=== PATIENT | male | born 1950 | race Caucasian/White ===

== ENCOUNTER 2020-01-01 19:24 | Observation (INO) | payer MEDICARE, MEDICAID ==
[2020-01-01 19:49] LABS: #Basophils 0.1 thou/uL (0.0-0.2); #Eosinphils 0.1 thou/uL (0.0-0.7); #Lymphocytes 1.9 thou/uL (1.20-3.40); #Monocytes 0.7 thou/uL (0.11-0.59); #Neutrophils 12.6 thou/uL (1.40-6.50); %Basophils 0.7 % (0.0-1.0); %Eosinophils 0.4 % (0.0-10.0); %Lymphocytes 12.3 % (21.0-51.0); %Monocytes 4.7 % (0.0-10.0); %Neutrophils 81.8 % (42.0-75.0); Hemoglobin 16.5 g/dL (14.0-18.0); Mean Corpuscular HGB CONC 33.4 g/dL (32.0-36.0); Mean Corpuscular Hemoglobin 30.2 pg (27.0-31.0); Mean Corpuscular Volume 90.5 fL (78.0-98.0); Platelet Count 252 thou/uL (130-400); RBC Distribution Width 12.6 % (11.5-14.5); Red Blood Cell (RBC) Count 5.47 mill/uL (4.70-6.10); White Blood Cell (WBC) Count 15.3 thou/uL (4.8-10.8)
[2020-01-01 20:11] LABS: ALT (SGPT) 30 U/L (8-55); AST (SGOT) 19 U/L (5-34); Albumin 4.6 g/dL (3.4-4.8); Alkaline Phosphatase 87 U/L (40-110); Anion Gap 17 mmol/L (10-20); BUN (Urea Nitrogen) 33 mg/dL (8.4-25.7); Bilirubin, Total 0.7 mg/dL (0.2-1.2); CK (CPK) 123 U/L (30-200); Calc. Creatinine Clearance 0 mL/min (70-130); Calcium 9.9 mg/dL (7.8-10.44); Carbon Dioxide 21 mmol/L (23-31); Chloride 101 mmol/L (98-107); Estimated GFR-MDRD 44; Globulin 3.4 g/dL (2.4-3.5); Glucose 216 mg/dL (80-115); Lipase 34 U/L (8-78); Potassium 5.6 mmol/L (3.5-5.1); Sodium 133 mmol/L (136-145)
[2020-01-01] MEDS ORDERED: Nitroglycerin 2% Ointment 1 INCH/1 GM Packet ONE (20:33)
--- NOTE | 2020-01-01 21:13 | RAD ---
PORTABLE CHEST: 01/01/20 PROVIDED CLINICAL HISTORY: Shoulder and arm pain. FINDINGS: No comparisons. Cardiac and mediastinal silhouette is within normal limits. The lungs appear clear. No pleural fluid or pneumothorax apparent. IMPRESSION: No evidence for an acute cardiopulmonary process. POS: CHRIS
[2020-01-01] MEDS ORDERED: Nitroglycerin 0.4 MG TAB (25 Tab Bottle) PO PRN (21:46)
[2020-01-01] MEDS ORDERED: Dextrose 5% in Water 1,000 ML IV PRN (21:49)
[2020-01-01] MEDS ORDERED: Dextrose 50% Abboject 50 ML SYRINGE SLOW IVP PRN (21:49)
[2020-01-01] MEDS ORDERED: HumaLOG 300 UNITS/3 ML VIAL SC PRN ×2 (21:49)
--- NOTE | 2020-01-01 22:01 | PDOC.HHP ---
Hospitalist HPI - History of Present Illness Chest pain History of Present Illness: PCP: Larisa The patient is a 69/M with PMH significant for HTN, HLD, DMII, asthma that presents for above complaint. The patient reports developing right arm pain, onset around 1700, while sitting down at home, radiating to right chest and right side of neck, describes as pressure, dull, 5/10, exacerbated with movement of extremity, with associated nausea and light headededness. Denies any heart palpitations, orthopnea or Lower extremity swelling. Denies any sob or wheezing. Reports having multiple episodes of right arm pain over the past month. The pain is similar and is associated with weakness. Denies any neck pain, injury or trauma. Reports having Carotid US in 2015 that he believes showed approximately 60% stenosis to his left carotid artery. Because of the above reasons the patient called EMS. The patient took 325mg ASA x 2 and 0.25mg xanax prior to EMS arrival. ED Course: VS T 98.1F, BP 145/80, HR 72, RR 16, Sp02 95% RA EKG NSR, no ST elevations Trop negative CXR no acute cardiopulmonary process K 5.6 Na 133 Creatinine 1.57 GFR 64 WBC 15.3 Given: 1 inch nitro-paste with resolution of symptoms. Hospitalist ROS - Review of Systems Constitutional: denies: fever, chills, sweats, weakness, malaise, other Eyes: denies: pain, vision change, conjunctivae inflammation, eyelid inflammation, redness, other ENT: denies: ear pain, ear discharge, nose pain, nose discharge, nose congestion , mouth pain, mouth swelling, throat pain, throat swelling, other Respiratory: denies: cough, dry, shortness of breath, hemoptysis, SOB with excertion, pleuritic pain, sputum, wheezing, other Cardiovascular: reports: chest pain, light headedness. denies: palpitations, orthopnea, paroxysmal noc. dyspnea, edema Gastrointestinal: reports: nausea. denies: vomiting, abdominal pain, diarrhea, constipation, melena, hematochezia Genitourinary: denies: dysuria, frequency, incontinence, hematuria, retention, other Musculoskeletal: reports: neck pain (right sided), shoulder pain (right sided) Neurological: reports: weakness (RUE extremity). 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, retired funeral home attendant Activity level: independent ambulation - Exam General Appearance: NAD, awake alert Eye: anicteric sclera ENT: normocephalic atraumatic Neck: supple, symmetric, no JVD Heart: RRR, no murmur, no gallops, no rubs, normal peripheral pulses Respiratory: CTAB, no wheezes, no rales, no ronchi, no tachypnea Gastrointestinal: soft, non-tender, non-distended, normal bowel sounds, no guarding, no rigidity Extremities: no cyanosis, no edema Skin: no rashes Neurological: cranial nerve grossly intact, no focal deficits Musculoskeletal: normal tone, normal strength Psychiatric: normal affect, A&O x 3 Hospitalist Results - Labs Result Diagrams: 01/01/20 19:42 01/01/20 19:42 Lab results: WBC 15.3 thou/uL (4.8-10.8) H 01/01/20 19:42 Hgb 16.5 g/dL (14.0-18.0) 01/01/20 19:42 Hct 49.5 % (42.0-52.0) 01/01/20 19:42 MCV 90.5 fL (78.0-98.0) 01/01/20 19:42 Plt Count 252 thou/uL (130-400) 01/01/20 19:42 Neutrophils % 81.8 % (42.0-75.0) H 01/01/20 19:42 Sodium 133 mmol/L (136-145) L 01/01/20 19:42 Potassium 5.6 mmol/L (3.5-5.1) H 01/01/20 19:42 Chloride 101 mmol/L (98-107) 01/01/20 19:42 Carbon Dioxide 21 mmol/L (23-31) L 01/01/20 19:42 BUN 33 mg/dL (8.4-25.7) H 01/01/20 19:42 Creatinine 1.57 mg/dL (0.7-1.3) H 01/01/20 19:42 Glucose 216 mg/dL (80-115) H 01/01/20 19:42 Calcium 9.9 mg/dL (7.8-10.44) 01/01/20 19:42 Total Bilirubin 0.7 mg/dL (0.2-1.2) 01/01/20 19:42 AST 19 U/L (5-34) 01/01/20 19:42 ALT 30 U/L (8-55) 01/01/20 19:42 Alkaline Phosphatase 87 U/L (40-110) 01/01/20 19:42 Creatine Kinase 123 U/L (30-200) 01/01/20 19:42 Troponin I Less than 0.010 ng/mL (< 0.028) 01/01/20 19:42 Serum Total Protein 8.0 g/dL (5.8-8.1) 01/01/20 19:42 Albumin 4.6 g/dL (3.4-4.8) 01/01/20 19:42 Lipase 34 U/L (8-78) 01/01/20 19:42 Hospitalist H&P A/P - Problem (1) Chest pain Code(s): R07.9 - CHEST PAIN, UNSPECIFIED Status: Acute Assessment and Plan: Admit to telemetry service, observation status Expected length of stay less than 2 midnights Chest pain resolved upon examination HEART SCORE 5, high risk Trend troponins Continue nitro paste and ASA Check TSH, FLP, Mag level NPO after midnight NM BURR GRINDER tomorrow (2) BLAKE (acute kidney injury) Code(s): N17.9 - ACUTE KIDNEY FAILURE, UNSPECIFIED Status: Acute Assessment and Plan: Creatinine 1.57, GFR 64 Baseline unknown Will start IVF Recheck bmp in am (3) Hyperkalemia Code(s): E87.5 - HYPERKALEMIA Status: Acute Assessment and Plan: Potassium 5.6 EKG NSR, no ST or T wave abnormalities Will give IVF Recheck in am (4) DMII (diabetes mellitus, type 2) Status: Chronic Assessment and Plan: Patient BG 216 upon admission Home levemir 14u SC q am Home medications: glipizide 5mg q am - hold januvia 50mg q am - hold metformin 500mg q am - hold Will be npo after midnight Start Mild sliding scale AC/HS accuchecks (5) HTN (hypertension) Code(s): I10 - ESSENTIAL (PRIMARY) HYPERTENSION Status: Chronic Assessment and Plan: Home med list includes norvasc 10mg q am losartan 50mg q am Will hold losartan for now Will restart norvasc when home meds reconciled by nursing (6) HLD (hyperlipidemia) Code(s): E78.5 - HYPERLIPIDEMIA, UNSPECIFIED Status: Chronic Assessment and Plan: Home medication atorvastatin 40mg q am Will restart in am Will check FLP (7) Asthma Code(s): J45.909 - UNSPECIFIED ASTHMA, UNCOMPLICATED Status: Chronic Assessment and Plan: Stable Takes advair and combivent prn Will add nebs prn (8) Peripheral neuropathy Code(s): G62.9 - POLYNEUROPATHY, UNSPECIFIED Status: Chronic Assessment and Plan: Home medication is Gabapentin 600mg TID Will restart when home medications reconciled. (9) BPH (benign prostatic hyperplasia) Code(s): N40.0 - BENIGN PROSTATIC HYPERPLASIA WITHOUT LOWER URINRY TRACT SYMP Status: Chronic Assessment and Plan: Home medication is Tamulosin 0.4mg q am Will restart when home medications reconciled by nursing. - Plan Plan: Pepcid GI prophylaxis SCDs for DVT prophylaxis Consult walking program Full Code DPOA is daughter, Jennifer at [phone] Boucher.
[2020-01-02 00:01] VITALS: BMI 32.1
[2020-01-02] MEDS: Sodium Chloride 0.9% 1,000 ML IV SCH ×2 (00:16→11:56)
[2020-01-02] MEDS: Nitroglycerin 2% Ointment 1 INCH/1 GM Packet TOP SCH ×3 (01:46→13:29)
[2020-01-02 02:21] LABS: #Basophils 0.1 thou/uL (0.0-0.2); #Eosinphils 0.1 thou/uL (0.0-0.7); #Lymphocytes 4.6 thou/uL (1.20-3.40); %Basophils 0.7 % (0.0-1.0); %Eosinophils 0.9 % (0.0-10.0); %Lymphocytes 30.9 % (21.0-51.0); %Monocytes 6.5 % (0.0-10.0); %Neutrophils 61.1 % (42.0-75.0); Hemoglobin 15.1 g/dL (14.0-18.0); Mean Corpuscular HGB CONC 34.1 g/dL (32.0-36.0); Mean Corpuscular Hemoglobin 30.7 pg (27.0-31.0); Mean Corpuscular Volume 89.8 fL (78.0-98.0); Mean Platelet Volume 6.8 fL (7.4-10.4); Platelet Count 218 thou/uL (130-400); RBC Distribution Width 12.6 % (11.5-14.5); Red Blood Cell (RBC) Count 4.93 mill/uL (4.70-6.10); White Blood Cell (WBC) Count 14.7 thou/uL (4.8-10.8)
[2020-01-02 02:44] LABS: Troponin I 0.015 ng/mL (< 0.028)
[2020-01-02 02:47] LABS: Anion Gap 11 mmol/L (10-20); BUN (Urea Nitrogen) 27 mg/dL (8.4-25.7); Calc. Creatinine Clearance 84 mL/min (70-130); Calcium 9.4 mg/dL (7.8-10.44); Carbon Dioxide 24 mmol/L (23-31); Cardiac Risk 3.8 (Less than 4.5); Chloride 103 mmol/L (98-107); Cholesterol 176 mg/dl (< 200 Desired); Estimated GFR-MDRD 56; Glucose 175 mg/dL (80-115); HDL Cholesterol 46 mg/dL (>60 Neg Risk); LDL Cholesterol, Calculated 115 mg/dL; Potassium 4.2 mmol/L (3.5-5.1); Sodium 134 mmol/L (136-145); Triglycerides 76 mg/dL (Less than 150)
[2020-01-02] MEDS ORDERED: Regadenoson 0.4 MG/5 ML SYRINGE ONE (08:46)
[2020-01-02] MEDS ORDERED: Aspirin 81 mg Enteric Coated Tablet PO SCH (09:00)
[2020-01-02] MEDS ORDERED: Famotidine 20 MG TAB PO SCH (09:00)
[2020-01-02] MEDS ORDERED: Prevnar 13-Val Conj/PF 0.5 ML SYRINGE IM ONE (09:00)
[2020-01-02 11:14] VITALS: BP 143/73; TEMP 97.6
--- NOTE | 2020-01-02 11:25 | NM ---
EXAM: NM Cardiac Stress W EF WF PROVIDED CLINICAL HISTORY: Chest pain COMPARISON: None FINDINGS: There is normal uptake and distribution of radiotracer seen throughout the left ventricular myocardiu m. No significant reversible defect is seen between the stress and resting acquisitions. Gated images demonstrate global hypokinesis. Normal ventricular wall thickening is present. The calculated left ventricular ejection fraction is 48%. IMPRESSION: 1. Normal myocardial perfusion study without evidence of a reversible defect seen to suggest ischemia . 2. Decreased LVEF of 48%.
--- NOTE | 2020-01-02 12:39 | RAD ---
Exam:Right shoulder 3 views HISTORY: Lifting injury. Pain. COMPARISON: None FINDINGS: Mild narrowing of the glenohumeral joint space. There is evidence of osteophyte formation. Sclerosis and lucency involving the greater tuberosity. Correlate for tendinopathy. No fracture or dislocation. Visualized right lung and ribs do not demonstrate any acute abnormality IMPRESSION: 1. No fracture dislocation 2. Degenerative changes. Nonemergent MRI if warranted
--- NOTE | 2020-01-02 12:42 | RAD ---
Exam: Soft tissue neck 2 views HISTORY: Neck pain FINDINGS: No prevertebral soft tissue swelling. Predental space is normal. Visualized aerodigestive t ract is patent. Visualized cervical spine vertebral body heights are maintained. No fracture. Mild to moderate loss o f disc space height and osteophyte formation at C4 to C5. Extensive osteophyte formation at C5-C6 and C6-C7. Grade 1 anterolisthesis of C2 upon C3. AP projection demonstrates facet arthropathy. Soft tissue calcifications due to atherosclerosis are s uspected IMPRESSION: Multilevel degenerative changes. Nonemergent cervical spine MRI if clinically warranted
--- NOTE | 2020-01-03 23:28 | DIS ---
DATE OF ADMISSION: 01/01/2020 DATE OF DISCHARGE: 01/02/2020 DISCHARGE DIAGNOSES: 1. Right-sided shoulder pain secondary to osteoarthritis 2. Neck pain secondary to osteoarthritis 3. Chest pain 4. Leukocytosis 5. Hyponatremia, 6. Anterolisthesis on C2 and C3.. CONSULTATIONS: None. PROCEDURES PERFORMED: None. BRIEF HISTORY OF PRESENT ILLNESS: This is a 69-year-old male with a past medical history of hypertension, hyperlipidemia, diabetes, who presented due to right arm pain that started while he was sitting down, was radiating to his chest and right side of his neck. He denied any shortness of breath, wheezing, diaphoresis, lightheadedness, or palpitations. He reports that this has been going on and off for the past few months and that he had ultrasound of his carotid arteries, which was 60% stenosis in the left side. His EKG showed normal sinus rhythm and no ST elevations. He was admitted for chest pain rule out. HOSPITAL COURSE: Chest pain: The patient underwent a nuclear stress test, which was normal. He did have a decreased LVEF of 48%. He had 3 sets of troponins, which were normal. It was thought that his chest pain more likely may be musculoskeletal, possibly referred from the shoulder. He was advised that he can take [id number] Tylenol or ibuprofen as needed. He should follow up with his PCP in a week. He did have a chest x-ray as well that was unremarkable. Osteoarthritis of the neck and shoulder: The patient reported pain in his right shoulder and pain while lifting his arms up. He also reported some mild neck pain. He had a shoulder x-ray done, which showed degenerative changes. He had a soft tissue neck x-ray showing multilevel degenerative changes. He was advised to take pain medications as an outpatient and consider following up with Neurosurgery due to some grade 1 anterolisthesis of C2 upon C3. Leukocytosis: The patient had a white count of 15.3 on presentation, which improved to 14.7. He did not receive any antibiotics. He was afebrile. This should be repeated as an outpatient. DISCHARGE PHYSICAL EXAMINATION: VITAL SIGNS: Temperature 97.6, heart rate 59, respiratory rate 20, O2 saturation 96% on room air, blood pressure 143/73. GENERAL: The patient is alert, awake, oriented x3. CVS: Regular rate and rhythm with no murmurs, rubs, or gallops. LUNGS: Clear to auscultation bilaterally. ABDOMEN: Positive bowel sounds, soft, nontender, and nondistended. EXTREMITIES: No edema. NECK: The patient has mild tenderness to palpation, paraspinally on the right side of the neck. RIGHT SHOULDER: Slightly tender to palpation with pain when abducting the shoulder above 90 degrees. PERTINENT LABORATORY DATA: CBC 01/01: White count 14.3, hemoglobin 15.1, hematocrit 44.3, platelet count 218. BMP 01/01: Sodium 134. Rest of BMP unremarkable. Troponin I: 0.010, 0.016, 0.015. Lipid panel: Triglycerides 76, cholesterol 176, LDL 115, HDL 46. Lipase: 34. TSH: 0.5185. IMAGING: Chest x-ray 12/31: No evidence of acute disease. Stress test: Normal myocardial perfusion scan. Decreased LVEF of 40%. Shoulder x-ray 01/01: No fracture dislocation. Degenerative changes. Soft tissue neck x-ray 01/01: Multilevel degenerative changes. DISCHARGE CONDITION: Stable. ACTIVITY: As tolerated. DIET: Regular diet. DISCHARGE INSTRUCTIONS: The patient to follow up with his PCP in a week. He should have repeat CBC to further evaluate leukocytosis. He is to sitter following up with Neurosurgery as an outpatient. He continues to have severe neck pain and arm weakness. Job ID: [id number] [facility]
--- NOTE | 2020-01-04 09:49 | EKG ---
Test Reason : Blood Pressure : / mmHG Vent. Rate : 086 BPM Atrial Rate : 086 BPM P-R Int : 150 ms QRS Dur : 094 ms QT Int : 340 ms P-R-T Axes : 017 012 039 degrees QTc Int : 406 ms Normal sinus rhythm Normal ECG Confirmed by ROHAN KIDD DO ([id number]), slot editor CLARITA MCFARLANE ([id number]) on 01/04/2020 9:49:26 AM Referred By: Confirmed By:ROHAN KIDD DO
== END 2020-01-02 14:26 | disposition home or self-care (01) ==
LOC: ERS 19:24 → 2NO 21:47
PROVIDERS: ADMIT Internal Medicine; ATTEND Internal Medicine
DX: R07.9 Chest pain, unspecified (principal); M19.011 Primary osteoarthritis, right shoulder; D72.828 Other elevated white blood cell count; I10 Essential (primary) hypertension; E11.9 Type 2 diabetes mellitus without complications; N17.9 Acute kidney failure, unspecified; E78.5 Hyperlipidemia, unspecified; J44.9 Chronic obstructive pulmonary disease, unspecified; E11.42 Type 2 diabetes mellitus with diabetic polyneuropathy; F41.9 Anxiety disorder, unspecified; F32.9 Major depressive disorder, single episode, unspecified; E87.5 Hyperkalemia; N40.0 Benign prostatic hyperplasia without lower urinary tract symptoms; Z79.4 Long term (current) use of insulin; Z79.899 Other long term (current) drug therapy
CPT/HCPCS: 70360; 71045; 73030; 78452; 80048; 80061; 82550; 82962; 83690; 83735; 84484 ×3; 85025; 93005; 93017; 96360; 96361; 99285; A9500; G0378 ×3; 36415; 36416; 80053; 84443; J2785

== ENCOUNTER 2020-06-23 13:03 | Outpatient (CLI) | payer MEDICARE, MEDICAID ==
--- NOTE | 2020-06-23 13:38 | RAD ---
XR Chest Pa Lat STANDARD HISTORY: Dyspnea COMPARISON: 01/01/2020 FINDINGS: The heart size is normal. The lungs are well expanded without focal areas of consolidation, pneumothorax or pleural effusions. There are degenerative changes in the spine. IMPRESSION: No radiographic evidence of acute cardiopulmonary process.
== END 2020-06-23 13:04 | disposition home or self-care (01) ==
LOC: BICRAD 13:03
PROVIDERS: ATTEND Internal Medicine Critical Care Medicine
DX: R06.00 Dyspnea, unspecified (principal)
CPT/HCPCS: 71046

== ENCOUNTER 2020-07-06 09:46 | Inpatient (IN) | payer MEDICARE, MEDICAID ==
[2020-07-06] MEDS ORDERED: Ondansetron PF 4 MG/2 ML Vial IVP PRN (13:18)
[2020-07-06] MEDS ORDERED: Ondansetron ODT 4 MG TAB PO PRN (13:18)
[2020-07-06] MEDS ORDERED: Dextrose 5% in Water 1,000 ML IV PRN (13:24)
[2020-07-06] MEDS ORDERED: Dextrose 50% Abboject 50 ML SYRINGE SLOW IVP PRN (13:24)
--- NOTE | 2020-07-06 14:09 | HP ---
CHIEF COMPLAINT: Worsening breathing. HISTORY OF PRESENT ILLNESS: This is a 69-year-old male, who has been hospitalized at [facility] since July 02, 2020 for COVID pneumonia. The patient presented there complaining of fevers, chills, increased work of breathing and exposure to COVID. He was hospitalized, treated for pneumonia with azithromycin and Rocephin, nebulizer therapy, steroids. His breathing status has worsened and he has been requiring more oxygen per the physician taking care of him. For this reason, he was transferred over to this facility. The patient reports intermittent headache, chest pain associated with coughing, and cough that is at times productive. He does notice shortness of breath. States that his breathing feels worse compared to when he was 1st hospitalized. He denies any nausea, vomiting, abdominal pain, denies any difficulty with urination or change in bowel function. Prior to leaving [place], the patient did undergo CT angiogram which was indeterminant for PE. PAST MEDICAL HISTORY: 1. Diabetes mellitus type 2. 2. Dyslipidemia. 3. Hypertension. 4. Asthma. 5. BPH. 6. Dyslipidemia. 7. Mood disorder. PAST SURGICAL HISTORY: History of appendectomy. SOCIAL HISTORY: The patient reports his daughter Jennifer is his surrogate decision maker. He is a full code. No alcohol or tobacco. ALLERGIES: NO KNOWN DRUG ALLERGIES. FAMILY HISTORY: Significant for diabetes and heart disease. MEDICATIONS: Current medications that he was transferred with are; 1. Dexamethasone 6 mg daily. 2. D50, Humalog sliding scale. 3. Enoxaparin 40 mg daily. 4. Guaifenesin ER 1200 mg b.i.d. 5. Pantoprazole 40 mg daily. 6. Albuterol every 6 hours. 7. Ceftriaxone 1 g IV daily. 8. Tylenol 650 mg every 4 hours as needed. 9. Tramadol 50 mg every 6 hours as needed. 10. Azithromycin 500 mg IV daily. 11. Zofran 4 mg every 6 hours as needed. Home medications are; 1. Advair 250-50 b.i.d. 2. Combivent every 6 hours. 3. Atorvastatin 40 mg at bedtime. 4. Glipizide 5 mg daily. 5. Levemir 14 units daily. 6. Prozac 40 mg daily. 7. Losartan 50 mg daily. 8. Amlodipine 10 mg daily. 9. Metformin 500 mg daily. 10. Tamsulosin 0.4 mg daily. REVIEW OF SYSTEMS: Negative for any current fevers or chills, nausea, vomiting, change in urine. All remaining review of systems are reviewed and negative. PHYSICAL EXAMINATION: VITAL SIGNS: His sat 98% on 5 L nasal cannula, pulse 88, blood pressure 138/69. GENERAL: He is awake, alert, responsive, not in apparent distress. Able to speak in full sentences. HEENT: Pupils are equal and round. NECK: Supple, nontender. LYMPHATICS: No palpable cervical or supraclavicular lymphadenopathy. LUNGS: No significant wheezing, rhonchi, or rales. HEART: Normal S1, S2. Distant heart sounds. No audible murmurs. ABDOMEN: Soft. Present bowel sounds. Nontender, nondistended. EXTREMITIES: No edema. VASCULAR: 2+ dorsalis pedis pulses. NEURO: No focal deficits. PSYCH: Appears euthymic. SKIN: No visible rashes. LABORATORY DATA: Reviewed from today. CBC from yesterday 12.9, 13, 38.8, 151. Chemistry; 136, 3.7, 102, 22, 17, 0.95, 112. COVID positive was on July 02. CT angiogram performed today shows indeterminate study for PE, severe bilateral patchy ground-glass infiltrates in all lobes consistent with the diagnosis of COVID infection, significant coronary atherosclerosis, particularly in the LAD, liver seen incompletely, but the size is generous. IMPRESSION: 1. Acute hypoxic respiratory failure secondary to COVID pneumonia - worsening. 2. Diabetes mellitus type 2. 3. Hypertension. 4. Dyslipidemia. 5. Asthma. 6. BPH. 7. Mood disorder. PLAN: 1. Admission to the ICU. 2. ID and Pulmonology consults. 3. Continuing short-acting and long-acting bronchodilators as well as inhaled steroids. 4. We will continue dexamethasone, await ID recommendations for further treatment. 5. Continuing his long-acting insulin, monitoring blood sugars. We will hold his glipizide, metformin, and Januvia for now. 6. Continuing his statin. 7. Holding his antihypertensives, we will monitor his blood pressure here and add back as it is needed. 8. Continuing the Rocephin and the azithromycin for pneumonia, anticipate that these can be stopped soon. 9. I will continue his home fluoxetine. 10. DVT prophylaxis. Because of the COVID, we will choose b.i.d. 40 mg subcutaneous. 11. GI prophylaxis. We will have the patient on a PPI while he is on steroids. 12. Code status is full. Surrogate decision maker is his daughter as noted. 13. Reviewed the plan of care with the patient who demonstrates understanding and agrees. No questions or further needs at the end of evaluation. 14. The patient is at high risk given age, comorbidities, current presentation and the unpredictability associated with COVID. Job ID: [id number] [facility]
[2020-07-06] MEDS ORDERED: Albuterol Sulfate 2.5 mg/3 ml Neb IPPB SCH (14:30)
[2020-07-06] MEDS ORDERED: guaiFENesin ER 600 MG TAB PO PRN (14:44)
[2020-07-06] MEDS ORDERED: cefTRIAXone\\ROCEPHIN 1 GM in Sodium Chloride 0.9% 100 ML IVPB SCH (15:00)
[2020-07-06] MEDS: Gabapentin 300 MG CAP PO SCH ×2 (15:08→20:24)
--- NOTE | 2020-07-06 15:17 | CON ---
DATE OF CONSULTATION: 07/06/2020 TIME SPENT: This encompassed 75 minutes time. Of that time, greater than 50% spent with the patient and/or the patient's unit in the hospital. REASON FOR CONSULTATION: COVID-19 pneumonia with acute hypoxic respiratory failure. HISTORY OF PRESENT ILLNESS: The patient is a pleasant 69-year-old male, whom I have seen in the office in the past regarding his asthma. On 07/02/2020, he was admitted to the [facility] with fever up to 103 with hypoxia and tachycardia. He was initially started on Zithromax, Rocephin, and dexamethasone. Despite that, he is continued to worsen symptomatically in terms of shortness of breath, although there is no real clear worsening of his O2 sats according to the charting. I think today, there was erroneous O2 saturation that led to his transfer over here, but he is now on 3 L nasal cannula with O2 saturations in the mid 90s. He has not had much in the way of cough, just mainly shortness of breath. PAST MEDICAL HISTORY: 1. Type 2 diabetes mellitus, now insulin dependent. 2. Hyperlipidemia. 3. Hypertension. 4. Asthma. 5. Benign prostatic hypertrophy. PAST SURGICAL HISTORY: 1. Appendectomy. 2. Colonoscopy. SOCIAL HISTORY: Nonsmoker. Does not consume alcohol. ALLERGIES: NONE. FAMILY MEDICAL HISTORY: Unremarkable. MEDICATIONS PRIOR TO ADMISSION: 1. Advair 250/50. 2. Combivent. 3. Atorvastatin. 4. Glipizide. 5. Levemir insulin. 6. Prozac. 7. Losartan. 8. Amlodipine. 9. Metformin. 10. Tamsulosin. REVIEW OF SYSTEMS: Essentially negative except for cough and shortness of breath. PHYSICAL EXAMINATION: VITAL SIGNS: Temperature 98, O2 saturation 95% on 3 L, pulse 86, blood pressure 138/69. GENERAL: The patient is awake and alert without acute distress, but appears clearly dyspneic at rest. HEENT: Pupils reactive. Sclerae anicteric. Oropharynx clear. NECK: No adenopathy or JVD. LUNGS: He has inspiratory crackles bilaterally, most significant at posteriorly. CARDIOVASCULAR: S1 and S2, regular without murmur. ABDOMEN: Soft. Nontender to palpation. EXTREMITIES: No clubbing or cyanosis. He has an area of bruising medially on his right great toe, which he says is chronic. LABORATORY DATA: Sodium 136, potassium 3.7, chloride 102, CO2 of 22, BUN 17, creatinine 0.9, glucose 112, AST 11, ALT 19, and albumin 3.4. COVID test positive. No inflammatory markers obtained. White blood cell count 12.9, hematocrit 38.8, and platelet count 151. CT shows diffuse bilateral infiltrates and a patchy alveolar pattern. ASSESSMENT: 1. COVID-19 pneumonia. 2. Diabetes mellitus. RECOMMENDATIONS: I am going to go ahead and switch dexamethasone to hydrocortisone. He probably needs an increase in his anticoagulation to a more therapeutic level. I do not see much role for the antibiotics in this situation as he has been on these for 4 to 5 days at this point without improvement and I would have no problem with the antibiotics being stopped. I would ask the hospitalist to help strictly control his blood sugars while he is on the higher dose steroids. Right now, this patient does not need mechanical ventilation or intubation. Thank you for the referral. I will be happy to follow with you. Job ID: [id number]
[2020-07-06] MEDS ORDERED: Azithromycin 500 MG in Sodium Chloride 0.9% 250 ML 250 ML IVPB SCH (16:00)
[2020-07-06] MEDS: Hydrocortisone Sod Succ/PF 100 mg/2 ml Vial IVP SCH ×2 (17:43→23:20)
[2020-07-06] MEDS: Albuterol 200 PUFF (6.7GM INHALER) INH SCH ×2 (19:22→22:31)
[2020-07-06] MEDS: Mometasone 200 MCG/Formoterol 5 MCG 120 PUFF INHALER INH SCH (19:22)
[2020-07-06] MEDS: Atorvastatin Calcium 40 MG TAB PO SCH (20:24)
[2020-07-06] MEDS: Enoxaparin Sodium 80 MG/0.8 ML SYRINGE SC SCH (20:25)
[2020-07-06] MEDS: traMADol HCl 50 MG TAB PO PRN (20:42)
[2020-07-06] MEDS: HumaLOG 300 UNITS/3 ML VIAL SC PRN (20:43)
[2020-07-06] MEDS ORDERED: Enoxaparin Sodium 40 MG/0.4 ML SYRINGE SC SCH (21:00)
[2020-07-07] MEDS: Albuterol 200 PUFF (6.7GM INHALER) INH SCH ×4 (02:54→14:24)
[2020-07-07 03:57] LABS: #Lymphocytes 0.9 thou/uL (1.20-3.40); #Monocytes 0.6 thou/uL (0.11-0.59); #Neutrophils 13.6 thou/uL (1.40-6.50); %Basophils 0.1 % (0.0-1.0); %Eosinophils 0.1 % (0.0-10.0); %Lymphocytes 5.9 % (21.0-51.0); %Monocytes 4.1 % (0.0-10.0); %Neutrophils 89.8 % (42.0-75.0); Hemoglobin 13.1 g/dL (14.0-18.0); Mean Corpuscular HGB CONC 33.7 g/dL (32.0-36.0); Mean Corpuscular Hemoglobin 30.1 pg (27.0-31.0); Mean Corpuscular Volume 89.2 fL (78.0-98.0); Mean Platelet Volume 7.9 fL (7.4-10.4); Platelet Count 198 thou/uL (130-400); Red Blood Cell (RBC) Count 4.35 mill/uL (4.70-6.10); White Blood Cell (WBC) Count 15.2 thou/uL (4.8-10.8)
[2020-07-07 04:19] LABS: Anion Gap 13 mmol/L (10-20); BUN (Urea Nitrogen) 21 mg/dL (8.4-25.7); Calc. Creatinine Clearance 100 mL/min (70-130); Calcium 8.2 mg/dL (7.8-10.44); Carbon Dioxide 24 mmol/L (23-31); Chloride 100 mmol/L (98-107); Estimated GFR-MDRD 65; Glucose 238 mg/dL (80-115); Potassium 4.5 mmol/L (3.5-5.1); Sodium 132 mmol/L (136-145)
[2020-07-07] MEDS: Hydrocortisone Sod Succ/PF 100 mg/2 ml Vial IVP SCH ×3 (05:06→18:07)
[2020-07-07] MEDS: Acetaminophen 325 MG TAB PO PRN (05:19)
[2020-07-07] MEDS: HumaLOG 300 UNITS/3 ML VIAL SC PRN ×4 (05:20→21:36)
[2020-07-07] MEDS: FLUoxetine HCl 20 MG CAP PO SCH (07:33)
[2020-07-07] MEDS: Tamsulosin HCl 0.4 MG CAP PO SCH (07:33)
[2020-07-07] MEDS: Gabapentin 300 MG CAP PO SCH ×3 (07:33→20:04)
[2020-07-07] MEDS: Enoxaparin Sodium 80 MG/0.8 ML SYRINGE SC SCH ×2 (07:34→21:11)
[2020-07-07] MEDS: Mometasone 200 MCG/Formoterol 5 MCG 120 PUFF INHALER INH SCH ×2 (07:44→18:49)
--- NOTE | 2020-07-07 08:25 | PRG ---
DATE OF SERVICE: 07/07/2020 SUBJECTIVE: Mr. Gray has worsened from an oxygenation standpoint on 5 L of O2 saturations running in the low 80s. He says he feels more distinct than yesterday. OBJECTIVE: VITAL SIGNS: On exam, temperature 98.6, pulse 82, blood pressure 120/49, and respiratory rate 19. HEENT: Unremarkable. NECK: No adenopathy or JVD. LUNGS: He has scattered crackles posteriorly. CARDIAC: S1 and S2. Regular. ABDOMEN: Soft. EXTREMITIES: No edema. LABORATORY DATA: Sodium 132, potassium 4.5, chloride 100, CO2 of 24, BUN 21, creatinine 1.1, and glucose 238. Ferritin 525. C-reactive protein 11.1. White blood cell count 15.5, hematocrit 38.8, and platelet count 198. ASSESSMENT: 1. COVID-19 pneumonia. 2. Acute hypoxic respiratory failure. RECOMMENDATIONS: 1. Continue anticoagulation and steroids. 2. I am going to put him on high-flow nasal cannula. 3. Continue ICU care. Job ID: [id number]
[2020-07-07] MEDS: Ascorbic Acid 500 mg Chewable Tablet PO SCH (08:32)
[2020-07-07] MEDS: Zinc Sulfate 220 MG CAP PO SCH (08:33)
[2020-07-07] MEDS: Cholecalciferol (Vitamin D3) 400 UNITS TAB PO SCH (08:53)
[2020-07-07] MEDS ORDERED: Insulin Glargine 14 UNITS in Pre-Filled Syringe 1 EACH SC SCH (09:00)
[2020-07-07] MEDS ORDERED: Dexamethasone 1 MG TAB PO SCH (09:00)
--- NOTE | 2020-07-07 14:10 | PDOC.HOSPP ---
- Subjective Encounter Date: 07/07/20 Encounter Time: 11:45 Subjective: awake, on high flow O2 is eating well per staff, is ambulating around bed - Objective Vital Signs & Weight: Vital Signs (12 hours) Temp Pulse Ox 07/07/20 14:00 98.1 F 07/07/20 10:26 97 07/07/20 08:27 9 L 07/07/20 08:00 98.0 F 94 L 07/07/20 07:45 95 07/07/20 04:00 98.6 F Weight Weight 244 lb 11.41 oz Most Recent Monitor Data Heart Rate from ECG 83 NIBP 155/77 NIBP BP-Mean 103 Respiration from ECG 28 SpO2 88 I&O: 07/06/20 07/07/20 07/08/20 06:59 06:59 06:59 Intake Total 1910 1150 Output Total 1770 650 Balance 140 500 Result Diagrams: 07/07/20 03:17 07/07/20 03:17 Additional Labs: Accuchecks 07/07/20 07/06/20 07/06/20 05:10 20:31 15:22 POC Glucose 239 H 287 H 241 H Hospitalist ROS - Medication Medications: Active Medications Generic Name Dose Route Start Last Admin Trade Name Freq PRN Reason Stop Dose Admin Acetaminophen 650 mg 07/06/20 13:18 07/07/20 05:19 Acetaminophen 325 Mg Tab PO 650 mg Q6H PRN Administration Headache/Fever/Mild Pain (1-3) Albuterol Sulfate 2 puff 07/06/20 18:30 07/07/20 10:26 Albuterol 200 Puff (6.7gm Inhaler) INH 2 puff [id number] GALEN Administration Ascorbic Acid 1,000 mg 07/07/20 09:00 07/07/20 08:32 Ascorbic Acid 500 Mg Chewable Tablet PO 1,000 mg DAILY GALEN Administration Atorvastatin Calcium 40 mg 07/06/20 21:00 07/06/20 20:24 Atorvastatin Calcium 40 Mg Tab PO 40 mg HS GALEN Administration Cholecalciferol 400 units 07/07/20 09:00 07/07/20 08:53 Cholecalciferol (Vitamin D3) 400 Units Tab PO 400 units DAILY GALEN Administration Enoxaparin Sodium 80 mg 07/06/20 21:00 07/07/20 07:34 Enoxaparin Sodium 80 Mg/0.8 Ml Syringe SC 80 mg 0900,2100 GALEN Administration Fluoxetine HCl 40 mg 07/07/20 09:00 07/07/20 07:33 Fluoxetine Hcl 20 Mg Cap PO 40 mg DAILY GALEN Administration Gabapentin 600 mg 07/06/20 15:00 07/07/20 07:33 Gabapentin 300 Mg Cap PO 600 mg TID GALEN Administration Hydrocortisone Sodium Succinate 100 mg 07/06/20 18:00 07/07/20 11:24 Hydrocortisone Sod Succ/Pf 100 Mg/2 Ml Vial IVP 100 mg Q6HR GALEN Administration Insulin Glargine 14 units/ 0.14 mls @ 0 mls/hr 07/07/20 09:00 07/07/20 07:34 Miscellaneous Medication SC 0.14 mls QAM GALEN Administration Insulin Human Lispro 0 units 07/06/20 13:24 07/06/20 20:43 Humalog 300 Units/3 Ml Vial SC 3 unit .BEDTIME SLIDING SC PRN Administration Bedtime Correctional Scale Insulin Human Lispro 0 units 07/06/20 13:24 07/07/20 11:26 Humalog 300 Units/3 Ml Vial SC 8 unit .MODERATE SLIDING SC PRN Administration Moderate Correctional Scale Mometasone Furoate/Formoterol Fumar 2 puff 07/06/20 18:30 07/07/20 07:44 Mometasone 200 Mcg/Formoterol 5 Mcg 120 Puff Inhaler INH 2 puff BID-RT GALEN Administration Pantoprazole Sodium 40 mg 07/07/20 09:00 07/07/20 07:33 Pantoprazole 40 Mg Tab PO 40 mg DAILY GALEN Administration Tamsulosin HCl 0.4 mg 07/07/20 09:00 07/07/20 07:33 Tamsulosin Hcl 0.4 Mg Cap PO 0.4 mg DAILY GALEN Administration Tramadol HCl 50 mg 07/06/20 13:26 07/06/20 20:42 Tramadol Hcl 50 Mg Tab PO 50 mg Q6H PRN Administration Moderate Pain (4-6) Zinc Sulfate 220 mg 07/07/20 09:00 07/07/20 08:33 Zinc Sulfate 220 Mg Cap PO 220 mg DAILY GALEN Administration - Exam General Appearance: awake alert Eye: PERRL, anicteric sclera ENT: normocephalic atraumatic, moist mucosa Neck: supple, no JVD Heart: RRR, no murmur Respiratory: no wheezes, rales, rhonchi Gastrointestinal: soft, non-tender, non-distended, normal bowel sounds Extremities: no cyanosis, no edema Neurological: cranial nerve grossly intact, no focal deficits Psychiatric: normal affect, A&O x 3 Hosp A/P (1) Acute respiratory failure with hypoxia Code(s): J96.01 - ACUTE RESPIRATORY FAILURE WITH HYPOXIA Status: Acute (2) Pneumonia due to COVID-19 virus Code(s): U07.1 - COVID-19; J12.89 - OTHER VIRAL PNEUMONIA Status: Acute (3) Asthma Code(s): J45.909 - UNSPECIFIED ASTHMA, UNCOMPLICATED Status: Chronic Qualifiers: Asthma severity: mild Asthma persistence: intermittent Asthma complication type: uncomplicated Qualified Code(s): J45.20 - Mild intermittent asthma, uncomplicated (4) BPH (benign prostatic hyperplasia) Code(s): N40.0 - BENIGN PROSTATIC HYPERPLASIA WITHOUT LOWER URINRY TRACT SYMP Status: Chronic Qualifiers: Lower urinary tract symptom presence: unspecified whether lower urinary tract symptoms present Qualified Code(s): N40.0 - Benign prostatic hyperplasia without lower urinary tract symptoms (5) DMII (diabetes mellitus, type 2) Status: Chronic Qualifiers: Diabetes mellitus chcf insulin use: with chcf use (6) HLD (hyperlipidemia) Code(s): E78.5 - HYPERLIPIDEMIA, UNSPECIFIED Status: Chronic Qualifiers: Hyperlipidemia type: unspecified Qualified Code(s): E78.5 - Hyperlipidemia, unspecified (7) HTN (hypertension) Code(s): I10 - ESSENTIAL (PRIMARY) HYPERTENSION Status: Chronic Qualifiers: Hypertension type: essential hypertension Qualified Code(s): I10 - Essential (primary) hypertension (8) Peripheral neuropathy Code(s): G62.9 - POLYNEUROPATHY, UNSPECIFIED Status: Chronic - Plan is on nebs, steroids, full dose lovenox and high flow O2 continue lantus home dose plus add 20 u HS, lipitor and flomax keep him active in the room has had progressive decline in saturations from last 4 days prognosis guarded hemostable now
[2020-07-07] MEDS: Lorazepam 2 MG/ML VIAL SLOW IVP PRN ×2 (15:10→21:19)
[2020-07-07] MEDS: traMADol HCl 50 MG TAB PO PRN (20:03)
[2020-07-07] MEDS: Atorvastatin Calcium 40 MG TAB PO SCH (20:04)
[2020-07-07] MEDS: Insulin Glargine 20 UNITS in Pre-Filled Syringe 1 EACH SC SCH (21:12)
[2020-07-08] MEDS: Lorazepam 2 MG/ML VIAL SLOW IVP PRN ×3 (00:01→04:00)
[2020-07-08] MEDS: Hydrocortisone Sod Succ/PF 100 mg/2 ml Vial IVP SCH ×4 (00:01→18:41)
[2020-07-08 06:16] LABS: #Monocytes 0.7 thou/uL (0.11-0.59); %Eosinophils 0.1 % (0.0-10.0); %Lymphocytes 7.6 % (21.0-51.0); %Neutrophils 87.3 % (42.0-75.0); Hemoglobin 12.7 g/dL (14.0-18.0); Mean Corpuscular HGB CONC 31.6 g/dL (32.0-36.0); Mean Corpuscular Volume 91.8 fL (78.0-98.0); Mean Platelet Volume 7.7 fL (7.4-10.4); Platelet Count 220 thou/uL (130-400); RBC Distribution Width 12.1 % (11.5-14.5); Red Blood Cell (RBC) Count 4.38 mill/uL (4.70-6.10); White Blood Cell (WBC) Count 13.8 thou/uL (4.8-10.8)
[2020-07-08 06:34] LABS: Anion Gap 12 mmol/L (10-20); BUN (Urea Nitrogen) 23 mg/dL (8.4-25.7); Calc. Creatinine Clearance 97 mL/min (70-130); Calcium 8.1 mg/dL (7.8-10.44); Carbon Dioxide 24 mmol/L (23-31); Chloride 103 mmol/L (98-107); Estimated GFR-MDRD 63; Glucose 248 mg/dL (80-115); Potassium 4.1 mmol/L (3.5-5.1); Sodium 135 mmol/L (136-145)
[2020-07-08] MEDS: Mometasone 200 MCG/Formoterol 5 MCG 120 PUFF INHALER INH SCH (07:31)
--- NOTE | 2020-07-08 08:25 | RAD ---
PORTABLE CHEST: HISTORY: Pneumonia. CCU followup. COMPARISON: 07/02/2020. FINDINGS: There are now rather extensive confluent bilateral alveolar infiltrates more prominent in the periphe ry of both lungs. These are more extensive in the right lung and are seen in the left mid and lower lung field. Significant progression of the infiltrates when compared to the prior study. IMPRESSION: Bilateral infiltrates which have progressed significantly since the prior exam of 07/02/2020. POS: AGW
[2020-07-08] MEDS ORDERED: Bacteriostatic Normal Saline 30 ML VIAL ONE (08:27)
[2020-07-08] MEDS ORDERED: Vecuronium 10 MG VIAL ONE (08:27)
[2020-07-08] MEDS ORDERED: Ventilator Sedation Protocol 1 EACH FS SCH (08:30)
[2020-07-08] MEDS ORDERED: Propofol 1,000 MG/100 ML VIAL IV ONE (08:36)
[2020-07-08] MEDS ORDERED: Propofol BOLUS 1,000 MG/100 ML VIAL IV PRN (09:00)
[2020-07-08] MEDS ORDERED: DISCONTINUE PREVIOUS NARCOTIC PAIN MEDICATIONS AND BENZODIAZEPINES FS SCH (09:00)
[2020-07-08] MEDS ORDERED: Morphine 2 MG/ML VIAL SLOW IVP PRN (09:00)
[2020-07-08] MEDS ORDERED: Fentanyl BOLUS 250 ML IVPB PRN (09:00)
[2020-07-08 09:04] LABS: Base Excess (BEa) 0.7 mEq/L (-2.0 to +3.0); Calcium, Ionized (arterial) 1.13 mmol/L (1.12-1.30); Carboxyhemoglobin (COHb) 0.6 gm% (0.0-3.0); Hemoglobin (Hb) 13.3 g/dL (14.0-18.0); Potassium - ABG Lab 4.21 mmol/L (3.70-5.30); pH, Arterial 7.43 (7.35-7.45)
[2020-07-08 09:10] LABS: O2 Tension (PaO2), arterial 56.3 mmHg (> 80.0); Puncture Site RRA
--- NOTE | 2020-07-08 09:21 | RAD ---
EXAM: Single view of the chest HISTORY: Covid pneumonia COMPARISON: 07/08/2020 FINDINGS: Single view of the chest shows an enlarged but stable cardiomediastinal silhouette. There is an endotracheal tube with its tip in good position between the clavicles. An NG tube courses off the inferior aspect of the film. Stable diffuse multifocal infiltrates are seen in the lungs. No ple ural effusion or pneumothorax are seen. No acute osseous abnormality. IMPRESSION: 1. Appropriate position of endotracheal tube and NG tube 2. Stable multifocal pneumonia
--- NOTE | 2020-07-08 09:21 | PRG ---
DATE OF SERVICE: 07/08/2020 TIME SPENT: 35 minutes of critical care time. SUBJECTIVE: Mr. Gray had a rough night. He has been on BiPAP and has been removing it in bouts of confusion. He actually called his in middle of the night saying he was short of breath and did not know what to do. PHYSICAL EXAMINATION: VITAL SIGNS: Today, his temperature is 97.7, pulse 82, blood pressure 153/75, and O2 saturation 94% on 80% oxygen via BiPAP. HEENT: Unremarkable. NECK: No JVD. LUNGS: Coarse breath sounds. CARDIAC: S1, S2. Regular. ABDOMEN: Soft. EXTREMITIES: No edema. NEUROLOGIC: He is floridly confused. LABORATORY DATA: Sodium 135, potassium 4.1, chloride 103, CO2 of 24, BUN 23, creatinine 1.2, and glucose 248. White blood cell count 13.8, hematocrit 40.2, and platelet count 220. IMAGING DATA: His x-ray shows worsening bilateral infiltrates. ASSESSMENT: COVID-19 pneumonia with worsening hypoxic respiratory failure and now the beginnings of a COVID-type encephalopathy. PLAN: I spoke with patient's and daughter on the phone. I am recommending intubation for the patient's safety as he has life-threatening hypoxemia and is removing his BiPAP apparatus frequently. The patient's family has agreed to intubation. We will continue anticoagulation and steroids. I told him he would probably be intubated for at least a couple of weeks and that he did have a chance of succumbing to this. I will keep the family informed. Job ID: [id number]
[2020-07-08] MEDS: Vecuronium 10 MG VIAL IVP PRN ×3 (10:10→20:19)
[2020-07-08] MEDS: fentaNYL Citrate/PF 2,000 MCG in Sodium Chloride 0.9% 60 ML IV SCH (10:10)
[2020-07-08] MEDS: HumaLOG 300 UNITS/3 ML VIAL SC PRN ×2 (10:34→15:58)
[2020-07-08 11:46] LABS: Actual Bicarbonate (HCO3a) 23.5 mEq/L (22-28); Base Excess (BEa) -0.6 mEq/L (-2.0 to +3.0); CO2 Tension 36.8 mmHg (35.0-45.0); Calcium, Ionized (arterial) 1.16 mmol/L (1.12-1.30); Carboxyhemoglobin (COHb) 0.2 gm% (0.0-3.0); Hemoglobin (Hb) 12.3 g/dL (14.0-18.0); O2 Tension (PaO2), arterial 79.2 mmHg (> 80.0); Puncture Site RRA; pH, Arterial 7.42 (7.35-7.45)
[2020-07-08] MEDS: Tamsulosin HCl 0.4 MG CAP PO SCH (12:02)
[2020-07-08] MEDS: Zinc Sulfate 220 MG CAP PO SCH (12:02)
[2020-07-08] MEDS: Insulin Glargine 25 UNITS in Pre-Filled Syringe 1 EACH SC SCH (12:02)
[2020-07-08] MEDS: Cholecalciferol (Vitamin D3) 400 UNITS TAB PO SCH (12:02)
[2020-07-08] MEDS: FLUoxetine HCl 20 MG CAP PO SCH (12:03)
[2020-07-08] MEDS: Ascorbic Acid 500 mg Chewable Tablet PO SCH (12:03)
[2020-07-08] MEDS: Enoxaparin Sodium 80 MG/0.8 ML SYRINGE SC SCH ×2 (12:04→20:19)
[2020-07-08] MEDS: Gabapentin 300 MG CAP PO SCH ×3 (12:05→20:19)
[2020-07-08] MEDS: Propofol 1,000 MG/100 ML VIAL IV PRN ×4 (12:10→23:43)
--- NOTE | 2020-07-08 14:28 | PDOC.HOSPP ---
- Subjective Encounter Date: 07/08/20 Encounter Time: 09:00 Subjective: was progressively getting confused overnight and pulling out bipap with spo2 dropping low is getting intubated by anesthesia team now - Objective Vital Signs & Weight: Vital Signs (12 hours) Temp Pulse Pulse Ox 07/08/20 13:57 75 07/08/20 12:00 98 F 07/08/20 11:11 89 07/08/20 07:31 76 07/08/20 05:00 97.7 F 07/08/20 04:00 91 L Weight Weight 244 lb 11.41 oz Most Recent Monitor Data Heart Rate from ECG 77 NIBP 157/84 NIBP BP-Mean 108 Respiration from ECG 18 SpO2 99 I&O: 07/07/20 07/08/20 07/09/20 06:59 06:59 06:59 Intake Total 0 1750 60 Output Total 1769 2024 450 Balance 140 -761 -390 Result Diagrams: 07/08/20 06:06 07/08/20 06:06 Additional Labs: Accuchecks 07/08/20 07/08/20 07/07/20 10:22 05:38 21:17 POC Glucose 249 H 239 H 281 H 07/07/20 18:12 POC Glucose 247 H Hospitalist ROS - Medication Medications: Active Medications Generic Name Dose Route Start Last Admin Trade Name Freq PRN Reason Stop Dose Admin Acetaminophen 650 mg 07/06/20 13:18 07/07/20 05:19 Acetaminophen 325 Mg Tab PO 650 mg Q6H PRN Administration Headache/Fever/Mild Pain (1-3) Albuterol/Ipratropium 3 ml 07/07/20 18:30 07/08/20 13:57 Ipratropium/Albuterol Sulfate 3 Ml Neb NEB 3 ml [id number] GALEN Administration Ascorbic Acid 1,000 mg 07/07/20 09:00 07/08/20 12:03 Ascorbic Acid 500 Mg Chewable Tablet PO 1,000 mg DAILY GALEN Administration Atorvastatin Calcium 40 mg 07/06/20 21:00 07/07/20 20:04 Atorvastatin Calcium 40 Mg Tab PO 40 mg HS GALEN Administration Cholecalciferol 400 units 07/07/20 09:00 07/08/20 12:02 Cholecalciferol (Vitamin D3) 400 Units Tab PO 400 units DAILY GALEN Administration Enoxaparin Sodium 80 mg 07/06/20 21:00 07/08/20 12:04 Enoxaparin Sodium 80 Mg/0.8 Ml Syringe SC 80 mg 0900,2100 GALEN Administration Fluoxetine HCl 40 mg 07/07/20 09:00 07/08/20 12:03 Fluoxetine Hcl 20 Mg Cap PO 40 mg DAILY GALEN Administration Gabapentin 600 mg 07/06/20 15:00 07/08/20 12:05 Gabapentin 300 Mg Cap PO Not Given TID GALEN Hydrocortisone Sodium Succinate 100 mg 07/06/20 18:00 07/08/20 12:06 Hydrocortisone Sod Succ/Pf 100 Mg/2 Ml Vial IVP 100 mg Q6HR GALEN Administration Insulin Glargine 20 units/ 0.2 mls @ 0 mls/hr 07/07/20 21:00 07/07/20 21:12 Miscellaneous Medication SC 0.2 mls HS GALEN Administration Insulin Glargine 25 units/ 0.25 mls @ 0 mls/hr 07/08/20 09:00 07/08/20 12:02 Miscellaneous Medication SC 0.25 mls QAM GALEN Administration Fentanyl Citrate 2,000 mcg/ 100 mls @ 0 mls/hr 07/08/20 09:00 07/08/20 10:10 Sodium Chloride IV 08/07/20 09:00 100 mls INF GALEN Administration Protocol Per Protocol Insulin Human Lispro 0 units 07/06/20 13:24 07/07/20 21:36 Humalog 300 Units/3 Ml Vial SC 3 unit .BEDTIME SLIDING SC PRN Administration Bedtime Correctional Scale Insulin Human Lispro 0 units 07/06/20 13:24 07/08/20 10:34 Humalog 300 Units/3 Ml Vial SC 4 unit .MODERATE SLIDING SC PRN Administration Moderate Correctional Scale Lorazepam 2 mg 07/07/20 15:08 07/08/20 04:00 Lorazepam 2 Mg/Ml Vial SLOW IVP 2 mg Q2H PRN Administration Anxiety Pantoprazole Sodium 40 mg 07/07/20 09:00 07/08/20 12:03 Pantoprazole 40 Mg Tab PO 40 mg DAILY GALEN Administration Tamsulosin HCl 0.4 mg 07/07/20 09:00 07/08/20 12:02 Tamsulosin Hcl 0.4 Mg Cap PO 0.4 mg DAILY GALEN Administration Tramadol HCl 50 mg 07/06/20 13:26 07/07/20 20:03 Tramadol Hcl 50 Mg Tab PO 50 mg Q6H PRN Administration Moderate Pain (4-6) Vecuronium [place] 10 mg 07/08/20 08:26 07/08/20 14:04 Vecuronium 10 Mg Vial IVP 10 mg Q30MIN PRN Administration Agitation Zinc Sulfate 220 mg 07/07/20 09:00 07/08/20 12:02 Zinc Sulfate 220 Mg Cap PO 220 mg DAILY GALEN Administration - Exam General Appearance: ill appearing Eye: PERRL, anicteric sclera ENT: no oropharyngeal lesions, dry oral mucosa Neck: supple, no JVD Heart: RRR, no murmur Respiratory: no wheezes, no rales, rhonchi Gastrointestinal: soft, non-tender, non-distended, normal bowel sounds Extremities: no cyanosis, no edema Neurological: cranial nerve grossly intact, no focal deficits Hosp A/P (1) Acute respiratory failure with hypoxia Code(s): J96.01 - ACUTE RESPIRATORY FAILURE WITH HYPOXIA Status: Acute (2) Pneumonia due to COVID-19 virus Code(s): U07.1 - COVID-19; J12.89 - OTHER VIRAL PNEUMONIA Status: Acute (3) Asthma Code(s): J45.909 - UNSPECIFIED ASTHMA, UNCOMPLICATED Status: Chronic Qualifiers: Asthma severity: mild Asthma persistence: intermittent Asthma complication type: uncomplicated Qualified Code(s): J45.20 - Mild intermittent asthma, uncomplicated (4) BPH (benign prostatic hyperplasia) Code(s): N40.0 - BENIGN PROSTATIC HYPERPLASIA WITHOUT LOWER URINRY TRACT SYMP Status: Chronic Qualifiers: Lower urinary tract symptom presence: unspecified whether lower urinary tract symptoms present Qualified Code(s): N40.0 - Benign prostatic hyperplasia without lower urinary tract symptoms (5) DMII (diabetes mellitus, type 2) Status: Chronic Qualifiers: Diabetes mellitus skilled nursing insulin use: with terminal supervisor use (6) HLD (hyperlipidemia) Code(s): E78.5 - HYPERLIPIDEMIA, UNSPECIFIED Status: Chronic Qualifiers: Hyperlipidemia type: unspecified Qualified Code(s): E78.5 - Hyperlipidemia, unspecified (7) HTN (hypertension) Code(s): I10 - ESSENTIAL (PRIMARY) HYPERTENSION Status: Chronic Qualifiers: Hypertension type: essential hypertension Qualified Code(s): I10 - Essential (primary) hypertension (8) Peripheral neuropathy Code(s): G62.9 - POLYNEUROPATHY, UNSPECIFIED Status: Chronic - Plan is on nebs, steroids, full dose lovenox. Got intubated today due to progressive confusion and hypoxia. continue lantus, lipitor and flomax has had progressive decline in saturations prognosis guarded hemostable now
--- NOTE | 2020-07-08 16:55 | CON ---
DATE OF CONSULTATION: 07/08/2020 REASON FOR CONSULTATION: Severe COVID infection. HISTORY OF PRESENT ILLNESS: A 69-year-old with type 2 diabetes and hypertension history as well as asthma, who had been in [facility] since July 02 for COVID pneumonia and it is not clear what the duration of illness was before this admission there, but anyway, he got worse after treatment with azithromycin, Rocephin, corticosteroids, and inhalers, and he was transferred over here. He is in the ICU now with mechanical ventilation. PAST MEDICAL HISTORY: Type 2 diabetes, dyslipidemia, hypertension, asthma, BPH, mood disorder. PAST SURGICAL HISTORY: Appendectomy. SOCIAL HISTORY: Never smoker. ALLERGIES: NONE. FAMILY HISTORY: Diabetes, coronary artery disease. CURRENT MEDICATIONS: 1. Brovana. 2. Lipitor. 3. Dextrose. 4. Lovenox 80 q.12. 5. Fentanyl. 6. Neurontin. 7. Insulin. 8. Hydrocortisone 100 mg q.6. 9. Propofol. 10. Vecuronium. 11. Zinc. PHYSICAL EXAMINATION: VITAL SIGNS: Normal temperature. Saturating at 91 to 92 with FiO2 of 70%, mechanical ventilation. BP 150/84, heart rate 75. In prone position SKIN: Peripheral IV access. HEENT: Orotracheal intubation. LUNGS: With symmetric air entry. A few insp crackles CARDIOVASCULAR: cannot access due to prone position ABDOMEN: Soft. Not examined due to prone position : Veliz catheter. LABORATORY DATA: Sodium 135, creatinine 1.16. White cell count 13.8, hemoglobin 12.7, MCV 91, platelets 220. ASSESSMENT: Type 2 diabetes, asthma, hypertension, severe COVID pneumonia, this is the second week of illness and after initial admission in [facility], now he is intubated in the ICU here at [facility]. He is not eligible for antiviral treatment mainly because of the degree of ventilatory support requirement. Recent randomized trial, which was the largest trial thus far released, not yet published, but I had a chance of reviewing it, and the only patients that had maybe modest improvement where the ones on room air or low-flow O2 nasal cannula. So, this is in the inflammatory stage of illness and the very high likelihood of poor outcome. Job ID: [id number] MTDD
[2020-07-08] MEDS: Arformoterol 15 MCG/2 ML NEB NEB SCH (18:24)
[2020-07-08] MEDS: Budesonide 0.5 MG/2 ML NEB NEB SCH (18:25)
[2020-07-08] MEDS: Atorvastatin Calcium 40 MG TAB PO SCH (20:20)
[2020-07-08] MEDS: Insulin Glargine 20 UNITS in Pre-Filled Syringe 1 EACH SC SCH (23:42)
[2020-07-09] MEDS: Propofol 1,000 MG/100 ML VIAL IV PRN ×8 (02:05→23:46)
[2020-07-09] MEDS: Hydrocortisone Sod Succ/PF 100 mg/2 ml Vial IVP SCH ×5 (02:05→23:42)
[2020-07-09] MEDS: Vecuronium 10 MG VIAL IVP PRN ×6 (03:05→21:40)
[2020-07-09 03:30] LABS: #Lymphocytes 1.9 thou/uL (1.20-3.40); #Monocytes 0.8 thou/uL (0.11-0.59); #Neutrophils 6.6 thou/uL (1.40-6.50); %Basophils 0.2 % (0.0-1.0); %Eosinophils 0.3 % (0.0-10.0); %Lymphocytes 20.2 % (21.0-51.0); %Monocytes 8.1 % (0.0-10.0); %Neutrophils 71.2 % (42.0-75.0); Hemoglobin 12.5 g/dL (14.0-18.0); Mean Corpuscular HGB CONC 33.4 g/dL (32.0-36.0); Mean Corpuscular Hemoglobin 29.9 pg (27.0-31.0); Mean Corpuscular Volume 89.6 fL (78.0-98.0); Mean Platelet Volume 7.7 fL (7.4-10.4); Platelet Count 233 thou/uL (130-400); RBC Distribution Width 11.8 % (11.5-14.5); Red Blood Cell (RBC) Count 4.16 mill/uL (4.70-6.10); White Blood Cell (WBC) Count 9.2 thou/uL (4.8-10.8)
[2020-07-09 03:58] LABS: Anion Gap 14 mmol/L (10-20); BUN (Urea Nitrogen) 21 mg/dL (8.4-25.7); Calc. Creatinine Clearance 110 mL/min (70-130); Calcium 8.1 mg/dL (7.8-10.44); Carbon Dioxide 23 mmol/L (23-31); Chloride 105 mmol/L (98-107); Estimated GFR-MDRD 73; Glucose 228 mg/dL (80-115); Potassium 3.9 mmol/L (3.5-5.1); Sodium 138 mmol/L (136-145)
[2020-07-09] MEDS: Lorazepam 2 MG/ML VIAL SLOW IVP PRN (04:43)
[2020-07-09] MEDS: fentaNYL Citrate/PF 2,000 MCG in Sodium Chloride 0.9% 60 ML IV SCH (05:35)
[2020-07-09] MEDS: Arformoterol 15 MCG/2 ML NEB NEB SCH ×2 (07:50→18:37)
[2020-07-09] MEDS: Budesonide 0.5 MG/2 ML NEB NEB SCH ×2 (07:50→18:36)
[2020-07-09 08:00] LABS: Actual Bicarbonate (HCO3a) 25.9 mEq/L (22-28); Base Excess (BEa) 2.5 mEq/L (-2.0 to +3.0); CO2 Tension 36.1 mmHg (35.0-45.0); Calcium, Ionized (arterial) 1.14 mmol/L (1.12-1.30); Carboxyhemoglobin (COHb) 0.3 gm% (0.0-3.0); Hemoglobin (Hb) 12.7 g/dL (14.0-18.0); O2 Tension (PaO2), arterial 135.8 mmHg (> 80.0); Potassium - ABG Lab 4.05 mmol/L (3.70-5.30); pH, Arterial 7.47 (7.35-7.45)
--- NOTE | 2020-07-09 08:09 | PRG ---
DATE OF SERVICE: 07/09/2020 35 minutes critical care time. SUBJECTIVE: The patient remains intubated on mechanical ventilation. He has been in supine position for almost 24 hours. OBJECTIVE: VITAL SIGNS: His temperature 97.7, pulse 65, blood pressure 170/88, and O2 saturation 99%. He is currently sedated on propofol and fentanyl, was also getting intermittent vecuronium to facilitate cooperation. HEENT: Difficult to exam because he is in the prone position. LUNGS: Have coarse breath sounds bilaterally. CARDIAC: S1 and S2. Regular. ABDOMEN: Soft and nontender. EXTREMITIES: No edema. LABORATORY DATA: Sodium 138, potassium 3.9, chloride 105, CO2 of 23, BUN 21, creatinine 1.0, and glucose 228. White blood cell count 9.2, hematocrit 37.3, and platelet count 233. An x-ray has not been done yet. ABG is still pending. ASSESSMENT: 1. COVID-19 pneumonia. 2. Acute hypoxic respiratory failure requiring mechanical ventilation. 3. Diabetes mellitus. PLAN: 1. We will place in the supine position later today. 2. I have weaned his high PEEP and weaned his FiO2. So far, his oxygenation is more than acceptable. We are continuing care with steroids and anticoagulation. He will also continue on tube feeding. I would like to limit his IV fluids. His fluid status seems to be euvolemic at this time. His insulin regimen may need to be tightened up by the hospitalist team. I will discuss with the . Job ID: [id number]
[2020-07-09 08:15] LABS: Puncture Site LRA
[2020-07-09 08:16] LABS: ALV-art Gradient 175.575 mmHg (0-20)
[2020-07-09] MEDS: Cholecalciferol (Vitamin D3) 400 UNITS TAB PO SCH (08:49)
[2020-07-09] MEDS: Zinc Sulfate 220 MG CAP PO SCH (08:49)
[2020-07-09] MEDS: Gabapentin 300 MG CAP PO SCH ×3 (08:49→21:51)
[2020-07-09] MEDS: Ascorbic Acid 500 mg Chewable Tablet PO SCH (08:50)
[2020-07-09] MEDS: Enoxaparin Sodium 80 MG/0.8 ML SYRINGE SC SCH ×2 (08:50→21:51)
[2020-07-09] MEDS: FLUoxetine HCl 20 MG CAP PO SCH (08:50)
[2020-07-09] MEDS: Tamsulosin HCl 0.4 MG CAP PO SCH (08:50)
[2020-07-09] MEDS: Insulin Glargine 25 UNITS in Pre-Filled Syringe 1 EACH SC SCH (10:01)
[2020-07-09] MEDS: HumaLOG 300 UNITS/3 ML VIAL SC PRN ×3 (10:01→21:57)
--- NOTE | 2020-07-09 11:50 | RAD ---
1 VIEW CHEST: Date: 07/09/2020 COMPARISON: 07/08/2020. HISTORY: Pneumonia. FINDINGS: Redemonstration of endotracheal tube. Nasogastric tube identified. Distal tip not included. Stable op acification of lung parenchyma. Stable cardiac silhouette. No pleural effusion or pneumothorax on this supine projection. IMPRESSION: Persistent multilobar interstitial and alveolar opacities, compatible with patient's history of COVID -19 pneumonia. POS: AH
--- NOTE | 2020-07-09 15:09 | PDOC.HOSPP ---
- Subjective Encounter Date: 07/09/20 Encounter Time: 09:45 Subjective: on vent, in prone position, mild sedation - Objective Vital Signs & Weight: Vital Signs (12 hours) Temp Pulse Resp BP Pulse Ox 07/09/20 12:00 17 07/09/20 10:24 86 146/76 H 07/09/20 10:22 92 18 95 07/09/20 10:00 20 07/09/20 08:07 63 168/63 H 07/09/20 08:00 15 07/09/20 07:49 66 18 99 07/09/20 06:29 99 07/09/20 06:00 18 07/09/20 04:00 97.7 F 18 Weight Admit Weight 244 lb Weight 244 lb 11.41 oz Most Recent Monitor Data Heart Rate from ECG 64 NIBP 142/74 NIBP BP-Mean 96 Respiration from ECG 16 SpO2 96 I&O: 07/08/20 07/09/20 07/10/20 06:59 06:59 06:59 Intake Total 1750 636.7 Output Total 6390 1352 370 Balance -275 -718.3 -370 Result Diagrams: 07/09/20 03:13 07/09/20 03:13 Additional Labs: Accuchecks 07/09/20 07/09/20 07/08/20 10:04 04:49 22:37 POC Glucose 265 H 188 H 218 H 07/08/20 07/07/20 15:47 11:33 POC Glucose 271 H 308 H Hospitalist ROS - Medication Medications: Active Medications Generic Name Dose Route Start Last Admin Trade Name Freq PRN Reason Stop Dose Admin Acetaminophen 650 mg 07/06/20 13:18 07/07/20 05:19 Acetaminophen 325 Mg Tab PO 650 mg Q6H PRN Administration Headache/Fever/Mild Pain (1-3) Albuterol/Ipratropium 3 ml 07/07/20 18:30 07/09/20 10:22 Ipratropium/Albuterol Sulfate 3 Ml Neb NEB 3 ml [id number] GALEN Administration Arformoterol Tartrate 15 mcg 07/08/20 18:30 07/09/20 07:50 Arformoterol 15 Mcg/2 Ml Neb NEB 15 mcg BID-RT GALEN Administration Ascorbic Acid 1,000 mg 07/07/20 09:00 07/09/20 08:50 Ascorbic Acid 500 Mg Chewable Tablet PO 1,000 mg DAILY GALEN Administration Atorvastatin Calcium 40 mg 07/06/20 21:00 07/08/20 20:20 Atorvastatin Calcium 40 Mg Tab PO 40 mg HS GALEN Administration Budesonide 0.5 mg 07/08/20 18:30 07/09/20 07:50 Budesonide 0.5 Mg/2 Ml Neb NEB 0.5 mg BID-RT GALEN Administration Cholecalciferol 400 units 07/07/20 09:00 07/09/20 08:49 Cholecalciferol (Vitamin D3) 400 Units Tab PO 400 units DAILY GALEN Administration Enoxaparin Sodium 80 mg 07/06/20 21:00 07/09/20 08:50 Enoxaparin Sodium 80 Mg/0.8 Ml Syringe SC 80 mg 899,2099 GALEN Administration Fluoxetine HCl 40 mg 07/07/20 09:00 07/09/20 08:50 Fluoxetine Hcl 20 Mg Cap PO 40 mg DAILY GALEN Administration Gabapentin 600 mg 07/06/20 15:00 07/09/20 08:49 Gabapentin 300 Mg Cap PO 600 mg TID GALEN Administration Hydrocortisone Sodium Succinate 100 mg 07/06/20 18:00 07/09/20 11:27 Hydrocortisone Sod Succ/Pf 100 Mg/2 Ml Vial IVP 100 mg Q6HR GALEN Administration Insulin Glargine 25 units/ 0.25 mls @ 0 mls/hr 07/08/20 09:00 07/09/20 10:01 Miscellaneous Medication SC 0.25 mls QAM GALEN Administration Fentanyl Citrate 2,000 mcg/ 100 mls @ 0 mls/hr 07/08/20 09:00 07/09/20 05:35 Sodium Chloride IV 08/07/20 09:00 100 mls INF GALEN Administration Protocol Per Protocol Insulin Human Lispro 0 units 07/06/20 13:24 07/07/20 21:36 Humalog 300 Units/3 Ml Vial SC 3 unit .BEDTIME SLIDING SC PRN Administration Bedtime Correctional Scale Insulin Human Lispro 0 units 07/06/20 13:24 07/09/20 10:01 Humalog 300 Units/3 Ml Vial SC 6 unit .MODERATE SLIDING SC PRN Administration Moderate Correctional Scale Lorazepam 2 mg 07/07/20 15:08 07/09/20 04:43 Lorazepam 2 Mg/Ml Vial SLOW IVP 2 mg Q2H PRN Administration Anxiety Pantoprazole Sodium 40 mg 07/07/20 09:00 07/09/20 08:49 Pantoprazole 40 Mg Tab PO 40 mg DAILY GALEN Administration Propofol 1,000 mg 07/08/20 09:00 07/09/20 11:27 Propofol 1,000 Mg/100 Ml Vial IV 08/07/20 09:00 1,000 mg INF PRN Administration TO ACHIEVE GOAL RASS Protocol Tamsulosin HCl 0.4 mg 07/07/20 09:00 07/09/20 08:50 Tamsulosin Hcl 0.4 Mg Cap PO 0.4 mg DAILY GALEN Administration Tramadol HCl 50 mg 07/06/20 13:26 07/07/20 20:03 Tramadol Hcl 50 Mg Tab PO 50 mg Q6H PRN Administration Moderate Pain (4-6) Vecuronium [place] 10 mg 07/08/20 08:26 07/09/20 14:15 Vecuronium 10 Mg Vial IVP 10 mg Q30MIN PRN Administration Agitation Zinc Sulfate 220 mg 07/07/20 09:00 07/09/20 08:49 Zinc Sulfate 220 Mg Cap PO 220 mg DAILY GALEN Administration - Exam General Appearance: ill appearing ENT: moist mucosa Neck: supple Heart: RRR Respiratory: normal chest expansion Gastrointestinal: non-distended Extremities: no edema Hosp A/P (1) Acute respiratory failure with hypoxia Code(s): J96.01 - ACUTE RESPIRATORY FAILURE WITH HYPOXIA Status: Acute (2) Pneumonia due to COVID-19 virus Code(s): U07.1 - COVID-19; J12.89 - OTHER VIRAL PNEUMONIA Status: Acute (3) Asthma Code(s): J45.909 - UNSPECIFIED ASTHMA, UNCOMPLICATED Status: Chronic Qualifiers: Asthma severity: mild Asthma persistence: intermittent Asthma compli cation type: uncomplicated Qualified Code(s): J45.20 - Mild intermittent asthma, uncomplicated (4) BPH (benign prostatic hyperplasia) Code(s): N40.0 - BENIGN PROSTATIC HYPERPLASIA WITHOUT LOWER URINRY TRACT SYMP Status: Chronic Qualifiers: Lower urinary tract symptom presence: unspecified whether lower urinary tract symptoms present Qualified Code(s): N40.0 - Benign prostatic hyperplasia without lower urinary tract symptoms (5) DMII (diabetes mellitus, type 2) Status: Chronic Qualifiers: Diabetes mellitus assisted insulin use: with lobsterman use (6) HLD (hyperlipidemia) Code(s): E78.5 - HYPERLIPIDEMIA, UNSPECIFIED Status: Chronic Qualifiers: Hyperlipidemia type: unspecified Qualified Code(s): E78.5 - Hyperlipidemia, unspecified (7) HTN (hypertension) Code(s): I10 - ESSENTIAL (PRIMARY) HYPERTENSION Status: Chronic Qualifiers: Hypertension type: essential hypertension Qualified Code(s): I10 - Essential (primary) hypertension (8) Peripheral neuropathy Code(s): G62.9 - POLYNEUROPATHY, UNSPECIFIED Status: Chronic - Plan is on nebs, steroids, full dose lovenox. Got intubated due to progressive confusion and hypoxia 07/08/20. continue lipitor and flomax, lantus increased to 30 u bid. prognosis guarded hemostable will be turned supine today from prone position.
[2020-07-09] MEDS ORDERED: Insulin Glargine 30 UNITS in Pre-Filled Syringe SC SCH (21:00)
[2020-07-09] MEDS: Atorvastatin Calcium 40 MG TAB PO SCH (21:51)
[2020-07-10] MEDS: fentaNYL Citrate/PF 2,000 MCG in Sodium Chloride 0.9% 60 ML IV SCH ×2 (00:11→18:16)
[2020-07-10] MEDS: Vecuronium 10 MG VIAL IVP PRN ×4 (01:41→19:24)
[2020-07-10 04:46] LABS: #Lymphocytes 0.9 thou/uL (1.20-3.40); #Monocytes 0.7 thou/uL (0.11-0.59); #Neutrophils 7.9 thou/uL (1.40-6.50); %Basophils 0.1 % (0.0-1.0); %Eosinophils 0.2 % (0.0-10.0); %Lymphocytes 9.6 % (21.0-51.0); %Monocytes 7.1 % (0.0-10.0); %Neutrophils 82.9 % (42.0-75.0); Hemoglobin 12.2 g/dL (14.0-18.0); Mean Corpuscular HGB CONC 32.8 g/dL (32.0-36.0); Mean Corpuscular Hemoglobin 30.5 pg (27.0-31.0); Mean Corpuscular Volume 93.1 fL (78.0-98.0); Mean Platelet Volume 7.3 fL (7.4-10.4); Platelet Count 262 thou/uL (130-400); Red Blood Cell (RBC) Count 4.01 mill/uL (4.70-6.10); White Blood Cell (WBC) Count 9.5 thou/uL (4.8-10.8)
[2020-07-10 05:10] LABS: Anion Gap 12 mmol/L (10-20); BUN (Urea Nitrogen) 26 mg/dL (8.4-25.7); Calc. Creatinine Clearance 96 mL/min (70-130); Carbon Dioxide 28 mmol/L (23-31); Chloride 103 mmol/L (98-107); Estimated GFR-MDRD 62; Glucose 278 mg/dL (80-115); Potassium 4.8 mmol/L (3.5-5.1); Sodium 138 mmol/L (136-145)
[2020-07-10] MEDS: Hydrocortisone Sod Succ/PF 100 mg/2 ml Vial IVP SCH ×4 (06:16→23:45)
[2020-07-10] MEDS: Propofol 1,000 MG/100 ML VIAL IV PRN ×6 (06:18→23:18)
[2020-07-10 07:06] LABS: Actual Bicarbonate (HCO3a) 30.7 mEq/L (22-28); Base Excess (BEa) 5.3 mEq/L (-2.0 to +3.0); CO2 Tension 48.5 mmHg (35.0-45.0); Calcium, Ionized (arterial) 1.17 mmol/L (1.12-1.30); Carboxyhemoglobin (COHb) 0.2 gm% (0.0-3.0); Hemoglobin (Hb) 11.9 g/dL (14.0-18.0); O2 Tension (PaO2), arterial 139.4 mmHg (> 80.0); Potassium - ABG Lab 4.56 mmol/L (3.70-5.30); pH, Arterial 7.42 (7.35-7.45)
[2020-07-10 07:11] LABS: Puncture Site RRA
[2020-07-10 07:12] LABS: ALV-art Gradient 85.175 mmHg (0-20)
[2020-07-10] MEDS ORDERED: Hydrocortisone Sod Succ/PF 100 mg/2 ml Vial IVP SCH (08:00)
--- NOTE | 2020-07-10 08:26 | PRG ---
DATE OF SERVICE: 07/10/2020 TIME SPENT: 35 minutes of critical care time. SUBJECTIVE: Mr. Gray remains intubated, on mechanical ventilation. He does stay in a supine position almost all day yesterday. OBJECTIVE: VITAL SIGNS: Temperature 98.3, pulse 61, blood pressure 151/74, O2 saturation mid 90s. 24-hour intake was 1361, output 1665. HEENT: Unremarkable. NECK: No JVD. LUNGS: Coarse breath sounds. CARDIOVASCULAR: S1, S2. Regular. ABDOMEN: Soft and nontender. EXTREMITIES: Trace edema throughout. LABORATORY DATA: ABG; pH 7.42, pCO2 of 48, pO2 of 139, on respiratory rate of 15, high pressure 28, low pressure 12, FiO2 of 40%. White blood cell count 9.5, hematocrit 37.3, and platelet count 262. Sodium 138, potassium 4.8, chloride 103, CO2 of 28, BUN 26, creatinine 1.1, glucose 278. His chest x-ray is somewhat turned, he still has bilateral infiltrates. ASSESSMENT: 1. COVID-19 pneumonia. 2. Acute respiratory failure requiring mechanical ventilation. 3. Diabetes mellitus with poorly controlled blood sugars. PLAN: 1. I do not think he is weanable beyond his current ventilator settings at the current time. 2. Hospitalists have gone up on the amount of insulin he is going to receive. If that does not work, he may require a drip. 3. We will do investigation in the limiting drugs that could lead to critical illness myopathy. I have told the nurse to be very careful about paralyzing the patient necessary to facilitate ventilator compliance. 4. We will update the family. Job ID: [id number]
--- NOTE | 2020-07-10 08:47 | RAD ---
CHEST 1 VIEW: Date: 07/10/2020 HISTORY: Pneumonia. COMPARISON: Radiograph prior day. FINDINGS: Endotracheal tube tip at the level of the clavicles. Enteric tube tip not well seen. Air space consolidation is similar, along with the pleural effusions. IMPRESSION: 1. Poorly visualized enteric tube tip. Abdominal radiograph recommended. 2. Similar appearance to multifocal pneumonia. POS: HOME
[2020-07-10] MEDS: Ascorbic Acid 500 mg Chewable Tablet PO SCH (09:03)
[2020-07-10] MEDS: FLUoxetine HCl 20 MG CAP PO SCH (09:03)
[2020-07-10] MEDS: Enoxaparin Sodium 80 MG/0.8 ML SYRINGE SC SCH ×2 (09:03→20:39)
[2020-07-10] MEDS: Lorazepam 2 MG/ML VIAL SLOW IVP PRN ×4 (09:03→19:19)
[2020-07-10] MEDS: Tamsulosin HCl 0.4 MG CAP PO SCH (09:03)
[2020-07-10] MEDS: Zinc Sulfate 220 MG CAP PO SCH (09:03)
[2020-07-10] MEDS: Cholecalciferol (Vitamin D3) 400 UNITS TAB PO SCH (09:04)
[2020-07-10] MEDS: Gabapentin 300 MG CAP PO SCH ×3 (09:04→20:39)
[2020-07-10] MEDS: Insulin Glargine 40 UNITS in Pre-Filled Syringe 1 EACH SC SCH ×2 (09:07→20:41)
[2020-07-10] MEDS: HumaLOG 300 UNITS/3 ML VIAL SC PRN ×2 (09:08→15:45)
[2020-07-10] MEDS: Budesonide 0.5 MG/2 ML NEB NEB SCH ×2 (12:18→19:27)
[2020-07-10] MEDS: Arformoterol 15 MCG/2 ML NEB NEB SCH ×2 (12:18→19:27)
--- NOTE | 2020-07-10 13:48 | PDOC.HOSPP ---
- Subjective Encounter Date: 07/10/20 Encounter Time: 13:00 Subjective: is on vent, not in distress - Objective Vital Signs & Weight: Vital Signs (12 hours) Temp Pulse Resp BP Pulse Ox 07/10/20 12:38 78 159/60 H 07/10/20 12:00 98.8 F 15 07/10/20 10:00 15 07/10/20 08:00 97.5 F L 15 94 L 07/10/20 06:00 15 07/10/20 04:00 98.3 F 15 07/10/20 02:00 15 Weight Admit Weight 244 lb Weight 244 lb 11.41 oz Most Recent Monitor Data Heart Rate from ECG 71 NIBP 173/85 NIBP BP-Mean 114 Respiration from ECG 15 SpO2 95 I&O: 07/09/20 07/10/20 07/11/20 06:59 06:59 06:59 Intake Total 636.7 1361 150 Output Total 1355 1665 380 Balance -718.3 -304 -230 Result Diagrams: 07/10/20 04:30 07/10/20 04:30 Hospitalist ROS - Medication Medications: Active Medications Generic Name Dose Route Start Last Admin Trade Name Freq PRN Reason Stop Dose Admin Acetaminophen 650 mg 07/06/20 13:18 07/07/20 05:19 Acetaminophen 325 Mg Tab PO 650 mg Q6H PRN Administration Headache/Fever/Mild Pain (1-3) Albuterol/Ipratropium 3 ml 07/07/20 18:30 07/10/20 12:40 Ipratropium/Albuterol Sulfate 3 Ml Neb NEB 3 ml [id number] GALEN Administration Arformoterol Tartrate 15 mcg 07/08/20 18:30 07/10/20 12:18 Arformoterol 15 Mcg/2 Ml Neb NEB Not Given BID-RT GALEN Ascorbic Acid 1,000 mg 07/07/20 09:00 07/10/20 09:03 Ascorbic Acid 500 Mg Chewable Tablet PO 1,000 mg DAILY GALEN Administration Atorvastatin Calcium 40 mg 07/06/20 21:00 07/09/20 21:51 Atorvastatin Calcium 40 Mg Tab PO 40 mg HS GALEN Administration Budesonide 0.5 mg 07/08/20 18:30 07/10/20 12:18 Budesonide 0.5 Mg/2 Ml Neb NEB Not Given BID-RT GALEN Cholecalciferol 400 units 07/07/20 09:00 07/10/20 09:04 Cholecalciferol (Vitamin D3) 400 Units Tab PO 400 units DAILY GALEN Administration Enoxaparin Sodium 80 mg 07/06/20 21:00 07/10/20 09:03 Enoxaparin Sodium 80 Mg/0.8 Ml Syringe SC 80 mg 0900,2100 GALEN Administration Fluoxetine HCl 40 mg 07/07/20 09:00 07/10/20 09:03 Fluoxetine Hcl 20 Mg Cap PO 40 mg DAILY GALEN Administration Gabapentin 600 mg 07/06/20 15:00 07/10/20 09:04 Gabapentin 300 Mg Cap PO 600 mg TID GALEN Administration Hydrocortisone Sodium Succinate 50 mg 07/10/20 12:00 07/10/20 12:23 Hydrocortisone Sod Succ/Pf 100 Mg/2 Ml Vial IVP 50 mg Q6HR GALEN Administration Fentanyl Citrate 2,000 mcg/ 100 mls @ 0 mls/hr 07/08/20 09:00 07/10/20 00:11 Sodium Chloride IV 08/07/20 09:00 100 mls INF GALEN Administration Protocol Per Protocol Insulin Glargine 40 units/ 0.4 mls @ 0 mls/hr 07/10/20 09:00 07/10/20 09:07 Miscellaneous Medication SC 0.4 mls BID GALEN Administration Insulin Human Lispro 0 units 07/06/20 13:24 07/07/20 21:36 Humalog 300 Units/3 Ml Vial SC 3 unit .BEDTIME SLIDING SC PRN Administration Bedtime Correctional Scale Insulin Human Lispro 0 units 07/06/20 13:24 07/10/20 09:08 Humalog 300 Units/3 Ml Vial SC 4 unit .MODERATE SLIDING SC PRN Administration Moderate Correctional Scale Lorazepam 2 mg 07/07/20 15:08 07/10/20 12:23 Lorazepam 2 Mg/Ml Vial SLOW IVP 2 mg Q2H PRN Administration Anxiety Lorazepam 2 mg 07/08/20 09:00 07/10/20 09:03 Lorazepam 2 Mg/Ml Vial SLOW IVP 08/07/20 09:00 2 mg Q1H PRN Administration Breakthrough agitation Pantoprazole Sodium 40 mg 07/07/20 09:00 07/10/20 09:04 Pantoprazole 40 Mg Tab PO 40 mg DAILY GALEN Administration Propofol 1,000 mg 07/08/20 09:00 07/10/20 12:22 Propofol 1,000 Mg/100 Ml Vial IV 08/07/20 09:00 1,000 mg INF PRN Administration TO ACHIEVE GOAL RASS Protocol Tamsulosin HCl 0.4 mg 07/07/20 09:00 07/10/20 09:03 Tamsulosin Hcl 0.4 Mg Cap PO 0.4 mg DAILY GALEN Administration Tramadol HCl 50 mg 07/06/20 13:26 07/07/20 20:03 Tramadol Hcl 50 Mg Tab PO 50 mg Q6H PRN Administration Moderate Pain (4-6) Vecuronium [place] 10 mg 07/08/20 08:26 07/10/20 05:23 Vecuronium 10 Mg Vial IVP 10 mg Q30MIN PRN Administration Agitation Zinc Sulfate 220 mg 07/07/20 09:00 07/10/20 09:03 Zinc Sulfate 220 Mg Cap PO 220 mg DAILY GALEN Administration - Exam General Appearance: ill appearing ENT: normocephalic atraumatic Heart: RRR Respiratory: normal chest expansion Gastrointestinal: non-distended Extremities: no edema Skin: no rashes Neurological: cranial nerve grossly intact Hosp A/P (1) Acute respiratory failure with hypoxia Code(s): J96.01 - ACUTE RESPIRATORY FAILURE WITH HYPOXIA Status: Acute (2) Pneumonia due to COVID-19 virus Code(s): U07.1 - COVID-19; J12.89 - OTHER VIRAL PNEUMONIA Status: Acute (3) Asthma Code(s): J45.909 - UNSPECIFIED ASTHMA, UNCOMPLICATED Status: Chronic Qualifiers: Asthma severity: mild Asthma persistence: intermittent Asthma complication type: uncomplicated Qualified Code(s): J45.20 - Mild intermittent asthma, uncomplicated (4) BPH (benign prostatic hyperplasia) Code(s): N40.0 - BENIGN PROSTATIC HYPERPLASIA WITHOUT LOWER URINRY TRACT SYMP Status: Chronic Qualifiers: Lower urinary tract symptom presence: unspecified whether lower urinary tract symptoms present Qualified Code(s): N40.0 - Benign prostatic hyperplasia without lower urinary tract symptoms (5) DMII (diabetes mellitus, type 2) Status: Chronic Qualifiers: Diabetes mellitus long term acute care registered nurse insulin use: with long term acute care registered nurse use (6) HLD (hyperlipidemia) Code(s): E78.5 - HYPERLIPIDEMIA, UNSPECIFIED Status: Chronic Qualifiers: Hyperlipidemia type: unspecified Qualified Code(s): E78.5 - Hyperlipidemia, unspecified (7) HTN (hypertension) Code(s): I10 - ESSENTIAL (PRIMARY) HYPERTENSION Status: Chronic Qualifiers: Hypertension type: essential hypertension Qualified Code(s): I10 - Essential (primary) hypertension (8) Peripheral neuropathy Code(s): G62.9 - POLYNEUROPATHY, UNSPECIFIED Status: Chronic - Plan is on nebs, steroids, full dose lovenox. Got intubated due to progressive confusion and hypoxia 07/08/20. continue lipitor and flomax, lantus increased to 40 u bid. prognosis guarded hemostable
[2020-07-10] MEDS: Atorvastatin Calcium 40 MG TAB PO SCH (20:39)
[2020-07-11] MEDS: Propofol 1,000 MG/100 ML VIAL IV PRN ×5 (02:41→20:32)
[2020-07-11] MEDS: Lorazepam 2 MG/ML VIAL SLOW IVP PRN ×3 (04:47→10:23)
[2020-07-11] MEDS: Vecuronium 10 MG VIAL IVP PRN ×3 (04:47→10:31)
[2020-07-11] MEDS: Hydrocortisone Sod Succ/PF 100 mg/2 ml Vial IVP SCH ×3 (05:23→16:57)
[2020-07-11 05:26] LABS: #Eosinphils 0.1 thou/uL (0.0-0.7); #Lymphocytes 2.5 thou/uL (1.20-3.40); #Monocytes 0.9 thou/uL (0.11-0.59); #Neutrophils 8.2 thou/uL (1.40-6.50); %Basophils 0.1 % (0.0-1.0); %Eosinophils 0.5 % (0.0-10.0); %Lymphocytes 21.8 % (21.0-51.0); %Monocytes 7.3 % (0.0-10.0); %Neutrophils 70.2 % (42.0-75.0); Hemoglobin 12.4 g/dL (14.0-18.0); Mean Corpuscular HGB CONC 33.6 g/dL (32.0-36.0); Mean Corpuscular Hemoglobin 31.3 pg (27.0-31.0); Mean Corpuscular Volume 93.2 fL (78.0-98.0); Mean Platelet Volume 7.1 fL (7.4-10.4); Platelet Count 263 thou/uL (130-400); Red Blood Cell (RBC) Count 3.96 mill/uL (4.70-6.10); White Blood Cell (WBC) Count 11.7 thou/uL (4.8-10.8)
[2020-07-11 06:10] LABS: Anion Gap 10 mmol/L (10-20); BUN (Urea Nitrogen) 33 mg/dL (8.4-25.7); Calc. Creatinine Clearance 101 mL/min (70-130); Calcium 8.5 mg/dL (7.8-10.44); Carbon Dioxide 31 mmol/L (23-31); Chloride 105 mmol/L (98-107); Estimated GFR-MDRD 66; Glucose 162 mg/dL (80-115); Potassium 4.2 mmol/L (3.5-5.1); Sodium 142 mmol/L (136-145)
[2020-07-11] MEDS: Arformoterol 15 MCG/2 ML NEB NEB SCH ×2 (07:38→19:12)
[2020-07-11] MEDS: Budesonide 0.5 MG/2 ML NEB NEB SCH ×2 (07:39→19:11)
[2020-07-11] MEDS: Tamsulosin HCl 0.4 MG CAP PO SCH (08:22)
[2020-07-11] MEDS: FLUoxetine HCl 20 MG CAP PO SCH (08:22)
[2020-07-11] MEDS: Zinc Sulfate 220 MG CAP PO SCH (08:22)
[2020-07-11] MEDS: Enoxaparin Sodium 80 MG/0.8 ML SYRINGE SC SCH ×2 (08:23→20:30)
[2020-07-11] MEDS: Gabapentin 300 MG CAP PO SCH ×3 (08:23→20:30)
[2020-07-11] MEDS: Ascorbic Acid 500 mg Chewable Tablet PO SCH (08:23)
[2020-07-11] MEDS: Cholecalciferol (Vitamin D3) 400 UNITS TAB PO SCH (08:23)
[2020-07-11] MEDS: Insulin Glargine 40 UNITS in Pre-Filled Syringe 1 EACH SC SCH (09:47)
[2020-07-11] MEDS: fentaNYL Citrate/PF 2,000 MCG in Sodium Chloride 0.9% 60 ML IV SCH ×2 (09:47→22:38)
--- NOTE | 2020-07-11 10:23 | RAD ---
XR Chest 1 View Portable History: Pneumonia Comparison: Radiograph prior day Findings: Endotracheal tube tip at the clavicular level. Perihilar lower lobe airspace opacities are similar. No pneumothorax. No acute osseous abnormality. Impression: Similar examination of the chest although relative to 3 days prior, the lung aeration has improved.
--- NOTE | 2020-07-11 11:01 | PRG ---
DATE OF SERVICE: 07/11/2020 TIME SPENT: 35 minutes of critical care time. SUBJECTIVE: Mr. Gray remains intubated on mechanical ventilation. He is continued in a supine position. OBJECTIVE: VITAL SIGNS: Temperature 98.9, pulse rate 78, blood pressure 145/78, and O2 saturation 100%. Total intake for 24 hours, 1710; output, 1610. Weight 244 pounds. GENERAL: He is intubated, sedated, and currently paralyzed. HEENT: Unremarkable. NECK: No adenopathy or JVD. CHEST: Clear anteriorly. CARDIAC: S1 and S2, regular. ABDOMEN: Soft. EXTREMITIES: No edema. His x-ray is beginning to show clearing in both lung brock. LABORATORY DATA: Sodium 142, potassium 4.2, chloride 105, CO2 of 31, BUN 33, creatinine 1.1, glucose 162. C-reactive protein is fallen at 2.8. White blood cell count 11.7, hematocrit 36.9, and platelet count 263. ASSESSMENT: 1. COVID-19 pneumonia with acute hypoxic respiratory failure requiring mechanical ventilation. I am very pleased in the improvement in his oxygenation in the last several days. 2. Diabetes mellitus with adequately controlled blood sugars this morning. PLAN: 1. I would like to transition him over to [facility] with hope of getting a more cooperative in preparing for extubation sometime in the next 48 hours. 2. Continue steroids and anticoagulation. 3. I will update his . Job ID: [id number]
--- NOTE | 2020-07-11 13:44 | PDOC.HOSPP ---
- Subjective Encounter Date: 07/11/20 Encounter Time: 12:00 Subjective: is on vent, mild sedation - Objective Vital Signs & Weight: Vital Signs (12 hours) Temp Pulse Resp Pulse Ox 07/11/20 11:00 99.1 F 07/11/20 10:37 86 07/11/20 10:00 20 07/11/20 08:00 21 H 94 L 07/11/20 07:39 82 07/11/20 07:00 98.9 F 07/11/20 04:00 98.7 F 15 07/11/20 03:28 58 L 07/11/20 02:00 15 Weight Admit Weight 244 lb Weight 244 lb 11.41 oz Most Recent Monitor Data Heart Rate from ECG 77 NIBP 146/70 NIBP BP-Mean 95 Respiration from ECG 20 SpO2 99 I&O: 07/10/20 07/11/20 07/12/20 06:59 06:59 06:59 Intake Total 1361 1711.5 200 Output Total 1665 1610 605 Balance -304 101.5 -405 Result Diagrams: 07/11/20 05:15 07/11/20 05:15 Additional Labs: Accuchecks 07/11/20 10:01 POC Glucose 131 H Hospitalist ROS - Medication Medications: Active Medications Generic Name Dose Route Start Last Admin Trade Name Freq PRN Reason Stop Dose Admin Acetaminophen 650 mg 07/06/20 13:18 07/07/20 05:19 Acetaminophen 325 Mg Tab PO 650 mg Q6H PRN Administration Headache/Fever/Mild Pain (1-3) Albuterol/Ipratropium 3 ml 07/07/20 18:30 07/11/20 10:36 Ipratropium/Albuterol Sulfate 3 Ml Neb NEB 3 ml [id number] GALEN Administration Arformoterol Tartrate 15 mcg 07/08/20 18:30 07/11/20 07:38 Arformoterol 15 Mcg/2 Ml Neb NEB 15 mcg BID-RT GALEN Administration Ascorbic Acid 1,000 mg 07/07/20 09:00 07/11/20 08:23 Ascorbic Acid 500 Mg Chewable Tablet PO 1,000 mg DAILY GALEN Administration Atorvastatin Calcium 40 mg 07/06/20 21:00 07/10/20 20:39 Atorvastatin Calcium 40 Mg Tab PO 40 mg HS GALEN Administration Budesonide 0.5 mg 07/08/20 18:30 07/11/20 07:39 Budesonide 0.5 Mg/2 Ml Neb NEB 0.5 mg BID-RT GALEN Administration Cholecalciferol 400 units 07/07/20 09:00 07/11/20 08:23 Cholecalciferol (Vitamin D3) 400 Units Tab PO 400 units DAILY GALEN Administration Enoxaparin Sodium 80 mg 07/06/20 21:00 07/11/20 08:23 Enoxaparin Sodium 80 Mg/0.8 Ml Syringe SC 80 mg 09,2099 GALEN Administration Fluoxetine HCl 40 mg 07/07/20 09:00 07/11/20 08:22 Fluoxetine Hcl 20 Mg Cap PO 40 mg DAILY GALEN Administration Gabapentin 600 mg 07/06/20 15:00 07/11/20 08:23 Gabapentin 300 Mg Cap PO 600 mg TID GALEN Administration Hydrocortisone Sodium Succinate 50 mg 07/10/20 12:00 07/11/20 10:21 Hydrocortisone Sod Succ/Pf 100 Mg/2 Ml Vial IVP 50 mg Q6HR GALEN Administration Fentanyl Citrate 2,000 mcg/ 100 mls @ 0 mls/hr 07/08/20 09:00 07/11/20 09:47 Sodium Chloride IV 08/07/20 09:00 100 mls INF GALEN Administration Protocol Per Protocol Insulin Glargine 40 units/ 0.4 mls @ 0 mls/hr 07/10/20 09:00 07/11/20 09:47 Miscellaneous Medication SC 0.4 mls BID GALEN Administration Dexmedetomidine HCl 400 mcg/ 100 mls @ 0 mls/hr 07/11/20 11:00 07/11/20 11:51 Sodium Chloride IVPB 100 mls INF GALEN Administration Protocol Per Protocol Insulin Human Lispro 0 units 07/06/20 13:24 07/07/20 21:36 Humalog 300 Units/3 Ml Vial SC 3 unit .BEDTIME SLIDING SC PRN Administration Bedtime Correctional Scale Insulin Human Lispro 0 units 07/06/20 13:24 07/10/20 15:45 Humalog 300 Units/3 Ml Vial SC 4 unit .MODERATE SLIDING SC PRN Administration Moderate Correctional Scale Lorazepam 2 mg 07/07/20 15:08 07/11/20 08:32 Lorazepam 2 Mg/Ml Vial SLOW IVP 2 mg Q2H PRN Administration Anxiety Lorazepam 2 mg 07/08/20 09:00 07/11/20 10:23 Lorazepam 2 Mg/Ml Vial SLOW IVP 08/07/20 09:00 2 mg Q1H PRN Administration Breakthrough agitation Pantoprazole Sodium 40 mg 07/07/20 09:00 07/11/20 08:23 Pantoprazole 40 Mg Tab PO 40 mg DAILY GALEN Administration Propofol 1,000 mg 07/08/20 09:00 07/11/20 08:32 Propofol 1,000 Mg/100 Ml Vial IV 08/07/20 09:00 1,000 mg INF PRN Administration TO ACHIEVE GOAL RASS Protocol Tamsulosin HCl 0.4 mg 07/07/20 09:00 07/11/20 08:22 Tamsulosin Hcl 0.4 Mg Cap PO 0.4 mg DAILY GALEN Administration Tramadol HCl 50 mg 07/06/20 13:26 07/07/20 20:03 Tramadol Hcl 50 Mg Tab PO 50 mg Q6H PRN Administration Moderate Pain (4-6) Vecuronium [place] 10 mg 07/08/20 08:26 07/11/20 10:31 Vecuronium 10 Mg Vial IVP 10 mg Q30MIN PRN Administration Agitation Zinc Sulfate 220 mg 07/07/20 09:00 07/11/20 08:22 Zinc Sulfate 220 Mg Cap PO 220 mg DAILY GALEN Administration - Exam Eye: PERRL, anicteric sclera ENT: no oropharyngeal lesions, dry oral mucosa Neck: supple, no JVD Heart: RRR, no murmur Respiratory: no wheezes, rales, rhonchi Gastrointestinal: soft, non-tender, non-distended, normal bowel sounds Extremities: no cyanosis, no edema Neurological: cranial nerve grossly intact, no focal deficits Hosp A/P (1) Acute respiratory failure with hypoxia Code(s): J96.01 - ACUTE RESPIRATORY FAILURE WITH HYPOXIA Status: Acute (2) Pneumonia due to COVID-19 virus Code(s): U07.1 - COVID-19; J12.89 - OTHER VIRAL PNEUMONIA Status: Acute (3) Asthma Code(s): J45.909 - UNSPECIFIED ASTHMA, UNCOMPLICATED Status: Chronic Qualifiers: Asthma severity: mild Asthma persistence: intermittent Asthma complication type: uncomplicated Qualified Code(s): J45.20 - Mild intermittent asthma, uncomplicated (4) BPH (benign prostatic hyperplasia) Code(s): N40.0 - BENIGN PROSTATIC HYPERPLASIA WITHOUT LOWER URINRY TRACT SYMP Status: Chronic Qualifiers: Lower urinary tract symptom presence: unspecified whether lower urinary tract symptoms present Qualified Code(s): N40.0 - Benign prostatic hyperplasia without lower urinary tract symptoms (5) DMII (diabetes mellitus, type 2) Status: Chronic Qualifiers: Diabetes mellitus buttermaker continuous churn insulin use: with buttermaker continuous churn use (6) HLD (hyperlipidemia) Code(s): E78.5 - HYPERLIPIDEMIA, UNSPECIFIED Status: Chronic Qualifiers: Hyperlipidemia type: unspecified Qualified Code(s): E78.5 - Hyperlipidemia, unspecified (7) HTN (hypertension) Code(s): I10 - ESSENTIAL (PRIMARY) HYPERTENSION Status: Chronic Qualifiers: Hypertension type: essential hypertension Qualified Code(s): I10 - Essential (primary) hypertension (8) Peripheral neuropathy Code(s): G62.9 - POLYNEUROPATHY, UNSPECIFIED Status: Chronic - Plan is on nebs, steroids, full dose lovenox. Got intubated due to progressive confusion and hypoxia 07/08/20. continue lipitor and flomax, will decrease lantus to 25 u bid) steroids are getting tapered). prognosis guarded hemostable
[2020-07-11] MEDS: Atorvastatin Calcium 40 MG TAB PO SCH (20:30)
[2020-07-11] MEDS: Insulin Glargine 25 UNITS in Pre-Filled Syringe 1 EACH SC SCH (20:31)
[2020-07-12] MEDS: Hydrocortisone Sod Succ/PF 100 mg/2 ml Vial IVP SCH ×5 (00:10→23:34)
[2020-07-12] MEDS: Propofol 1,000 MG/100 ML VIAL IV PRN ×5 (00:44→21:05)
[2020-07-12 05:20] LABS: #Basophils 0.2 thou/uL (0.0-0.2); #Eosinphils 0.1 thou/uL (0.0-0.7); #Lymphocytes 1.3 thou/uL (1.20-3.40); #Monocytes 0.8 thou/uL (0.11-0.59); #Neutrophils 9.4 thou/uL (1.40-6.50); %Basophils 1.3 % (0.0-1.0); %Eosinophils 0.7 % (0.0-10.0); %Lymphocytes 11.2 % (21.0-51.0); %Neutrophils 79.8 % (42.0-75.0); Hemoglobin 12.3 g/dL (14.0-18.0); Mean Corpuscular HGB CONC 32.3 g/dL (32.0-36.0); Mean Corpuscular Hemoglobin 30.1 pg (27.0-31.0); Mean Corpuscular Volume 93.1 fL (78.0-98.0); Mean Platelet Volume 7.4 fL (7.4-10.4); Platelet Count 286 thou/uL (130-400); White Blood Cell (WBC) Count 11.7 thou/uL (4.8-10.8)
[2020-07-12 05:49] LABS: Anion Gap 12 mmol/L (10-20); BUN (Urea Nitrogen) 31 mg/dL (8.4-25.7); CRP (Inflammatory) 5.44 mg/dL (= or < 0.5); Calc. Creatinine Clearance 100 mL/min (70-130); Calcium 8.2 mg/dL (7.8-10.44); Carbon Dioxide 33 mmol/L (23-31); Chloride 105 mmol/L (98-107); Estimated GFR-MDRD 65; Glucose 176 mg/dL (80-115); Potassium 4.5 mmol/L (3.5-5.1); Sodium 145 mmol/L (136-145)
[2020-07-12] MEDS: Budesonide 0.5 MG/2 ML NEB NEB SCH ×2 (07:20→19:56)
[2020-07-12 07:33] LABS: Actual Bicarbonate (HCO3a) 30.1 mEq/L (22-28); CO2 Tension 45.7 mmHg (35.0-45.0); Calcium, Ionized (arterial) 1.17 mmol/L (1.12-1.30); Carboxyhemoglobin (COHb) 0.9 gm% (0.0-3.0); Hemoglobin (Hb) 14.1 g/dL (14.0-18.0); Potassium - ABG Lab 4.43 mmol/L (3.70-5.30); pH, Arterial 7.44 (7.35-7.45)
[2020-07-12 08:06] LABS: Puncture Site RRAD
[2020-07-12 08:07] LABS: ALV-art Gradient 158.075 mmHg (0-20)
[2020-07-12] MEDS: Arformoterol 15 MCG/2 ML NEB NEB SCH ×2 (08:07→19:56)
[2020-07-12] MEDS: Enoxaparin Sodium 80 MG/0.8 ML SYRINGE SC SCH ×2 (08:19→21:05)
[2020-07-12] MEDS: Ascorbic Acid 500 mg Chewable Tablet PO SCH (08:19)
[2020-07-12] MEDS: Tamsulosin HCl 0.4 MG CAP PO SCH (08:20)
[2020-07-12] MEDS: Gabapentin 300 MG CAP PO SCH ×3 (08:20→21:04)
[2020-07-12] MEDS: FLUoxetine HCl 20 MG CAP PO SCH (08:20)
[2020-07-12] MEDS: Insulin Glargine 25 UNITS in Pre-Filled Syringe 1 EACH SC SCH ×2 (08:21→21:05)
[2020-07-12] MEDS: Cholecalciferol (Vitamin D3) 400 UNITS TAB PO SCH (08:21)
[2020-07-12] MEDS: Zinc Sulfate 220 MG CAP PO SCH (08:24)
--- NOTE | 2020-07-12 08:29 | RAD ---
XR Chest 1 View Portable History: Pneumonia Comparison: Radiograph prior day Findings: Endotracheal tube tip just below the clavicular level. Enteric tube tip felt to be below di aphragm although out of field of view. Mild atelectasis both lung bases. No acute osseous abnormality. Impression: Similar appearance of the chest.
[2020-07-12] MEDS: Acetaminophen 325 MG TAB PO PRN ×2 (08:50→16:26)
[2020-07-12] MEDS: Vecuronium 10 MG VIAL IVP PRN (08:50)
--- NOTE | 2020-07-12 10:08 | PRG ---
DATE OF SERVICE: 07/12/2020 35 minutes of critical care time. SUBJECTIVE: The patient remains intubated for COVID-19 pneumonia. OBJECTIVE: VITAL SIGNS: His temperature is 100.9, pulse 93, blood pressure 137/62, O2 saturation running in the high 80s, currently on Precedex and propofol and fentanyl for sedation. Total intake for 24 hours was 2184, output 2465. HEENT: Unremarkable. NECK: No adenopathy or JVD. LUNGS: Coarse rhonchi. CARDIAC: S1, S2. Regular. ABDOMEN: Soft. EXTREMITIES: No edema. LABORATORY DATA: ABG; pH 7.44, pCO2 of 45, pO2 of 70. White blood cell count 11.7, hematocrit 38.2, and platelet count 286. No blood gas was done today. Chest x-ray looks about the same in terms of bilateral infiltrates. ASSESSMENT: COVID-19 pneumonia - now with a new fever. PLAN: I will go ahead and re-culture him. Start some empiric antibiotics for secondary coverage. Hold further weaning for the time being. I will speak with family. Job ID: [id number]
[2020-07-12] MEDS: Cefepime 1 GM in Sodium Chloride 0.9% 100 ML IVPB SCH ×2 (11:48→21:12)
[2020-07-12] MEDS: HumaLOG 300 UNITS/3 ML VIAL SC PRN ×2 (12:13→16:24)
--- NOTE | 2020-07-12 12:22 | PDOC.HOSPP ---
- Subjective Encounter Date: 07/12/20 Encounter Time: 08:45 Subjective: is on vent, sedated - Objective Vital Signs & Weight: Vital Signs (12 hours) Temp Pulse Resp 07/12/20 10:32 82 07/12/20 10:00 15 07/12/20 08:08 75 07/12/20 08:00 100.9 F H 15 07/12/20 06:00 15 07/12/20 04:05 69 07/12/20 04:00 99.3 F 15 07/12/20 02:00 15 Weight Admit Weight 244 lb Weight 244 lb 11.41 oz Most Recent Monitor Data Heart Rate from ECG 86 NIBP 158/67 NIBP BP-Mean 97 Respiration from ECG 18 SpO2 93 I&O: 07/11/20 07/12/20 07/13/20 06:59 06:59 06:59 Intake Total 1711.5 2184.7 Output Total 1610 2465 275 Balance 101.5 -280.3 -275 Result Diagrams: 07/12/20 04:30 07/12/20 04:30 Additional Labs: Accuchecks 07/12/20 07/11/20 07/10/20 11:56 17:11 09:17 POC Glucose 239 H 164 H 210 H 07/10/20 08:05 POC Glucose 208 H Hospitalist ROS - Medication Medications: Active Medications Generic Name Dose Route Start Last Admin Trade Name Freq PRN Reason Stop Dose Admin Acetaminophen 650 mg 07/06/20 13:18 07/12/20 08:50 Acetaminophen 325 Mg Tab PO 650 mg Q6H PRN Administration Headache/Fever/Mild Pain (1-3) Albuterol/Ipratropium 3 ml 07/07/20 18:30 07/12/20 10:33 Ipratropium/Albuterol Sulfate 3 Ml Neb NEB 3 ml [id number] GALEN Administration Arformoterol Tartrate 15 mcg 07/08/20 18:30 07/12/20 08:07 Arformoterol 15 Mcg/2 Ml Neb NEB 15 mcg BID-RT GALEN Administration Ascorbic Acid 1,000 mg 07/07/20 09:00 07/12/20 08:19 Ascorbic Acid 500 Mg Chewable Tablet PO 1,000 mg DAILY GALEN Administration Atorvastatin Calcium 40 mg 07/06/20 21:00 07/11/20 20:30 Atorvastatin Calcium 40 Mg Tab PO 40 mg HS GALEN Administration Budesonide 0.5 mg 07/08/20 18:30 07/12/20 07:20 Budesonide 0.5 Mg/2 Ml Neb NEB 0.5 mg BID-RT GALEN Administration Cholecalciferol 400 units 07/07/20 09:00 07/12/20 08:21 Cholecalciferol (Vitamin D3) 400 Units Tab PO 400 units DAILY GALEN Administration Enoxaparin Sodium 80 mg 07/06/20 21:00 07/12/20 08:19 Enoxaparin Sodium 80 Mg/0.8 Ml Syringe SC 80 mg 09,2099 GALEN Administration Fluoxetine HCl 40 mg 07/07/20 09:00 07/12/20 08:20 Fluoxetine Hcl 20 Mg Cap PO 40 mg DAILY GALEN Administration Gabapentin 600 mg 07/06/20 15:00 07/12/20 08:20 Gabapentin 300 Mg Cap PO 600 mg TID GALEN Administration Hydrocortisone Sodium Succinate 50 mg 07/10/20 12:00 07/12/20 11:47 Hydrocortisone Sod Succ/Pf 100 Mg/2 Ml Vial IVP 50 mg Q6HR GALEN Administration Fentanyl Citrate 2,000 mcg/ 100 mls @ 0 mls/hr 07/08/20 09:00 07/11/20 22:38 Sodium Chloride IV 08/07/20 09:00 100 mls INF GALEN Administration Protocol Per Protocol Dexmedetomidine HCl 400 mcg/ 100 mls @ 0 mls/hr 07/11/20 11:00 07/12/20 04:38 Sodium Chloride IVPB 100 mls INF GALEN Administration Protocol Per Protocol Insulin Glargine 25 units/ 0.25 mls @ 0 mls/hr 07/11/20 21:00 07/12/20 08:21 Miscellaneous Medication SC 0.25 mls BID GALEN Administration Cefepime HCl 1 gm/ Sodium 100 mls @ 200 mls/hr 07/12/20 10:00 07/12/20 11:48 Chloride IVPB 100 mls Q12H GALEN Administration Insulin Human Lispro 0 units 07/06/20 13:24 07/07/20 21:36 Humalog 300 Units/3 Ml Vial SC 3 unit .BEDTIME SLIDING SC PRN Administration Bedtime Correctional Scale Insulin Human Lispro 0 units 07/06/20 13:24 07/12/20 12:13 Humalog 300 Units/3 Ml Vial SC 4 unit .MODERATE SLIDING SC PRN Administration Moderate Correctional Scale Lorazepam 2 mg 07/07/20 15:08 07/11/20 08:32 Lorazepam 2 Mg/Ml Vial SLOW IVP 2 mg Q2H PRN Administration Anxiety Lorazepam 2 mg 07/08/20 09:00 07/11/20 10:23 Lorazepam 2 Mg/Ml Vial SLOW IVP 08/07/20 09:00 2 mg Q1H PRN Administration Breakthrough agitation Pantoprazole Sodium 40 mg 07/07/20 09:00 07/12/20 08:24 Pantoprazole 40 Mg Tab PO 40 mg DAILY GALEN Administration Propofol 1,000 mg 07/08/20 09:00 07/12/20 04:39 Propofol 1,000 Mg/100 Ml Vial IV 08/07/20 09:00 1,000 mg INF PRN Administration TO ACHIEVE GOAL RASS Protocol Tamsulosin HCl 0.4 mg 07/07/20 09:00 07/12/20 08:20 Tamsulosin Hcl 0.4 Mg Cap PO 0.4 mg DAILY GALEN Administration Tramadol HCl 50 mg 07/06/20 13:26 07/07/20 20:03 Tramadol Hcl 50 Mg Tab PO 50 mg Q6H PRN Administration Moderate Pain (4-6) Vecuronium [place] 10 mg 07/08/20 08:26 07/12/20 08:50 Vecuronium 10 Mg Vial IVP 10 mg Q30MIN PRN Administration Agitation Zinc Sulfate 220 mg 07/07/20 09:00 07/12/20 08:24 Zinc Sulfate 220 Mg Cap PO 220 mg DAILY GALEN Administration - Exam Eye: PERRL, anicteric sclera ENT: no oropharyngeal lesions, dry oral mucosa Neck: supple, no JVD Heart: RRR, no murmur Respiratory: no wheezes, no rales, rhonchi Gastrointestinal: soft, non-tender, non-distended, normal bowel sounds Extremities: no cyanosis, no edema Neurological: cranial nerve grossly intact, no focal deficits Hosp A/P (1) Acute respiratory failure with hypoxia Code(s): J96.01 - ACUTE RESPIRATORY FAILURE WITH HYPOXIA Status: Acute (2) Pneumonia due to COVID-19 virus Code(s): U07.1 - COVID-19; J12.89 - OTHER VIRAL PNEUMONIA Status: Acute (3) Asthma Code(s): J45.909 - UNSPECIFIED ASTHMA, UNCOMPLICATED Status: Chronic Qualifiers: Asthma severity: mild Asthma persistence: intermittent Asthma complication type: uncomplicated Qualified Code(s): J45.20 - Mild intermittent asthma, uncomplicated (4) BPH (benign prostatic hyperplasia) Code(s): N40.0 - BENIGN PROSTATIC HYPERPLASIA WITHOUT LOWER URINRY TRACT SYMP Status: Chronic Qualifiers: Lower urinary tract symptom presence: unspecified whether lower urinary tract symptoms present Qualified Code(s): N40.0 - Benign prostatic hyperplasia without lower urinary tract symptoms (5) DMII (diabetes mellitus, type 2) Status: Chronic Qualifiers: Diabetes mellitus group home insulin use: with termite exterminator use (6) HLD (hyperlipidemia) Code(s): E78.5 - HYPERLIPIDEMIA, UNSPECIFIED Status: Chronic Qualifiers: Hyperlipidemia type: unspecified Qualified Code(s): E78.5 - Hyperlipidemia, unspecified (7) HTN (hypertension) Code(s): I10 - ESSENTIAL (PRIMARY) HYPERTENSION Status: Chronic Qualifiers: Hypertension type: essential hypertension Qualified Code(s): I10 - Essential (primary) hypertension (8) Peripheral neuropathy Code(s): G62.9 - POLYNEUROPATHY, UNSPECIFIED Status: Chronic - Plan is on nebs, steroids, full dose lovenox. Has fever of 100, has been started on cefepime 07/12 Got intubated due to progressive confusion and hypoxia 07/08/20. continue lipitor and flomax, to taper lantus with steroid taper prognosis guarded hemostable
[2020-07-12] MEDS: fentaNYL Citrate/PF 2,000 MCG in Sodium Chloride 0.9% 60 ML IV SCH (16:44)
[2020-07-12] MEDS: Atorvastatin Calcium 40 MG TAB PO SCH (21:04)
[2020-07-13] MEDS: Propofol 1,000 MG/100 ML VIAL IV PRN ×4 (00:59→17:46)
[2020-07-13] MEDS: Lorazepam 2 MG/ML VIAL SLOW IVP PRN ×2 (02:13→13:33)
[2020-07-13 04:59] LABS: #Basophils 0.1 thou/uL (0.0-0.2); #Lymphocytes 1.4 thou/uL (1.20-3.40); #Monocytes 0.7 thou/uL (0.11-0.59); #Neutrophils 10.6 thou/uL (1.40-6.50); %Basophils 0.6 % (0.0-1.0); %Eosinophils 0.3 % (0.0-10.0); %Lymphocytes 10.8 % (21.0-51.0); %Monocytes 5.3 % (0.0-10.0); %Neutrophils 83.1 % (42.0-75.0); Hemoglobin 12.8 g/dL (14.0-18.0); Mean Corpuscular HGB CONC 33.1 g/dL (32.0-36.0); Mean Corpuscular Hemoglobin 30.5 pg (27.0-31.0); Mean Corpuscular Volume 92.3 fL (78.0-98.0); Mean Platelet Volume 7.2 fL (7.4-10.4); Platelet Count 279 thou/uL (130-400); White Blood Cell (WBC) Count 12.8 thou/uL (4.8-10.8)
[2020-07-13] MEDS: Hydrocortisone Sod Succ/PF 100 mg/2 ml Vial IVP SCH ×3 (05:19→20:36)
[2020-07-13 05:27] LABS: Anion Gap 12 mmol/L (10-20); BUN (Urea Nitrogen) 33 mg/dL (8.4-25.7); Calc. Creatinine Clearance 96 mL/min (70-130); Carbon Dioxide 31 mmol/L (23-31); Chloride 107 mmol/L (98-107); Estimated GFR-MDRD 62; Glucose 288 mg/dL (80-115); Potassium 3.9 mmol/L (3.5-5.1); Sodium 146 mmol/L (136-145)
[2020-07-13 05:28] LABS: Calcium 8.1 mg/dL (7.8-10.44)
[2020-07-13] MEDS: Arformoterol 15 MCG/2 ML NEB NEB SCH ×2 (07:05→19:15)
[2020-07-13] MEDS: Budesonide 0.5 MG/2 ML NEB NEB SCH ×2 (07:05→19:15)
[2020-07-13] MEDS: HumaLOG 300 UNITS/3 ML VIAL SC PRN ×4 (07:12→22:30)
[2020-07-13 07:40] LABS: Base Excess (BEa) 7.5 mEq/L (-2.0 to +3.0); CO2 Tension 34.9 mmHg (35.0-45.0); Calcium, Ionized (arterial) 1.12 mmol/L (1.12-1.30); Carboxyhemoglobin (COHb) 0.4 gm% (0.0-3.0); Hemoglobin (Hb) 12.7 g/dL (14.0-18.0); Potassium - ABG Lab 3.81 mmol/L (3.70-5.30)
--- NOTE | 2020-07-13 08:01 | RAD ---
EXAM: Single view of the chest HISTORY: Pneumonia COMPARISON: 07/12/2020 FINDINGS: Single view of the chest shows a normal sized cardiomediastinal silhouette. The endotrache al tube and NG tube are unchanged in position. There is improvement in the opacity in the lung bases which could represent atelectasis or infiltrates. No acute osseous abnormality. IMPRESSION: Improvement in bibasilar atelectasis versus infiltrates
--- NOTE | 2020-07-13 08:53 | PRG ---
DATE OF SERVICE: 07/13/2020 35 minutes of critical care time. SUBJECTIVE: The patient remains intubated on mechanical ventilation. There have been no acute changes overnight. OBJECTIVE: VITAL SIGNS: His temperature is 100.1 with a T-max of 101.5 yesterday, pulse 75, blood pressure 175/85. 24-hour intake is 1506, output 2545. HEENT: Unremarkable. NECK: No adenopathy or JVD. LUNGS: With crackles. CARDIAC: S1 and S2. Regular. ABDOMEN: Soft. EXTREMITIES: No edema. DIAGNOSTIC STUDIES: His chest x-ray shows some clearing. LABORATORY DATA: ABG; pH 7.55, pCO2 of 34, pO2 of 60. Sodium 146, potassium 3.9, chloride 107, CO2 of 31, BUN 33, creatinine 1.1, glucose 288. C-reactive protein is 4.2. White blood cell count 12.8, hematocrit 38.8, and platelet count 279. ASSESSMENT: 1. COVID-19 pneumonia. 2. Acute hypoxic respiratory failure requiring mechanical ventilation. 3. Mild hypernatremia. 4. Fever yesterday. PLAN: 1. I am going to decrease his high pressure on the ventilator as his compliance has improved to the point where his tidal volumes are now exceeding 700. 2. Add some free water given the hypernatremia. 3. I will update family. Job ID: [id number]
[2020-07-13] MEDS: Insulin Glargine 25 UNITS in Pre-Filled Syringe 1 EACH SC SCH (09:18)
[2020-07-13] MEDS: Cefepime 1 GM in Sodium Chloride 0.9% 100 ML IVPB SCH ×2 (09:18→21:49)
[2020-07-13] MEDS: Enoxaparin Sodium 80 MG/0.8 ML SYRINGE SC SCH ×2 (09:18→20:35)
[2020-07-13] MEDS: FLUoxetine HCl 20 MG CAP PO SCH (09:19)
[2020-07-13] MEDS: Zinc Sulfate 220 MG CAP PO SCH (09:19)
[2020-07-13] MEDS: Cholecalciferol (Vitamin D3) 400 UNITS TAB PO SCH (09:19)
[2020-07-13] MEDS: Gabapentin 300 MG CAP PO SCH ×3 (09:19→20:35)
[2020-07-13] MEDS: Tamsulosin HCl 0.4 MG CAP PO SCH (09:20)
[2020-07-13] MEDS: Ascorbic Acid 500 mg Chewable Tablet PO SCH (09:20)
[2020-07-13] MEDS: Acetaminophen 325 MG TAB PO PRN (11:30)
[2020-07-13] MEDS: hydrALAZINE 20 MG/ML VIAL SLOW IVP PRN (13:42)
[2020-07-13 16:38] LABS: pH, Arterial 7.55 (7.35-7.45)
[2020-07-13 16:39] LABS: O2 Tension (PaO2), arterial 59.9 mmHg (> 80.0); Puncture Site L.R.
[2020-07-13 16:40] LABS: ALV-art Gradient 181.675 mmHg (0-20)
[2020-07-13] MEDS: fentaNYL Citrate/PF 2,000 MCG in Sodium Chloride 0.9% 60 ML IV SCH (16:45)
--- NOTE | 2020-07-13 20:08 | PDOC.HOSPP ---
- Subjective Encounter Date: 07/13/20 non-verbal Subjective: Intubated and sedated - Objective Vital Signs & Weight: Vital Signs (12 hours) Temp Pulse Resp BP 07/13/20 17:59 12 07/13/20 16:00 101.1 F H 12 07/13/20 14:32 72 152/75 H 07/13/20 14:00 23 H 07/13/20 13:42 71 181/86 H 07/13/20 12:00 19 07/13/20 11:00 101.8 F H 07/13/20 10:55 71 181/86 H 07/13/20 10:00 14 Weight Admit Weight 244 lb Weight 244 lb 11.41 oz Most Recent Monitor Data Heart Rate from ECG 63 NIBP 153/74 NIBP BP-Mean 100 Respiration from ECG 12 SpO2 99 I&O: 07/12/20 07/13/20 07/14/20 06:59 06:59 06:59 Intake Total 2184.7 1506.4 1230 Output Total 2465 2545 860 Balance -280.3 -1038.6 370 Result Diagrams: 07/13/20 04:30 07/13/20 04:30 Additional Labs: Accuchecks 07/13/20 07/13/20 07/12/20 16:54 11:09 22:02 POC Glucose 246 H 262 H 260 H 07/11/20 07/09/20 07/09/20 21:23 21:54 15:19 POC Glucose 134 H 275 H 273 H Hospitalist ROS - Medication Medications: Active Medications Generic Name Dose Route Start Last Admin Trade Name Freq PRN Reason Stop Dose Admin Acetaminophen 650 mg 07/06/20 13:18 07/13/20 11:30 Acetaminophen 325 Mg Tab PO 650 mg Q6H PRN Administration Headache/Fever/Mild Pain (1-3) Albuterol/Ipratropium 3 ml 07/07/20 18:30 07/13/20 19:15 Ipratropium/Albuterol Sulfate 3 Ml Neb NEB 3 ml [id number] GALEN Administration Arformoterol Tartrate 15 mcg 07/08/20 18:30 07/13/20 19:15 Arformoterol 15 Mcg/2 Ml Neb NEB 15 mcg BID-RT GALEN Administration Ascorbic Acid 1,000 mg 07/07/20 09:00 07/13/20 09:20 Ascorbic Acid 500 Mg Chewable Tablet PO 1,000 mg DAILY GALEN Administration Atorvastatin Calcium 40 mg 07/06/20 21:00 07/12/20 21:04 Atorvastatin Calcium 40 Mg Tab PO 40 mg HS GALEN Administration Budesonide 0.5 mg 07/08/20 18:30 07/13/20 19:15 Budesonide 0.5 Mg/2 Ml Neb NEB 0.5 mg BID-RT GALEN Administration Cholecalciferol 400 units 07/07/20 09:00 07/13/20 09:19 Cholecalciferol (Vitamin D3) 400 Units Tab PO 400 units DAILY GALEN Administration Enoxaparin Sodium 80 mg 07/06/20 21:00 07/13/20 09:18 Enoxaparin Sodium 80 Mg/0.8 Ml Syringe SC 80 mg [id number] GALEN Administration Fluoxetine HCl 40 mg 07/07/20 09:00 07/13/20 09:19 Fluoxetine Hcl 20 Mg Cap PO 40 mg DAILY GALEN Administration Gabapentin 600 mg 07/06/20 15:00 07/13/20 13:33 Gabapentin 300 Mg Cap PO 600 mg TID GALEN Administration Hydralazine HCl 10 mg 07/13/20 13:20 07/13/20 13:42 Hydralazine 20 Mg/Ml Vial SLOW IVP 10 mg Q4H PRN Administration Hypertension Hydrocortisone Sodium Succinate 50 mg 07/13/20 09:00 07/13/20 09:25 Hydrocortisone Sod Succ/Pf 100 Mg/2 Ml Vial IVP 50 mg BID GALEN Administration Fentanyl Citrate 2,000 mcg/ 100 mls @ 0 mls/hr 07/08/20 09:00 07/13/20 16:45 Sodium Chloride IV 08/07/20 09:00 100 mls INF GALEN Administration Protocol Per Protocol Dexmedetomidine HCl 400 mcg/ 100 mls @ 0 mls/hr 07/11/20 11:00 07/13/20 13:42 Sodium Chloride IVPB 100 mls INF GALEN Administration Protocol Per Protocol Insulin Glargine 25 units/ 0.25 mls @ 0 mls/hr 07/11/20 21:00 07/13/20 09:18 Miscellaneous Medication SC 0.25 mls BID GALEN Administration Cefepime HCl 1 gm/ Sodium 100 mls @ 200 mls/hr 07/12/20 10:00 07/13/20 09:18 Chloride IVPB 100 mls Q12H GALEN Administration Insulin Human Lispro 0 units 07/06/20 13:24 07/07/20 21:36 Humalog 300 Units/3 Ml Vial SC 3 unit .BEDTIME SLIDING SC PRN Administration Bedtime Correctional Scale Insulin Human Lispro 0 units 07/06/20 13:24 07/13/20 17:07 Humalog 300 Units/3 Ml Vial SC 6 unit .MODERATE SLIDING SC PRN Administration Moderate Correctional Scale Lorazepam 2 mg 07/07/20 15:08 07/13/20 13:33 Lorazepam 2 Mg/Ml Vial SLOW IVP 2 mg Q2H PRN Administration Anxiety Lorazepam 2 mg 07/08/20 09:00 07/13/20 02:13 Lorazepam 2 Mg/Ml Vial SLOW IVP 08/07/20 09:00 2 mg Q1H PRN Administration Breakthrough agitation Pantoprazole Sodium 40 mg 07/07/20 09:00 07/13/20 09:20 Pantoprazole 40 Mg Tab PO 40 mg DAILY GALEN Administration Propofol 1,000 mg 07/08/20 09:00 07/13/20 17:46 Propofol 1,000 Mg/100 Ml Vial IV 08/07/20 09:00 1,000 mg INF PRN Administration TO ACHIEVE GOAL RASS Protocol Tamsulosin HCl 0.4 mg 07/07/20 09:00 07/13/20 09:20 Tamsulosin Hcl 0.4 Mg Cap PO 0.4 mg DAILY GALEN Administration Tramadol HCl 50 mg 07/06/20 13:26 07/07/20 20:03 Tramadol Hcl 50 Mg Tab PO 50 mg Q6H PRN Administration Moderate Pain (4-6) Vecuronium [place] 10 mg 07/08/20 08:26 07/12/20 08:50 Vecuronium 10 Mg Vial IVP 10 mg Q30MIN PRN Administration Agitation Zinc Sulfate 220 mg 07/07/20 09:00 07/13/20 09:19 Zinc Sulfate 220 Mg Cap PO 220 mg DAILY GALEN Administration - Exam General Appearance: NAD General - other findings: Intubated and sedated Heart: RRR, no murmur, no gallops, no rubs, normal peripheral pulses Respiratory: CTAB, no wheezes, no rales, no ronchi, normal chest expansion, no tachypnea, normal percussion Gastrointestinal: soft, non-distended, normal bowel sounds, no palpable masses, no hepatomegaly, no splenomegaly Extremities: no cyanosis, no clubbing, no edema Skin: normal turgor Hosp A/P (1) Acute respiratory failure with hypoxia Code(s): J96.01 - ACUTE RESPIRATORY FAILURE WITH HYPOXIA Status: Acute (2) Pneumonia due to COVID-19 virus Code(s): U07.1 - COVID-19; J12.89 - OTHER VIRAL PNEUMONIA Status: Acute (3) Asthma Code(s): J45.909 - UNSPECIFIED ASTHMA, UNCOMPLICATED Status: Chronic Qualifiers: Asthma severity: mild Asthma persistence: intermittent Asthma complication type: uncomplicated Qualified Code(s): J45.20 - Mild intermittent asthma, uncomplicated (4) BPH (benign prostatic hyperplasia) Code(s): N40.0 - BENIGN PROSTATIC HYPERPLASIA WITHOUT LOWER URINRY TRACT SYMP Status: Chronic Qualifiers: Lower urinary tract symptom presence: unspecified whether lower urinary tract symptoms present Qualified Code(s): N40.0 - Benign prostatic hyperplasia without lower urinary tract symptoms (5) DMII (diabetes mellitus, type 2) Status: Chronic Qualifiers: Diabetes mellitus roasterman insulin use: with half-way use (6) HLD (hyperlipidemia) Code(s): E78.5 - HYPERLIPIDEMIA, UNSPECIFIED Status: Chronic Qualifiers: Hyperlipidemia type: unspecified Qualified Code(s): E78.5 - Hyperlipidemia, unspecified (7) HTN (hypertension) Code(s): I10 - ESSENTIAL (PRIMARY) HYPERTENSION Status: Chronic Qualifiers: Hypertension type: essential hypertension Qualified Code(s): I10 - Essential (primary) hypertension (8) Peripheral neuropathy Code(s): G62.9 - POLYNEUROPATHY, UNSPECIFIED Status: Chronic (9) CKD (chronic kidney disease), stage III Code(s): N18.30 - CHRONIC KIDNEY DISEASE, STAGE 3 UNSPECIFIED Status: Acute - Plan Acute hypoxic respiratory failure: Secondary to Covid pneumonia. Remains on the ventilator. Pulmonary critical care following and weaning as tolerated. Has had some improvement in his x-ray and some improvement in his lung compliance with better tidal volumes. COVID-19 pneumonia: Patient was beyond the window of treatment given his severe respiratory failure at the time of his arrival here. Had already received some steroids. Currently on no specific therapies for COVID-19. Asthma: Continue ventilatory support. Continue Brovana and duo nebs. Hypertension: Patient has had some elevated blood pressure readings. Have ordered some as needed IV medications. Diabetes mellitus: Currently receiving Lantus 25 units subcu twice daily along with moderate sliding scale. Blood sugars continue to run high. We will increase the Lantus dose. CKD stage III: At his stable baseline GFR.
[2020-07-13] MEDS: Atorvastatin Calcium 40 MG TAB PO SCH (20:35)
[2020-07-13] MEDS: Insulin Glargine 30 UNITS in Pre-Filled Syringe SC SCH (20:39)
[2020-07-14] MEDS: Propofol 1,000 MG/100 ML VIAL IV PRN ×2 (01:34→05:30)
[2020-07-14 04:40] LABS: #Lymphocytes 1.5 thou/uL (1.20-3.40); #Monocytes 0.8 thou/uL (0.11-0.59); #Neutrophils 9.3 thou/uL (1.40-6.50); %Basophils 0.4 % (0.0-1.0); %Eosinophils 0.4 % (0.0-10.0); %Lymphocytes 12.9 % (21.0-51.0); %Monocytes 6.7 % (0.0-10.0); %Neutrophils 79.7 % (42.0-75.0); Hemoglobin 12.3 g/dL (14.0-18.0); Mean Corpuscular HGB CONC 32.9 g/dL (32.0-36.0); Mean Corpuscular Hemoglobin 30.6 pg (27.0-31.0); Mean Corpuscular Volume 93.1 fL (78.0-98.0); Mean Platelet Volume 7.5 fL (7.4-10.4); Platelet Count 278 thou/uL (130-400); RBC Distribution Width 12.2 % (11.5-14.5); Red Blood Cell (RBC) Count 4.01 mill/uL (4.70-6.10); White Blood Cell (WBC) Count 11.6 thou/uL (4.8-10.8)
[2020-07-14 04:55] LABS: Anion Gap 12 mmol/L (10-20); BUN (Urea Nitrogen) 32 mg/dL (8.4-25.7); Calc. Creatinine Clearance 109 mL/min (70-130); Calcium 8.2 mg/dL (7.8-10.44); Carbon Dioxide 29 mmol/L (23-31); Chloride 108 mmol/L (98-107); Estimated GFR-MDRD 72; Glucose 266 mg/dL (80-115); Sodium 145 mmol/L (136-145)
[2020-07-14] MEDS: HumaLOG 300 UNITS/3 ML VIAL SC PRN ×3 (06:32→16:40)
[2020-07-14] MEDS: Budesonide 0.5 MG/2 ML NEB NEB SCH ×2 (07:10→19:11)
[2020-07-14] MEDS: Arformoterol 15 MCG/2 ML NEB NEB SCH ×2 (07:10→19:11)
[2020-07-14 07:25] LABS: Actual Bicarbonate (HCO3a) 23.6 mEq/L (22-28); Base Excess (BEa) 0.1 mEq/L (-2.0 to +3.0); CO2 Tension 34.4 mmHg (35.0-45.0); Calcium, Ionized (arterial) 1.15 mmol/L (1.12-1.30); Carboxyhemoglobin (COHb) 0.8 gm% (0.0-3.0); O2 Tension (PaO2), arterial 81.7 mmHg (> 80.0); Potassium - ABG Lab 4.02 mmol/L (3.70-5.30); pH, Arterial 7.45 (7.35-7.45)
[2020-07-14 07:26] LABS: Puncture Site RRA
--- NOTE | 2020-07-14 07:51 | RAD ---
EXAM: Single view of the chest HISTORY: Pneumonia COMPARISON: 07/13/2020 FINDINGS: Single view of the chest shows a mildly enlarged but stable cardiomediastinal silhouette. The endotracheal tube and NG tube are unchanged in position. Diffuse increased interstitial markings are present. There are questionable superimposed airspace opacities in the lower lobes. No a cute osseous abnormality. IMPRESSION: Stable exam
--- NOTE | 2020-07-14 08:04 | PRG ---
DATE OF SERVICE: 07/14/2020 TIME SPENT: 35 minutes of critical care time. SUBJECTIVE: The patient remains intubated on mechanical ventilation. He is actually doing fairly well. OBJECTIVE: VITAL SIGNS: His temperature is 99.7, pulse 65, blood pressure 160/85, and O2 saturation 99%. 24-hour intake 2163 and output 1655. HEENT: Unremarkable. NECK: No JVD. CHEST: Clear anteriorly. CARDIAC: S1 and S2. Regular. ABDOMEN: Soft. EXTREMITIES: No edema. IMAGING DATA: His x-ray is improved markedly today compared to 07/08/2020. LABORATORY DATA: Sodium 145, potassium 4, chloride 108, CO2 of 29, BUN 32, creatinine 1.0, and glucose 266. White blood cell count 11.6, hematocrit 37.4, and platelet count 278. PH of 7.45, pCO2 of 34, and pO2 of 81 on bilevel of 27/12, FiO2 of 40%. ASSESSMENT: 1. COVID-19 pneumonia. 2. Acute hypoxic respiratory failure, requiring mechanical ventilation. 3. Corrected hypernatremia. PLAN: I am converting him over to standard SIMV mode. I have instructed nursing staff to try to get into a place where he is awake and able to follow commands as he is approaching the point where he can be extubated. He is continuing anticoagulation and steroids. His blood sugars are too high, but his Lantus insulin was adjusted yesterday by the hospitalist group. Job ID: [id number]
[2020-07-14] MEDS: Hydrocortisone Sod Succ/PF 100 mg/2 ml Vial IVP SCH ×2 (08:58→21:36)
[2020-07-14] MEDS: Enoxaparin Sodium 80 MG/0.8 ML SYRINGE SC SCH ×2 (09:00→21:37)
[2020-07-14] MEDS: Cefepime 1 GM in Sodium Chloride 0.9% 100 ML IVPB SCH ×2 (09:00→21:36)
[2020-07-14] MEDS: Ascorbic Acid 500 mg Chewable Tablet PO SCH (09:01)
[2020-07-14] MEDS: Cholecalciferol (Vitamin D3) 400 UNITS TAB PO SCH (09:01)
[2020-07-14] MEDS: Insulin Glargine 30 UNITS in Pre-Filled Syringe SC SCH ×2 (09:02→21:37)
[2020-07-14] MEDS: Gabapentin 300 MG CAP PO SCH ×3 (09:02→21:36)
[2020-07-14] MEDS: Tamsulosin HCl 0.4 MG CAP PO SCH (09:02)
[2020-07-14] MEDS: Zinc Sulfate 220 MG CAP PO SCH (09:02)
[2020-07-14] MEDS: FLUoxetine HCl 20 MG CAP PO SCH (09:02)
[2020-07-14] MEDS: Labetalol HCl 100 MG/20 ML VIAL SLOW IVP PRN (10:06)
[2020-07-14] MEDS: hydrALAZINE 20 MG/ML VIAL SLOW IVP PRN (12:04)
[2020-07-14] MEDS: fentaNYL Citrate/PF 2,000 MCG in Sodium Chloride 0.9% 60 ML IV SCH (18:40)
--- NOTE | 2020-07-14 18:56 | PDOC.HOSPP ---
- Subjective Encounter Date: 07/14/20 non-verbal - Objective Vital Signs & Weight: Vital Signs (12 hours) Temp Pulse Resp BP Pulse Ox 07/14/20 18:00 13 07/14/20 16:00 15 07/14/20 15:00 100.4 F H 07/14/20 14:56 75 07/14/20 14:00 14 07/14/20 13:03 87 07/14/20 12:04 85 185/94 H 07/14/20 12:00 17 07/14/20 10:50 85 185/94 H 07/14/20 10:06 64 185/94 H 07/14/20 10:00 16 07/14/20 07:57 16 93 L 07/14/20 07:10 64 07/14/20 07:00 100.4 F H Weight Admit Weight 244 lb Weight 244 lb 11.41 oz Most Recent Monitor Data Heart Rate from ECG 75 NIBP 162/78 NIBP BP-Mean 106 Respiration from ECG 15 SpO2 98 I&O: 07/13/20 07/14/20 07/15/20 06:59 06:59 06:59 Intake Total 1506.4 2163 1298 Output Total 2545 1655 1240 Balance -1038.6 508 58 Result Diagrams: 07/14/20 04:12 07/14/20 04:12 Additional Labs: Accuchecks 07/14/20 07/13/20 10:15 22:26 POC Glucose 223 H 168 H Hospitalist ROS - Medication Medications: Active Medications Generic Name Dose Route Start Last Admin Trade Name Freq PRN Reason Stop Dose Admin Acetaminophen 650 mg 07/06/20 13:18 07/13/20 11:30 Acetaminophen 325 Mg Tab PO 650 mg Q6H PRN Administration Headache/Fever/Mild Pain (1-3) Albuterol/Ipratropium 3 ml 07/07/20 18:30 07/14/20 14:55 Ipratropium/Albuterol Sulfate 3 Ml Neb NEB 3 ml [id number] GALEN Administration Arformoterol Tartrate 15 mcg 07/08/20 18:30 07/14/20 07:10 Arformoterol 15 Mcg/2 Ml Neb NEB 15 mcg BID-RT GALEN Administration Ascorbic Acid 1,000 mg 07/07/20 09:00 07/14/20 09:01 Ascorbic Acid 500 Mg Chewable Tablet PO 1,000 mg DAILY GALEN Administration Atorvastatin Calcium 40 mg 07/06/20 21:00 07/13/20 20:35 Atorvastatin Calcium 40 Mg Tab PO 40 mg HS GALEN Administration Budesonide 0.5 mg 07/08/20 18:30 07/14/20 07:10 Budesonide 0.5 Mg/2 Ml Neb NEB 0.5 mg BID-RT GALEN Administration Cholecalciferol 400 units 07/07/20 09:00 07/14/20 09:01 Cholecalciferol (Vitamin D3) 400 Units Tab PO 400 units DAILY GALEN Administration Enoxaparin Sodium 80 mg 07/06/20 21:00 07/14/20 09:00 Enoxaparin Sodium 80 Mg/0.8 Ml Syringe SC 80 mg GALEN Administration Fluoxetine HCl 40 mg 07/07/20 09:00 07/14/20 09:02 Fluoxetine Hcl 20 Mg Cap PO 40 mg DAILY GALEN Administration Gabapentin 600 mg 07/06/20 15:00 07/14/20 14:03 Gabapentin 300 Mg Cap PO 600 mg TID GALEN Administration Hydralazine HCl 10 mg 07/13/20 13:20 07/14/20 12:04 Hydralazine 20 Mg/Ml Vial SLOW IVP 10 mg Q4H PRN Administration Hypertension Hydrocortisone Sodium Succinate 50 mg 07/13/20 09:00 07/14/20 08:58 Hydrocortisone Sod Succ/Pf 100 Mg/2 Ml Vial IVP 50 mg BID GALEN Administration Fentanyl Citrate 2,000 mcg/ 100 mls @ 0 mls/hr 07/08/20 09:00 07/14/20 18:40 Sodium Chloride IV 08/07/20 09:00 100 mls INF GALEN Administration Protocol Per Protocol Dexmedetomidine HCl 400 mcg/ 100 mls @ 0 mls/hr 07/11/20 11:00 07/14/20 14:04 Sodium Chloride IVPB 100 mls INF GALEN Administration Protocol Per Protocol Cefepime HCl 1 gm/ Sodium 100 mls @ 200 mls/hr 07/12/20 10:00 07/14/20 09:00 Chloride IVPB 100 mls Q12H GALEN Administration Insulin Glargine 30 units/ 0.3 mls @ 0 mls/hr 07/13/20 21:00 07/14/20 09:02 Miscellaneous Medication SC 0.3 mls BID GALNE Administration Insulin Human Lispro 0 units 07/06/20 13:24 07/07/20 21:36 Humalog 300 Units/3 Ml Vial SC 3 unit .BEDTIME SLIDING SC PRN Administration Bedtime Correctional Scale Insulin Human Lispro 0 units 07/06/20 13:24 07/14/20 16:40 Humalog 300 Units/3 Ml Vial SC 2 unit .MODERATE SLIDING SC PRN Administration Moderate Correctional Scale Labetalol HCl 10 mg 07/13/20 13:51 07/14/20 10:06 Labetalol Hcl 100 Mg/20 Ml Vial SLOW IVP 10 mg Q4H PRN Administration SBP Greater Than 180 Lorazepam 2 mg 07/08/20 09:00 07/13/20 02:13 Lorazepam 2 Mg/Ml Vial SLOW IVP 08/07/20 09:00 2 mg Q1H PRN Administration Breakthrough agitation Pantoprazole Sodium 40 mg 07/07/20 09:00 07/14/20 09:01 Pantoprazole 40 Mg Tab PO 40 mg DAILY GALEN Administration Propofol 1,000 mg 07/08/20 09:00 07/14/20 05:30 Propofol 1,000 Mg/100 Ml Vial IV 08/07/20 09:00 1,000 mg INF PRN Administration TO ACHIEVE GOAL RASS Protocol Tamsulosin HCl 0.4 mg 07/07/20 09:00 07/14/20 09:02 Tamsulosin Hcl 0.4 Mg Cap PO 0.4 mg DAILY GALEN Administration Tramadol HCl 50 mg 07/06/20 13:26 07/07/20 20:03 Tramadol Hcl 50 Mg Tab PO 50 mg Q6H PRN Administration Moderate Pain (4-6) Vecuronium [place] 10 mg 07/08/20 08:26 07/12/20 08:50 Vecuronium 10 Mg Vial IVP 10 mg Q30MIN PRN Administration Agitation Zinc Sulfate 220 mg 07/07/20 09:00 07/14/20 09:02 Zinc Sulfate 220 Mg Cap PO 220 mg DAILY GALEN Administration - Exam General Appearance: NAD General - other findings: Intubated and sedated Heart: RRR, no murmur, no gallops, no rubs, normal peripheral pulses Respiratory: CTAB, no wheezes, no rales, no ronchi, normal chest expansion, no tachypnea, normal percussion Gastrointestinal: soft, non-tender, non-distended, normal bowel sounds, no palpable masses, no hepatomegaly, no splenomegaly, no bruit Extremities: no cyanosis, no clubbing, no edema Hosp A/P (1) Acute respiratory failure with hypoxia Code(s): J96.01 - ACUTE RESPIRATORY FAILURE WITH HYPOXIA Status: Acute (2) Pneumonia due to COVID-19 virus Code(s): U07.1 - COVID-19; J12.89 - OTHER VIRAL PNEUMONIA Status: Acute (3) Asthma Code(s): J45.909 - UNSPECIFIED ASTHMA, UNCOMPLICATED Status: Chronic Qualifiers: Asthma severity: mild Asthma persistence: intermittent Asthma complication type: uncomplicated Qualified Code(s): J45.20 - Mild intermittent asthma, uncomplicated (4) BPH (benign prostatic hyperplasia) Code(s): N40.0 - BENIGN PROSTATIC HYPERPLASIA WITHOUT LOWER URINRY TRACT SYMP Status: Chronic Qualifiers: Lower urinary tract symptom presence: unspecified whether lower urinary tract symptoms present Qualified Code(s): N40.0 - Benign prostatic hyperplasia without lower urinary tract symptoms (5) DMII (diabetes mellitus, type 2) Status: Chronic Qualifiers: Diabetes mellitus exterminator helper termite insulin use: with residential use (6) HLD (hyperlipidemia) Code(s): E78.5 - HYPERLIPIDEMIA, UNSPECIFIED Status: Chronic Qualifiers: Hyperlipidemia type: unspecified Qualified Code(s): E78.5 - Hyperlipidemia, unspecified (7) HTN (hypertension) Code(s): I10 - ESSENTIAL (PRIMARY) HYPERTENSION Status: Chronic Qualifiers: Hypertension type: essential hypertension Qualified Code(s): I10 - Essential (primary) hypertension (8) Peripheral neuropathy Code(s): G62.9 - POLYNEUROPATHY, UNSPECIFIED Status: Chronic (9) CKD (chronic kidney disease), stage III Code(s): N18.30 - CHRONIC KIDNEY DISEASE, STAGE 3 UNSPECIFIED Status: Acute - Plan Acute hypoxic respiratory failure: Secondary to Covid pneumonia. Remains on the ventilator. Pulmonary critical care following and weaning as tolerated. Has had some improvement in his x-ray and some improvement in his lung compliance with better tidal volumes. COVID-19 pneumonia: Patient was beyond the window of treatment given his severe respiratory failure at the time of his arrival here. Had already received some steroids. Currently on no specific therapies for COVID-19. Asthma: Continue ventilatory support. Continue Brovana and duo nebs. Hypertension: Patient has had some elevated blood pressure readings. Have ordered some as needed IV medications. Diabetes mellitus: Currently receiving Lantus 25 units subcu twice daily along with moderate sl iding scale. Blood sugars continue to run high. We will increase the Lantus dose. Some improvement overall but may need slight adjustment still. CKD stage III: At his stable baseline GFR.
[2020-07-14] MEDS: Atorvastatin Calcium 40 MG TAB PO SCH (21:36)
[2020-07-15 04:24] LABS: #Lymphocytes 2.2 thou/uL (1.20-3.40); #Neutrophils 8.4 thou/uL (1.40-6.50); %Basophils 0.3 % (0.0-1.0); %Eosinophils 0.4 % (0.0-10.0); %Monocytes 8.5 % (0.0-10.0); %Neutrophils 71.9 % (42.0-75.0); Hemoglobin 12.5 g/dL (14.0-18.0); Mean Corpuscular HGB CONC 33.1 g/dL (32.0-36.0); Mean Corpuscular Hemoglobin 30.8 pg (27.0-31.0); Mean Corpuscular Volume 93.2 fL (78.0-98.0); Mean Platelet Volume 7.5 fL (7.4-10.4); Platelet Count 273 thou/uL (130-400); Red Blood Cell (RBC) Count 4.05 mill/uL (4.70-6.10); White Blood Cell (WBC) Count 11.7 thou/uL (4.8-10.8)
[2020-07-15 04:47] LABS: Anion Gap 13 mmol/L (10-20); BUN (Urea Nitrogen) 30 mg/dL (8.4-25.7); Calc. Creatinine Clearance 115 mL/min (70-130); Calcium 8.2 mg/dL (7.8-10.44); Carbon Dioxide 29 mmol/L (23-31); Chloride 105 mmol/L (98-107); Estimated GFR-MDRD 76; Glucose 226 mg/dL (80-115); Sodium 143 mmol/L (136-145)
[2020-07-15] MEDS: Budesonide 0.5 MG/2 ML NEB NEB SCH ×2 (07:02→19:00)
[2020-07-15] MEDS: Arformoterol 15 MCG/2 ML NEB NEB SCH ×2 (07:02→19:00)
[2020-07-15 07:20] LABS: Actual Bicarbonate (HCO3a) 28.7 mEq/L (22-28); Base Excess (BEa) 4.2 mEq/L (-2.0 to +3.0); CO2 Tension 42.4 mmHg (35.0-45.0); Calcium, Ionized (arterial) 1.13 mmol/L (1.12-1.30); Carboxyhemoglobin (COHb) 0.8 gm% (0.0-3.0); Hemoglobin (Hb) 12.6 g/dL (14.0-18.0); O2 Tension (PaO2), arterial 89.5 mmHg (> 80.0); Potassium - ABG Lab 3.73 mmol/L (3.70-5.30); pH, Arterial 7.45 (7.35-7.45)
[2020-07-15 07:23] LABS: Puncture Site RRA
--- NOTE | 2020-07-15 07:56 | RAD ---
Portable frontal chest radiograph: 07/15/2020 COMPARISON: 07/14/2020 HISTORY: Pneumonia, intubated patient FINDINGS: Stable endotracheal tube and nasogastric tube. Heart and mediastinal contours are stable. There is mild increased linear interstitial density in the perihilar regions. No focal consolidation. No significant interval change. Mild hazy density persists in the right costophrenic angle region. IMPRESSION: Stable appearance of the chest as above.
--- NOTE | 2020-07-15 08:05 | PDOC.PULCC ---
CCU Progress Note: Subj/Obj - Subjective Date: 07/15/20 Time: 08:03 Narrative: Patient remains on mechanical ventilation - Objective Allergies/Adverse Reactions: Allergies Allergy/AdvReac Type Severity Reaction Status Date / Time No Known Drug Allergies Allergy Verified 01/02/20 00:11 Medications: Current Medications Acetaminophen (Acetaminophen 325 Mg Tab) 650 mg PO Q6H PRN PRN Reason: Headache/Fever/Mild Pain (1-3) Last Admin: 07/13/20 11:30 Dose: 650 mg Documented by: Albuterol/Ipratropium (Ipratropium/Albuterol Sulfate 3 Ml Neb) 3 ml NEB [id number] [facility] Last Admin: 07/15/20 07:02 Dose: 3 ml Documented by: Arformoterol Tartrate (Arformoterol 15 Mcg/2 Ml Neb) 15 mcg NEB BID-RT [facility] Last Admin: 07/15/20 07:02 Dose: 15 mcg Documented by: Ascorbic Acid (Ascorbic Acid 500 Mg Chewable Tablet) 1,000 mg PO DAILY [facility] Last Admin: 07/14/20 09:01 Dose: 1,000 mg Documented by: Atorvastatin Calcium (Atorvastatin Calcium 40 Mg Tab) 40 mg PO HS [facility] Last Admin: 07/14/20 21:36 Dose: 40 mg Documented by: Budesonide (Budesonide 0.5 Mg/2 Ml Neb) 0.5 mg NEB BID-RT [facility] Last Admin: 07/15/20 07:02 Dose: 0.5 mg Documented by: Cholecalciferol (Cholecalciferol (Vitamin D3) 400 Units Tab) 400 units PO DAILY [facility] Last Admin: 07/14/20 09:01 Dose: 400 units Documented by: Dextrose/Water (Dextrose 50% Abboject 50 Ml Syringe) 25 gm SLOW IVP PRN PRN PRN Reason: Hypoglycemia Enoxaparin Sodium (Enoxaparin Sodium 80 Mg/0.8 Ml Syringe) 80 mg SC 0900,2100 [facility] Last Admin: 07/14/20 21:37 Dose: 80 mg Documented by: Fluoxetine HCl (Fluoxetine Hcl 20 Mg Cap) 40 mg PO DAILY [facility] Last Admin: 07/14/20 09:02 Dose: 40 mg Documented by: Gabapentin (Gabapentin 300 Mg Cap) 600 mg PO TID [facility] Last Admin: 07/14/20 21:36 Dose: 600 mg Documented by: Glucagon (Glucagon 1 Mg/Ml Vial) 1 mg IM PRN PRN PRN Reason: Hypoglycemia Guaifenesin (Guaifenesin Er 600 Mg Tab) 1,200 mg PO Q12HR PRN PRN Reason: Cough Hydralazine HCl (Hydralazine 20 Mg/Ml Vial) 10 mg SLOW IVP Q4H PRN PRN Reason: Hypertension Last Admin: 07/14/20 12:04 Dose: 10 mg Documented by: Hydrocortisone Sodium Succinate (Hydrocortisone Sod Succ/Pf 100 Mg/2 Ml Vial) 50 mg IVP BID [facility] Last Admin: 07/14/20 21:36 Dose: 50 mg Documented by: Dextrose/Water (D5w) 1,000 mls @ 0 mls/hr IV .Q0M PRN PRN Reason: Hypoglycemia Fentanyl Citrate 2,000 mcg/ (Sodium Chloride) 100 mls @ 0 mls/hr IV INF [facility]; Protocol Stop: 08/07/20 09:00 Last Admin: 07/14/20 18:40 Dose: 100 mls Documented by: Fentanyl Citrate (Fentanyl Bolus) 250 mls @ 0 mls/hr IVPB PRN PRN PRN Reason: Breakthrough pain/agitation Stop: 08/07/20 09:00 Dexmedetomidine HCl 400 mcg/ (Sodium Chloride) 100 mls @ 0 mls/hr IVPB INF [facility]; Protocol Last Admin: 07/15/20 06:51 Dose: 100 mls Documented by: Cefepime HCl 1 gm/ Sodium (Chloride) 100 mls @ 200 mls/hr IVPB Q12H [facility] Last Admin: 07/14/20 21:36 Dose: 100 mls Documented by: Insulin Glargine 30 units/ (Miscellaneous Medication) 0.3 mls @ 0 mls/hr SC BID [facility] Last Admin: 07/14/20 21:37 Dose: 0.3 mls Documented by: Insulin Human Lispro (Humalog 300 Units/3 Ml Vial) 0 units SC .BEDTIME SLIDING SC PRN PRN Reason: Bedtime Correctional Scale Last Admin: 07/07/20 21:36 Dose: 3 unit Documented by: Insulin Human Lispro (Humalog 300 Units/3 Ml Vial) 0 units SC .MODERATE SLIDING SC PRN PRN Reason: Moderate Correctional Scale Last Admin: 07/14/20 16:40 Dose: 2 unit Documented by: Labetalol HCl (Labetalol Hcl 100 Mg/20 Ml Vial) 10 mg SLOW IVP Q4H PRN PRN Reason: SBP Greater Than 180 Last Admin: 07/14/20 10:06 Dose: 10 mg Documented by: Lorazepam (Lorazepam 2 Mg/Ml Vial) 2 mg SLOW IVP Q1H PRN PRN Reason: Breakthrough agitation Stop: 08/07/20 09:00 Last Admin: 07/13/20 02:13 Dose: 2 mg Documented by: Morphine Sulfate (Morphine 2 Mg/Ml Vial) 2 mg SLOW IVP Q1H PRN PRN Reason: Breakthrough Pain/Agitation Stop: 08/07/20 09:00 Discontinue Previous Narcotic Pain Medications And Benzodiazepines 1 each FS .ONE [facility] Stop: 08/07/20 09:00 Ondansetron HCl (Ondansetron Pf 4 Mg/2 Ml Vial) 4 mg IVP Q6H PRN PRN Reason: Nausea/Vomiting Ondansetron HCl (Ondansetron Odt 4 Mg Tab) 4 mg PO Q6H PRN PRN Reason: Nausea/Vomiting Pantoprazole Sodium (Pantoprazole 40 Mg Tab) 40 mg PO DAILY [facility] Last Admin: 07/14/20 09:01 Dose: 40 mg Documented by: Propofol (Propofol 1,000 Mg/100 Ml Vial) 1,000 mg IV INF PRN; Protocol PRN Reason: TO ACHIEVE GOAL RASS Stop: 08/07/20 09:00 Last Admin: 07/14/20 05:30 Dose: 1,000 mg Documented by: Propofol (Propofol Bolus 1,000 Mg/100 Ml Vial) 20 mg IV Q5MIN PRN PRN Reason: BREAKTHROUGH AGITATION Stop: 08/07/20 09:00 Tamsulosin HCl (Tamsulosin Hcl 0.4 Mg Cap) 0.4 mg PO DAILY [facility] Last Admin: 07/14/20 09:02 Dose: 0.4 mg Documented by: Tramadol HCl (Tramadol Hcl 50 Mg Tab) 50 mg PO Q6H PRN PRN Reason: Moderate Pain (4-6) Last Admin: 07/07/20 20:03 Dose: 50 mg Documented by: Vecuronium [place] (Vecuronium 10 Mg Vial) 10 mg IVP Q30MIN PRN PRN Reason: Agitation Last Admin: 07/12/20 08:50 Dose: 10 mg Documented by: Zinc Sulfate (Zinc Sulfate 220 Mg Cap) 220 mg PO DAILY [facility] Last Admin: 07/14/20 09:02 Dose: 220 mg Documented by: DEBI Reviewed: Yes Vital Signs and I&O: Vital Signs Temp 100.4 F H 07/15/20 04:00 Pulse 69 07/15/20 07:03 Resp 14 07/15/20 06:00 BP 178/89 H 07/15/20 02:29 Pulse Ox 99 07/14/20 18:50 Intake & Output 07/14/20 07/15/20 07/15/20 18:59 06:59 18:59 Intake Total 1298 1102 Output Total 1240 1900 Balance 58 -798 Intake: Intake, IV Amount 539 551 Cefepime 1 gm In Sodium 337 325 Chloride 0.9% 100 ml @ 200 mls/hr IVPB Q12H [facility] Rx#:[id number] Dexmedetomidine 400 mcg 202 226 In Sodium Chloride 0.9% 96 ml @ Per Protocol IVPB INF [facility] Rx#:[id number] Tube Feeding 359 351 Tube Irrigant 400 200 Output: Output, Veliz 1240 1900 Other: Voiding Method Indwelling Catheter Vent Setting: SIMV, rate 10, FiO2 40% Spontaneous Breathing Test: done (Placed on CPAP 5 pressure support of 10 today) CCU Progress Note: Exam - Physical Exam Deviation from normal: Appears grossly confused and does not follow specific commands HEENT: JONELLE, TM's clear Neck: no nodes, no JVD Cardiovascular: RRR Respiratory: clear to auscultation anteriorly Gastrointestinal: soft, non-tender Musculoskeletal: edema present Deviation from normal: Withdraws with all 4 extremities Lymphatic: no nodes Skin: no rash CCU Progress Note: Data - Labs Result Diagrams: 07/15/20 04:15 07/15/20 04:15 Lab results: Laboratory Results 07/09/20 07/09/20 07/11/20 15:19 21:54 21:23 WBC RBC Hgb Hct MCV MCH MCHC RDW Plt Count MPV Neutrophils % Lymphocytes % Monocytes % Eosinophils % Basophils % Neutrophils # Lymphocytes # Monocytes # Eosinophils # Basophils # Specimen Type Puncture Site Bicarbonate Actual ABG pH ABG pCO2 ABG pO2 ABG O2 Sat (Measured) ABG O2 Content ABG Base Excess ABG Hematocrit ABG Hemoglobin ABG Oxyhemoglobin ABG Carboxyhemoglobin ABG Methemoglobin ABG Deoxyhemoglobin Giovani Test A-a O2 Gradient Sodium Potassium Chloride Ionized Calcium Mode of Support % Minute Volume Mechanical Rate Spontaneous Rate Inspired O2 Inspiratory Time Tidal Volume Spontaneous Tidal Vol Peak Inspir Pressure Pressure Support PEEP or CPAP Carbon Dioxide Anion Gap BUN Creatinine Estimated GFR (MDRD) Glucose POC Glucose 273 H 275 H 134 H Calcium 07/13/20 07/13/20 07/13/20 07:15 11:09 16:54 WBC RBC Hgb Hct MCV MCH MCHC RDW Plt Count MPV Neutrophils % Lymphocytes % Monocytes % Eosinophils % Basophils % Neutrophils # Lymphocytes # Monocytes # Eosinophils # Basophils # Specimen Type ARTERIAL Puncture Site L.R. Bicarbonate Actual 30.0 H ABG pH 7.55 H* ABG pCO2 34.9 L ABG pO2 59.9 L* ABG O2 Sat (Measured) 92.1 L ABG O2 Content 16.3 L ABG Base Excess 7.5 H ABG Hematocrit 37.0 L ABG Hemoglobin 12.7 L ABG Oxyhemoglobin 91.5 L ABG Carboxyhemoglobin 0.4 ABG Methemoglobin 0.30 ABG Deoxyhemoglobin 7.8 H Giovani Test POSITIVE A-a O2 Gradient 181.675 H Sodium 145 Potassium 3.81 Chloride 108 H Ionized Calcium 1.12 Mode of Support BILEVEL 34/12 % Minute Volume Mechanical Rate 15 Spontaneous Rate Inspired O2 40 Inspiratory Time 1.10 Tidal Volume Spontaneous Tidal Vol Peak Inspir Pressure Pressure Support 10 PEEP or CPAP Carbon Dioxide Anion Gap BUN Creatinine Estimated GFR (MDRD) Glucose POC Glucose 262 H 246 H Calcium 07/13/20 07/14/20 07/14/20 22:26 04:12 04:12 WBC 11.6 H RBC 4.01 L Hgb 12.3 L Hct 37.4 L MCV 93.1 MCH 30.6 MCHC 32.9 RDW 12.2 Plt Count 278 MPV 7.5 Neutrophils % 79.7 H Lymphocytes % 12.9 L Monocytes % 6.7 Eosinophils % 0.4 Basophils % 0.4 Neutrophils # 9.3 H Lymphocytes # 1.5 Monocytes # 0.8 H Eosinophils # 0.0 Basophils # 0.0 Specimen Type Puncture Site Bicarbonate Actual ABG pH ABG pCO2 ABG pO2 ABG O2 Sat (Measured) ABG O2 Content ABG Base Excess ABG Hematocrit ABG Hemoglobin ABG Oxyhemoglobin ABG Carboxyhemoglobin ABG Methemoglobin ABG Deoxyhemoglobin Giovani Test A-a O2 Gradient Sodium 145 Potassium 4.0 Chloride 108 H Ionized Calcium Mode of Support % Minute Volume Mechanical Rate Spontaneous Rate Inspired O2 Inspiratory Time Tidal Volume Spontaneous Tidal Vol Peak Inspir Pressure Pressure Support PEEP or CPAP Carbon Dioxide 29 Anion Gap 12 BUN 32 H Creatinine 1.03 Estimated GFR (MDRD) 72 Glucose 266 H POC Glucose 168 H Calcium 8.2 07/14/20 07/14/20 07/14/20 07:15 10:15 21:40 WBC RBC Hgb Hct MCV MCH MCHC RDW Plt Count MPV Neutrophils % Lymphocytes % Monocytes % Eosinophils % Basophils % Neutrophils # Lymphocytes # Monocytes # Eosinophils # Basophils # Specimen Type ARTERIAL Puncture Site RRA Bicarbonate Actual 23.6 ABG pH 7.45 ABG pCO2 34.4 L ABG pO2 81.7 H ABG O2 Sat (Measured) 95.6 ABG O2 Content 16.0 L ABG Base Excess 0.1 ABG Hematocrit 35.0 L ABG Hemoglobin 12.0 L ABG Oxyhemoglobin 94.5 ABG Carboxyhemoglobin 0.8 ABG Methemoglobin 0.30 ABG Deoxyhemoglobin 4.4 H Giovani Test Not Reportable A-a O2 Gradient 160.500 H Sodium 141 Potassium 4.02 Chloride 107 H Ionized Calcium 1.15 Mode of Support BL: 27/12 % Minute Volume 7.4 Mechanical Rate 10 Spontaneous Rate Inspired O2 40 Inspiratory Time 1.10 Tidal Volume Spontaneous Tidal Vol 745 Peak Inspir Pressure 29 Pressure Support 10 PEEP or CPAP Carbon Dioxide Anion Gap BUN Creatinine Estimated GFR (MDRD) Glucose POC Glucose 223 H 119 H Calcium 07/15/20 07/15/20 07/15/20 04:15 04:15 07:20 WBC 11.7 H RBC 4.05 L Hgb 12.5 L Hct 37.7 L MCV 93.2 MCH 30.8 MCHC 33.1 RDW 12.0 Plt Count 273 MPV 7.5 Neutrophils % 71.9 Lymphocytes % 19.0 L Monocytes % 8.5 Eosinophils % 0.4 Basophils % 0.3 Neutrophils # 8.4 H Lymphocytes # 2.2 Monocytes # 1.0 H Eosinophils # 0.0 Basophils # 0.0 Specimen Type ARTERIAL Puncture Site RRA Bicarbonate Actual 28.7 H ABG pH 7.45 ABG pCO2 42.4 ABG pO2 89.5 H ABG O2 Sat (Measured) 96.7 ABG O2 Content 17.0 L ABG Base Excess 4.2 H ABG Hematocrit 37.0 L ABG Hemoglobin 12.6 L ABG Oxyhemoglobin 95.6 ABG Carboxyhemoglobin 0.8 ABG Methemoglobin 0.30 ABG Deoxyhemoglobin 3.3 H Giovani Test Not Reportable A-a O2 Gradient 214.000 H Sodium 143 142 Potassium 4.0 3.73 Chloride 105 107 H Ionized Calcium 1.13 Mode of Support VC+ % Minute Volume 7.9 Mechanical Rate 8 Spontaneous Rate 5 Inspired O2 50 Inspiratory Time 1.00 Tidal Volume 654 Spontaneous Tidal Vol 631 Peak Inspir Pressure 19 Pressure Support 10 PEEP or CPAP 8.0 Carbon Dioxide 29 Anion Gap 13 BUN 30 H Creatinine 0.98 Estimated GFR (MDRD) 76 Glucose 226 H POC Glucose Calcium 8.2 - ABG Interpretation Attestation: I reviewed and interpreted this ABG. ABG Results: ABG pH 7.45 ABG pCO2 42.4 ABG pO2 89.5 H ABG O2 Sat (Measured) 96.7 Interpretation: normal - Radiology Interpretation Chest x-ray Status: image reviewed by me Additional comments: Chest x-ray appears to be clearing. Endotracheal tube is slightly high. CCU Progress Note: A/P - Time Spent with Patient Time (minutes): 35 (Critical care time) - Plan Plan: COVID-19 pneumonia Acute hypoxic respiratory failure require mechanical ventilation Encephalopathy Plan: I am placing the patient on spontaneous breathing trial today. I do not have any confidence that he can be extubated because I think he is very confused and is likely to be combative. I would like to give his encephalopathy a day or 2 to improve before considering extubation. In the meantime we will continue steroids, anticoagulation, and general supportive care. I will speak with his .
[2020-07-15] MEDS: FLUoxetine HCl 20 MG CAP PO SCH (08:06)
[2020-07-15] MEDS: Gabapentin 300 MG CAP PO SCH ×3 (08:06→21:05)
[2020-07-15] MEDS: Ascorbic Acid 500 mg Chewable Tablet PO SCH (08:06)
[2020-07-15] MEDS: Hydrocortisone Sod Succ/PF 100 mg/2 ml Vial IVP SCH ×3 (08:06→21:06)
[2020-07-15] MEDS: Zinc Sulfate 220 MG CAP PO SCH (08:07)
[2020-07-15] MEDS: Cefepime 1 GM in Sodium Chloride 0.9% 100 ML IVPB SCH ×2 (08:07→21:07)
[2020-07-15] MEDS: Cholecalciferol (Vitamin D3) 400 UNITS TAB PO SCH (08:07)
[2020-07-15] MEDS: Tamsulosin HCl 0.4 MG CAP PO SCH (08:07)
[2020-07-15] MEDS: Insulin Glargine 30 UNITS in Pre-Filled Syringe SC SCH ×2 (08:08→21:07)
[2020-07-15] MEDS: Enoxaparin Sodium 80 MG/0.8 ML SYRINGE SC SCH ×2 (08:08→21:05)
[2020-07-15] MEDS: Labetalol HCl 100 MG/20 ML VIAL SLOW IVP PRN (08:13)
--- NOTE | 2020-07-15 15:03 | RAD ---
XR Chest 1 View Portable HISTORY: Respiratory failure COMPARISON: Earlier exam of 5:30 AM from same date FINDINGS: Endotracheal and nasogastric tubes in place. Heart size stable. No lobar consolidation, pne umothoraces or large effusions are seen. A small right pleural effusion may be present.
[2020-07-15] MEDS: HumaLOG 300 UNITS/3 ML VIAL SC PRN (17:43)
--- NOTE | 2020-07-15 18:54 | PDOC.HOSPP ---
- Subjective Encounter Date: 07/15/20 Encounter Time: 14:00 Subjective: Patient was seen for follow-up regarding acute hypoxic respiratory failure.. Patient is intubated and mechanically ventilated, could not complete review of systems. - Objective Vital Signs & Weight: Vital Signs (12 hours) Temp Pulse Resp BP Pulse Ox 07/15/20 18:00 15 07/15/20 16:00 100.7 F H 11 L 07/15/20 15:25 67 07/15/20 14:00 12 07/15/20 12:57 72 07/15/20 12:00 100.6 F H 12 07/15/20 10:34 74 07/15/20 10:00 15 07/15/20 08:15 95 07/15/20 08:13 72 182/86 H 07/15/20 08:00 100.9 F H 16 07/15/20 07:03 69 Weight Admit Weight 244 lb Weight 244 lb 11.41 oz Most Recent Monitor Data Heart Rate from ECG 69 NIBP 153/68 NIBP BP-Mean 96 Respiration from ECG 13 SpO2 93 I&O: 07/14/20 07/15/20 07/16/20 06:59 06:59 06:59 Intake Total 2163 2400 1947 Output Total 1655 3140 280 Balance 508 -619 7707 Result Diagrams: 07/15/20 04:15 07/15/20 04:15 Additional Labs: Accuchecks 07/15/20 07/15/20 07/14/20 17:37 13:00 21:40 POC Glucose 173 H 192 H 119 H 07/14/20 16:21 POC Glucose 159 H Labs and MAR reviewed by me EKG Reviewed by me: Yes (Telemetry: NSR) Hospitalist ROS - Review of Systems ROS unobtainable: due to endotracheal tube - Medication Medications: Active Medications Generic Name Dose Route Start Last Admin Trade Name Freq PRN Reason Stop Dose Admin Acetaminophen 650 mg 07/06/20 13:18 07/13/20 11:30 Acetaminophen 325 Mg Tab PO 650 mg Q6H PRN Administration Headache/Fever/Mild Pain (1-3) Albuterol/Ipratropium 3 ml 07/07/20 18:30 07/15/20 15:24 Ipratropium/Albuterol Sulfate 3 Ml Neb NEB 3 ml [id number] [facility] Administration Arformoterol Tartrate 15 mcg 07/08/20 18:30 07/15/20 07:02 Arformoterol 15 Mcg/2 Ml Neb NEB 15 mcg BID-RT [facility] Administration Ascorbic Acid 1,000 mg 07/07/20 09:00 07/15/20 08:06 Ascorbic Acid 500 Mg Chewable Tablet PO 1,000 mg DAILY [facility] Administration Atorvastatin Calcium 40 mg 07/06/20 21:00 07/14/20 21:36 Atorvastatin Calcium 40 Mg Tab PO 40 mg HS [facility] Administration Budesonide 0.5 mg 07/08/20 18:30 07/15/20 07:02 Budesonide 0.5 Mg/2 Ml Neb NEB 0.5 mg BID-RT [facility] Administration Cholecalciferol 400 units 07/07/20 09:00 07/15/20 08:07 Cholecalciferol (Vitamin D3) 400 Units Tab PO 400 units DAILY [facility] Administration Enoxaparin Sodium 80 mg 07/06/20 21:00 07/15/20 08:08 Enoxaparin Sodium 80 Mg/0.8 Ml Syringe SC 80 mg 09,2099 [facility] Administration Fluoxetine HCl 40 mg 07/07/20 09:00 07/15/20 08:06 Fluoxetine Hcl 20 Mg Cap PO 40 mg DAILY [facility] Administration Gabapentin 600 mg 07/06/20 15:00 07/15/20 15:53 Gabapentin 300 Mg Cap PO 600 mg TID [facility] Administration Hydralazine HCl 10 mg 07/13/20 13:20 07/14/20 12:04 Hydralazine 20 Mg/Ml Vial SLOW IVP 10 mg Q4H PRN Administration Hypertension Hydrocortisone Sodium Succinate 25 mg 07/15/20 09:00 07/15/20 09:43 Hydrocortisone Sod Succ/Pf 100 Mg/2 Ml Vial IVP Not Given BID [facility] Fentanyl Citrate 2,000 mcg/ 100 mls @ 0 mls/hr 07/08/20 09:00 07/14/20 18:40 Sodium Chloride IV 08/07/20 09:00 100 mls INF [facility] Administration Protocol Per Protocol Dexmedetomidine HCl 400 mcg/ 100 mls @ 0 mls/hr 07/11/20 11:00 07/15/20 12:19 Sodium Chloride IVPB 100 mls INF [facility] Administration Protocol Per Protocol Cefepime HCl 1 gm/ Sodium 100 mls @ 200 mls/hr 07/12/20 10:00 07/15/20 08:07 Chloride IVPB 100 mls Q12H [facility] Administration Insulin Glargine 30 units/ 0.3 mls @ 0 mls/hr 07/13/20 21:00 07/15/20 08:08 Miscellaneous Medication SC 0.3 mls BID [facility] Administration Insulin Human Lispro 0 units 07/06/20 13:24 07/07/20 21:36 Humalog 300 Units/3 Ml Vial SC 3 unit .BEDTIME SLIDING SC PRN Administration Bedtime Correctional Scale Insulin Human Lispro 0 units 07/06/20 13:24 07/15/20 17:43 Humalog 300 Units/3 Ml Vial SC 2 unit .MODERATE SLIDING SC PRN Administration Moderate Correctional Scale Labetalol HCl 10 mg 07/13/20 13:51 07/15/20 08:13 Labetalol Hcl 100 Mg/20 Ml Vial SLOW IVP 10 mg Q4H PRN Administration SBP Greater Than 180 Lorazepam 2 mg 07/08/20 09:00 07/13/20 02:13 Lorazepam 2 Mg/Ml Vial SLOW IVP 08/07/20 09:00 2 mg Q1H PRN Administration Breakthrough agitation Pantoprazole Sodium 40 mg 07/07/20 09:00 07/15/20 08:06 Pantoprazole 40 Mg Tab PO 40 mg DAILY [facility] Administration Propofol 1,000 mg 07/08/20 09:00 07/14/20 05:30 Propofol 1,000 Mg/100 Ml Vial IV 08/07/20 09:00 1,000 mg INF PRN Administration TO ACHIEVE GOAL RASS Protocol Tamsulosin HCl 0.4 mg 07/07/20 09:00 07/15/20 08:07 Tamsulosin Hcl 0.4 Mg Cap PO 0.4 mg DAILY [facility] Administration Zinc Sulfate 220 mg 07/07/20 09:00 07/15/20 08:07 Zinc Sulfate 220 Mg Cap PO 220 mg DAILY [facility] Administration - Exam General - other findings: Obesity ENT - other findings: Endotracheal tube Heart: RRR Respiratory: CTAB Gastrointestinal: soft Neurological - other findings: Unable to assess Psychiatric - other findings: Unable to assess Hosp A/P - Plan -Assessment (1) Acute respiratory failure with hypoxia Code(s): J96.01 - ACUTE RESPIRATORY FAILURE WITH HYPOXIA Status: Acute (2) Pneumonia due to COVID-19 virus Code(s): U07.1 - COVID-19; J12.89 - OTHER VIRAL PNEUMONIA Status: Acute (3) BPH (benign prostatic hyperplasia) Code(s): N40.0 - BENIGN PROSTATIC HYPERPLASIA WITHOUT LOWER URINRY TRACT SYMP Status: Chronic Qualifiers: Lower urinary tract symptom presence: unspecified whether lower urinary tract symptoms present Qualified Code(s): N40.0 - Benign prostatic hyperplasia without lower urinary tract symptoms (4) Asthma Code(s): J45.909 - UNSPECIFIED ASTHMA, UNCOMPLICATED Status: Chronic Qualifiers: Asthma severity: mild Asthma persistence: intermittent Asthma complicati on type: uncomplicated Qualified Code(s): J45.20 - Mild intermittent asthma, uncomplicated (5) DMII (diabetes mellitus, type 2) Status: Chronic Qualifiers: Diabetes mellitus long-term insulin use: with long-term use (6) HTN (hypertension) Code(s): I10 - ESSENTIAL (PRIMARY) HYPERTENSION Status: Chronic Qualifiers: Hypertension type: essential hypertension Qualified Code(s): I10 - Essential (primary) hypertension (7) HLD (hyperlipidemia) Code(s): E78.5 - HYPERLIPIDEMIA, UNSPECIFIED Status: Chronic Qualifiers: Hyperlipidemia type: unspecified Qualified Code(s): E78.5 - Hyperlipidemia, unspecified (8) Peripheral neuropathy Code(s): G62.9 - POLYNEUROPATHY, UNSPECIFIED Status: Chronic (9) CKD (chronic kidney disease), stage III Code(s): N18.30 - CHRONIC KIDNEY DISEASE, STAGE 3 UNSPECIFIED Status: Chronic - Plan Acute hypoxic respiratory failure: Patient continues to be intubated and mechanically ventilated in the CCU. COVID-19 pneumonia: Poor to management at this point. Asthma: Continue ventilatory support. Hypertension: Blood pressures are still elevated, add as needed IV Vasotec for systolic blood pressure greater than 170 mmHg. Diabetes mellitus: Lantus dose was increased to 30 units twice daily yesterday. Blood sugars continue to be high, change insulin sliding scale to aggressive scale. CKD stage III: At his stable baseline GFR.
[2020-07-15] MEDS: Atorvastatin Calcium 40 MG TAB PO SCH (21:05)
[2020-07-16] MEDS: fentaNYL Citrate/PF 2,000 MCG in Sodium Chloride 0.9% 60 ML IV SCH (01:54)
[2020-07-16] MEDS: HumaLOG 300 UNITS/3 ML VIAL SC PRN (05:06)
[2020-07-16 05:16] LABS: #Eosinphils 0.1 thou/uL (0.0-0.7); #Lymphocytes 2.3 thou/uL (1.20-3.40); #Monocytes 0.9 thou/uL (0.11-0.59); #Neutrophils 8.3 thou/uL (1.40-6.50); %Basophils 0.4 % (0.0-1.0); %Eosinophils 0.8 % (0.0-10.0); %Lymphocytes 19.5 % (21.0-51.0); %Monocytes 7.8 % (0.0-10.0); %Neutrophils 71.5 % (42.0-75.0); Hemoglobin 11.6 g/dL (14.0-18.0); Mean Corpuscular HGB CONC 32.3 g/dL (32.0-36.0); Mean Corpuscular Hemoglobin 30.2 pg (27.0-31.0); Mean Corpuscular Volume 93.4 fL (78.0-98.0); Mean Platelet Volume 8.1 fL (7.4-10.4); Platelet Count 232 thou/uL (130-400); RBC Distribution Width 11.7 % (11.5-14.5); Red Blood Cell (RBC) Count 3.85 mill/uL (4.70-6.10); White Blood Cell (WBC) Count 11.6 thou/uL (4.8-10.8)
[2020-07-16 05:42] LABS: Anion Gap 11 mmol/L (10-20); BUN (Urea Nitrogen) 27 mg/dL (8.4-25.7); Calc. Creatinine Clearance 125 mL/min (70-130); Calcium 8.3 mg/dL (7.8-10.44); Carbon Dioxide 31 mmol/L (23-31); Chloride 105 mmol/L (98-107); Estimated GFR-MDRD 84; Glucose 209 mg/dL (80-115); Potassium 3.5 mmol/L (3.5-5.1); Sodium 143 mmol/L (136-145)
--- NOTE | 2020-07-16 07:46 | PDOC.PULCC ---
CCU Progress Note: Subj/Obj - Subjective Date: 07/16/20 Time: 07:44 Narrative: He remains on mechanical ventilation, but he is awake, alert - Objective Allergies/Adverse Reactions: Allergies Allergy/AdvReac Type Severity Reaction Status Date / Time No Known Drug Allergies Allergy Verified 01/02/20 00:11 MAR Reviewed: Yes Vital Signs and I&O: Vital Signs Temp 99.7 F H 07/16/20 04:00 Pulse 69 07/16/20 02:30 Resp 13 07/16/20 06:00 BP 177/83 H 07/16/20 02:30 Pulse Ox 93 L 07/15/20 20:00 Intake & Output 07/15/20 07/16/20 07/16/20 18:59 06:59 18:59 Intake Total 1947 1745.6 Output Total 1055 1115 Balance 892 630.6 Weight 244 lb 11.41 oz Intake: Intake, IV Amount 1211 537.6 Cefepime 1 gm In Sodium 650 271 Chloride 0.9% 100 ml @ 200 mls/hr IVPB Q12H [facility] Rx#:[id number] Dexmedetomidine 400 mcg 232 220 In Sodium Chloride 0.9% 96 ml @ Per Protocol IVPB INF [facility] Rx#:[id number] fentaNYL Citrate/PF 2,000 329 46.6 mcg In Sodium Chloride 0 .9% 60 ml @ Per Protocol IV INF [facility] Rx#:[id number] Tube Feeding 386 878 Tube Irrigant 350 330 Output: Output, Veliz 1055 1115 Other: Voiding Method Self-Catheterization Indwelling Catheter # Bowel Movements 0 Vent Setting: CPAP 5, pressure support 10, FiO2 40% Spontaneous Breathing Test: done CCU Progress Note: Exam - Physical Exam Constitutional: NAD HEENT: PERRLA, sclera anicteric Neck: no nodes, no JVD Cardiovascular: RRR Respiratory: clear to auscultation bilaterally Gastrointestinal: soft, non-tender Musculoskeletal: edema present Neurological: moves all 4 limbs Lymphatic: no nodes CCU Progress Note: Data - Labs Result Diagrams: 07/16/20 04:35 07/16/20 04:35 - ABG Interpretation ABG Results: ABG pH 7.45 (7.35-7.45) 07/15/20 07:20 ABG pCO2 42.4 mmHg (35.0-45.0) 07/15/20 07:20 ABG Base Excess 4.2 mEq/L (-2.0 to +3.0) H 07/15/20 07:20 - Radiology Interpretation Chest x-ray Additional comments: Continues to improve CCU Progress Note: A/P - Time Spent with Patient Time (minutes): 35 (critical care time) - Plan Plan: COVID-19 pneumonia Acute respiratory failure chronic anticoagulation, better Metabolic encephalopathy Plan: Spontaneous breathing trial and extubate if he tolerates. Continue steroids and anticoagulation.
--- NOTE | 2020-07-16 07:59 | RAD ---
Exam: Chest one view HISTORY:Pneumonia. Respiratory distress. Comparison: 07/15/2020 FINDINGS: Lines and tubes: Endotracheal tube at the level of the clavicle. Nasogastric tube extends beyond the diaphragm. Distal tip is not seen. Cardiac silhouette: Normal Aorta: Unremarkable Pulmonary vessels: Normal Costophrenic angles: Clear LUNGS: Diminished lung volumes. Worsening interstitial opacities. Pneumothorax: None Osseous abnormalities: None IMPRESSION: 1. Diminished lung volumes with increased interstitial opacities which may in part reflect atelectasi s. Interstitial pneumonitis cannot be excluded. Continued surveillance is recommended.
[2020-07-16] MEDS: Budesonide 0.5 MG/2 ML NEB NEB SCH ×2 (09:00→19:02)
[2020-07-16] MEDS: Arformoterol 15 MCG/2 ML NEB NEB SCH ×2 (09:00→19:03)
[2020-07-16] MEDS: Cefepime 1 GM in Sodium Chloride 0.9% 100 ML IVPB SCH ×2 (09:05→21:31)
[2020-07-16] MEDS: Ascorbic Acid 500 mg Chewable Tablet PO SCH (09:06)
[2020-07-16] MEDS: Enoxaparin Sodium 80 MG/0.8 ML SYRINGE SC SCH ×2 (09:06→21:29)
[2020-07-16] MEDS: FLUoxetine HCl 20 MG CAP PO SCH (09:06)
[2020-07-16] MEDS: Zinc Sulfate 220 MG CAP PO SCH (09:06)
[2020-07-16] MEDS: Hydrocortisone Sod Succ/PF 100 mg/2 ml Vial IVP SCH ×2 (09:06→21:28)
[2020-07-16] MEDS: Tamsulosin HCl 0.4 MG CAP PO SCH (09:07)
[2020-07-16] MEDS: Gabapentin 300 MG CAP PO SCH ×4 (09:07→21:29)
[2020-07-16] MEDS: Cholecalciferol (Vitamin D3) 400 UNITS TAB PO SCH (09:08)
[2020-07-16] MEDS: Insulin Glargine 30 UNITS in Pre-Filled Syringe SC SCH ×2 (09:08→21:28)
[2020-07-16] MEDS: Labetalol HCl 100 MG/20 ML VIAL SLOW IVP PRN (09:11)
[2020-07-16] MEDS: Albuterol 200 PUFF (6.7GM INHALER) INH SCH ×3 (18:00→22:25)
--- NOTE | 2020-07-16 18:30 | PDOC.HOSPP ---
- Subjective Encounter Date: 07/16/20 Encounter Time: 13:00 Subjective: Patient seen for follow-up for respiratory failure. He was extubated earlier today and is on high flow oxygen. - Objective Vital Signs & Weight: Vital Signs (12 hours) Temp Pulse Resp BP Pulse Ox 07/16/20 15:00 99.9 F H 07/16/20 11:00 100.5 F H 07/16/20 09:43 97 07/16/20 09:11 69 177/83 H 07/16/20 09:00 77 12 97 07/16/20 08:46 68 193/79 H Weight Admit Weight 244 lb Weight 244 lb 11.41 oz Most Recent Monitor Data Heart Rate from ECG 65 NIBP 159/82 NIBP BP-Mean 107 Respiration from ECG 14 SpO2 97 I&O: 07/15/20 07/16/20 07/17/20 06:59 06:59 06:59 Intake Total 2400 3692.6 472 Output Total 3140 2170 920 Balance -740 1522.6 -448 Result Diagrams: 07/16/20 04:35 07/16/20 04:35 Additional Labs: Accuchecks 07/16/20 07/15/20 04:36 21:27 POC Glucose 186 H 89 I reviewed patient's labs and MAR EKG Reviewed by me: Yes (Telemetry: NSR) Hospitalist ROS - Review of Systems ROS unobtainable: due to mental status - Medication Medications: Active Medications Generic Name Dose Route Start Last Admin Trade Name Freq PRN Reason Stop Dose Admin Acetaminophen 650 mg 07/06/20 13:18 07/13/20 11:30 Acetaminophen 325 Mg Tab PO 650 mg Q6H PRN Administration Headache/Fever/Mild Pain (1-3) Arformoterol Tartrate 15 mcg 07/08/20 18:30 07/16/20 09:00 Arformoterol 15 Mcg/2 Ml Neb NEB 15 mcg BID-RT GALEN Administration Ascorbic Acid 1,000 mg 07/07/20 09:00 07/16/20 09:06 Ascorbic Acid 500 Mg Chewable Tablet PO 1,000 mg DAILY GALEN Administration Atorvastatin Calcium 40 mg 07/06/20 21:00 07/15/20 21:05 Atorvastatin Calcium 40 Mg Tab PO 40 mg HS GALEN Administration Budesonide 0.5 mg 07/08/20 18:30 07/16/20 09:00 Budesonide 0.5 Mg/2 Ml Neb NEB 0.5 mg BID-RT GALEN Administration Cholecalciferol 400 units 07/07/20 09:00 07/16/20 09:08 Cholecalciferol (Vitamin D3) 400 Units Tab PO 400 units DAILY GALEN Administration Enoxaparin Sodium 80 mg 07/06/20 21:00 07/16/20 09:06 Enoxaparin Sodium 80 Mg/0.8 Ml Syringe SC 80 mg 09,2099 GALEN Administration Fluoxetine HCl 40 mg 07/07/20 09:00 07/16/20 09:06 Fluoxetine Hcl 20 Mg Cap PO 40 mg DAILY GALEN Administration Gabapentin 600 mg 07/06/20 15:00 07/16/20 16:47 Gabapentin 300 Mg Cap PO 600 mg TID GALEN Administration Hydrocortisone Sodium Succinate 25 mg 07/15/20 09:00 07/16/20 09:06 Hydrocortisone Sod Succ/Pf 100 Mg/2 Ml Vial IVP 25 mg BID GALEN Administration Fentanyl Citrate 2,000 mcg/ 100 mls @ 0 mls/hr 07/08/20 09:00 07/16/20 01:54 Sodium Chloride IV 08/07/20 09:00 100 mls INF GALEN Administration Protocol Per Protocol Dexmedetomidine HCl 400 mcg/ 100 mls @ 0 mls/hr 07/11/20 11:00 07/16/20 16:47 Sodium Chloride IVPB 100 mls INF GALEN Administration Protocol Per Protocol Cefepime HCl 1 gm/ Sodium 100 mls @ 200 mls/hr 07/12/20 10:00 07/16/20 09:05 Chloride IVPB 100 mls Q12H GALEN Administration Insulin Glargine 30 units/ 0.3 mls @ 0 mls/hr 07/13/20 21:00 07/16/20 09:08 Miscellaneous Medication SC 0.3 mls BID GALEN Administration Insulin Human Lispro 0 units 07/06/20 13:24 07/07/20 21:36 Humalog 300 Units/3 Ml Vial SC 3 unit .BEDTIME SLIDING SC PRN Administration Bedtime Correctional Scale Insulin Human Lispro 0 units 07/15/20 18:59 07/16/20 05:06 Humalog 300 Units/3 Ml Vial SC 3 units .AGGRESSIVE SLIDING PRN Administration Aggressive Correctional Scale Labetalol HCl 10 mg 07/13/20 13:51 07/16/20 09:11 Labetalol Hcl 100 Mg/20 Ml Vial SLOW IVP 10 mg Q4H PRN Administration SBP Greater Than 180 Lorazepam 2 mg 07/08/20 09:00 07/13/20 02:13 Lorazepam 2 Mg/Ml Vial SLOW IVP 08/07/20 09:00 2 mg Q1H PRN Administration Breakthrough agitation Pantoprazole Sodium 40 mg 07/07/20 09:00 07/16/20 09:07 Pantoprazole 40 Mg Tab PO 40 mg DAILY GALEN Administration Propofol 1,000 mg 07/08/20 09:00 07/14/20 05:30 Propofol 1,000 Mg/100 Ml Vial IV 08/07/20 09:00 1,000 mg INF PRN Administration TO ACHIEVE GOAL RASS Protocol Tamsulosin HCl 0.4 mg 07/07/20 09:00 07/16/20 09:07 Tamsulosin Hcl 0.4 Mg Cap PO 0.4 mg DAILY GALEN Administration Zinc Sulfate 220 mg 07/07/20 09:00 07/16/20 09:06 Zinc Sulfate 220 Mg Cap PO 220 mg DAILY GALEN Administration - Exam General - other findings: Obese Neck: no thyromegaly Heart: RRR Respiratory: CTAB Gastrointestinal: soft Skin: no rashes Psychiatric: normal affect Hosp A/P - Plan -Assessment (1) Acute respiratory failure with hypoxia Code(s): J96.01 - ACUTE RESPIRATORY FAILURE WITH HYPOXIA Status: Acute (2) Pneumonia due to COVID-19 virus Code(s): U07.1 - COVID-19; J12.89 - OTHER VIRAL PNEUMONIA Status: Acute (3) BPH (benign prostatic hyperplasia) Code(s): N40.0 - BENIGN PROSTATIC HYPERPLASIA WITHOUT LOWER URINRY TRACT SYMP Status: Chronic Qualifiers: Lower urinary tract symptom presence: unspecified whether lower urinary tract symptoms present Qualified Code(s): N40.0 - Benign prostatic hyperplasia without lower urinary tract symptoms (4) Asthma Code(s): J45.909 - UNSPECIFIED ASTHMA, UNCOMPLICATED Status: Chronic Qualifiers: Asthma severity: mild Asthma persistence: intermittent Asthma complication type: uncomplicated Qualified Code(s): J45.20 - Mild intermittent asthma, uncomplicated (5) DMII (diabetes mellitus, type 2) Status: Chronic Qualifiers: Diabetes mellitus [facility] insulin use: with [employer] use (6) HTN (hypertension) Code(s): I10 - ESSENTIAL (PRIMARY) HYPERTENSION Status: Chronic Qualifiers: Hypertension type: essential hypertension Qualified Code(s): I10 - Essential (primary) hypertension (7) HLD (hyperlipidemia) Code(s): E78.5 - HYPERLIPIDEMIA, UNSPECIFIED Status: Chronic Qualifiers: Hyperlipidemia type: unspecified Qualified Code(s): E78.5 - Hyperlipidemia, unspecified (8) Peripheral neuropathy Code(s): G62.9 - POLYNEUROPATHY, UNSPECIFIED Status: Chronic (9) CKD (chronic kidney disease), stage III Code(s): N18.30 - CHRONIC KIDNEY DISEASE, STAGE 3 UNSPECIFIED Status: Chronic - Plan Acute hypoxic respiratory failure: Patient was extubated earlier today, is on high flow oxygen. COVID-19 pneumonia: Continue steroids. Asthma: Continue high flow oxygen. Hypertension: Continue IV Vasotec for systolic blood pressure greater than 170 mmHg. Diabetes mellitus: Continue Lantus insulin 30 units twice daily and continue aggressive insulin sliding scale. CKD stage III: At his stable baseline GFR.
[2020-07-16] MEDS: Atorvastatin Calcium 40 MG TAB PO SCH (21:29)
[2020-07-17] MEDS: Albuterol 200 PUFF (6.7GM INHALER) INH SCH ×6 (02:27→22:45)
[2020-07-17 04:09] LABS: #Basophils 0.1 thou/uL (0.0-0.2); #Eosinphils 0.2 thou/uL (0.0-0.7); #Lymphocytes 2.3 thou/uL (1.20-3.40); #Monocytes 0.7 thou/uL (0.11-0.59); #Neutrophils 7.5 thou/uL (1.40-6.50); %Eosinophils 1.6 % (0.0-10.0); %Monocytes 6.5 % (0.0-10.0); %Neutrophils 69.9 % (42.0-75.0); Hemoglobin 12.4 g/dL (14.0-18.0); Mean Corpuscular HGB CONC 33.2 g/dL (32.0-36.0); Mean Corpuscular Hemoglobin 30.6 pg (27.0-31.0); Mean Corpuscular Volume 92.2 fL (78.0-98.0); Mean Platelet Volume 7.4 fL (7.4-10.4); Platelet Count 235 thou/uL (130-400); RBC Distribution Width 11.7 % (11.5-14.5); Red Blood Cell (RBC) Count 4.06 mill/uL (4.70-6.10); White Blood Cell (WBC) Count 10.7 thou/uL (4.8-10.8)
[2020-07-17 04:27] LABS: Anion Gap 10 mmol/L (10-20); BUN (Urea Nitrogen) 24 mg/dL (8.4-25.7); Calc. Creatinine Clearance 134 mL/min (70-130); Calcium 8.3 mg/dL (7.8-10.44); Carbon Dioxide 30 mmol/L (23-31); Chloride 104 mmol/L (98-107); Estimated GFR-MDRD Greater than 90; Glucose 125 mg/dL (80-115); Potassium 3.3 mmol/L (3.5-5.1); Sodium 141 mmol/L (136-145)
[2020-07-17] MEDS: Budesonide 0.5 MG/2 ML NEB NEB SCH ×2 (08:14→18:43)
[2020-07-17] MEDS: Arformoterol 15 MCG/2 ML NEB NEB SCH (08:15)
--- NOTE | 2020-07-17 08:23 | PRG ---
DATE OF SERVICE: 07/17/2020 SUBJECTIVE: The patient has done extremely well since extubation yesterday. He is awake and alert. He is requesting food. OBJECTIVE: VITAL SIGNS: His temperature 98, pulse 57, blood pressure 147/72, he is on high-flow oxygen at 40% FiO2, his O2 saturations are running in the high 90s. HEENT: Unremarkable. NECK: No adenopathy or JVD. CHEST: Clear to auscultation. CARDIAC: S1 and S2. Regular. ABDOMEN: Soft, nontender. EXTREMITIES: No clubbing, cyanosis, or edema. NEUROLOGIC: I do not detect any neuromuscular deficits when doing neurologic exam. LABORATORY DATA: White blood cell count 10.7, hematocrit 37.4, and platelet count 235. Sodium 141, potassium 3.3, chloride 104, CO2 of 30, BUN 24, creatinine 0.8, glucose 125. ASSESSMENT: 1. Status post COVID-19 pneumonia-now improving significantly. 2. Status post respiratory failure requiring mechanical ventilation. 3. Diabetes mellitus. PLAN: 1. Increase diet. 2. Wean oxygen. 3. Wean off Precedex. 4. Continue anticoagulation. 5. Continue low-dose steroids. 6. Could probably transfer out of the ICU tomorrow if he does well today. Job ID: [id number]
[2020-07-17] MEDS: Gabapentin 300 MG CAP PO SCH ×3 (09:16→20:21)
[2020-07-17] MEDS: Ascorbic Acid 500 mg Chewable Tablet PO SCH (09:16)
[2020-07-17] MEDS: metFORMIN 500 MG TAB PO SCH (09:16)
[2020-07-17] MEDS: FLUoxetine HCl 20 MG CAP PO SCH (09:17)
[2020-07-17] MEDS: Zinc Sulfate 220 MG CAP PO SCH (09:17)
[2020-07-17] MEDS: Tamsulosin HCl 0.4 MG CAP PO SCH (09:18)
[2020-07-17] MEDS: Cholecalciferol (Vitamin D3) 400 UNITS TAB PO SCH (09:18)
[2020-07-17] MEDS: Hydrocortisone Sod Succ/PF 100 mg/2 ml Vial IVP SCH ×2 (09:19→20:22)
[2020-07-17] MEDS: Insulin Glargine 30 UNITS in Pre-Filled Syringe SC SCH ×2 (09:19→20:22)
[2020-07-17] MEDS: Enoxaparin Sodium 80 MG/0.8 ML SYRINGE SC SCH ×2 (09:19→20:22)
[2020-07-17] MEDS: Cefepime 1 GM in Sodium Chloride 0.9% 100 ML IVPB SCH ×2 (12:18→20:20)
--- NOTE | 2020-07-17 18:03 | PDOC.HOSPP ---
- Subjective Encounter Date: 07/17/20 Encounter Time: 16:30 Subjective: Patient seen for follow-up for hypoxic respiratory failure. Follows commands today. - Objective Vital Signs & Weight: Vital Signs (12 hours) Temp Pulse Pulse BP BP Pulse Ox Pulse Ox 07/17/20 15:00 98.1 F 07/17/20 11:00 97.5 F L 07/17/20 09:10 61 62 154/86 H 104/63 92 L 07/17/20 08:00 97.0 F L 92 L Pulse Ox 07/17/20 15:00 07/17/20 11:00 07/17/20 09:10 92 L 07/17/20 08:00 Weight Admit Weight 244 lb Weight 244 lb 11.41 oz Most Recent Monitor Data Heart Rate from ECG 79 NIBP 149/80 NIBP BP-Mean 103 Respiration from ECG 14 SpO2 91 I&O: 07/16/20 07/17/20 07/18/20 06:59 06:59 06:59 Intake Total 3692.6 982 723 Output Total 2170 1665 710 Balance 1522.6 -683 13 Result Diagrams: 07/17/20 04:00 07/17/20 04:00 Additional Labs: Accuchecks 07/16/20 07/16/20 17:07 11:47 POC Glucose 144 H 170 H I reviewed patient's labs and MAR Hospitalist ROS - Review of Systems ROS unobtainable: due to mental status - Medication Medications: Active Medications Generic Name Dose Route Start Last Admin Trade Name Freq PRN Reason Stop Dose Admin Acetaminophen 650 mg 07/06/20 13:18 07/13/20 11:30 Acetaminophen 325 Mg Tab PO 650 mg Q6H PRN Administration Headache/Fever/Mild Pain (1-3) Albuterol Sulfate 2 puff 07/16/20 14:30 07/17/20 15:45 Albuterol 200 Puff (6.7gm Inhaler) INH 2 puff [id number] GALEN Administration Ascorbic Acid 1,000 mg 07/07/20 09:00 07/17/20 09:16 Ascorbic Acid 500 Mg Chewable Tablet PO 1,000 mg DAILY GALEN Administration Atorvastatin Calcium 40 mg 07/06/20 21:00 07/16/20 21:29 Atorvastatin Calcium 40 Mg Tab PO Not Given HS GALEN Budesonide 0.5 mg 07/08/20 18:30 07/17/20 08:14 Budesonide 0.5 Mg/2 Ml Neb NEB Not Given BID-RT GALEN Cholecalciferol 400 units 07/07/20 09:00 07/17/20 09:18 Cholecalciferol (Vitamin D3) 400 Units Tab PO 400 units DAILY GALEN Administration Enoxaparin Sodium 80 mg 07/06/20 21:00 07/17/20 09:19 Enoxaparin Sodium 80 Mg/0.8 Ml Syringe SC 80 mg 09,2099 GALEN Administration Fluoxetine HCl 40 mg 07/07/20 09:00 07/17/20 09:17 Fluoxetine Hcl 20 Mg Cap PO 40 mg DAILY GALEN Administration Gabapentin 600 mg 07/06/20 15:00 07/17/20 15:05 Gabapentin 300 Mg Cap PO 600 mg TID GALEN Administration Glipizide 5 mg 07/17/20 09:00 07/17/20 09:18 Glipizide Xl 5 Mg Tablet PO 5 mg DAILY GALEN Administration Hydrocortisone Sodium Succinate 25 mg 07/15/20 09:00 07/17/20 09:19 Hydrocortisone Sod Succ/Pf 100 Mg/2 Ml Vial IVP 25 mg BID GALEN Administration Dexmedetomidine HCl 400 mcg/ 100 mls @ 0 mls/hr 07/11/20 11:00 07/17/20 05:01 Sodium Chloride IVPB 100 mls INF GALEN Administration Protocol Per Protocol Cefepime HCl 1 gm/ Sodium 100 mls @ 200 mls/hr 07/12/20 10:00 07/17/20 12:18 Chloride IVPB 100 mls Q12H GALEN Administration Insulin Glargine 30 units/ 0.3 mls @ 0 mls/hr 07/13/20 21:00 07/17/20 09:19 Miscellaneous Medication SC 0.3 mls BID GALEN Administration Insulin Human Lispro 0 units 07/06/20 13:24 07/07/20 21:36 Humalog 300 Units/3 Ml Vial SC 3 unit .BEDTIME SLIDING SC PRN Administration Bedtime Correctional Scale Insulin Human Lispro 0 units 07/15/20 18:59 07/16/20 05:06 Humalog 300 Units/3 Ml Vial SC 3 units .AGGRESSIVE SLIDING PRN Administration Aggressive Correctional Scale Labetalol HCl 10 mg 07/13/20 13:51 07/16/20 09:11 Labetalol Hcl 100 Mg/20 Ml Vial SLOW IVP 10 mg Q4H PRN Administration SBP Greater Than 180 Metformin HCl 500 mg 07/17/20 08:00 07/17/20 09:16 Metformin 500 Mg Tab PO 500 mg QAM-WM GALEN Administration Pantoprazole Sodium 40 mg 07/07/20 09:00 07/17/20 09:18 Pantoprazole 40 Mg Tab PO 40 mg DAILY GALEN Administration Tamsulosin HCl 0.4 mg 07/07/20 09:00 07/17/20 09:18 Tamsulosin Hcl 0.4 Mg Cap PO 0.4 mg DAILY GALEN Administration Zinc Sulfate 220 mg 07/07/20 09:00 07/17/20 09:17 Zinc Sulfate 220 Mg Cap PO 220 mg DAILY GALEN Administration - Exam General - other findings: Obese ENT: normocephalic atraumatic Neck: no thyromegaly Heart: RRR Respiratory: CTAB Gastrointestinal: soft Skin: no rashes Psychiatric: normal affect Hosp A/P - Plan -Assessment (1) Acute respiratory failure with hypoxia Code(s): J96.01 - ACUTE RESPIRATORY FAILURE WITH HYPOXIA Status: Acute (2) Pneumonia due to COVID-19 virus Code(s): U07.1 - COVID-19; J12.89 - OTHER VIRAL PNEUMONIA Status: Acute (3) BPH (benign prostatic hyperplasia) Code(s): N40.0 - BENIGN PROSTATIC HYPERPLASIA WITHOUT LOWER URINRY TRACT SYMP Status: Chronic Qualifiers: Lower urinary tract symptom presence: unspecified whether lower urinary tract symptoms present Qualified Code(s): N40.0 - Benign prostatic hyperplasia without lower urinary tract symptoms (4) Asthma Code(s): J45.909 - UNSPECIFIED ASTHMA, UNCOMPLICATED Status: Chronic Qualifiers: Asthma severity: mild Asthma persistence: intermittent Asthma complication type: uncomplicated Qualified Code(s): J45.20 - Mild intermittent asthma, uncomplicated (5) DMII (diabetes mellitus, type 2) Status: Chronic Qualifiers: Diabetes mellitus [facility] insulin use: with [facility] use (6) HTN (hypertension) Code(s): I10 - ESSENTIAL (PRIMARY) HYPERTENSION Status: Chronic Qualifiers: Hypertension type: essential hypertension Qualified Code(s): I10 - Essential (primary) hypertension (7) HLD (hyperlipidemia) Code(s): E78.5 - HYPERLIPIDEMIA, UNSPECIFIED Status: Chronic Qualifiers: Hyperlipidemia type: unspecified Qualified Code(s): E78.5 - Hyperlipidemia, unspecified (8) Peripheral neuropathy Code(s): G62.9 - POLYNEUROPATHY, UNSPECIFIED Status: Chronic (9) CKD (chronic kidney disease), stage III Code(s): N18.30 - CHRONIC KIDNEY DISEASE, STAGE 3 UNSPECIFIED Status: Chronic - Plan Acute hypoxic respiratory failure: Patient clinically improving, continue high flow oxygen. COVID-19 pneumonia: Treated with steroids. Asthma: Patient is on high flow oxygen. Hypertension: Patient is on IV Vasotec as needed. Diabetes mellitus: Blood sugars have improved. CKD stage III: Stable.
[2020-07-17] MEDS: Mometasone 200 MCG/Formoterol 5 MCG 120 PUFF INHALER INH SCH (18:43)
[2020-07-17] MEDS: Atorvastatin Calcium 40 MG TAB PO SCH (20:21)
[2020-07-18] MEDS: Albuterol 200 PUFF (6.7GM INHALER) INH SCH ×5 (02:56→21:32)
[2020-07-18 04:59] LABS: #Eosinphils 0.1 thou/uL (0.0-0.7); #Lymphocytes 1.7 thou/uL (1.20-3.40); #Monocytes 0.7 thou/uL (0.11-0.59); %Basophils 0.3 % (0.0-1.0); %Eosinophils 0.4 % (0.0-10.0); %Lymphocytes 14.9 % (21.0-51.0); %Monocytes 6.3 % (0.0-10.0); Hemoglobin 12.4 g/dL (14.0-18.0); Mean Corpuscular HGB CONC 34.2 g/dL (32.0-36.0); Mean Corpuscular Hemoglobin 31.8 pg (27.0-31.0); Mean Platelet Volume 8.3 fL (7.4-10.4); Platelet Count 274 thou/uL (130-400); RBC Distribution Width 11.7 % (11.5-14.5); Red Blood Cell (RBC) Count 3.91 mill/uL (4.70-6.10); White Blood Cell (WBC) Count 11.6 thou/uL (4.8-10.8)
[2020-07-18 05:12] LABS: Anion Gap 12 mmol/L (10-20); BUN (Urea Nitrogen) 20 mg/dL (8.4-25.7); Calc. Creatinine Clearance 121 mL/min (70-130); Calcium 8.2 mg/dL (7.8-10.44); Carbon Dioxide 30 mmol/L (23-31); Chloride 105 mmol/L (98-107); Estimated GFR-MDRD 81; Glucose 105 mg/dL (80-115); Sodium 144 mmol/L (136-145)
[2020-07-18 05:29] LABS: Potassium 2.8 mmol/L (3.5-5.1)
[2020-07-18] MEDS: Potassium Chloride 20 MEQ TAB PO SCH ×2 (06:31→09:48)
[2020-07-18] MEDS: Mometasone 200 MCG/Formoterol 5 MCG 120 PUFF INHALER INH SCH (08:28)
[2020-07-18] MEDS: Budesonide 0.5 MG/2 ML NEB NEB SCH ×2 (08:30→21:32)
[2020-07-18] MEDS: Ascorbic Acid 500 mg Chewable Tablet PO SCH (08:42)
[2020-07-18] MEDS: metFORMIN 500 MG TAB PO SCH (08:42)
[2020-07-18] MEDS: Gabapentin 300 MG CAP PO SCH ×3 (08:43→19:55)
[2020-07-18] MEDS: Cholecalciferol (Vitamin D3) 400 UNITS TAB PO SCH (08:44)
[2020-07-18] MEDS: Enoxaparin Sodium 80 MG/0.8 ML SYRINGE SC SCH ×2 (08:44→19:56)
[2020-07-18] MEDS: FLUoxetine HCl 20 MG CAP PO SCH (08:45)
[2020-07-18] MEDS: Zinc Sulfate 220 MG CAP PO SCH (08:46)
[2020-07-18] MEDS: Tamsulosin HCl 0.4 MG CAP PO SCH (08:47)
[2020-07-18] MEDS: Insulin Glargine 30 UNITS in Pre-Filled Syringe SC SCH ×2 (08:47→21:32)
[2020-07-18] MEDS: Hydrocortisone Sod Succ/PF 100 mg/2 ml Vial IVP SCH ×2 (08:48→19:56)
[2020-07-18] MEDS: Labetalol HCl 100 MG/20 ML VIAL SLOW IVP PRN (08:48)
[2020-07-18] MEDS: Cefepime 1 GM in Sodium Chloride 0.9% 100 ML IVPB SCH ×2 (09:49→21:40)
--- NOTE | 2020-07-18 14:28 | PDOC.HOSPP ---
- Subjective Encounter Date: 07/18/20 Encounter Time: 11:00 Subjective: Seen for follow-up regarding hypoxic respiratory failure secondary to COVID-19 pneumonia. Reports feeling better. - Objective Vital Signs & Weight: Vital Signs (12 hours) Temp Pulse BP Pulse Ox 07/18/20 11:00 98.2 F 07/18/20 08:48 63 200/83 H 07/18/20 08:29 97 07/18/20 07:35 97 07/18/20 07:00 98.2 F 07/18/20 04:00 98.4 F Weight Admit Weight 244 lb Weight 244 lb 11.41 oz Most Recent Monitor Data Heart Rate from ECG 75 NIBP 152/87 NIBP BP-Mean 108 Respiration from ECG 17 SpO2 92 I&O: 07/17/20 07/18/20 07/19/20 06:59 06:59 05:59 Intake Total 982 1693 355 Output Total 1665 1480 625 Balance -683 213 -270 Result Diagrams: 07/18/20 04:15 07/18/20 04:15 Additional Labs: Accuchecks 07/18/20 07/17/20 07/17/20 09:51 22:51 21:45 POC Glucose 136 H 82 67 L 07/17/20 07/16/20 07/16/20 15:54 21:41 17:07 POC Glucose 100 121 H 144 H 07/16/20 11:47 POC Glucose 170 H Labs and MAR reviewed by me EKG Reviewed by me: Yes (Rate: NSR) Hospitalist ROS - Review of Systems Respiratory: reports: SOB with excertion. denies: cough, dry, shortness of breath, hemoptysis, pleuritic pain, sputum, wheezing Cardiovascular: denies: chest pain, palpitations, orthopnea, paroxysmal noc. dyspnea, edema, light headedness - Medication Medications: Active Medications Generic Name Dose Route Start Last Admin Trade Name Freq PRN Reason Stop Dose Admin Acetaminophen 650 mg 07/06/20 13:18 07/13/20 11:30 Acetaminophen 325 Mg Tab PO 650 mg Q6H PRN Administration Headache/Fever/Mild Pain (1-3) Albuterol Sulfate 2 puff 07/16/20 14:30 07/18/20 08:28 Albuterol 200 Puff (6.7gm Inhaler) INH 2 puff [id number] GALEN Administration Ascorbic Acid 1,000 mg 07/07/20 09:00 07/18/20 08:42 Ascorbic Acid 500 Mg Chewable Tablet PO 1,000 mg DAILY GALEN Administration Atorvastatin Calcium 40 mg 07/06/20 21:00 07/17/20 20:21 Atorvastatin Calcium 40 Mg Tab PO 40 mg HS GALEN Administration Budesonide 0.5 mg 07/08/20 18:30 07/18/20 08:30 Budesonide 0.5 Mg/2 Ml Neb NEB Not Given BID-RT GALEN Cholecalciferol 400 units 07/07/20 09:00 07/18/20 08:44 Cholecalciferol (Vitamin D3) 400 Units Tab PO 400 units DAILY GALEN Administration Enoxaparin Sodium 80 mg 07/06/20 21:00 07/18/20 08:44 Enoxaparin Sodium 80 Mg/0.8 Ml Syringe SC 80 mg 09,2099 GALEN Administration Fluoxetine HCl 40 mg 07/07/20 09:00 07/18/20 08:45 Fluoxetine Hcl 20 Mg Cap PO 40 mg DAILY GALEN Administration Gabapentin 600 mg 07/06/20 15:00 07/18/20 08:43 Gabapentin 300 Mg Cap PO 600 mg TID GALEN Administration Glipizide 5 mg 07/17/20 09:00 07/18/20 08:46 Glipizide Xl 5 Mg Tablet PO 5 mg DAILY GALEN Administration Hydrocortisone Sodium Succinate 25 mg 07/15/20 09:00 07/18/20 08:48 Hydrocortisone Sod Succ/Pf 100 Mg/2 Ml Vial IVP 25 mg BID GALEN Administration Dexmedetomidine HCl 400 mcg/ 100 mls @ 0 mls/hr 07/11/20 11:00 07/17/20 05:01 Sodium Chloride IVPB 100 mls INF GALEN Administration Protocol Per Protocol Cefepime HCl 1 gm/ Sodium 100 mls @ 200 mls/hr 07/12/20 10:00 07/18/20 09:49 Chloride IVPB 100 mls Q12H GALEN Administration Insulin Glargine 30 units/ 0.3 mls @ 0 mls/hr 07/13/20 21:00 07/18/20 08:47 Miscellaneous Medication SC 0.3 mls BID GALEN Administration Insulin Human Lispro 0 units 07/06/20 13:24 07/07/20 21:36 Humalog 300 Units/3 Ml Vial SC 3 unit .BEDTIME SLIDING SC PRN Administration Bedtime Correctional Scale Insulin Human Lispro 0 units 07/15/20 18:59 07/16/20 05:06 Humalog 300 Units/3 Ml Vial SC 3 units .AGGRESSIVE SLIDING PRN Administration Aggressive Correctional Scale Labetalol HCl 10 mg 07/13/20 13:51 07/18/20 08:48 Labetalol Hcl 100 Mg/20 Ml Vial SLOW IVP 10 mg Q4H PRN Administration SBP Greater Than 180 Metformin HCl 500 mg 07/17/20 08:00 07/18/20 08:42 Metformin 500 Mg Tab PO 500 mg QAM-WM GALEN Administration Mometasone Furoate/Formoterol Fumar 2 puff 07/17/20 18:30 07/18/20 08:28 Mometasone 200 Mcg/Formoterol 5 Mcg 120 Puff Inhaler INH 2 puff BID-RT GALEN Administration Pantoprazole Sodium 40 mg 07/07/20 09:00 07/18/20 08:46 Pantoprazole 40 Mg Tab PO 40 mg DAILY GALEN Administration Tamsulosin HCl 0.4 mg 07/07/20 09:00 07/18/20 08:47 Tamsulosin Hcl 0.4 Mg Cap PO 0.4 mg DAILY GALEN Administration Zinc Sulfate 220 mg 07/07/20 09:00 07/18/20 08:46 Zinc Sulfate 220 Mg Cap PO 220 mg DAILY GALEN Administration - Exam General - other findings: Obese Eye: anicteric sclera ENT: moist mucosa Neck: supple Heart: RRR Respiratory: CTAB Gastrointestinal: soft Skin: no rashes Psychiatric: normal affect, normal behavior Hosp A/P - Plan -Assessment (1) Acute respiratory failure with hypoxia Code(s): J96.01 - ACUTE RESPIRATORY FAILURE WITH HYPOXIA Status: Acute (2) Pneumonia due to COVID-19 virus Code(s): U07.1 - COVID-19; J12.89 - OTHER VIRAL PNEUMONIA Status: Acute (3) BPH (benign prostatic hyperplasia) Code(s): N40.0 - BENIGN PROSTATIC HYPERPLASIA WITHOUT LOWER URINRY TRACT SYMP Status: Chronic Qualifiers: Lower urinary tract symptom presence: unspecified whether lower urinary tract symptoms present Qualified Code(s): N40.0 - Benign prostatic hyperplasia without lower urinary tract symptoms (4) Asthma Code(s): J45.909 - UNSPECIFIED ASTHMA, UNCOMPLICATED Status: Chronic Qualifiers: Asthma severity: mild Asthma persistence: intermittent Asthma complication type: uncomplicated Qualified Code(s): J45.20 - Mild intermittent asthma, uncomplicated (5) DMII (diabetes mellitus, type 2) Status: Chronic Qualifiers: Diabetes mellitus [employer] insulin use: with nursing home use (6) HTN (hypertension) Code(s): I10 - ESSENTIAL (PRIMARY) HYPERTENSION Status: Chronic Qualifiers: Hypertension type: essential hypertension Qualified Code(s): I10 - Es sential (primary) hypertension (7) HLD (hyperlipidemia) Code(s): E78.5 - HYPERLIPIDEMIA, UNSPECIFIED Status: Chronic Qualifiers: Hyperlipidemia type: unspecified Qualified Code(s): E78.5 - Hyperlipidemia, unspecified (8) Peripheral neuropathy Code(s): G62.9 - POLYNEUROPATHY, UNSPECIFIED Status: Chronic (9) CKD (chronic kidney disease), stage III Code(s): N18.30 - CHRONIC KIDNEY DISEASE, STAGE 3 UNSPECIFIED Status: Chronic - Plan Patient get MR 8000Acute hypoxic respiratory failure:on the decline Contrast 50 of the neck Patient was extubated and is now on high flow oxygen. Transfer to floor. COVID-19 pneumonia: Patient was with steroids. Asthma: Continue high flow oxygen. Hypertension: Continue IV Vasotec as needed. Diabetes mellitus: Blood sugars have improved. CKD stage III: Stable.
--- NOTE | 2020-07-18 14:33 | PRG ---
DATE OF SERVICE: 07/18/2020 SUBJECTIVE: Mr. Gray is continued to do well since extubation and remains on high-flow cannula with good oxygen saturation. He has reported an appetite and has taken initial feedings without choking. PHYSICAL EXAMINATION: VITAL SIGNS: Blood pressure 152/87, heart rate 75, respiratory rate 17, and saturation 92%. GENERAL: He is awake and alert, having no significant respiratory distress. NECK: He has no JVD. LUNGS: Show bronchial breath sound, but no wheezing. HEART: Regular rate and rhythm. There is no murmur. ABDOMEN: Soft. There is no organomegaly. EXTREMITIES: He has no edema. He has no cords or tenderness. LABORATORY DATA: White count today 11,600, hemoglobin 12.4, hematocrit 36.4, and platelet count 274,000. Electrolytes include sodium 144, potassium 2.8, chloride 105, CO2 is 30, BUN 20, and creatinine 0.9. IMPRESSION: COVID pneumonia with respiratory failure, now successfully extubated. PLAN: The patient is medically stable following extubation, currently on high-flow nasal cannula. Medically, he is stable for transfer to the medical floor if bed is available. Job ID: [id number]
[2020-07-18] MEDS: Atorvastatin Calcium 40 MG TAB PO SCH (19:55)
[2020-07-19 05:21] LABS: #Basophils 0.1 thou/uL (0.0-0.2); #Eosinphils 0.2 thou/uL (0.0-0.7); #Lymphocytes 3.4 thou/uL (1.20-3.40); #Monocytes 0.8 thou/uL (0.11-0.59); %Basophils 1.1 % (0.0-1.0); %Eosinophils 1.9 % (0.0-10.0); %Lymphocytes 36.1 % (21.0-51.0); %Monocytes 8.8 % (0.0-10.0); %Neutrophils 52.2 % (42.0-75.0); Hemoglobin 11.8 g/dL (14.0-18.0); Mean Corpuscular HGB CONC 32.7 g/dL (32.0-36.0); Mean Corpuscular Hemoglobin 29.9 pg (27.0-31.0); Mean Corpuscular Volume 91.5 fL (78.0-98.0); Mean Platelet Volume 7.9 fL (7.4-10.4); Platelet Count 296 thou/uL (130-400); RBC Distribution Width 11.9 % (11.5-14.5); Red Blood Cell (RBC) Count 3.94 mill/uL (4.70-6.10); White Blood Cell (WBC) Count 9.5 thou/uL (4.8-10.8)
[2020-07-19 05:44] LABS: Anion Gap 13 mmol/L (10-20); BUN (Urea Nitrogen) 15 mg/dL (8.4-25.7); Calc. Creatinine Clearance 134 mL/min (70-130); Calcium 8.4 mg/dL (7.8-10.44); Carbon Dioxide 27 mmol/L (23-31); Chloride 109 mmol/L (98-107); Estimated GFR-MDRD Greater than 90; Glucose 65 mg/dL (80-115); Sodium 146 mmol/L (136-145)
[2020-07-19 05:46] LABS: Potassium 2.8 mmol/L (3.5-5.1)
[2020-07-19] MEDS: Potassium Chloride 20 MEQ TAB PO SCH ×2 (06:11→07:24)
[2020-07-19] MEDS: Albuterol 200 PUFF (6.7GM INHALER) INH SCH ×7 (07:14→21:35)
[2020-07-19] MEDS: Mometasone 200 MCG/Formoterol 5 MCG 120 PUFF INHALER INH SCH ×3 (07:16→17:29)
[2020-07-19] MEDS: Budesonide 0.5 MG/2 ML NEB NEB SCH ×2 (07:19→17:31)
[2020-07-19] MEDS: FLUoxetine HCl 20 MG CAP PO SCH (07:23)
[2020-07-19] MEDS: Gabapentin 300 MG CAP PO SCH ×3 (07:23→20:35)
[2020-07-19] MEDS: Tamsulosin HCl 0.4 MG CAP PO SCH (07:24)
[2020-07-19] MEDS: Cholecalciferol (Vitamin D3) 400 UNITS TAB PO SCH (07:24)
[2020-07-19] MEDS: Ascorbic Acid 500 mg Chewable Tablet PO SCH (07:24)
[2020-07-19] MEDS: Zinc Sulfate 220 MG CAP PO SCH (07:24)
[2020-07-19] MEDS: Enoxaparin Sodium 80 MG/0.8 ML SYRINGE SC SCH ×2 (07:59→20:34)
[2020-07-19] MEDS: Hydrocortisone Sod Succ/PF 100 mg/2 ml Vial IVP SCH ×2 (08:01→20:34)
[2020-07-19] MEDS: metFORMIN 500 MG TAB PO SCH ×2 (08:04→08:34)
[2020-07-19] MEDS: Insulin Glargine 30 UNITS in Pre-Filled Syringe SC SCH (08:33)
[2020-07-19] MEDS: Cefepime 1 GM in Sodium Chloride 0.9% 100 ML IVPB SCH ×2 (11:21→20:36)
[2020-07-19] MEDS: HumaLOG 300 UNITS/3 ML VIAL SC PRN (11:22)
[2020-07-19] MEDS ORDERED: Loperamide HCl 2 MG CAP PO SCH (14:00)
--- NOTE | 2020-07-19 16:53 | PDOC.HOSPP ---
- Subjective Encounter Date: 07/19/20 Encounter Time: 10:40 Subjective: Patient seen for follow-up regarding COVID-19 pneumonia. He is on room air, maintaining good oxygen saturations. Reports occasional cough. - Objective Vital Signs & Weight: Vital Signs (12 hours) Temp Pulse Resp BP Pulse Ox 07/19/20 15:01 97.9 F 85 13 158/73 H 98 07/19/20 10:41 98.7 F 91 20 144/63 H 96 07/19/20 08:05 98.6 F 76 22 H 176/79 H 94 L Weight Admit Weight 244 lb Weight 244 lb 11.41 oz Most Recent Monitor Data Heart Rate from ECG 75 NIBP 152/87 NIBP BP-Mean 108 Respiration from ECG 17 SpO2 92 I&O: 07/18/20 07/19/20 07/20/20 07:59 06:59 06:59 Intake Total Output Total Balance Result Diagrams: 07/19/20 04:46 07/19/20 04:46 Additional Labs: Accuchecks 07/19/20 07/19/20 07/18/20 16:14 13:14 20:03 POC Glucose 115 H 94 100 I reviewed patient's labs and MAR EKG Reviewed by me: Yes (Telemetry: NSR) Hospitalist ROS - Review of Systems Respiratory: reports: cough, dry. denies: shortness of breath, hemoptysis, SOB with excertion, pleuritic pain, sputum, wheezing Cardiovascular: denies: chest pain, palpitations, orthopnea, paroxysmal noc. dyspnea, edema, light headedness - Medication Medications: Active Medications Generic Name Dose Route Start Last Admin Trade Name Freq PRN Reason Stop Dose Admin Acetaminophen 650 mg 07/06/20 13:18 07/13/20 11:30 Acetaminophen 325 Mg Tab PO 650 mg Q6H PRN Administration Headache/Fever/Mild Pain (1-3) Albuterol Sulfate 2 puff 07/16/20 14:30 07/19/20 14:48 Albuterol 200 Puff (6.7gm Inhaler) INH 2 puff [id number] GALEN Administration Ascorbic Acid 1,000 mg 07/07/20 09:00 07/19/20 07:24 Ascorbic Acid 500 Mg Chewable Tablet PO 1,000 mg DAILY GALEN Administration Atorvastatin Calcium 40 mg 07/06/20 21:00 07/18/20 19:55 Atorvastatin Calcium 40 Mg Tab PO 40 mg HS GALEN Administration Budesonide 0.5 mg 07/08/20 18:30 07/19/20 07:19 Budesonide 0.5 Mg/2 Ml Neb NEB Not Given BID-RT GALEN Cholecalciferol 400 units 07/07/20 09:00 07/19/20 07:24 Cholecalciferol (Vitamin D3) 400 Units Tab PO 400 units DAILY GALEN Administration Enoxaparin Sodium 80 mg 07/06/20 21:00 07/19/20 07:59 Enoxaparin Sodium 80 Mg/0.8 Ml Syringe SC 80 mg 0900,2100 GALEN Administration Fluoxetine HCl 40 mg 07/07/20 09:00 07/19/20 07:23 Fluoxetine Hcl 20 Mg Cap PO 40 mg DAILY GALEN Administration Gabapentin 600 mg 07/06/20 15:00 07/19/20 14:48 Gabapentin 300 Mg Cap PO 600 mg TID GALEN Administration Glipizide 5 mg 07/17/20 09:00 07/19/20 08:34 Glipizide Xl 5 Mg Tablet PO Not Given DAILY GALEN Hydrocortisone Sodium Succinate 25 mg 07/15/20 09:00 07/19/20 08:01 Hydrocortisone Sod Succ/Pf 100 Mg/2 Ml Vial IVP 25 mg BID GALEN Administration Dexmedetomidine HCl 400 mcg/ 100 mls @ 0 mls/hr 07/11/20 11:00 07/17/20 05:01 Sodium Chloride IVPB 100 mls INF GALEN Administration Protocol Per Protocol Cefepime HCl 1 gm/ Sodium 100 mls @ 200 mls/hr 07/12/20 10:00 07/19/20 11:21 Chloride IVPB 100 mls Q12H GALEN Administration Insulin Glargine 30 units/ 0.3 mls @ 0 mls/hr 07/13/20 21:00 07/19/20 08:33 Miscellaneous Medication SC Not Given BID GALEN Insulin Human Lispro 0 units 07/06/20 13:24 07/07/20 21:36 Humalog 300 Units/3 Ml Vial SC 3 unit .BEDTIME SLIDING SC PRN Administration Bedtime Correctional Scale Insulin Human Lispro 0 units 07/15/20 18:59 07/19/20 11:22 Humalog 300 Units/3 Ml Vial SC 3 units .AGGRESSIVE SLIDING PRN Administration Aggressive Correctional Scale Labetalol HCl 10 mg 07/13/20 13:51 07/18/20 08:48 Labetalol Hcl 100 Mg/20 Ml Vial SLOW IVP 10 mg Q4H PRN Administration SBP Greater Than 180 Metformin HCl 500 mg 07/17/20 08:00 07/19/20 08:34 Metformin 500 Mg Tab PO Not Given QAM-WM GALEN Mometasone Furoate/Formoterol Fumar 2 puff 07/17/20 18:30 07/19/20 07:17 Mometasone 200 Mcg/Formoterol 5 Mcg 120 Puff Inhaler INH Not Given BID-RT GALEN Pantoprazole Sodium 40 mg 07/07/20 09:00 07/19/20 07:24 Pantoprazole 40 Mg Tab PO 40 mg DAILY GALEN Administration Tamsulosin HCl 0.4 mg 07/07/20 09:00 07/19/20 07:24 Tamsulosin Hcl 0.4 Mg Cap PO 0.4 mg DAILY GALEN Administration Zinc Sulfate 220 mg 07/07/20 09:00 07/19/20 07:24 Zinc Sulfate 220 Mg Cap PO 220 mg DAILY GALEN Administration - Exam General - other findings: Obese Eye: anicteric sclera ENT: moist mucosa Neck: supple Heart: RRR Respiratory: CTAB Gastrointestinal: soft, non-tender Extremities: no cyanosis Skin: no rashes Psychiatric: normal affect, normal behavior Hosp A/P - Plan -Assessment (1) Acute respiratory failure with hypoxia Code(s): J96.01 - ACUTE RESPIRATORY FAILURE WITH HYPOXIA Status: Acute (2) Pneumonia due to COVID-19 virus Code(s): U07.1 - COVID-19; J12.89 - OTHER VIRAL PNEUMONIA Status: Acute (3) BPH (benign prostatic hyperplasia) Code(s): N40.0 - BENIGN PROSTATIC HYPERPLASIA WITHOUT LOWER URINRY TRACT SYMP Status: Chronic Qualifiers: Lower urinary tract symptom presence: unspecified whether lower urinary tract symptoms present Qualified Code(s): N40.0 - Benign prostatic hyperplasia without lower urinary tract symptoms (4) DMII (diabetes mellitus, type 2) Status: Chronic Qualifiers: Diabetes mellitus terminal operator insulin use: with terminal operator use (5) Asthma Code(s): J45.909 - UNSPECIFIED ASTHMA, UNCOMPLICATED Status: Chronic Qualifiers: Asthma severity: mild Asthma persistence: intermittent Asthma complication type: uncomplicated Qualified Code(s): J45.20 - Mild intermittent asthma, uncomplicated (6) HLD (hyperlipidemia) Code(s): E78.5 - HYPERLIPIDEMIA, UNSPECIFIED Status: Chronic Qualifiers: Hyperlipidemia type: unspecified Qualified Code(s): E78.5 - Hyperlipidemia, unspecified (7) HTN (hypertension) Code(s): I10 - ESSENTIAL (PRIMARY) HYPERTENSION Status: Chronic Qualifiers: Hypertension type: essential hypertension Qualified Code(s): I10 - Essential (primary) hypertension (8) Peripheral neuropathy Code(s): G62.9 - POLYNEUROPATHY, UNSPECIFIED Status: Chronic (9) CKD (chronic kidney disease), stage III Code(s): N18.30 - CHRONIC KIDNEY DISEASE, STAGE 3 UNSPECIFIED Status: Chronic - Plan Patient has shown significant improvement, is now maintaining good oxygen saturations on room air. Blood sugars are well controlled. Replace potassium. Ambulate patient. Monitor vital signs and titrate antihypertensives as needed. Patient's was updated over the telephone. Patient may need a short stint of rehab/[facility] at the time of discharge.
[2020-07-19] MEDS: Atorvastatin Calcium 40 MG TAB PO SCH (20:35)
[2020-07-20] MEDS: Insulin Glargine 30 UNITS in Pre-Filled Syringe SC SCH ×3 (03:22→20:50)
[2020-07-20 05:07] LABS: #Basophils 0.1 thou/uL (0.0-0.2); #Eosinphils 0.2 thou/uL (0.0-0.7); #Lymphocytes 3.6 thou/uL (1.20-3.40); #Monocytes 0.8 thou/uL (0.11-0.59); #Neutrophils 5.1 thou/uL (1.40-6.50); %Basophils 0.7 % (0.0-1.0); %Eosinophils 1.9 % (0.0-10.0); %Lymphocytes 36.8 % (21.0-51.0); %Monocytes 7.9 % (0.0-10.0); %Neutrophils 52.8 % (42.0-75.0); Mean Corpuscular HGB CONC 33.5 g/dL (32.0-36.0); Mean Corpuscular Hemoglobin 30.5 pg (27.0-31.0); Mean Platelet Volume 8.5 fL (7.4-10.4); Platelet Count 315 thou/uL (130-400); RBC Distribution Width 12.2 % (11.5-14.5); Red Blood Cell (RBC) Count 4.25 mill/uL (4.70-6.10); White Blood Cell (WBC) Count 9.7 thou/uL (4.8-10.8)
[2020-07-20 05:27] LABS: Anion Gap 15 mmol/L (10-20); BUN (Urea Nitrogen) 11 mg/dL (8.4-25.7); Calc. Creatinine Clearance 113 mL/min (70-130); Calcium 8.4 mg/dL (7.8-10.44); Carbon Dioxide 26 mmol/L (23-31); Chloride 103 mmol/L (98-107); Estimated GFR-MDRD 75; Glucose 195 mg/dL (80-115); Potassium 3.7 mmol/L (3.5-5.1); Sodium 140 mmol/L (136-145)
[2020-07-20] MEDS: Albuterol 200 PUFF (6.7GM INHALER) INH SCH ×6 (05:49→20:51)
[2020-07-20] MEDS: Mometasone 200 MCG/Formoterol 5 MCG 120 PUFF INHALER INH SCH ×2 (05:50→17:59)
[2020-07-20] MEDS: HumaLOG 300 UNITS/3 ML VIAL SC PRN ×2 (05:50→17:58)
--- NOTE | 2020-07-20 08:28 | CT ---
Exam: Head CT without contrast HISTORY: Shaking in the right hand. Facial droop. COMPARISON: none FINDINGS: Hemorrhage: No intraparenchymal hemorrhage or extra-axial hematoma. Brain parenchyma: Cortical rodriguez-white matter differentiation is preserved. No mass effect or midline shift. Basilar cisterns are patent.Chronic small vessel ischemic changes of the white matter. Age-appropriate brain volume loss. Ventricular system: Ventricles and sulci are patent and symmetric. Calvarium: Intact. Sinuses and mastoid air cells: Partial opacification of the right sphenoid sinus and left mastoid air cells. IMPRESSION: No acute intracranial process.
[2020-07-20] MEDS: FLUoxetine HCl 20 MG CAP PO SCH (10:28)
[2020-07-20] MEDS: Tamsulosin HCl 0.4 MG CAP PO SCH (10:28)
[2020-07-20] MEDS: metFORMIN 500 MG TAB PO SCH ×2 (10:28→11:31)
[2020-07-20] MEDS: Cholecalciferol (Vitamin D3) 400 UNITS TAB PO SCH (10:28)
[2020-07-20] MEDS: Zinc Sulfate 220 MG CAP PO SCH (10:28)
[2020-07-20] MEDS: Ascorbic Acid 500 mg Chewable Tablet PO SCH (10:28)
[2020-07-20] MEDS: Gabapentin 300 MG CAP PO SCH ×3 (10:28→20:47)
[2020-07-20] MEDS: Enoxaparin Sodium 80 MG/0.8 ML SYRINGE SC SCH ×2 (10:29→20:49)
[2020-07-20] MEDS: Hydrocortisone Sod Succ/PF 100 mg/2 ml Vial IVP SCH ×2 (10:31→20:56)
[2020-07-20] MEDS: Cefepime 1 GM in Sodium Chloride 0.9% 100 ML IVPB SCH ×2 (10:44→20:50)
[2020-07-20] MEDS: Loperamide HCl 2 MG CAP PO PRN (14:51)
--- NOTE | 2020-07-20 19:00 | PDOC.HOSPP ---
- Subjective Encounter Date: 07/20/20 Encounter Time: 14:00 Subjective: Patient seen for follow-up regarding COVID-19 pneumonia. He denies chest pain or shortness of breath. - Objective Vital Signs & Weight: Vital Signs (12 hours) Temp Pulse Resp BP Pulse Ox 07/20/20 15:36 97.8 F 83 23 H 101/83 97 07/20/20 12:50 99.0 F 76 20 147/67 H 92 L 07/20/20 10:45 98.6 F 90 19 158/69 H 96 07/20/20 10:30 96 07/20/20 07:22 96 Weight Admit Weight 244 lb Weight 244 lb 11.41 oz Most Recent Monitor Data Heart Rate from ECG 75 NIBP 152/87 NIBP BP-Mean 108 Respiration from ECG 17 SpO2 92 I&O: 07/19/20 07/20/20 07/21/20 06:59 06:59 06:59 Intake Total 1320 Output Total 1220 Balance 100 Result Diagrams: 07/20/20 04:24 07/20/20 04:24 Additional Labs: Accuchecks 07/20/20 07/20/20 07/19/20 14:37 10:49 20:46 POC Glucose 219 H 83 159 H 07/19/20 07/19/20 10:43 08:13 POC Glucose 181 H 74 Labs and MAR reviewed by me EKG Reviewed by me: Yes (Telemetry: NSR) Hospitalist ROS - Review of Systems Cardiovascular: denies: chest pain, palpitations, orthopnea, paroxysmal noc. dyspnea, edema, light headedness Gastrointestinal: denies: nausea, vomiting, abdominal pain, diarrhea, c onstipation, melena, hematochezia Genitourinary: denies: dysuria, frequency, incontinence, hematuria, retention - Medication Medications: Active Medications Generic Name Dose Route Start Last Admin Trade Name Freq PRN Reason Stop Dose Admin Acetaminophen 650 mg 07/06/20 13:18 07/13/20 11:30 Acetaminophen 325 Mg Tab PO 650 mg Q6H PRN Administration Headache/Fever/Mild Pain (1-3) Albuterol Sulfate 2 puff 07/16/20 14:30 07/20/20 17:58 Albuterol 200 Puff (6.7gm Inhaler) INH 2 puff [id number] GALEN Administration Ascorbic Acid 1,000 mg 10/20/20 09:00 07/20/20 10:28 Ascorbic Acid 500 Mg Chewable Tablet PO 1,000 mg DAILY GALEN Administration Atorvastatin Calcium 40 mg 07/06/20 21:00 07/19/20 20:35 Atorvastatin Calcium 40 Mg Tab PO 40 mg HS GALEN Administration Cholecalciferol 400 units 07/07/20 09:00 07/20/20 10:28 Cholecalciferol (Vitamin D3) 400 Units Tab PO 400 units DAILY GALEN Administration Enoxaparin Sodium 80 mg 07/06/20 21:00 07/20/20 10:29 Enoxaparin Sodium 80 Mg/0.8 Ml Syringe SC 80 mg 09,2099 GALEN Administration Fluoxetine HCl 40 mg 07/07/20 09:00 07/20/20 10:28 Fluoxetine Hcl 20 Mg Cap PO 40 mg DAILY GALEN Administration Gabapentin 600 mg 07/06/20 15:00 07/20/20 14:51 Gabapentin 300 Mg Cap PO 600 mg TID GALEN Administration Glipizide 5 mg 07/17/20 09:00 07/20/20 11:31 Glipizide Xl 5 Mg Tablet PO Not Given DAILY GALEN Hydrocortisone Sodium Succinate 25 mg 07/15/20 09:00 07/20/20 10:31 Hydrocortisone Sod Succ/Pf 100 Mg/2 Ml Vial IVP 25 mg BID GALEN Administration Dexmedetomidine HCl 400 mcg/ 100 mls @ 0 mls/hr 07/11/20 11:00 07/17/20 05:01 Sodium Chloride IVPB 100 mls INF GALEN Administration Protocol Per Protocol Cefepime HCl 1 gm/ Sodium 100 mls @ 200 mls/hr 07/12/20 10:00 07/20/20 10:44 Chloride IVPB 100 mls Q12H GALEN Administration Insulin Glargine 30 units/ 0.3 mls @ 0 mls/hr 07/13/20 21:00 07/20/20 10:30 Miscellaneous Medication SC Not Given BID GALEN Insulin Human Lispro 0 units 07/06/20 13:24 07/07/20 21:36 Humalog 300 Units/3 Ml Vial SC 3 unit .BEDTIME SLIDING SC PRN Administration Bedtime Correctional Scale Insulin Human Lispro 0 units 07/15/20 18:59 07/20/20 17:58 Humalog 300 Units/3 Ml Vial SC 6 units .AGGRESSIVE SLIDING PRN Administration Aggressive Correctional Scale Labetalol HCl 10 mg 07/13/20 13:51 07/18/20 08:48 Labetalol Hcl 100 Mg/20 Ml Vial SLOW IVP 10 mg Q4H PRN Administration SBP Greater Than 180 Loperamide HCl 2 mg 07/19/20 13:59 07/20/20 14:51 Loperamide Hcl 2 Mg Cap PO 2 mg PRN PRN Administration Diarrhea/Loose Stools Metformin HCl 500 mg 07/17/20 08:00 07/20/20 11:31 Metformin 500 Mg Tab PO Not Given QAM-WM GALEN Mometasone Furoate/Formoterol Fumar 2 puff 07/17/20 18:30 07/20/20 17:59 Mometasone 200 Mcg/Formoterol 5 Mcg 120 Puff Inhaler INH 2 puff BID-RT GALEN Administration Pantoprazole Sodium 40 mg 07/07/20 09:00 07/20/20 10:28 Pantoprazole 40 Mg Tab PO 40 mg DAILY GALEN Administration Tamsulosin HCl 0.4 mg 07/07/20 09:00 07/20/20 10:28 Tamsulosin Hcl 0.4 Mg Cap PO 0.4 mg DAILY GALEN Administration Zinc Sulfate 220 mg 07/07/20 09:00 07/20/20 10:28 Zinc Sulfate 220 Mg Cap PO 220 mg DAILY GALEN Administration - Exam General - other findings: Obesity Eye: anicteric sclera ENT: no oropharyngeal lesions, moist mucosa Neck: no lymphadenopathy Heart: RRR Respiratory: no wheezes, no rales, no ronchi Gastrointestinal: soft, non-tender Skin: no rashes Psychiatric: normal affect, normal behavior Hosp A/P - Plan -Assessment (1) Acute respiratory failure with hypoxia Code(s): J96.01 - ACUTE RESPIRATORY FAILURE WITH HYPOXIA Status: Acute (2) Pneumonia due to COVID-19 virus Code(s): U07.1 - COVID-19; J12.89 - OTHER VIRAL PNEUMONIA Status: Acute (3) BPH (benign prostatic hyperplasia) Code(s): N40.0 - BENIGN PROSTATIC HYPERPLASIA WITHOUT LOWER URINRY TRACT SYMP Status: Chronic Qualifiers: Lower urinary tract symptom presence: unspecified whether lower urinary tract symptoms present Qualified Code(s): N40.0 - Benign prostatic hyperplasia without lower urinary tract symptoms (4) DMII (diabetes mellitus, type 2) Status: Chronic Qualifiers: Diabetes mellitus termination clerk insulin use: with group home use (5) Asthma Code(s): J45.909 - UNSPECIFIED ASTHMA, UNCOMPLICATED Status: Chronic Qualifiers: Asthma severity: mild Asthma persistence: intermittent Asthma complication type: uncomplicated Qualified Code(s): J45.20 - Mild intermittent asthma, uncomplicated (6) HLD (hyperlipidemia) Code(s): E78.5 - HYPERLIPIDEMIA, UNSPECIFIED Status: Chronic Qualifiers: Hyperlipidemia type: unspecified Qualified Code(s): E78.5 - Hyperlipidemia, unspecified (7) HTN (hypertension) Code(s): I10 - ESSENTIAL (PRIMARY) HYPERTENSION Status: Chronic Qualifiers: Hypertension type: essential hypertension Qualified Code(s): I10 - Essential (primary) hypertension (8) Peripheral neuropathy Code(s): G62.9 - POLYNEUROPATHY, UNSPECIFIED Status: Chronic (9) CKD (chronic kidney disease), stage III Code(s): N18.30 - CHRONIC KIDNEY DISEASE, STAGE 3 UNSPECIFIED Status: Chronic - Plan Patient continues to maintain good oxygen saturations on room air. Blood sugars are controlled. Hypokalemia resolved. Ambulate patient. Monitor vital signs and titrate antihypertensives as needed. Patient may need a short stint of rehab/snf at the time of discharge.
[2020-07-20] MEDS: Atorvastatin Calcium 40 MG TAB PO SCH (20:49)
[2020-07-21] MEDS: Albuterol 200 PUFF (6.7GM INHALER) INH SCH ×6 (03:45→23:37)
[2020-07-21 04:57] LABS: #Basophils 0.1 thou/uL (0.0-0.2); #Eosinphils 0.2 thou/uL (0.0-0.7); #Lymphocytes 3.3 thou/uL (1.20-3.40); #Monocytes 0.8 thou/uL (0.11-0.59); #Neutrophils 4.7 thou/uL (1.40-6.50); %Eosinophils 1.8 % (0.0-10.0); %Lymphocytes 36.2 % (21.0-51.0); %Monocytes 9.1 % (0.0-10.0); %Neutrophils 51.8 % (42.0-75.0); Hemoglobin 12.2 g/dL (14.0-18.0); Mean Corpuscular HGB CONC 33.8 g/dL (32.0-36.0); Mean Corpuscular Hemoglobin 30.7 pg (27.0-31.0); Mean Corpuscular Volume 90.8 fL (78.0-98.0); Mean Platelet Volume 7.7 fL (7.4-10.4); Platelet Count 279 thou/uL (130-400); RBC Distribution Width 12.4 % (11.5-14.5); Red Blood Cell (RBC) Count 3.98 mill/uL (4.70-6.10); White Blood Cell (WBC) Count 9.1 thou/uL (4.8-10.8)
[2020-07-21 05:13] LABS: Anion Gap 13 mmol/L (10-20); BUN (Urea Nitrogen) 9 mg/dL (8.4-25.7); Calc. Creatinine Clearance 110 mL/min (70-130); Calcium 8.1 mg/dL (7.8-10.44); Carbon Dioxide 26 mmol/L (23-31); Chloride 103 mmol/L (98-107); Estimated GFR-MDRD 82; Glucose 205 mg/dL (80-115); Potassium 3.3 mmol/L (3.5-5.1); Sodium 139 mmol/L (136-145)
[2020-07-21] MEDS: Mometasone 200 MCG/Formoterol 5 MCG 120 PUFF INHALER INH SCH ×2 (05:40→23:37)
[2020-07-21] MEDS: Loperamide HCl 2 MG CAP PO PRN ×2 (08:26→16:00)
[2020-07-21] MEDS: Tamsulosin HCl 0.4 MG CAP PO SCH (08:27)
[2020-07-21] MEDS: Cholecalciferol (Vitamin D3) 400 UNITS TAB PO SCH (08:27)
[2020-07-21] MEDS: Ascorbic Acid 500 mg Chewable Tablet PO SCH (08:27)
[2020-07-21] MEDS: FLUoxetine HCl 20 MG CAP PO SCH (08:28)
[2020-07-21] MEDS: Gabapentin 300 MG CAP PO SCH ×3 (08:29→21:24)
[2020-07-21] MEDS: Zinc Sulfate 220 MG CAP PO SCH (08:30)
[2020-07-21] MEDS: Enoxaparin Sodium 80 MG/0.8 ML SYRINGE SC SCH (08:30)
[2020-07-21] MEDS: metFORMIN 500 MG TAB PO SCH (08:30)
[2020-07-21] MEDS: Hydrocortisone Sod Succ/PF 100 mg/2 ml Vial IVP SCH (08:31)
[2020-07-21] MEDS: Insulin Glargine 30 UNITS in Pre-Filled Syringe SC SCH (08:46)
[2020-07-21] MEDS: Cefepime 1 GM in Sodium Chloride 0.9% 100 ML IVPB SCH (08:46)
--- NOTE | 2020-07-21 14:35 | PDOC.HOSPP ---
- Subjective Encounter Date: 07/21/20 Encounter Time: 09:20 Subjective: Patient seen for follow-up regarding acute hypoxic respiratory failure. He reports feeling better. He denies any chest pain. He reports generalized weakness. Denies shortness of breath. - Objective Vital Signs & Weight: Vital Signs (12 hours) Temp Pulse Resp BP Pulse Ox 07/21/20 10:50 98.1 F 80 18 143/67 H 94 L 07/21/20 08:29 98.4 F 68 17 161/75 H 94 L 07/21/20 08:28 94 L 07/21/20 03:40 98.6 F 62 12 168/79 H 94 L Weight Admit Weight 244 lb Weight 219 lb 8 oz Most Recent Monitor Data Heart Rate from ECG 75 NIBP 152/87 NIBP BP-Mean 108 Respiration from ECG 17 SpO2 92 I&O: 07/20/20 07/21/20 07/22/20 06:59 06:59 06:59 Intake Total 1320 1440 Output Total 1220 2550 Balance 100 -1110 Result Diagrams: 07/21/20 04:34 07/21/20 04:34 Additional Labs: Accuchecks 07/21/20 07/21/20 07/21/20 10:42 05:41 00:15 POC Glucose 186 H 175 H 198 H 07/20/20 07/20/20 16:38 14:37 POC Glucose 221 H 219 H I reviewed patient's labs and MAR EKG Reviewed by me: Yes (Normal sinus rhythm on telemetry) Hospitalist ROS - Review of Systems Constitutional: reports: weakness Cardiovascular: denies: chest pain, palpitations, paroxysmal noc. dyspnea, edema Gastrointestinal: denies: nausea, vomiting, abdominal pain, diarrhea, constipation, melena, hematochezia - Medication Medications: Active Medications Generic Name Dose Route Start Last Admin Trade Name Freq PRN Reason Stop Dose Admin Acetaminophen 650 mg 07/06/20 13:18 07/13/20 11:30 Acetaminophen 325 Mg Tab PO 650 mg Q6H PRN Administration Headache/Fever/Mild Pain (1-3) Albuterol Sulfate 2 puff 07/16/20 14:30 07/21/20 14:21 Albuterol 200 Puff (6.7gm Inhaler) INH 2 puff [id number] GALEN Administration Ascorbic Acid 1,000 mg 07/07/20 09:00 07/21/20 08:27 Ascorbic Acid 500 Mg Chewable Tablet PO 1,000 mg DAILY GALEN Administration Atorvastatin Calcium 40 mg 07/06/20 21:00 07/20/20 20:49 Atorvastatin Calcium 40 Mg Tab PO 40 mg HS GALEN Administration Cholecalciferol 400 units 07/07/20 09:00 07/21/20 08:27 Cholecalciferol (Vitamin D3) 400 Units Tab PO 400 units DAILY GALEN Administration Enoxaparin Sodium 80 mg 07/06/20 21:00 07/21/20 08:30 Enoxaparin Sodium 80 Mg/0.8 Ml Syringe SC 80 mg 0900,2099 GALEN Administration Fluoxetine HCl 40 mg 07/07/20 09:00 07/21/20 08:28 Fluoxetine Hcl 20 Mg Cap PO 40 mg DAILY GALEN Administration Gabapentin 600 mg 07/06/20 15:00 07/21/20 08:29 Gabapentin 300 Mg Cap PO 600 mg TID GALEN Administration Glipizide 5 mg 07/17/20 09:00 07/21/20 08:30 Glipizide Xl 5 Mg Tablet PO 5 mg DAILY GALEN Administration Hydrocortisone Sodium Succinate 25 mg 07/15/20 09:00 07/21/20 08:31 Hydrocortisone Sod Succ/Pf 100 Mg/2 Ml Vial IVP 25 mg BID GALEN Administration Dexmedetomidine HCl 400 mcg/ 100 mls @ 0 mls/hr 07/11/20 11:00 07/17/20 05:01 Sodium Chloride IVPB 100 mls INF GALEN Administration Protocol Per Protocol Cefepime HCl 1 gm/ Sodium 100 mls @ 200 mls/hr 07/12/20 10:00 07/21/20 08:46 Chloride IVPB 100 mls Q12H GALEN Administration Insulin Glargine 30 units/ 0.3 mls @ 0 mls/hr 07/13/20 21:00 07/21/20 08:46 Miscellaneous Medication SC Not Given BID GALEN Insulin Human Lispro 0 units 07/06/20 13:24 07/07/20 21:36 Humalog 300 Units/3 Ml Vial SC 3 unit .BEDTIME SLIDING SC PRN Administration Bedtime Correctional Scale Insulin Human Lispro 0 units 07/15/20 18:59 07/20/20 17:58 Humalog 300 Units/3 Ml Vial SC 6 units .AGGRESSIVE SLIDING PRN Administration Aggressive Correctional Scale Labetalol HCl 10 mg 07/13/20 13:51 07/18/20 08:48 Labetalol Hcl 100 Mg/20 Ml Vial SLOW IVP 10 mg Q4H PRN Administration SBP Greater Than 180 Loperamide HCl 2 mg 07/19/20 13:59 07/21/20 08:26 Loperamide Hcl 2 Mg Cap PO 2 mg PRN PRN Administration Diarrhea/Loose Stools Metformin HCl 500 mg 07/17/20 08:00 07/21/20 08:30 Metformin 500 Mg Tab PO 500 mg QAM-WM GALEN Administration Mometasone Furoate/Formoterol Fumar 2 puff 07/17/20 18:30 07/21/20 05:40 Mometasone 200 Mcg/Formoterol 5 Mcg 120 Puff Inhaler INH 2 puff BID-RT GALEN Administration Pantoprazole Sodium 40 mg 07/07/20 09:00 07/21/20 08:27 Pantoprazole 40 Mg Tab PO 40 mg DAILY GALEN Administration Tamsulosin HCl 0.4 mg 07/07/20 09:00 07/21/20 08:27 Tamsulosin Hcl 0.4 Mg Cap PO 0.4 mg DAILY GALEN Administration Zinc Sulfate 220 mg 07/07/20 09:00 07/21/20 08:30 Zinc Sulfate 220 Mg Cap PO 220 mg DAILY GALEN Administration - Exam General - other findings: Obese Eye: anicteric sclera ENT: normocephalic atraumatic Neck: supple Heart: RRR Respiratory: CTAB Gastrointestinal: soft, non-tender Skin: no rashes Psychiatric: normal affect, normal behavior Hosp A/P - Plan -Assessment (1) Acute respiratory failure with hypoxia Code(s): J96.01 - ACUTE RESPIRATORY FAILURE WITH HYPOXIA Status: Acute (2) Pneumonia due to COVID-19 virus Code(s): U07.1 - COVID-19; J12.89 - OTHER VIRAL PNEUMONIA Status: Acute (3) BPH (benign prostatic hyperplasia) Code(s): N40.0 - BENIGN PROSTATIC HYPERPLASIA WITHOUT LOWER URINRY TRACT SYMP Status: Chronic Qualifiers: Lower urinary tract symptom presence: unspecified whether lower urinary tract symptoms present Qualified Code(s): N40.0 - Benign prostatic hyperplasia without lower urinary tract symptoms (4) DMII (diabetes mellitus, type 2) Status: Chronic Qualifiers: Diabetes mellitus longterm insulin use: with manager terminal use (5) Asthma Code(s): J45.909 - UNSPECIFIED ASTHMA, UNCOMPLICATED Status: Chronic Qualifiers: Asthma severity: mild Asthma persistence: intermittent Asthma complication type: uncomplicated Qualified Code(s): J45.20 - Mild intermittent asthma, uncomplicated (6) HLD (hyperlipidemia) Code(s): E78.5 - HYPERLIPIDEMIA, UNSPECIFIED Status: Chronic Qualifiers: Hyperlipidemia type: unspecified Qualified Code(s): E78.5 - Hyperlipidemia, unspecified (7) HTN (hypertension) Code(s): I10 - ESSENTIAL (PRIMARY) HYPERTENSION Status: Chronic Qualifiers: Hypertension type: essential hypertension Qualified Code(s): I10 - Essential (primary) hypertension (8) Peripheral neuropathy Code(s): G62.9 - POLYNEUROPATHY, UNSPECIFIED Status: Chronic (9) CKD (chronic kidney disease), stage III Code(s): N18.30 - CHRONIC KIDNEY DISEASE, STAGE 3 UNSPECIFIED Status: Chronic - Plan Patient has clinically improved. Ambulate patient. Patient will likely need senior living or swing bed at the time of discharge. Increase Lantus to 33 units twice daily.
[2020-07-21] MEDS: INSULIN GLARGINE SC SCH (21:23)
[2020-07-21] MEDS: PRE FILLED SC SCH (21:23)
[2020-07-21] MEDS: Atorvastatin Calcium 40 MG TAB PO SCH (21:24)
[2020-07-21] MEDS: Apixaban 5 MG TAB PO SCH (21:24)
[2020-07-22] MEDS: Albuterol 200 PUFF (6.7GM INHALER) INH SCH ×5 (02:39→17:10)
--- NOTE | 2020-07-22 06:14 | PRG ---
DATE OF SERVICE: 07/21/2020 SUBJECTIVE: Mr. Gray is doing well. He is on room air. He was getting shaved by the nurse when I saw him. OBJECTIVE: VITAL SIGNS: He is afebrile. Heart rate is 80, blood pressure has been stable, oximetry is 94 on room air, blood pressure was 149/70. GENERAL: He is in no distress. LABORATORY DATA: White count 9.1, hemoglobin 12.2, platelets 279. Sodium 139, potassium 3.3, chloride 103, bicarb 26, BUN 9, creatinine 0.92. Glucoses have been over 200 for the most part. IMPRESSION: 1. COVID pneumonia, resolved, he is now on room air. 2. Deconditioning. He could not get a bedpan yesterday fast enough he says, so he was trying to make it to the bathroom and went down. He denies falling. Had a head CT that showed nothing yesterday. His isolation can be discontinued. His symptoms started on July 01. I would recommend DVT prophylaxis and baby aspirin for a couple of months. Start steroid taper over 2 to 3 weeks. Job ID: [id number]
[2020-07-22] MEDS: Mometasone 200 MCG/Formoterol 5 MCG 120 PUFF INHALER INH SCH ×2 (07:31→17:08)
[2020-07-22] MEDS: Gabapentin 300 MG CAP PO SCH ×3 (08:11→20:06)
[2020-07-22] MEDS: metFORMIN 500 MG TAB PO SCH (08:13)
[2020-07-22] MEDS: Ascorbic Acid 500 mg Chewable Tablet PO SCH (08:13)
[2020-07-22] MEDS: Apixaban 5 MG TAB PO SCH ×2 (08:13→20:07)
[2020-07-22] MEDS: Tamsulosin HCl 0.4 MG CAP PO SCH (08:13)
[2020-07-22] MEDS: predniSONE 20 MG TAB PO SCH (08:14)
[2020-07-22] MEDS: FLUoxetine HCl 20 MG CAP PO SCH (08:14)
[2020-07-22] MEDS: Cholecalciferol (Vitamin D3) 400 UNITS TAB PO SCH (09:11)
[2020-07-22] MEDS: Acetaminophen 325 MG TAB PO PRN (09:11)
[2020-07-22] MEDS: Zinc Sulfate 220 MG CAP PO SCH (09:12)
[2020-07-22] MEDS: INSULIN GLARGINE SC SCH ×3 (10:47→21:00)
[2020-07-22] MEDS: PRE FILLED SC SCH ×3 (10:47→21:00)
[2020-07-22] MEDS: HumaLOG 300 UNITS/3 ML VIAL SC PRN (11:48)
--- NOTE | 2020-07-22 15:23 | PDOC.HOSPP ---
- Subjective Encounter Date: 07/22/20 Encounter Time: 11:00 Subjective: Patient seen for follow-up of acute hypoxic respiratory failure. He reports feeling better. - Objective Vital Signs & Weight: Vital Signs (12 hours) Temp Pulse Resp BP BP Pulse Ox 07/22/20 12:39 97.9 F 73 20 143/54 H 93 L 07/22/20 08:00 93 L 07/22/20 07:40 97.6 F 67 20 147/77 H 93 L 07/22/20 04:00 97.9 F 64 20 138/79 92 L Weight Admit Weight 244 lb Weight 220 lb 9 oz Most Recent Monitor Data Heart Rate from ECG 75 NIBP 152/87 NIBP BP-Mean 108 Respiration from ECG 17 SpO2 92 I&O: 07/21/20 07/22/20 07/23/20 06:59 06:59 06:59 Intake Total 1440 920 Output Total 2550 2475 Balance -1110 -0591 Result Diagrams: 07/21/20 04:34 07/21/20 04:34 Additional Labs: Accuchecks 07/22/20 07/22/20 07/21/20 11:19 04:25 21:09 POC Glucose 296 H 109 H 116 H 07/21/20 16:41 POC Glucose 126 H Labs and MAR reviewed by ne Hospitalist ROS - Review of Systems Gastrointestinal: denies: nausea, vomiting, abdominal pain, diarrhea, constipation, melena, hematochezia Genitourinary: denies: dysuria, frequency, incontinence, hematuria, retention - Medication Medications: Active Medications Generic Name Dose Route Start Last Admin Trade Name Marisela PRN Reason Stop Dose Admin Acetaminophen 650 mg 07/06/20 13:18 07/22/20 09:11 Acetaminophen 325 Mg Tab PO 650 mg Q6H PRN Administration Headache/Fever/Mild Pain (1-3) Albuterol Sulfate 2 puff 07/16/20 14:30 07/22/20 10:57 Albuterol 200 Puff (6.7gm Inhaler) INH 2 puff [id number] GALEN Administration Apixaban 5 mg 07/21/20 21:00 07/22/20 08:13 Apixaban 5 Mg Tab PO 5 mg BID GALEN Administration Ascorbic Acid 1,000 mg 07/07/20 09:00 07/22/20 08:13 Ascorbic Acid 500 Mg Chewable Tablet PO 1,000 mg DAILY GALEN Administration Atorvastatin Calcium 40 mg 07/06/20 21:00 07/21/20 21:24 Atorvastatin Calcium 40 Mg Tab PO 40 mg HS GALEN Administration Cholecalciferol 400 units 07/07/20 09:00 07/22/20 09:11 Cholecalciferol (Vitamin D3) 400 Units Tab PO 400 units DAILY GALEN Administration Fluoxetine HCl 40 mg 07/07/20 09:00 07/22/20 08:14 Fluoxetine Hcl 20 Mg Cap PO 40 mg DAILY GALEN Administration Gabapentin 600 mg 07/06/20 15:00 07/22/20 15:03 Gabapentin 300 Mg Cap PO 600 mg TID GALEN Administration Glipizide 5 mg 07/17/20 09:00 07/22/20 09:12 Glipizide Xl 5 Mg Tablet PO 5 mg DAILY GALEN Administration Insulin Glargine 33 units/ 0.33 mls @ 0 mls/hr 07/21/20 21:00 07/22/20 11:47 Miscellaneous Medication SC 0.33 mls BID GALEN Administration Insulin Human Lispro 0 units 07/06/20 13:24 07/07/20 21:36 Humalog 300 Units/3 Ml Vial SC 3 unit .BEDTIME SLIDING SC PRN Administration Bedtime Correctional Scale Insulin Human Lispro 0 units 07/15/20 18:59 07/22/20 11:48 Humalog 300 Units/3 Ml Vial SC 9 units .AGGRESSIVE SLIDING PRN Administration Aggressive Correctional Scale Labetalol HCl 10 mg 07/13/20 13:51 07/18/20 08:48 Labetalol Hcl 100 Mg/20 Ml Vial SLOW IVP 10 mg Q4H PRN Administration SBP Greater Than 180 Loperamide HCl 2 mg 07/19/20 13:59 07/21/20 16:00 Loperamide Hcl 2 Mg Cap PO 2 mg PRN PRN Administration Diarrhea/Loose Stools Metformin HCl 500 mg 07/17/20 08:00 07/22/20 08:13 Metformin 500 Mg Tab PO 500 mg QAM-WM GALEN Administration Mometasone Furoate/Formoterol Fumar 2 puff 07/17/20 18:30 07/22/20 07:31 Mometasone 200 Mcg/Formoterol 5 Mcg 120 Puff Inhaler INH 2 puff BID-RT GALEN Administration Pantoprazole Sodium 40 mg 07/07/20 09:00 07/22/20 08:13 Pantoprazole 40 Mg Tab PO 40 mg DAILY GALEN Administration Prednisone 20 mg 07/22/20 08:00 07/22/20 08:14 Prednisone 20 Mg Tab PO 20 mg QAM-WM GALEN Administration Tamsulosin HCl 0.4 mg 07/07/20 09:00 07/22/20 08:13 Tamsulosin Hcl 0.4 Mg Cap PO 0.4 mg DAILY GALEN Administration Zinc Sulfate 220 mg 07/07/20 09:00 07/22/20 09:12 Zinc Sulfate 220 Mg Cap PO 220 mg DAILY GALEN Administration - Exam General Appearance: awake alert General - other findings: Obese ENT: no oropharyngeal lesions Neck: supple Heart: RRR Respiratory: CTAB Gastrointestinal: soft, non-tender Skin: no rashes Psychiatric: normal affect, normal behavior Hosp A/P - Plan -Assessment (1) Acute respiratory failure with hypoxia Code(s): J96.01 - ACUTE RESPIRATORY FAILURE WITH HYPOXIA Status: Acute (2) Pneumonia due to COVID-19 virus Code(s): U07.1 - COVID-19; J12.89 - OTHER VIRAL PNEUMONIA Status: Acute (3) BPH (benign prostatic hyperplasia) Code(s): N40.0 - BENIGN PROSTATIC HYPERPLASIA WITHOUT LOWER URINRY TRACT SYMP Status: Chronic Qualifiers: Lower urinary tract symptom presence: unspecified whether lower urinary tract symptoms present Qualified Code(s): N40.0 - Benign prostatic hyperplasia without lower urinary tract symptoms (4) DMII (diabetes mellitus, type 2) Status: Chronic Qualifiers: Diabetes mellitus shelter insulin use: with terminal block assembler use (5) Asthma Code(s): J45.909 - UNSPECIFIED ASTHMA, UNCOMPLICATED Status: Chronic Qualifiers: Asthma severity: mild Asthma persistence: intermittent Asthma complication type: uncomplicated Qualified Code(s): J45.20 - Mild intermittent asthma, uncomplicated (6) HLD (hyperlipidemia) Code(s): E78.5 - HYPERLIPIDEMIA, UNSPECIFIED Status: Chronic Qualifiers: Hyperlipidemia type: unspecified Qualified Code(s): E78.5 - Hyperlipidemia, unspecified (7) HTN (hypertension) Code(s): I10 - ESSENTIAL (PRIMARY) HYPERTENSION Status: Chronic Qualifiers: Hypertension type: essential hypertension Qualified Code(s): I10 - Essential (primary) hypertension (8) Peripheral neuropathy Code(s): G62.9 - POLYNEUROPATHY, UNSPECIFIED Status: Chronic (9) CKD (chronic kidney disease), stage III Code(s): N18.30 - CHRONIC KIDNEY DISEASE, STAGE 3 UNSPECIFIED Status: Chronic - Plan Patient has clinically improved. Need to ambulate more. Patient will likely need fpc or swing bed at the time of discharge. Reasonable control of blood sugars, continue Lantus at 33 units twice daily. Discontinue Veliz.
[2020-07-22] MEDS: Atorvastatin Calcium 40 MG TAB PO SCH (20:07)
[2020-07-23] MEDS: Albuterol 200 PUFF (6.7GM INHALER) INH SCH ×6 (03:36→22:18)
[2020-07-23] MEDS: Mometasone 200 MCG/Formoterol 5 MCG 120 PUFF INHALER INH SCH ×2 (07:27→19:04)
[2020-07-23] MEDS: Ascorbic Acid 500 mg Chewable Tablet PO SCH (08:41)
[2020-07-23] MEDS: Zinc Sulfate 220 MG CAP PO SCH (08:41)
[2020-07-23] MEDS: Gabapentin 300 MG CAP PO SCH ×3 (08:41→19:59)
[2020-07-23] MEDS: Cholecalciferol (Vitamin D3) 400 UNITS TAB PO SCH (08:41)
[2020-07-23] MEDS: FLUoxetine HCl 20 MG CAP PO SCH (08:41)
[2020-07-23] MEDS: predniSONE 20 MG TAB PO SCH (08:41)
[2020-07-23] MEDS: PRE FILLED SC SCH ×2 (08:42→21:00)
[2020-07-23] MEDS: Tamsulosin HCl 0.4 MG CAP PO SCH (08:42)
[2020-07-23] MEDS: metFORMIN 500 MG TAB PO SCH (08:42)
[2020-07-23] MEDS: INSULIN GLARGINE SC SCH ×2 (08:42→21:00)
[2020-07-23] MEDS: Apixaban 5 MG TAB PO SCH ×2 (08:42→20:01)
[2020-07-23 13:58] VITALS: BMI 31.4
--- NOTE | 2020-07-23 15:07 | PDOC.HOSPP ---
- Subjective Encounter Date: 07/23/20 Encounter Time: 11:30 Subjective: Patient is stable this morning. His isolation has been discontinued. Accidental fall yesterday due to incontinence issue. - Objective Vital Signs & Weight: Vital Signs (12 hours) Temp Pulse Resp BP Pulse Ox 07/23/20 08:00 98.1 F 74 20 116/58 L 94 L 07/23/20 04:56 97.9 F 61 20 171/79 H 93 L Weight Admit Weight 244 lb Weight 225 lb 1 oz Most Recent Monitor Data Heart Rate from ECG 75 NIBP 152/87 NIBP BP-Mean 108 Respiration from ECG 17 SpO2 92 I&O: 07/22/20 07/23/20 07/24/20 06:59 06:59 06:59 Intake Total 920 960 Output Total 2408 2250 Balance -1555 -9640 Result Diagrams: 07/21/20 04:34 07/21/20 04:34 Additional Labs: Accuchecks 07/23/20 07/22/20 07/22/20 05:56 20:31 16:08 POC Glucose 107 H 200 H 170 H Hospitalist ROS - Medication Medications: Active Medications Generic Name Dose Route Start Last Admin Trade Name Freq PRN Reason Stop Dose Admin Acetaminophen 650 mg 07/06/20 13:18 07/22/20 09:11 Acetaminophen 325 Mg Tab PO 650 mg Q6H PRN Administration Headache/Fever/Mild Pain (1-3) Albuterol Sulfate 2 puff 07/16/20 14:30 07/23/20 14:13 Albuterol 200 Puff (6.7gm Inhaler) INH 2 puff [id number] GALEN Administration Apixaban 5 mg 07/21/20 21:00 07/23/20 08:42 Apixaban 5 Mg Tab PO 5 mg BID GALEN Administration Ascorbic Acid 1,000 mg 07/07/20 09:00 07/23/20 08:41 Ascorbic Acid 500 Mg Chewable Tablet PO 1,000 mg DAILY GALEN Administration Atorvastatin Calcium 40 mg 07/06/20 21:00 07/22/20 20:07 Atorvastatin Calcium 40 Mg Tab PO 40 mg HS GALEN Administration Cholecalciferol 400 units 07/07/20 09:00 07/23/20 08:41 Cholecalciferol (Vitamin D3) 400 Units Tab PO 400 units DAILY GALEN Administration Fluoxetine HCl 40 mg 07/07/20 09:00 07/23/20 08:41 Fluoxetine Hcl 20 Mg Cap PO 40 mg DAILY GALEN Administration Gabapentin 600 mg 07/06/20 15:00 07/23/20 08:41 Gabapentin 300 Mg Cap PO 600 mg TID GALEN Administration Glipizide 5 mg 07/17/20 09:00 07/23/20 08:41 Glipizide Xl 5 Mg Tablet PO 5 mg DAILY GALEN Administration Insulin Glargine 33 units/ 0.33 mls @ 0 mls/hr 07/21/20 21:00 07/23/20 08:42 Miscellaneous Medication SC 0.33 mls BID GALEN Administration Insulin Human Lispro 0 units 07/06/20 13:24 07/07/20 21:36 Humalog 300 Units/3 Ml Vial SC 3 unit .BEDTIME SLIDING SC PRN Administration Bedtime Correctional Scale Insulin Human Lispro 0 units 07/15/20 18:59 07/22/20 11:48 Humalog 300 Units/3 Ml Vial SC 9 units .AGGRESSIVE SLIDING PRN Administration Aggressive Correctional Scale Labetalol HCl 10 mg 07/13/20 13:51 07/18/20 08:48 Labetalol Hcl 100 Mg/20 Ml Vial SLOW IVP 10 mg Q4H PRN Administration SBP Greater Than 180 Loperamide HCl 2 mg 07/19/20 13:59 07/21/20 16:00 Loperamide Hcl 2 Mg Cap PO 2 mg PRN PRN Administration Diarrhea/Loose Stools Metformin HCl 500 mg 07/17/20 08:00 07/23/20 08:42 Metformin 500 Mg Tab PO 500 mg QAM-WM GALEN Administration Mometasone Furoate/Formoterol Fumar 2 puff 07/17/20 18:30 07/23/20 07:27 Mometasone 200 Mcg/Formoterol 5 Mcg 120 Puff Inhaler INH 2 puff BID-RT GALEN Administration Pantoprazole Sodium 40 mg 07/07/20 09:00 07/23/20 08:42 Pantoprazole 40 Mg Tab PO 40 mg DAILY GALEN Administration Prednisone 20 mg 07/22/20 08:00 07/23/20 08:41 Prednisone 20 Mg Tab PO 20 mg QAM-WM GALEN Administration Tamsulosin HCl 0.4 mg 07/07/20 09:00 07/23/20 08:42 Tamsulosin Hcl 0.4 Mg Cap PO 0.4 mg DAILY GALEN Administration Zinc Sulfate 220 mg 07/07/20 09:00 07/23/20 08:41 Zinc Sulfate 220 Mg Cap PO 220 mg DAILY GALEN Administration - Exam General Appearance: NAD, awake alert Eye: PERRL ENT: normocephalic atraumatic Neck: supple Heart: RRR Respiratory: CTAB, normal chest expansion Gastrointestinal: soft, normal bowel sounds Neurological: no focal deficits, no new deficit Psychiatric: A&O x 3 Hosp A/P - Plan (1) Acute respiratory failure with hypoxia Code(s): J96.01 - ACUTE RESPIRATORY FAILURE WITH HYPOXIA Status: Acute (2) Pneumonia due to COVID-19 virus Code(s): U07.1 - COVID-19; J12.89 - OTHER VIRAL PNEUMONIA Status: Acute (3) BPH (benign prostatic hyperplasia) Code(s): N40.0 - BENIGN PROSTATIC HYPERPLASIA WITHOUT LOWER URINRY TRACT SYMP Status: Chronic Qualifiers: Lower urinary tract symptom presence: unspecified whether lower urinary tract symptoms present Qualified Code(s): N40.0 - Benign prostatic hyperplasia without lower urinary tract symptoms (4) DMII (diabetes mellitus, type 2) Status: Chronic Qualifiers: Diabetes mellitus buttermaker insulin use: with mcc use (5) Asthma Code(s): J45.909 - UNSPECIFIED ASTHMA, UNCOMPLICATED Status: Chronic Qualifiers: Asthma severity: mild Asthma persistence: intermittent Asthma complication type: uncomplicated Qualified Code(s): J45.20 - Mild intermittent asthma, uncomplicated (6) HLD (hyperlipidemia) Code(s): E78.5 - HYPERLIPIDEMIA, UNSPECIFIED Status: Chronic Qualifiers: Hyperlipidemia type: unspecified Qualified Code(s): E78.5 - Hyperlipidemia, unspecified (7) HTN (hypertension) Code(s): I10 - ESSENTIAL (PRIMARY) HYPERTENSION Status: Chronic Qualifiers: Hypertension type: essential hypertension Qualified Code(s): I10 - [place] l (primary) hypertension (8) Peripheral neuropathy Code(s): G62.9 - POLYNEUROPATHY, UNSPECIFIED Status: Chronic (9) CKD (chronic kidney disease), stage III Code(s): N18.30 - CHRONIC KIDNEY DISEASE, STAGE 3 UNSPECIFIED Status: Chronic Deconditioning --Encourage more activity with ambulation Eliquis and low-dose aspirin x2 months Per previous provider it has been recommended that he should go to the senior care facility versus rehab. Will work on it.
[2020-07-23] MEDS: HumaLOG 300 UNITS/3 ML VIAL SC PRN (17:41)
[2020-07-23] MEDS: Atorvastatin Calcium 40 MG TAB PO SCH (20:01)
[2020-07-24] MEDS: Albuterol 200 PUFF (6.7GM INHALER) INH SCH ×6 (02:21→22:09)
[2020-07-24] MEDS: Mometasone 200 MCG/Formoterol 5 MCG 120 PUFF INHALER INH SCH ×2 (08:05→18:35)
[2020-07-24] MEDS: Apixaban 5 MG TAB PO SCH ×2 (08:40→20:56)
[2020-07-24] MEDS: Gabapentin 300 MG CAP PO SCH ×3 (08:40→20:55)
[2020-07-24] MEDS: Aspirin 81 mg Enteric Coated Tablet PO SCH (08:40)
[2020-07-24] MEDS: Tamsulosin HCl 0.4 MG CAP PO SCH (08:40)
[2020-07-24] MEDS: predniSONE 20 MG TAB PO SCH (08:41)
[2020-07-24] MEDS: Ascorbic Acid 500 mg Chewable Tablet PO SCH (08:41)
[2020-07-24] MEDS: FLUoxetine HCl 20 MG CAP PO SCH (08:41)
[2020-07-24] MEDS: metFORMIN 500 MG TAB PO SCH (08:41)
[2020-07-24] MEDS: Zinc Sulfate 220 MG CAP PO SCH (08:42)
[2020-07-24] MEDS: Cholecalciferol (Vitamin D3) 400 UNITS TAB PO SCH (08:42)
[2020-07-24] MEDS: PRE FILLED SC SCH ×2 (10:25→20:53)
[2020-07-24] MEDS: INSULIN GLARGINE SC SCH ×2 (10:25→20:53)
--- NOTE | 2020-07-24 11:29 | PDOC.HOSPP ---
- Subjective Encounter Date: 07/24/20 Encounter Time: 10:20 Subjective: Patient is resting well he has no acute complaints. He has a fall risk. Hence waiting for the placement confirmation. He is satting 97% in the room air he is afebrile and he is normotensive. - Objective Vital Signs & Weight: Vital Signs (12 hours) Temp Pulse Resp BP BP Pulse Ox 07/24/20 08:07 97 07/24/20 08:05 87 16 97 07/24/20 07:33 69 20 129/79 94 L 07/24/20 04:00 97.9 F 63 18 125/69 94 L 07/24/20 00:00 97.8 F 61 18 155/72 H 93 L Weight Admit Weight 244 lb Weight 226 lb 5 oz Most Recent Monitor Data Heart Rate from ECG 75 NIBP 152/87 NIBP BP-Mean 108 Respiration from ECG 17 SpO2 92 I&O: 07/23/20 07/24/20 07/25/20 06:59 06:59 06:59 Intake Total 960 1200 Output Total 2250 1625 Balance -1290 -425 Result Diagrams: 07/21/20 04:34 07/21/20 04:34 Additional Labs: Accuchecks 07/24/20 07/24/20 07/23/20 11:22 04:56 20:10 POC Glucose 205 H 128 H 194 H 07/23/20 07/23/20 17:23 11:56 POC Glucose 246 H 180 H Hospitalist ROS - Medication Medications: Active Medications Generic Name Dose Route Start Last Admin Trade Name Freq PRN Reason Stop Dose Admin Acetaminophen 650 mg 07/06/20 13:18 07/22/20 09:11 Acetaminophen 325 Mg Tab PO 650 mg Q6H PRN Administration Headache/Fever/Mild Pain (1-3) Albuterol Sulfate 2 puff 07/16/20 14:30 07/24/20 11:07 Albuterol 200 Puff (6.7gm Inhaler) INH 2 puff [id number] GALEN Administration Apixaban 5 mg 07/21/20 21:00 07/24/20 08:40 Apixaban 5 Mg Tab PO 5 mg BID GALEN Administration Ascorbic Acid 1,000 mg 07/07/20 09:00 07/24/20 08:41 Ascorbic Acid 500 Mg Chewable Tablet PO 1,000 mg DAILY GALEN Administration Aspirin 81 mg 07/24/20 09:00 07/24/20 08:40 Aspirin 81 Mg Enteric Coated Tablet PO 81 mg DAILY GALEN Administration Atorvastatin Calcium 40 mg 07/06/20 21:00 07/23/20 20:01 Atorvastatin Calcium 40 Mg Tab PO 40 mg HS GALEN Administration Cholecalciferol 400 units 07/07/20 09:00 07/24/20 08:42 Cholecalciferol (Vitamin D3) 400 Units Tab PO 400 units DAILY GALEN Administration Fluoxetine HCl 40 mg 07/07/20 09:00 07/24/20 08:41 Fluoxetine Hcl 20 Mg Cap PO 40 mg DAILY GALEN Administration Gabapentin 600 mg 07/06/20 15:00 07/24/20 08:40 Gabapentin 300 Mg Cap PO 600 mg TID GALEN Administration Glipizide 5 mg 07/17/20 09:00 07/24/20 08:41 Glipizide Xl 5 Mg Tablet PO 5 mg DAILY GALEN Administration Insulin Glargine 33 units/ 0.33 mls @ 0 mls/hr 07/21/20 21:00 07/24/20 10:25 Miscellaneous Medication SC Not Given BID [facility] Insulin Human Lispro 0 units 07/06/20 13:24 07/07/20 21:36 Humalog 300 Units/3 Ml Vial SC 3 unit .BEDTIME SLIDING SC PRN Administration Bedtime Correctional Scale Insulin Human Lispro 0 units 07/15/20 18:59 07/23/20 17:41 Humalog 300 Units/3 Ml Vial SC 6 units .AGGRESSIVE SLIDING PRN Administration Aggressive Correctional Scale Labetalol HCl 10 mg 07/13/20 13:51 07/18/20 08:48 Labetalol Hcl 100 Mg/20 Ml Vial SLOW IVP 10 mg Q4H PRN Administration SBP Greater Than 180 Loperamide HCl 2 mg 07/19/20 13:59 07/21/20 16:00 Loperamide Hcl 2 Mg Cap PO 2 mg PRN PRN Administration Diarrhea/Loose Stools Metformin HCl 500 mg 07/17/20 08:00 07/24/20 08:41 Metformin 500 Mg Tab PO 500 mg QAM-WM GALEN Administration Mometasone Furoate/Formoterol Fumar 2 puff 07/17/20 18:30 07/24/20 08:05 Mometasone 200 Mcg/Formoterol 5 Mcg 120 Puff Inhaler INH 2 puff BID-RT GALEN Administration Pantoprazole Sodium 40 mg 07/07/20 09:00 07/24/20 08:41 Pantoprazole 40 Mg Tab PO 40 mg DAILY GALEN Administration Prednisone 20 mg 07/22/20 08:00 07/24/20 08:41 Prednisone 20 Mg Tab PO 20 mg QAM-WM GALEN Administration Tamsulosin HCl 0.4 mg 07/07/20 09:00 07/24/20 08:40 Tamsulosin Hcl 0.4 Mg Cap PO 0.4 mg DAILY GALEN Administration Zinc Sulfate 220 mg 07/07/20 09:00 07/24/20 08:42 Zinc Sulfate 220 Mg Cap PO 220 mg DAILY GALEN Administration - Exam General Appearance: NAD, awake alert Eye: PERRL ENT: normocephalic atraumatic Neck: supple Heart: RRR Respiratory: CTAB, normal chest expansion Gastrointestinal: soft, normal bowel sounds Neurological: no new deficit Hosp A/P - Plan (1) Acute respiratory failure with hypoxia Code(s): J96.01 - ACUTE RESPIRATORY FAILURE WITH HYPOXIA Status: Acute (2) Pneumonia due to COVID-19 virus Code(s): U07.1 - COVID-19; J12.89 - OTHER VIRAL PNEUMONIA Status: Acute (3) BPH (benign prostatic hyperplasia) Code(s): N40.0 - BENIGN PROSTATIC HYPERPLASIA WITHOUT LOWER URINRY TRACT SYMP Status: Chronic Qualifiers: Lower urinary tract symptom presence: unspecified whether lower urinary tract symptoms present Qualified Code(s): N40.0 - Benign prostatic hyperplasia without lower urinary tract symptoms (4) DMII (diabetes mellitus, type 2) Status: Chronic Qualifiers: Diabetes mellitus custodial insulin use: with volunteer recruiter use (5) Asthma Code(s): J45.909 - UNSPECIFIED ASTHMA, UNCOMPLICATED Status: Chronic Qualifiers: Asthma severity: mild Asthma persistence: intermittent Asthma complication type: uncomplicated Qualified Code(s): J45.20 - Mild intermittent asthma, uncomplicated (6) HLD (hyperlipidemia) Code(s): E78.5 - HYPERLIPIDEMIA, UNSPECIFIED Status: Chronic Qualifiers: Hyperlipidemia type: unspecified Qualified Code(s): E78.5 - Hyperlipidemia, unspecified (7) HTN (hypertension) Code(s): I10 - ESSENTIAL (PRIMARY) HYPERTENSION Status: Chronic Qualifiers: Hypertension type: essential hypertension Qualified Code(s): I10 - Essential (primary) hypertension (8) Peripheral neuropathy Code(s): G62.9 - POLYNEUROPATHY, UNSPECIFIED Status: Chronic (9) CKD (chronic kidney disease), stage III Code(s): N18.30 - CHRONIC KIDNEY DISEASE, STAGE 3 UNSPECIFIED Status: Chronic Deconditioning --Encourage more activity with ambulation Eliquis and low-dose aspirin x2 months Fall risk Rehab placement.
[2020-07-24] MEDS: HumaLOG 300 UNITS/3 ML VIAL SC PRN (13:22)
[2020-07-24] MEDS: Acetaminophen 325 MG TAB PO PRN (13:25)
[2020-07-24] MEDS: Atorvastatin Calcium 40 MG TAB PO SCH (20:56)
[2020-07-25] MEDS: Albuterol 200 PUFF (6.7GM INHALER) INH SCH ×6 (02:29→22:08)
[2020-07-25] MEDS: Mometasone 200 MCG/Formoterol 5 MCG 120 PUFF INHALER INH SCH ×2 (07:25→18:40)
[2020-07-25] MEDS: Zinc Sulfate 220 MG CAP PO SCH (08:58)
[2020-07-25] MEDS: Cholecalciferol (Vitamin D3) 400 UNITS TAB PO SCH (08:58)
[2020-07-25] MEDS: FLUoxetine HCl 20 MG CAP PO SCH (08:59)
[2020-07-25] MEDS: Tamsulosin HCl 0.4 MG CAP PO SCH (08:59)
[2020-07-25] MEDS: Gabapentin 300 MG CAP PO SCH ×3 (08:59→20:27)
[2020-07-25] MEDS: Ascorbic Acid 500 mg Chewable Tablet PO SCH (08:59)
[2020-07-25] MEDS: Apixaban 5 MG TAB PO SCH ×2 (08:59→20:27)
[2020-07-25] MEDS: Aspirin 81 mg Enteric Coated Tablet PO SCH (08:59)
[2020-07-25] MEDS: metFORMIN 500 MG TAB PO SCH (09:00)
[2020-07-25] MEDS: predniSONE 20 MG TAB PO SCH (09:01)
[2020-07-25] MEDS: PRE FILLED SC SCH (09:04)
[2020-07-25] MEDS: INSULIN GLARGINE SC SCH (09:04)
[2020-07-25] MEDS: HumaLOG 300 UNITS/3 ML VIAL SC PRN ×2 (13:13→17:21)
--- NOTE | 2020-07-25 13:19 | PDOC.HOSPP ---
- Subjective Encounter Date: 07/25/20 Encounter Time: 10:20 Subjective: Patient states that he has some chills last night but no fever or short of breath or cough. No acute events noted overnight. - Objective Vital Signs & Weight: Vital Signs (12 hours) Temp Pulse Resp BP Pulse Ox 07/25/20 08:00 98 07/25/20 07:32 97.5 F L 72 18 136/72 95 07/25/20 07:25 93 16 97 07/25/20 04:00 153/64 H Weight Admit Weight 244 lb Weight 233 lb 3.2 oz Most Recent Monitor Data Heart Rate from ECG 75 NIBP 152/87 NIBP BP-Mean 108 Respiration from ECG 17 SpO2 92 I&O: 07/24/20 07/25/20 07/26/20 06:59 06:59 06:59 Intake Total 1200 1100 240 Output Total 1625 1225 Balance -425 -125 240 Result Diagrams: 07/21/20 04:34 07/21/20 04:34 Additional Labs: Accuchecks 07/25/20 07/25/20 07/24/20 11:47 05:14 20:31 POC Glucose 237 H 172 H 156 H 07/24/20 16:29 POC Glucose 223 H Hospitalist ROS - Medication Medications: Active Medications Generic Name Dose Route Start Last Admin Trade Name Michq PRN Reason Stop Dose Admin Acetaminophen 650 mg 07/06/20 13:18 07/24/20 13:25 Acetaminophen 325 Mg Tab PO 650 mg Q6H PRN Administration Headache/Fever/Mild Pain (1-3) Albuterol Sulfate 2 puff 07/16/20 14:30 07/25/20 10:24 Albuterol 200 Puff (6.7gm Inhaler) INH 2 puff [id number] GALEN Administration Apixaban 5 mg 07/21/20 21:00 07/25/20 08:59 Apixaban 5 Mg Tab PO 5 mg BID GALEN Administration Ascorbic Acid 1,000 mg 07/07/20 09:00 07/25/20 08:59 Ascorbic Acid 500 Mg Chewable Tablet PO 1,000 mg DAILY GALEN Administration Aspirin 81 mg 07/24/20 09:00 07/25/20 08:59 Aspirin 81 Mg Enteric Coated Tablet PO 81 mg DAILY GALEN Administration Atorvastatin Calcium 40 mg 07/06/20 21:00 07/24/20 20:56 Atorvastatin Calcium 40 Mg Tab PO 40 mg HS GALEN Administration Cholecalciferol 400 units 07/07/20 09:00 07/25/20 08:58 Cholecalciferol (Vitamin D3) 400 Units Tab PO 400 units DAILY GALEN Administration Fluoxetine HCl 40 mg 07/07/20 09:00 07/25/20 08:59 Fluoxetine Hcl 20 Mg Cap PO 40 mg DAILY GALEN Administration Gabapentin 600 mg 07/06/20 15:00 07/25/20 08:59 Gabapentin 300 Mg Cap PO 600 mg TID GALEN Administration Glipizide 5 mg 07/17/20 09:00 07/25/20 08:58 Glipizide Xl 5 Mg Tablet PO 5 mg DAILY GALEN Administration Insulin Glargine 33 units/ 0.33 mls @ 0 mls/hr 07/21/20 21:00 07/25/20 09:04 Miscellaneous Medication SC Not Given BID GALEN Insulin Human Lispro 0 units 07/06/20 13:24 07/07/20 21:36 Humalog 300 Units/3 Ml Vial SC 3 unit .BEDTIME SLIDING SC PRN Administration Bedtime Correctional Scale Insulin Human Lispro 0 units 07/15/20 18:59 07/25/20 13:13 Humalog 300 Units/3 Ml Vial SC 6 units .AGGRESSIVE SLIDING PRN Administration Aggressive Correctional Scale Labetalol HCl 10 mg 07/13/20 13:51 07/18/20 08:48 Labetalol Hcl 100 Mg/20 Ml Vial SLOW IVP 10 mg Q4H PRN Administration SBP Greater Than 180 Loperamide HCl 2 mg 07/19/20 13:59 07/21/20 16:00 Loperamide Hcl 2 Mg Cap PO 2 mg PRN PRN Administration Diarrhea/Loose Stools Metformin HCl 500 mg 07/17/20 08:00 07/25/20 09:00 Metformin 500 Mg Tab PO 500 mg QAM-WM GALEN Administration Mometasone Furoate/Formoterol Fumar 2 puff 07/17/20 18:30 07/25/20 07:25 Mometasone 200 Mcg/Formoterol 5 Mcg 120 Puff Inhaler INH 2 puff BID-RT GALEN Administration Pantoprazole Sodium 40 mg 07/07/20 09:00 07/25/20 09:01 Pantoprazole 40 Mg Tab PO 40 mg DAILY GALEN Administration Prednisone 20 mg 07/22/20 08:00 07/25/20 09:01 Prednisone 20 Mg Tab PO 20 mg QAM-WM GALEN Administration Tamsulosin HCl 0.4 mg 07/07/20 09:00 07/25/20 08:59 Tamsulosin Hcl 0.4 Mg Cap PO 0.4 mg DAILY GALEN Administration Zinc Sulfate 220 mg 07/07/20 09:00 07/25/20 08:58 Zinc Sulfate 220 Mg Cap PO 220 mg DAILY GALEN Administration - Exam General Appearance: NAD, awake alert Eye: PERRL ENT: normocephalic atraumatic Neck: supple Heart: RRR, normal peripheral pulses Respiratory: CTAB, normal chest expansion Gastrointestinal: soft, normal bowel sounds Neurological: no focal deficits Psychiatric: A&O x 3 Hosp A/P - Plan (1) Acute respiratory failure with hypoxia Code(s): J96.01 - ACUTE RESPIRATORY FAILURE WITH HYPOXIA Status: Acute (2) Pneumonia due to COVID-19 virus Code(s): U07.1 - COVID-19; J12.89 - OTHER VIRAL PNEUMONIA Status: Acute (3) BPH (benign prostatic hyperplasia) Code(s): N40.0 - BENIGN PROSTATIC HYPERPLASIA WITHOUT LOWER URINRY TRACT SYMP Status: Chronic Qualifiers: Lower urinary tract symptom presence: unspecified whether lower urinary tract symptoms present Qualified Code(s): N40.0 - Benign prostatic hyperplasia without lower urinary tract symptoms (4) DMII (diabetes mellitus, type 2) Status: Chronic Qualifiers: Diabetes mellitus long-term insulin use: with long-term use (5) Asthma Code(s): J45.909 - UNSPECIFIED ASTHMA, UNCOMPLICATED Status: Chronic Qualifiers: Asthma severity: mild Asthma persistence: intermittent Asthma complication type: uncomplicated Qualified Code(s): J45.20 - Mild intermittent asthma, uncomplicated (6) HLD (hyperlipidemia) Code(s): E78.5 - HYPERLIPIDEMIA, UNSPECIFIED Status: Chronic Qualifiers: Hyperlipidemia type: unspecified Qualified Code(s): E78.5 - Hyperlipidemia, unspecified (7) HTN (hypertension) Code(s): I10 - ESSENTIAL (PRIMARY) HYPERTENSION Status: Chronic Qualifiers: Hypertension type: essential hypertension Qualified Code(s): I10 - Essential (primary) hypertension (8) Peripheral neuropathy Code(s): G62.9 - POLYNEUROPATHY, UNSPECIFIED Status: Chronic (9) CKD (chronic kidney disease), stage III Code(s): N18.30 - CHRONIC KIDNEY DISEASE, STAGE 3 UNSPECIFIED Status: Chronic Deconditioning --Encourage more activity with ambulation Eliquis and low-dose aspirin x2 months Fall risk Rehab placement pending.
[2020-07-25] MEDS: Atorvastatin Calcium 40 MG TAB PO SCH (20:27)
[2020-07-25] MEDS: Insulin Glargine 15 UNITS in Pre-Filled Syringe 1 EACH SC SCH (20:28)
[2020-07-26] MEDS: Albuterol 200 PUFF (6.7GM INHALER) INH SCH ×5 (07:25→22:28)
[2020-07-26] MEDS: Mometasone 200 MCG/Formoterol 5 MCG 120 PUFF INHALER INH SCH ×2 (07:26→18:37)
[2020-07-26] MEDS: predniSONE 20 MG TAB PO SCH (07:55)
[2020-07-26] MEDS: FLUoxetine HCl 20 MG CAP PO SCH (07:55)
[2020-07-26] MEDS: metFORMIN 500 MG TAB PO SCH (07:55)
[2020-07-26] MEDS: Ascorbic Acid 500 mg Chewable Tablet PO SCH (07:56)
[2020-07-26] MEDS: Aspirin 81 mg Enteric Coated Tablet PO SCH (07:56)
[2020-07-26] MEDS: Tamsulosin HCl 0.4 MG CAP PO SCH (07:57)
[2020-07-26] MEDS: Gabapentin 300 MG CAP PO SCH ×3 (07:57→20:35)
[2020-07-26] MEDS: Apixaban 5 MG TAB PO SCH ×2 (07:57→20:36)
[2020-07-26] MEDS: Zinc Sulfate 220 MG CAP PO SCH (07:59)
[2020-07-26] MEDS: Cholecalciferol (Vitamin D3) 400 UNITS TAB PO SCH (07:59)
[2020-07-26] MEDS: Insulin Glargine 15 UNITS in Pre-Filled Syringe 1 EACH SC SCH ×2 (08:27→20:36)
[2020-07-26] MEDS: HumaLOG 300 UNITS/3 ML VIAL SC PRN ×3 (13:04→20:36)
--- NOTE | 2020-07-26 13:11 | PDOC.HOSPP ---
- Subjective Encounter Date: 07/26/20 Encounter Time: 10:50 Subjective: He is resting. No confusion. Sats 94% in the room air. He afebrile and normotensive. - Objective Vital Signs & Weight: Vital Signs (12 hours) Temp Pulse Resp BP Pulse Ox 07/26/20 08:00 98.3 F 07/26/20 07:28 98.3 F 74 20 138/73 94 L 07/26/20 07:26 74 16 95 07/26/20 04:00 98.1 F 70 18 150/80 H 95 Weight Admit Weight 244 lb Weight 228 lb 12.8 oz Most Recent Monitor Data Heart Rate from ECG 75 NIBP 152/87 NIBP BP-Mean 108 Respiration from ECG 17 SpO2 92 I&O: 07/25/20 07/26/20 07/27/20 06:59 06:59 06:59 Intake Total 1100 2860 240 Output Total 1225 1440 Balance -125 1420 240 Result Diagrams: 07/21/20 04:34 07/21/20 04:34 Additional Labs: Accuchecks 07/26/20 07/26/20 07/25/20 11:18 04:40 20:12 POC Glucose 168 H 101 H 292 H Hospitalist ROS - Medication Medications: Active Medications Generic Name Dose Route Start Last Admin Trade Name Freq PRN Reason Stop Dose Admin Acetaminophen 650 mg 07/06/20 13:18 07/24/20 13:25 Acetaminophen 325 Mg Tab PO 650 mg Q6H PRN Administration Headache/Fever/Mild Pain (1-3) Albuterol Sulfate 2 puff 07/16/20 14:30 07/26/20 10:37 Albuterol 200 Puff (6.7gm Inhaler) INH 2 puff [id number] GALEN Administration Apixaban 5 mg 07/21/20 21:00 07/26/20 07:57 Apixaban 5 Mg Tab PO 5 mg BID GALEN Administration Ascorbic Acid 1,000 mg 07/07/20 09:00 07/26/20 07:56 Ascorbic Acid 500 Mg Chewable Tablet PO 1,000 mg DAILY GALEN Administration Aspirin 81 mg 07/24/20 09:00 07/26/20 07:56 Aspirin 81 Mg Enteric Coated Tablet PO 81 mg DAILY GALEN Administration Atorvastatin Calcium 40 mg 07/06/20 21:00 11/07/20 20:27 Atorvastatin Calcium 40 Mg Tab PO 40 mg HS GALEN Administration Cholecalciferol 400 units 07/07/20 09:00 07/26/20 07:59 Cholecalciferol (Vitamin D3) 400 Units Tab PO 400 units DAILY GALEN Administration Fluoxetine HCl 40 mg 07/07/20 09:00 07/26/20 07:55 Fluoxetine Hcl 20 Mg Cap PO 40 mg DAILY GALEN Administration Gabapentin 600 mg 07/06/20 15:00 07/26/20 07:57 Gabapentin 300 Mg Cap PO 600 mg TID GALEN Administration Glipizide 5 mg 07/17/20 09:00 07/26/20 07:58 Glipizide Xl 5 Mg Tablet PO 5 mg DAILY GALEN Administration Insulin Glargine 15 units/ 0.15 mls @ 0 mls/hr 07/25/20 21:00 07/26/20 08:27 Miscellaneous Medication SC 0.15 mls BID GALEN Administration Insulin Human Lispro 0 units 07/06/20 13:24 07/07/20 21:36 Humalog 300 Units/3 Ml Vial SC 3 unit .BEDTIME SLIDING SC PRN Administration Bedtime Correctional Scale Insulin Human Lispro 0 units 07/15/20 18:59 07/25/20 17:21 Humalog 300 Units/3 Ml Vial SC 11 units .AGGRESSIVE SLIDING PRN Administration Aggressive Correctional Scale Labetalol HCl 10 mg 07/13/20 13:51 07/18/20 08:48 Labetalol Hcl 100 Mg/20 Ml Vial SLOW IVP 10 mg Q4H PRN Administration SBP Greater Than 180 Loperamide HCl 2 mg 07/19/20 13:59 07/21/20 16:00 Loperamide Hcl 2 Mg Cap PO 2 mg PRN PRN Administration Diarrhea/Loose Stools Metformin HCl 500 mg 07/17/20 08:00 07/26/20 07:55 Metformin 500 Mg Tab PO 500 mg QAM-WM GALEN Administration Mometasone Furoate/Formoterol Fumar 2 puff 07/17/20 18:30 07/26/20 07:26 Mometasone 200 Mcg/Formoterol 5 Mcg 120 Puff Inhaler INH 2 puff BID-RT GALEN Administration Pantoprazole Sodium 40 mg 07/07/20 09:00 07/26/20 07:58 Pantoprazole 40 Mg Tab PO 40 mg DAILY GALEN Administration Prednisone 20 mg 07/22/20 08:00 07/26/20 07:55 Prednisone 20 Mg Tab PO 20 mg QAM-WM GALEN Administration Tamsulosin HCl 0.4 mg 07/07/20 09:00 07/26/20 07:57 Tamsulosin Hcl 0.4 Mg Cap PO 0.4 mg DAILY GALEN Administration Zinc Sulfate 220 mg 07/07/20 09:00 07/26/20 07:59 Zinc Sulfate 220 Mg Cap PO 220 mg DAILY GALEN Administration - Exam General Appearance: NAD, awake alert Eye: PERRL ENT: normocephalic atraumatic Neck: supple Heart: RRR Respiratory: CTAB, normal chest expansion Gastrointestinal: soft, normal bowel sounds Neurological: no focal deficits Psychiatric: A&O x 3 Hosp A/P - Plan (1) Acute respiratory failure with hypoxia Code(s): J96.01 - ACUTE RESPIRATORY FAILURE WITH HYPOXIA Status: Acute (2) Pneumonia due to COVID-19 virus Code(s): U07.1 - COVID-19; J12.89 - OTHER VIRAL PNEUMONIA Status: Acute (3) BPH (benign prostatic hyperplasia) Code(s): N40.0 - BENIGN PROSTATIC HYPERPLASIA WITHOUT LOWER URINRY TRACT SYMP Status: Chronic Qualifiers: Lower urinary tract symptom presence: unspecified whether lower urinary tract symptoms present Qualified Code(s): N40.0 - Benign prostatic hyperplasia without lower urinary tract symptoms (4) DMII (diabetes mellitus, type 2) Status: Chronic Qualifiers: Diabetes mellitus retirement insulin use: with retirement use (5) Asthma Code(s): J45.909 - UNSPECIFIED ASTHMA, UNCOMPLICATED Status: Chronic Qualifiers: Asthma severity: mild Asthma persistence: intermittent Asthma complicatio n type: uncomplicated Qualified Code(s): J45.20 - Mild intermittent asthma, uncomplicated (6) HLD (hyperlipidemia) Code(s): E78.5 - HYPERLIPIDEMIA, UNSPECIFIED Status: Chronic Qualifiers: Hyperlipidemia type: unspecified Qualified Code(s): E78.5 - Hyperlipidemia, unspecified (7) HTN (hypertension) Code(s): I10 - ESSENTIAL (PRIMARY) HYPERTENSION Status: Chronic Qualifiers: Hypertension type: essential hypertension Qualified Code(s): I10 - Essential (primary) hypertension (8) Peripheral neuropathy Code(s): G62.9 - POLYNEUROPATHY, UNSPECIFIED Status: Chronic (9) CKD (chronic kidney disease), stage III Code(s): N18.30 - CHRONIC KIDNEY DISEASE, STAGE 3 UNSPECIFIED Status: Chronic Deconditioning --Encourage more activity with ambulation Eliquis and low-dose aspirin x2 months Fall risk One of the choice was send him home with home physical therapy as well as intermediate on Monday. However when lead case manager approached the , it appears that patient's would not be able to take care of him. Rehab placement pending.
[2020-07-26] MEDS: Atorvastatin Calcium 40 MG TAB PO SCH (20:36)
[2020-07-27] MEDS: Albuterol 200 PUFF (6.7GM INHALER) INH SCH ×4 (02:29→14:40)
[2020-07-27] MEDS: Mometasone 200 MCG/Formoterol 5 MCG 120 PUFF INHALER INH SCH (06:39)
[2020-07-27 07:26] VITALS: BP 143/70; TEMP 98.5
--- NOTE | 2020-07-27 08:40 | PRG ---
DATE OF SERVICE: 07/27/2020 SUBJECTIVE: Mr. Gray seems to be doing fine. He has some questions about going home. PHYSICAL EXAMINATION: VITAL SIGNS: Temperature 98.5, pulse 80, respirations 20, O2 saturation 95% on room air, blood pressure 143/70. HEENT: Unremarkable. NECK: No JVD. CHEST: Clear anteriorly. CARDIAC: S1 and S2, regular. ABDOMEN: Soft. EXTREMITIES: No edema. ASSESSMENT: Status post COVID-19 pneumonia - recovering well. RECOMMENDATIONS: I would recommend tapering his steroids off over a span of about 2 weeks. I would leave him anticoagulated for another 4 to 6 weeks. From my standpoint, he is safe to go home with home physical therapy. Job ID: [id number]
[2020-07-27] MEDS: Cholecalciferol (Vitamin D3) 400 UNITS TAB PO SCH (09:15)
[2020-07-27] MEDS: Gabapentin 300 MG CAP PO SCH ×2 (09:15→14:29)
[2020-07-27] MEDS: metFORMIN 500 MG TAB PO SCH (09:15)
[2020-07-27] MEDS: Tamsulosin HCl 0.4 MG CAP PO SCH (09:15)
[2020-07-27] MEDS: FLUoxetine HCl 20 MG CAP PO SCH (09:15)
[2020-07-27] MEDS: Aspirin 81 mg Enteric Coated Tablet PO SCH (09:15)
[2020-07-27] MEDS: Apixaban 5 MG TAB PO SCH (09:16)
[2020-07-27] MEDS: predniSONE 20 MG TAB PO SCH (09:16)
[2020-07-27] MEDS: Ascorbic Acid 500 mg Chewable Tablet PO SCH (09:16)
[2020-07-27] MEDS: Insulin Glargine 15 UNITS in Pre-Filled Syringe 1 EACH SC SCH (09:17)
[2020-07-27] MEDS: Zinc Sulfate 220 MG CAP PO SCH (09:17)
--- NOTE | 2020-07-28 06:54 | DIS ---
DATE OF ADMISSION: 07/06/2020 DATE OF DISCHARGE: 07/27/2020 PRIMARY CARE PROVIDER: Pedro Peres MD Discharged [facility] bed. FINAL DIAGNOSES: Acute respiratory failure with hypoxia, COVID infection, chronic kidney disease stage 3, pneumonia, diabetes mellitus type 2, dyslipidemia, hypertension, peripheral neuropathy, asthma. DISCHARGE MEDICATIONS: 1. Adderall 30 mg p.o. b.i.d. 2. Flomax 0.4 mg a day. 3. Dulera 200/5 two puffs b.i.d. 4. Albuterol 2 puffs q.6 hours p.r.n. 5. Gabapentin 300 mg three times a day. 6. Amlodipine 10 mg a day. 7. Detemir 14 units subcu daily. 8. Metformin 500 mg a day. 9. Glipizide 5 mg a day. 10. Losartan 50 mg a day. 11. Prednisone 20 mg a day in descending dose. 12. Zinc 220 mg a day. 13. Lipitor 40 mg a day. 14. Aspirin 81 mg a day. 15. Vitamin C 1000 mg a day. 16. Eliquis 5 mg a day. ALLERGIES: NO KNOWN DRUG ALLERGIES. CODE STATUS: Full. PENDING AT TIME OF DISCHARGE: Nothing. DIET: Diabetic, being discharged home with Home Health for PT, etc. HOSPITAL COURSE: The patient admitted to Emergency Room to [facility], seen in consultation during his hospital stay on 07/06/[address] Gary Diaz, 07/08/20 Dr. Abrahan Rodriguez of Infectious Disease. PROCEDURES: None. HOSPITAL COURSE: The patient admitted to the emergency room to ICU with acute respiratory failure, COVID pneumonia, placed on short-acting and long-acting bronchodilators, and inhaled steroids. Dr. Gary Diaz of Pulmonology saw on the day of admission. He had previously been seen. He was started on chronic anticoagulation. On 07/08, his chest x-ray revealed bilateral infiltrates, worse on the right than the left. His initial laboratory, white count 15.2, hemoglobin 13.1, platelet count 198,000. D-dimer was 0.69. Initial blood gas showed a pH 7.47, CO2 of 36. He was hypoxemic on PEEP, CPAP, 50% O2 which cut his O2 saturation up to 98%. Initial chemistries were unremarkable except for blood sugar of 287. Ferritin was 525. C-reactive protein was 11.5. The patient progressed, 07/11. The patient was at that time intubated, on mechanical ventilation in the supine position. He was improving. He was seen by Abrahan Rodriguez 07/08, who stated he was not eligible for antiviral. The patient, on 07/13, continued on mechanical ventilation. Pertinent laboratory at that time revealed renal function was stable. Blood sugars were in the 200 range. Hemoglobin was 12.8, white count 12.8. On 07/16, still on the ventilator. Spontaneous breathing trial was to be tried. He was continued on steroids, anticoagulation. On 07/20/20, a brain CT was done and no acute intracranial process. By 07/22, he had been extubated, doing well, transferred to a regular room. Isolation was discontinued. Remained on DVT prophylaxis, baby aspirin. Today when I saw the patient, he is alert, ready to go home. He is being discharged on the medicines as shown. He has been advised to see his PCP in 3 to 7 days for followup. His most recent chest x-ray done 07/16 showed clearing. He needs to be on the steroids as prescribed over 16 day period and then discontinue it. He needs to be on Eliquis 4 to 6 weeks. 40 minutes spent preparing this discharge. Job ID: [id number]
== END 2020-07-27 14:41 | disposition swing bed (61) | DRG 207 ==
LOC: CCU 12:25 → 2SW 07-18 12:14 → T4-B 07-21 17:33
PROVIDERS: ADMIT Family Medicine; ATTEND Internal Medicine
PROC: 8E0ZXY6 Isolation (ICD-10-PCS; 2020-07-06)
PROC: 5A1955Z Respiratory Ventilation, Greater than 96 Consecutive Hours (ICD-10-PCS; principal; 2020-07-08)
PROC: 0BH17EZ Insertion of Endotracheal Airway into Trachea, Via Natural or Artificial Opening (ICD-10-PCS; 2020-07-08)
PROC: 5A09357 Assistance with Respiratory Ventilation, Less than 24 Consecutive Hours, Continuous Positive Airway Pressure (ICD-10-PCS; 2020-07-08)
DX: U07.1 COVID-19 (principal); J12.89 Other viral pneumonia; J96.01 Acute respiratory failure with hypoxia; G93.41 Metabolic encephalopathy; E87.0 Hyperosmolality and hypernatremia; N18.30 Chronic kidney disease, stage 3 unspecified; E11.22 Type 2 diabetes mellitus with diabetic chronic kidney disease; E78.5 Hyperlipidemia, unspecified; E11.42 Type 2 diabetes mellitus with diabetic polyneuropathy; F39 Unspecified mood [affective] disorder; N40.0 Benign prostatic hyperplasia without lower urinary tract symptoms; J45.20 Mild intermittent asthma, uncomplicated; E66.9 Obesity, unspecified; I12.9 Hypertensive chronic kidney disease with stage 1 through stage 4 chronic kidney disease, or unspecified chronic kidney disease; E11.65 Type 2 diabetes mellitus with hyperglycemia; R53.81 Other malaise; R50.9 Fever, unspecified; Z90.49 Acquired absence of other specified parts of digestive tract; Z79.4 Long term (current) use of insulin; Z79.51 Long term (current) use of inhaled steroids; Z79.899 Other long term (current) drug therapy; Z68.31 Body mass index [BMI] 31.0-31.9, adult; Z83.3 Family history of diabetes mellitus; Z82.49 Family history of ischemic heart disease and other diseases of the circulatory system
CPT/HCPCS: 36415; 36416; 70450; 71045; 80048; 82728; 82805; 83735; 85025; 85379; 86140; 87040; 87086; 87324; 87449; 94002; 94003; 94640; 94660; J0360; J0456; J0692; J0696; J1650; J1720; J1815; J2060; J2704; J3010; J3490; J7050; J7512; J7620; J7626

== ENCOUNTER 2020-12-01 21:58 | Inpatient (IN) | payer MEDICARE, MEDICAID ==
[2020-12-01] MEDS ORDERED: Nitroglycerin 2% Ointment 1 INCH/1 GM Packet ONE (23:04)
[2020-12-02 00:15] LABS: Troponin I 0.381 ng/mL (< 0.028)
[2020-12-02 02:56] LABS: Troponin I 0.719 ng/mL (< 0.028)
[2020-12-02 03:09] VITALS: BMI 32.3
[2020-12-02] MEDS ORDERED: Ondansetron PF 4 MG/2 ML Vial IVP PRN (03:30)
[2020-12-02] MEDS ORDERED: Ondansetron ODT 4 MG TAB SL PRN (03:30)
[2020-12-02] MEDS ORDERED: Aspirin Chewable 81 MG TAB PO SCH (03:45)
[2020-12-02] MEDS ORDERED: Dextrose 5% in Water 1,000 ML IV PRN ×2 (03:55→07:59)
[2020-12-02] MEDS ORDERED: Dextrose 50% Abboject 50 ML SYRINGE SLOW IVP PRN ×2 (03:55→07:59)
[2020-12-02] MEDS ORDERED: HumaLOG 300 UNITS/3 ML VIAL SC PRN (03:55)
[2020-12-02] MEDS ORDERED: Potassium Chloride 20 MEQ TAB PO SCH (04:00)
[2020-12-02] MEDS: Enoxaparin Sodium 100 MG/ML SYRINGE SC SCH ×2 (04:40→16:26)
[2020-12-02 05:21] LABS: #Lymphocytes 1.4 thou/uL (1.20-3.40); #Monocytes 0.3 thou/uL (0.11-0.59); #Neutrophils 7.3 thou/uL (1.40-6.50); %Basophils 0.1 % (0.0-1.0); %Lymphocytes 15.9 % (21.0-51.0); %Monocytes 3.4 % (0.0-10.0); %Neutrophils 80.6 % (42.0-75.0); Hemoglobin 12.7 g/dL (14.0-18.0); Mean Corpuscular HGB CONC 33.7 g/dL (32.0-36.0); Mean Corpuscular Hemoglobin 30.2 pg (27.0-31.0); Mean Corpuscular Volume 89.8 fL (78.0-98.0); Mean Platelet Volume 7.3 fL (7.4-10.4); Platelet Count 212 thou/uL (130-400); RBC Distribution Width 12.4 % (11.5-14.5); Red Blood Cell (RBC) Count 4.21 mill/uL (4.70-6.10); White Blood Cell (WBC) Count 9.1 thou/uL (4.8-10.8)
[2020-12-02 05:35] LABS: Anion Gap 14 mmol/L (10-20); BUN (Urea Nitrogen) 23 mg/dL (8.4-25.7); Calc. Creatinine Clearance 87 mL/min (70-130); Calcium 8.6 mg/dL (7.8-10.44); Carbon Dioxide 20 mmol/L (23-31); Chloride 104 mmol/L (98-107); Glucose 397 mg/dL (80-115); Magnesium 1.9 mg/dL (1.6-2.6); Potassium 4.9 mmol/L (3.5-5.1); Sodium 133 mmol/L (136-145)
[2020-12-02] MEDS: Aspirin Chewable 81 MG TAB PO SCH (09:09)
[2020-12-02] MEDS ORDERED: Losartan 25 MG TAB PO SCH (11:00)
[2020-12-02] MEDS ORDERED: Communication Order-Pharmacy FS SCH (11:00)
[2020-12-02] MEDS: HumaLOG 300 UNITS/3 ML VIAL SC PRN ×2 (12:22→17:39)
[2020-12-02 13:01] LABS: SARS-CoV-2 PCR by NAA Not Detected (NotDetected)
[2020-12-02] MEDS ORDERED: Insulin Glargine 15 UNITS in Pre-Filled Syringe 1 EACH SC SCH (21:00)
[2020-12-02] MEDS: Lantus 1000 UNITS/10 ML VIAL SC SCH (22:03)
[2020-12-02] MEDS: Atorvastatin Calcium 40 MG TAB PO SCH (22:06)
[2020-12-02] MEDS ORDERED: Gabapentin 300 MG CAP PO SCH (22:30)
[2020-12-03] MEDS: Mometasone 200 MCG/Formoterol 5 MCG 120 PUFF INHALER INH SCH ×2 (00:09→06:51)
[2020-12-03] MEDS: Sodium Chloride 0.9% 1,000 ML IV SCH ×2 (06:14→14:16)
[2020-12-03] MEDS: Gabapentin 300 MG CAP PO SCH ×3 (06:15→20:03)
[2020-12-03] MEDS: Aspirin Chewable 81 MG TAB PO SCH (06:16)
[2020-12-03] MEDS: Losartan 25 MG TAB PO SCH (06:16)
[2020-12-03] MEDS ORDERED: Lidocaine 1% (PF) 30 ML VIAL ONE (06:30)
[2020-12-03 06:44] LABS: Hemoglobin 13.1 g/dL (14.0-18.0); Mean Corpuscular HGB CONC 34.4 g/dL (32.0-36.0); Mean Corpuscular Hemoglobin 30.7 pg (27.0-31.0); Mean Corpuscular Volume 89.4 fL (78.0-98.0); Platelet Count 210 thou/uL (130-400); RBC Distribution Width 12.4 % (11.5-14.5); Red Blood Cell (RBC) Count 4.28 mill/uL (4.70-6.10); White Blood Cell (WBC) Count 10.4 thou/uL (4.8-10.8)
[2020-12-03 07:04] LABS: Anion Gap 13 mmol/L (10-20); BUN (Urea Nitrogen) 15 mg/dL (8.4-25.7); Calc. Creatinine Clearance 108 mL/min (70-130); Calcium 9.1 mg/dL (7.8-10.44); Carbon Dioxide 23 mmol/L (23-31); Cardiac Risk 4.5 (Less than 4.5); Chloride 104 mmol/L (98-107); Cholesterol 165 mg/dl (< 200 Desired); Glucose 212 mg/dL (80-115); HDL Cholesterol 37 mg/dL (>60 Neg Risk); LDL Cholesterol, Calculated 98 mg/dL; Potassium 3.5 mmol/L (3.5-5.1); Sodium 136 mmol/L (136-145); Triglycerides 151 mg/dL (Less than 150)
[2020-12-03] MEDS ORDERED: Midazolam HCl 2 mg/2 ml Vial ONE (07:55)
[2020-12-03] MEDS ORDERED: Fentanyl 100 MCG/2 ML VIAL ONE (07:55)
[2020-12-03] MEDS ORDERED: Sodium Chloride 0.9% 200 ML IV PRN (08:43)
[2020-12-03] MEDS ORDERED: Nitroglycerin 0.4 MG TAB (25 Tab Bottle) SL PRN (08:43)
[2020-12-03] MEDS ORDERED: Acetaminophen/Codeine 30-300mg Tablet PO PRN ×2 (08:43)
[2020-12-03 08:46] LABS: Eosinophils 1 % (0-10); Lymphocytes 51 % (21-51); MDiff Complete? YES; Monocytes 4 % (0-10); Neutrophil 41 % (42-75); RBC Morphology Normal; Reactive Lymphocytes 3 % (0-10)
[2020-12-03] MEDS ORDERED: Iopamidol 370 76% 100 ML VIAL ONE (09:58)
[2020-12-03] MEDS ORDERED: Communication Order-Pharmacy FS ONE (11:44)
[2020-12-03] MEDS ORDERED: Diazepam 5 MG TAB PO PRN (11:44)
[2020-12-03] MEDS ORDERED: Communication Order-Pharmacy FS SCH (12:15)
[2020-12-03] MEDS: Atorvastatin Calcium 40 MG TAB PO SCH (20:03)
[2020-12-03] MEDS: Lantus 1000 UNITS/10 ML VIAL SC SCH (20:05)
[2020-12-04] MEDS: Sodium Chloride 0.9% 1,000 ML IV SCH (02:20)
[2020-12-04] MEDS: Losartan 25 MG TAB PO SCH (04:23)
[2020-12-04 05:28] LABS: #Basophils 0.1 thou/uL (0.0-0.2); #Eosinphils 0.7 thou/uL (0.0-0.7); #Lymphocytes 5.2 thou/uL (1.20-3.40); #Monocytes 1.2 thou/uL (0.11-0.59); #Neutrophils 4.5 thou/uL (1.40-6.50); %Lymphocytes 44.5 % (21.0-51.0); %Monocytes 9.9 % (0.0-10.0); %Neutrophils 38.5 % (42.0-75.0); Hemoglobin 14.1 g/dL (14.0-18.0); Mean Corpuscular HGB CONC 34.3 g/dL (32.0-36.0); Mean Corpuscular Hemoglobin 30.5 pg (27.0-31.0); Mean Platelet Volume 6.8 fL (7.4-10.4); Platelet Count 229 thou/uL (130-400); RBC Distribution Width 12.5 % (11.5-14.5); Red Blood Cell (RBC) Count 4.63 mill/uL (4.70-6.10); White Blood Cell (WBC) Count 11.6 thou/uL (4.8-10.8)
[2020-12-04] MEDS: Mometasone 200 MCG/Formoterol 5 MCG 120 PUFF INHALER INH SCH (05:35)
[2020-12-04 05:38] LABS: Anion Gap 11 mmol/L (10-20); BUN (Urea Nitrogen) 12 mg/dL (8.4-25.7); Calc. Creatinine Clearance 115 mL/min (70-130); Calcium 9.2 mg/dL (7.8-10.44); Carbon Dioxide 27 mmol/L (23-31); Chloride 104 mmol/L (98-107); Glucose 138 mg/dL (80-115); Potassium 4.1 mmol/L (3.5-5.1); Sodium 138 mmol/L (136-145)
[2020-12-04] MEDS ORDERED: Fentanyl 100 MCG/2 ML VIAL ONE (06:31)
[2020-12-04] MEDS ORDERED: Midazolam HCl 2 mg/2 ml Vial ONE (06:31)
[2020-12-04] MEDS ORDERED: Vecuronium 10 MG VIAL ONE ×3 (06:32→07:35)
[2020-12-04] MEDS ORDERED: Midazolam HCl 5 mg/5 ml Vial ONE (06:32)
[2020-12-04] MEDS ORDERED: Dexmedetomidine 200 MCG/2 ML VIAL ONE (06:32)
[2020-12-04] MEDS ORDERED: Albumin 5% 500 ML ONE (06:35)
[2020-12-04] MEDS ORDERED: Heparin 10,000 UNITS/1 ML VIAL 30,000 UNITS in Sodium Chloride 0.9% 1,000 ML FS SCH (06:45)
[2020-12-04] MEDS ORDERED: Bupivacaine PF 0.5% 30 ML VIAL ONE (06:52)
[2020-12-04] MEDS ORDERED: EPINEPHrine 1 MG/ML AMP ONE (06:52)
[2020-12-04] MEDS ORDERED: Dexamethasone 4 mg/ml Vial ONE (06:52)
[2020-12-04] MEDS ORDERED: Heparin 5,000 UNITS/ML VIAL ONE ×2 (07:01→07:35)
[2020-12-04] MEDS ORDERED: CEFAZOLIN 2 GM in Premix Bag 1 BAG IVPB SCH (07:30)
[2020-12-04] MEDS ORDERED: Mannitol 12.5 GM/50 ML ONE (07:35)
[2020-12-04] MEDS ORDERED: Magnesium Sulfate 1 GM/2 ML VIAL ONE (07:35)
[2020-12-04] MEDS ORDERED: Protamine Sulfate 250 MG/25 ML VIAL ONE (07:35)
[2020-12-04] MEDS ORDERED: Cardioplegic Soln 1,000 ML BAG ONE (07:35)
[2020-12-04] MEDS ORDERED: Glycopyrrolate 0.2 MG/ML 5 ML SYRINGE ONE (07:35)
[2020-12-04] MEDS ORDERED: Potassium Chloride 60 MEQ/30 ML VIAL ONE (07:35)
[2020-12-04] MEDS ORDERED: Sodium Bicarb 50 MEQ/50 ML Abboject 8.4% SYRINGE ONE (07:35)
[2020-12-04] MEDS ORDERED: Thrombin 5000 UNITS/5 ML VIAL ONE (07:35)
[2020-12-04] MEDS ORDERED: Ondansetron PF 4 MG/2 ML Vial ONE (07:35)
[2020-12-04] MEDS ORDERED: Calcium Chloride 1 GM/10 ML Abboject SYRINGE ONE (07:35)
[2020-12-04] MEDS ORDERED: Ketorolac Tromethamine 30 MG/ML VIAL ONE (07:35)
[2020-12-04] MEDS ORDERED: Heparin 30,000 units/30 ml VIAL ONE (07:35)
[2020-12-04] MEDS ORDERED: Lidocaine 1% PF 5 ML VIAL ONE (07:35)
[2020-12-04] MEDS ORDERED: PHENYLEPHRINE-NS 100 MCG/ML 10 ML SYRINGE ONE ×2 (07:35→08:59)
[2020-12-04] MEDS ORDERED: ePHEDrine 50 MG/ML VIAL ONE (07:35)
[2020-12-04] MEDS ORDERED: Nitroglycerin 50 MG/250 ML BOT ONE (07:35)
[2020-12-04] MEDS ORDERED: Aminocaproic Acid 5 GM/20 ML VIAL ONE (07:35)
[2020-12-04] MEDS ORDERED: Dexamethasone 20 MG/5 ML VIAL ONE (07:35)
[2020-12-04] MEDS ORDERED: Lidocaine 2% PF 100 mg/5 ml Syringe ONE (07:35)
[2020-12-04] MEDS ORDERED: Papaverine 60 MG/2 ML VIAL ONE (07:35)
[2020-12-04] MEDS ORDERED: Insulin Regular 300 UNITS/3 ML VIAL ONE (08:11)
[2020-12-04] MEDS ORDERED: Morphine 2 MG/ML VIAL SLOW IVP PRN (10:47)
[2020-12-04] MEDS ORDERED: Norepinephrine 8 MG/0.9% NS 250 ML IVPB PRN (10:47)
[2020-12-04] MEDS ORDERED: Bisacodyl 10 MG SUPP PR PRN (10:47)
[2020-12-04] MEDS ORDERED: Fentanyl 100 MCG/2 ML VIAL SLOW IVP PRN (10:47)
[2020-12-04] MEDS ORDERED: Mag-Al 1200 mg/1200 mg/30 ML UDCUP PO PRN (10:47)
[2020-12-04] MEDS ORDERED: Nitroglycerin 50 MG/250 ML BOT 250 ML IVPB PRN (10:47)
[2020-12-04] MEDS ORDERED: Bisacodyl 5 MG TAB PO PRN (10:47)
[2020-12-04] MEDS ORDERED: hydrALAZINE 20 MG/ML VIAL SLOW IVP PRN (10:47)
[2020-12-04] MEDS ORDERED: Hetastarch 6% 500 ML 500 ML IVPB PRN (10:47)
[2020-12-04] MEDS ORDERED: Magnesium 2 GM/50 ML 2 GM in Premix Bag 1 BAG IVPB SCH (10:47)
[2020-12-04] MEDS ORDERED: Post-Op Insulin Drip Protocol IVPB ONE (10:47)
[2020-12-04] MEDS ORDERED: D5 1/2 NS w/20 mEq KCL 1,000 ML IV SCH (10:47)
[2020-12-04] MEDS ORDERED: Potassium Chloride 20 MEQ/100 ML PREMIX BAG IVPB PRN (10:47)
[2020-12-04] MEDS ORDERED: Guaifenesin DM 100-10/5 ML UDCUP PO PRN (10:47)
[2020-12-04 11:19] LABS: #Basophils 0.1 thou/uL (0.0-0.2); #Eosinphils 0.4 thou/uL (0.0-0.7); #Lymphocytes 3.7 thou/uL (1.20-3.40); #Monocytes 0.9 thou/uL (0.11-0.59); #Neutrophils 12.8 thou/uL (1.40-6.50); %Basophils 0.4 % (0.0-1.0); %Eosinophils 2.3 % (0.0-10.0); %Lymphocytes 20.7 % (21.0-51.0); %Neutrophils 71.6 % (42.0-75.0); Hemoglobin 12.2 g/dL (14.0-18.0); Mean Corpuscular HGB CONC 33.8 g/dL (32.0-36.0); Mean Corpuscular Hemoglobin 30.4 pg (27.0-31.0); Mean Platelet Volume 6.7 fL (7.4-10.4); Platelet Count 202 thou/uL (130-400); RBC Distribution Width 12.5 % (11.5-14.5); Red Blood Cell (RBC) Count 4.02 mill/uL (4.70-6.10); White Blood Cell (WBC) Count 17.9 thou/uL (4.8-10.8)
[2020-12-04] MEDS: Ketorolac Tromethamine 30 MG/ML VIAL IVP SCH ×3 (11:30→23:08)
[2020-12-04] MEDS ORDERED: HUMULIN R 100 UNITS in Sodium Chloride 0.9% 100 ML IVPB SCH (11:30)
[2020-12-04] MEDS ORDERED: Dextrose 5% in Water 1,000 ML IV PRN (11:30)
[2020-12-04] MEDS ORDERED: Dextrose 50% Abboject 50 ML SYRINGE SLOW IVP PRN (11:30)
[2020-12-04 11:32] LABS: INR-International Normal Ratio 1.1; PTT 32.4 sec (22.9-36.1); Prothrombin Time 14.9 sec (12.0-14.7)
[2020-12-04] MEDS: Ondansetron PF 4 MG/2 ML Vial IVP PRN (11:35)
[2020-12-04 11:43] LABS: Anion Gap 10 mmol/L (10-20); BUN (Urea Nitrogen) 13 mg/dL (8.4-25.7); Calc. Creatinine Clearance 103 mL/min (70-130); Calcium 8.7 mg/dL (7.8-10.44); Carbon Dioxide 27 mmol/L (23-31); Chloride 108 mmol/L (98-107); Glucose 104 mg/dL (80-115); Potassium 3.7 mmol/L (3.5-5.1); Sodium 141 mmol/L (136-145)
[2020-12-04] MEDS: Fentanyl 100 MCG/2 ML VIAL SLOW IVP PRN ×4 (11:44→23:42)
[2020-12-04] MEDS: CEFAZOLIN 2 GM in Premix Bag 1 BAG IVPB SCH ×2 (14:13→21:15)
[2020-12-04 16:41] LABS: Potassium 4.6 mmol/L (3.5-5.1)
[2020-12-04] MEDS: traMADol HCl 50 MG TAB PO PRN (17:30)
[2020-12-04] MEDS: Insulin Regular 300 UNITS/3 ML VIAL SC PRN ×2 (20:14→23:10)
[2020-12-04] MEDS ORDERED: Atorvastatin Calcium 20 MG TAB PO SCH (21:00)
[2020-12-04] MEDS: Famotidine/PF 20 mg/2ml Vial SLOW IVP SCH (21:04)
[2020-12-04] MEDS: Acetaminophen 325 MG TAB PO PRN (22:46)
[2020-12-05] MEDS: Fentanyl 100 MCG/2 ML VIAL SLOW IVP PRN ×6 (03:40→23:20)
[2020-12-05] MEDS: Insulin Regular 300 UNITS/3 ML VIAL SC PRN ×4 (03:47→15:59)
[2020-12-05] MEDS: Ondansetron PF 4 MG/2 ML Vial IVP PRN (03:55)
[2020-12-05 04:16] LABS: #Basophils 0.1 thou/uL (0.0-0.2); #Lymphocytes 2.4 thou/uL (1.20-3.40); #Monocytes 2.3 thou/uL (0.11-0.59); %Basophils 0.3 % (0.0-1.0); %Eosinophils 0.1 % (0.0-10.0); %Lymphocytes 12.9 % (21.0-51.0); %Monocytes 12.2 % (0.0-10.0); %Neutrophils 74.5 % (42.0-75.0); Hemoglobin 13.2 g/dL (14.0-18.0); Mean Corpuscular HGB CONC 33.4 g/dL (32.0-36.0); Mean Corpuscular Volume 89.8 fL (78.0-98.0); Mean Platelet Volume 7.1 fL (7.4-10.4); Platelet Count 211 thou/uL (130-400); RBC Distribution Width 12.6 % (11.5-14.5); Red Blood Cell (RBC) Count 4.41 mill/uL (4.70-6.10); White Blood Cell (WBC) Count 18.8 thou/uL (4.8-10.8)
[2020-12-05 04:40] LABS: Anion Gap 9 mmol/L (10-20); BUN (Urea Nitrogen) 16 mg/dL (8.4-25.7); Calc. Creatinine Clearance 101 mL/min (70-130); Calcium 8.2 mg/dL (7.8-10.44); Carbon Dioxide 28 mmol/L (23-31); Chloride 102 mmol/L (98-107); Glucose 193 mg/dL (80-115); Potassium 4.3 mmol/L (3.5-5.1); Sodium 135 mmol/L (136-145)
[2020-12-05] MEDS: Ketorolac Tromethamine 30 MG/ML VIAL IVP SCH ×4 (05:45→23:19)
[2020-12-05] MEDS: CEFAZOLIN 2 GM in Premix Bag 1 BAG IVPB SCH (05:45)
[2020-12-05] MEDS: Acetaminophen 325 MG TAB PO PRN (05:46)
[2020-12-05] MEDS: Magnesium 2 GM/50 ML 2 GM in Premix Bag 1 BAG IVPB SCH (08:20)
[2020-12-05] MEDS: Famotidine/PF 20 mg/2ml Vial SLOW IVP SCH ×2 (08:20→21:20)
[2020-12-05] MEDS: Tamsulosin HCl 0.4 MG CAP PO SCH (08:21)
[2020-12-05] MEDS ORDERED: Aspirin 81 mg Enteric Coated Tablet PO SCH (09:00)
[2020-12-05] MEDS ORDERED: Aspirin 325 MG TAB PO SCH (09:00)
[2020-12-05] MEDS ORDERED: Dextrose 5% in Water 1,000 ML IV PRN (09:00)
[2020-12-05] MEDS ORDERED: Dextrose 50% Abboject 50 ML SYRINGE SLOW IVP PRN (09:00)
[2020-12-05] MEDS: Metoprolol Tartrate 25 MG TAB PO SCH ×2 (09:11→21:19)
[2020-12-05] MEDS: Clopidogrel Bisulfate 75 MG TAB PO SCH (09:11)
[2020-12-05] MEDS: Metoclopramide HCl 10 MG/2 ML VIAL IVP SCH ×3 (09:15→21:20)
[2020-12-05] MEDS: traMADol HCl 50 MG TAB PO PRN ×2 (13:16→22:31)
[2020-12-05] MEDS: Atorvastatin Calcium 40 MG TAB PO SCH (21:19)
[2020-12-05] MEDS: Lantus 1000 UNITS/10 ML VIAL SC SCH (21:20)
[2020-12-06] MEDS: Ketorolac Tromethamine 30 MG/ML VIAL IVP SCH ×3 (05:10→18:00)
[2020-12-06] MEDS: Fentanyl 100 MCG/2 ML VIAL SLOW IVP PRN (05:12)
[2020-12-06] MEDS ORDERED: Guaifenesin DM 100-10/5 ML UDCUP PO PRN (08:17)
[2020-12-06] MEDS ORDERED: Bisacodyl 10 MG SUPP PR PRN (08:17)
[2020-12-06] MEDS ORDERED: Zolpidem Tartrate 5 MG TAB PO PRN (08:17)
[2020-12-06] MEDS ORDERED: Mineral Oil ENEMA PR PRN (08:17)
[2020-12-06] MEDS ORDERED: Bisacodyl 5 MG TAB PO PRN (08:17)
[2020-12-06] MEDS ORDERED: diphenhydrAMINE 25 MG CAP PO PRN (08:17)
[2020-12-06] MEDS ORDERED: Mag-Al 1200 mg/1200 mg/30 ML UDCUP PO PRN (08:17)
[2020-12-06] MEDS: Furosemide 40 MG TAB PO SCH (08:30)
[2020-12-06] MEDS: Aspirin 325 mg Enteric Coated Tablet PO SCH (08:30)
[2020-12-06] MEDS: Clopidogrel Bisulfate 75 MG TAB PO SCH (08:31)
[2020-12-06] MEDS: Magnesium 2 GM/50 ML 2 GM in Premix Bag 1 BAG IVPB SCH (08:31)
[2020-12-06] MEDS: Tamsulosin HCl 0.4 MG CAP PO SCH (08:31)
[2020-12-06] MEDS: Metoprolol Tartrate 25 MG TAB PO SCH ×2 (08:31→21:27)
[2020-12-06] MEDS: Famotidine/PF 20 mg/2ml Vial SLOW IVP SCH ×2 (08:34→21:31)
[2020-12-06] MEDS: Insulin Regular 300 UNITS/3 ML VIAL SC PRN ×3 (10:45→21:28)
[2020-12-06] MEDS: traMADol HCl 50 MG TAB PO PRN (11:52)
[2020-12-06 15:55] LABS: Troponin I 0.483 ng/mL (< 0.028)
[2020-12-06 19:35] LABS: Critical Call Chem Troponin I RESULT DECREASING; Troponin I 0.459 ng/mL (< 0.028)
[2020-12-06] MEDS: Atorvastatin Calcium 40 MG TAB PO SCH (21:28)
[2020-12-06] MEDS: Lantus 1000 UNITS/10 ML VIAL SC SCH (21:29)
[2020-12-06] MEDS: Acetaminophen 325 MG TAB PO PRN (21:44)
[2020-12-07] MEDS: Ketorolac Tromethamine 30 MG/ML VIAL IVP SCH ×3 (00:16→12:01)
[2020-12-07] MEDS: traMADol HCl 50 MG TAB PO PRN ×2 (00:19→15:40)
[2020-12-07] MEDS: Acetaminophen 325 MG TAB PO PRN (03:43)
[2020-12-07] MEDS: Potassium Chloride 10 MEQ TAB PO SCH (08:01)
[2020-12-07] MEDS: Metoprolol Tartrate 25 MG TAB PO SCH ×2 (08:01→21:37)
[2020-12-07] MEDS: Famotidine/PF 20 mg/2ml Vial SLOW IVP SCH (08:01)
[2020-12-07] MEDS: Tamsulosin HCl 0.4 MG CAP PO SCH (08:01)
[2020-12-07] MEDS: Furosemide 40 MG TAB PO SCH (08:02)
[2020-12-07] MEDS: Clopidogrel Bisulfate 75 MG TAB PO SCH (08:02)
[2020-12-07] MEDS: Aspirin 325 mg Enteric Coated Tablet PO SCH (08:02)
[2020-12-07] MEDS: Lisinopril 5 MG TAB PO SCH (09:33)
[2020-12-07 11:49] LABS: #Eosinphils 0.3 thou/uL (0.0-0.7); #Lymphocytes 1.1 thou/uL (1.20-3.40); #Monocytes 1.7 thou/uL (0.11-0.59); #Neutrophils 13.9 thou/uL (1.40-6.50); %Basophils 0.1 % (0.0-1.0); %Lymphocytes 6.4 % (21.0-51.0); %Monocytes 9.8 % (0.0-10.0); %Neutrophils 81.8 % (42.0-75.0); Hemoglobin 12.6 g/dL (14.0-18.0); Mean Corpuscular HGB CONC 33.9 g/dL (32.0-36.0); Mean Corpuscular Hemoglobin 30.6 pg (27.0-31.0); Mean Corpuscular Volume 90.2 fL (78.0-98.0); Mean Platelet Volume 7.3 fL (7.4-10.4); Platelet Count 194 thou/uL (130-400); RBC Distribution Width 12.5 % (11.5-14.5); Red Blood Cell (RBC) Count 4.13 mill/uL (4.70-6.10)
[2020-12-07 12:11] LABS: Anion Gap 14 mmol/L (10-20); BUN (Urea Nitrogen) 27 mg/dL (8.4-25.7); Calc. Creatinine Clearance 90 mL/min (70-130); Calcium 8.9 mg/dL (7.8-10.44); Carbon Dioxide 24 mmol/L (23-31); Chloride 98 mmol/L (98-107); Glucose 222 mg/dL (80-115); Potassium 4.3 mmol/L (3.5-5.1); Sodium 132 mmol/L (136-145)
[2020-12-07] MEDS ORDERED: Furosemide 20 MG/2 ML VIAL SLOW IVP SCH ×2 (13:00→13:30)
[2020-12-07] MEDS ORDERED: FLUoxetine HCl 20 MG CAP PO SCH (14:00)
[2020-12-07] MEDS: Insulin Regular 300 UNITS/3 ML VIAL SC PRN (17:14)
[2020-12-07] MEDS ORDERED: Dextroamphetamine/Amphetamine [Adderall] 30 MG Tablet PO SCH (21:00)
[2020-12-07 21:20] LABS: Bilirubin Negative (Negative); Blood, Urine Trace (Negative); Clarity Turbid (Clear); Glucose, Urine (Dipstick) Normal (Negative); Ketone, Urine Negative (Negative); Leukocyte 500 Leu/uL (Negative); Nitrite Negative (Negative); Protein, Urine (Dipstick) 50 mg/dL (Neg-Trace); RBC/HPF 0-3 HPF (0-3); Squamous Epithelial None Seen HPF (0-3); Urobilinogen Normal mg/dL (Less than 2); WBC/HPF Greater than 50 HPF (0-3); Yeast-Budding Rare HPF (None Seen); pH, Urine 5.5 (5.0-9.0)
[2020-12-07] MEDS: Sulfameth/Trimethoprim DS 800-160mg TAB PO SCH (21:38)
[2020-12-07] MEDS: Atorvastatin Calcium 40 MG TAB PO SCH (21:38)
[2020-12-07] MEDS: Lantus 1000 UNITS/10 ML VIAL SC SCH (21:44)
[2020-12-07 21:53] LABS: Bacteria/HPF Rare-Few HPF (None Seen); Yeast-Hyphae Rare HPF (None Seen)
[2020-12-08] MEDS: Nitroglycerin 0.4 MG TAB (25 Tab Bottle) SL PRN ×3 (00:11→00:21)
[2020-12-08] MEDS ORDERED: Morphine 2 MG/ML VIAL SLOW IVP SCH (01:00)
[2020-12-08 01:12] LABS: Hemoglobin 11.3 g/dL (14.0-18.0); Mean Corpuscular Hemoglobin 31.3 pg (27.0-31.0); Mean Corpuscular Volume 89.4 fL (78.0-98.0); Mean Platelet Volume 6.9 fL (7.4-10.4); Platelet Count 226 thou/uL (130-400); RBC Distribution Width 12.4 % (11.5-14.5)
[2020-12-08 01:28] LABS: Band 1 % (5-11); Hypochromia SLIGHT = 6-15 cells (100X) (0-5/hpf); Lymphocytes 9 % (21-51); MDiff Complete? YES; Monocytes 23 % (0-10); Neutrophil 67 % (42-75); Platelet Morphology Comment Appears Adequate
[2020-12-08 01:35] LABS: ALT (SGPT) 14 U/L (8-55); AST (SGOT) 15 U/L (5-34); Albumin 3.1 g/dL (3.4-4.8); Alkaline Phosphatase 62 U/L (40-110); Anion Gap 16 mmol/L (10-20); BUN (Urea Nitrogen) 22 mg/dL (8.4-25.7); Calc. Creatinine Clearance 108 mL/min (70-130); Calcium 8.1 mg/dL (7.8-10.44); Carbon Dioxide 21 mmol/L (23-31); Chloride 97 mmol/L (98-107); Globulin 3.1 g/dL (2.4-3.5); Glucose 139 mg/dL (80-115); Magnesium 1.8 mg/dL (1.6-2.6); Protein, Total 6.2 g/dL (5.8-8.1); Sodium 130 mmol/L (136-145)
[2020-12-08 01:57] LABS: CKMB 0.5 ng/mL (0-6.6)
[2020-12-08 04:55] LABS: #Basophils 0.1 thou/uL (0.0-0.2); #Eosinphils 0.4 thou/uL (0.0-0.7); #Monocytes 2.7 thou/uL (0.11-0.59); #Neutrophils 14.2 thou/uL (1.40-6.50); %Basophils 0.3 % (0.0-1.0); %Eosinophils 2.1 % (0.0-10.0); %Lymphocytes 14.8 % (21.0-51.0); %Monocytes 13.2 % (0.0-10.0); %Neutrophils 69.7 % (42.0-75.0); Hemoglobin 10.4 g/dL (14.0-18.0); Mean Corpuscular Hemoglobin 29.5 pg (27.0-31.0); Mean Corpuscular Volume 89.4 fL (78.0-98.0); Mean Platelet Volume 6.9 fL (7.4-10.4); Platelet Count 213 thou/uL (130-400); RBC Distribution Width 12.5 % (11.5-14.5); Red Blood Cell (RBC) Count 3.55 mill/uL (4.70-6.10); White Blood Cell (WBC) Count 20.4 thou/uL (4.8-10.8)
[2020-12-08] MEDS: cefTRIAXone\\ROCEPHIN 1 GM in Sodium Chloride 0.9% 100 ML IVPB SCH (05:39)
[2020-12-08] MEDS: Furosemide 40 MG TAB PO SCH (08:02)
[2020-12-08] MEDS: Clopidogrel Bisulfate 75 MG TAB PO SCH (08:02)
[2020-12-08] MEDS: Lisinopril 5 MG TAB PO SCH (08:02)
[2020-12-08] MEDS: FLUoxetine HCl 20 MG CAP PO SCH (08:02)
[2020-12-08] MEDS: Aspirin 325 mg Enteric Coated Tablet PO SCH (08:02)
[2020-12-08] MEDS: Potassium Chloride 10 MEQ TAB PO SCH (08:02)
[2020-12-08] MEDS: Metoprolol Tartrate 25 MG TAB PO SCH ×2 (08:02→20:14)
[2020-12-08] MEDS: Tamsulosin HCl 0.4 MG CAP PO SCH (08:03)
[2020-12-08] MEDS: Sulfameth/Trimethoprim DS 800-160mg TAB PO SCH ×2 (08:03→20:14)
[2020-12-08] MEDS ORDERED: FLUoxetine HCl 20 MG CAP PO SCH (09:00)
[2020-12-08] MEDS: Insulin Regular 300 UNITS/3 ML VIAL SC PRN ×2 (11:30→16:45)
[2020-12-08] MEDS: Atorvastatin Calcium 40 MG TAB PO SCH (20:14)
[2020-12-08] MEDS: Lantus 1000 UNITS/10 ML VIAL SC SCH (20:14)
[2020-12-08] MEDS: traMADol HCl 50 MG TAB PO PRN (22:54)
[2020-12-09] MEDS: cefTRIAXone\\ROCEPHIN 1 GM in Sodium Chloride 0.9% 100 ML IVPB SCH (05:22)
[2020-12-09] MEDS: Sulfameth/Trimethoprim DS 800-160mg TAB PO SCH ×2 (09:06→22:18)
[2020-12-09] MEDS: Clopidogrel Bisulfate 75 MG TAB PO SCH (09:06)
[2020-12-09] MEDS: Lisinopril 5 MG TAB PO SCH (09:06)
[2020-12-09] MEDS: Potassium Chloride 10 MEQ TAB PO SCH (09:07)
[2020-12-09] MEDS: Metoprolol Tartrate 25 MG TAB PO SCH ×2 (09:07→22:18)
[2020-12-09] MEDS: FLUoxetine HCl 20 MG CAP PO SCH (09:07)
[2020-12-09] MEDS: Tamsulosin HCl 0.4 MG CAP PO SCH (09:07)
[2020-12-09] MEDS: Aspirin 325 mg Enteric Coated Tablet PO SCH (09:08)
[2020-12-09] MEDS: Acetaminophen 325 MG TAB PO PRN (10:00)
[2020-12-09] MEDS: Furosemide 40 MG TAB PO SCH (11:32)
[2020-12-09 13:29] LABS: #Lymphocytes 2.9 thou/uL (1.20-3.40); #Neutrophils 10.7 thou/uL (1.40-6.50); %Basophils 0.2 % (0.0-1.0); %Eosinophils 6.3 % (0.0-10.0); %Lymphocytes 17.4 % (21.0-51.0); %Monocytes 11.9 % (0.0-10.0); %Neutrophils 64.2 % (42.0-75.0); Hemoglobin 11.5 g/dL (14.0-18.0); Mean Corpuscular HGB CONC 35.6 g/dL (32.0-36.0); Mean Corpuscular Volume 89.7 fL (78.0-98.0); Platelet Count 233 thou/uL (130-400); RBC Distribution Width 12.3 % (11.5-14.5); Red Blood Cell (RBC) Count 3.59 mill/uL (4.70-6.10); White Blood Cell (WBC) Count 16.6 thou/uL (4.8-10.8)
[2020-12-09 13:59] LABS: Anion Gap 14 mmol/L (10-20); BUN (Urea Nitrogen) 21 mg/dL (8.4-25.7); Calc. Creatinine Clearance 100 mL/min (70-130); Calcium 8.4 mg/dL (7.8-10.44); Carbon Dioxide 24 mmol/L (23-31); Chloride 98 mmol/L (98-107); Glucose 170 mg/dL (80-115); Potassium 4.4 mmol/L (3.5-5.1); Sodium 132 mmol/L (136-145)
[2020-12-09] MEDS: Insulin Regular 300 UNITS/3 ML VIAL SC PRN (13:59)
[2020-12-09] MEDS: Lantus 1000 UNITS/10 ML VIAL SC SCH (22:20)
[2020-12-09] MEDS: Atorvastatin Calcium 40 MG TAB PO SCH (22:20)
[2020-12-09] MEDS: traMADol HCl 50 MG TAB PO PRN (22:25)
[2020-12-10 04:08] LABS: #Basophils 0.1 thou/uL (0.0-0.2); #Eosinphils 1.2 thou/uL (0.0-0.7); #Lymphocytes 2.7 thou/uL (1.20-3.40); #Monocytes 1.6 thou/uL (0.11-0.59); #Neutrophils 7.9 thou/uL (1.40-6.50); %Basophils 0.6 % (0.0-1.0); %Monocytes 11.7 % (0.0-10.0); %Neutrophils 58.8 % (42.0-75.0); Hemoglobin 10.9 g/dL (14.0-18.0); Mean Corpuscular HGB CONC 32.5 g/dL (32.0-36.0); Mean Corpuscular Hemoglobin 29.4 pg (27.0-31.0); Mean Corpuscular Volume 90.4 fL (78.0-98.0); Platelet Count 271 thou/uL (130-400); RBC Distribution Width 12.4 % (11.5-14.5); White Blood Cell (WBC) Count 13.4 thou/uL (4.8-10.8)
[2020-12-10 04:35] LABS: Anion Gap 13 mmol/L (10-20); BUN (Urea Nitrogen) 19 mg/dL (8.4-25.7); Calc. Creatinine Clearance 99 mL/min (70-130); Calcium 8.4 mg/dL (7.8-10.44); Carbon Dioxide 25 mmol/L (23-31); Chloride 102 mmol/L (98-107); Glucose 157 mg/dL (80-115); Potassium 4.2 mmol/L (3.5-5.1); Sodium 136 mmol/L (136-145)
[2020-12-10] MEDS: cefTRIAXone\\ROCEPHIN 1 GM in Sodium Chloride 0.9% 100 ML IVPB SCH (05:07)
[2020-12-10] MEDS: Insulin Regular 300 UNITS/3 ML VIAL SC PRN ×2 (06:24→10:28)
[2020-12-10] MEDS ORDERED: Lisinopril 10 MG TAB PO SCH (09:45)
[2020-12-10] MEDS: Aspirin 325 mg Enteric Coated Tablet PO SCH (10:20)
[2020-12-10] MEDS: Tamsulosin HCl 0.4 MG CAP PO SCH (10:21)
[2020-12-10] MEDS: Furosemide 40 MG TAB PO SCH (10:21)
[2020-12-10] MEDS: Clopidogrel Bisulfate 75 MG TAB PO SCH (10:21)
[2020-12-10] MEDS: Sulfameth/Trimethoprim DS 800-160mg TAB PO SCH (10:22)
[2020-12-10] MEDS: Potassium Chloride 10 MEQ TAB PO SCH (10:22)
[2020-12-10] MEDS: FLUoxetine HCl 20 MG CAP PO SCH (10:22)
[2020-12-10] MEDS: Metoprolol Tartrate 25 MG TAB PO SCH (10:23)
[2020-12-10] MEDS: Lisinopril 5 MG TAB PO SCH (10:23)
[2020-12-10] MEDS: traMADol HCl 50 MG TAB PO PRN (10:30)
[2020-12-10] MEDS ORDERED: traMADol HCl 50 MG TAB PO SCH (12:15)
[2020-12-10] MEDS: Acetaminophen 325 MG TAB PO PRN (12:26)
[2020-12-10 15:43] VITALS: BP 107/71; TEMP 97.6
[2020-12-11] MEDS ORDERED: Lisinopril 10 MG TAB PO SCH (09:00)
== END 2020-12-10 16:06 | DRG 234 ==
LOC: ERS 21:58 → 2SW 22:58 → OBSVTOIN 12-02 08:50 → CCU 12-04 06:20 → 2NO 12-06 12:46
PROVIDERS: ADMIT Student in an Organized Health Care Education/Training Program; ATTEND Internal Medicine
PROC: 4A023N7 Measurement of Cardiac Sampling and Pressure, Left Heart, Percutaneous Approach (ICD-10-PCS; 2020-12-03)
PROC: B2111ZZ Fluoroscopy of Multiple Coronary Arteries using Low Osmolar Contrast (ICD-10-PCS; 2020-12-03)
PROC: 02100Z9 Bypass Coronary Artery, One Artery from Left Internal Mammary, Open Approach (ICD-10-PCS; principal; 2020-12-04)
PROC: 021109W Bypass Coronary Artery, Two Arteries from Aorta with Autologous Venous Tissue, Open Approach (ICD-10-PCS; 2020-12-04)
PROC: 06BQ4ZZ Excision of Left Saphenous Vein, Percutaneous Endoscopic Approach (ICD-10-PCS; 2020-12-04)
PROC: 5A1221Z Performance of Cardiac Output, Continuous (ICD-10-PCS; 2020-12-04)
DX: I21.4 Non-ST elevation (NSTEMI) myocardial infarction (principal); I25.10 Atherosclerotic heart disease of native coronary artery without angina pectoris; J44.9 Chronic obstructive pulmonary disease, unspecified; E87.6 Hypokalemia; E78.5 Hyperlipidemia, unspecified; N40.0 Benign prostatic hyperplasia without lower urinary tract symptoms; F90.9 Attention-deficit hyperactivity disorder, unspecified type; E66.9 Obesity, unspecified; E11.42 Type 2 diabetes mellitus with diabetic polyneuropathy; J45.20 Mild intermittent asthma, uncomplicated; Z20.822 Contact with and (suspected) exposure to COVID-19; I11.9 Hypertensive heart disease without heart failure; Z79.82 Long term (current) use of aspirin; Z90.49 Acquired absence of other specified parts of digestive tract; Z79.01 Long term (current) use of anticoagulants; Z86.16 Personal history of COVID-19; Z79.4 Long term (current) use of insulin; Z68.31 Body mass index [BMI] 31.0-31.9, adult
CPT/HCPCS: 36415; 36416; 70450; 71045; 76942; 80048; 80053; 80061; 81001; 82553; 83605; 83735; 83880; 84484; 85025; 85610; 85730; 86850; 86900; 86901; 87635; 93005; 93010; 93306; 93458; 93798; 94640; 94760; 96372; 99152; G0378; J0171; J0690; J0696; J1100; J1642; J1644; J1650; J1815; J1885; J1940; J2001; J2150; J2250; J2405; J2440; J2720; J2765; J3010; J3370; J3475; J3480; J3490; J7620; P9045; Q9967; S0017; S0020; S0028; U0003; U0005

== ENCOUNTER 2021-07-27 14:50 | Outpatient (CLI) | payer MEDICARE, MEDICAID | END 2021-07-27 14:51 | disposition home or self-care (01) | LOC: RAD 14:50 | PROVIDERS: ATTEND Internal Medicine Critical Care Medicine | DX: R06.00 Dyspnea, unspecified (principal) | CPT/HCPCS: 71046 ==

== ENCOUNTER 2021-07-29 15:30 | Inpatient (IN) | payer MEDICARE, MEDICAID ==
[2021-07-30 13:18] VITALS: BMI 32.5
[2021-08-03] MEDS ORDERED: ceFAZolin Sodium (SDC) 2 GM/100 ML BAG ONE ×2 (08:46→18:56)
[2021-08-03] MEDS ORDERED: Bupivacaine PF 0.5% 30 ML VIAL ONE (09:03)
[2021-08-03] MEDS ORDERED: Heparin 5,000 UNITS/ML VIAL ONE (09:03)
[2021-08-03] MEDS ORDERED: Dexamethasone 4 mg/ml Vial ONE (09:03)
[2021-08-03] MEDS ORDERED: EPINEPHrine 1 MG/ML AMP ONE (09:03)
[2021-08-03] MEDS ORDERED: Protamine Sulfate 50 MG/5 ML VIAL ONE ×2 (09:03→11:45)
[2021-08-03] MEDS ORDERED: Fentanyl 100 MCG/2 ML VIAL ONE ×2 (09:45→13:32)
[2021-08-03] MEDS ORDERED: Fentanyl 250 MCG/5 ML VIAL ONE (09:53)
[2021-08-03] MEDS ORDERED: Glycopyrrolate 0.2 MG/ML 5 ML SYRINGE ONE (10:06)
[2021-08-03] MEDS ORDERED: PHENYLEPHRINE-NS 100 MCG/ML 10 ML SYRINGE ONE (10:06)
[2021-08-03] MEDS ORDERED: PROPOFOL 200 MG/20 ML VIAL ONE (10:06)
[2021-08-03] MEDS ORDERED: Ondansetron PF 4 MG/2 ML Vial ONE (10:06)
[2021-08-03] MEDS ORDERED: Rocuronium Bromide 10 MG/ML (10ML VIAL) ONE (10:06)
[2021-08-03] MEDS ORDERED: Lidocaine 1% PF 5 ML VIAL ONE (10:06)
[2021-08-03] MEDS ORDERED: Ondansetron PF 4 MG/2 ML Vial IVP PRN (12:30)
[2021-08-03] MEDS ORDERED: traMADol HCl 50 MG TAB PO PRN ×2 (12:30)
[2021-08-03] MEDS ORDERED: Nitroglycerin 50 MG/250 ML BOT 250 ML IVPB PRN (12:30)
[2021-08-03] MEDS ORDERED: Acetaminophen 325 MG TAB PO PRN (12:30)
[2021-08-03] MEDS ORDERED: hydrALAZINE 20 MG/ML VIAL SLOW IVP PRN (12:30)
[2021-08-03] MEDS ORDERED: Fentanyl 100 MCG/2 ML VIAL SLOW IVP PRN ×2 (12:30)
[2021-08-03] MEDS ORDERED: Phenylephrine 40 MG/NS 250 ML 40 MG in Premix Bag 1 BAG IVPB PRN (12:37)
[2021-08-03] MEDS: Gabapentin 300 MG CAP PO SCH ×2 (15:00→21:05)
[2021-08-03] MEDS: Sodium Chloride 0.9% 1,000 ML IV SCH (16:30)
[2021-08-03] MEDS: CEFAZOLIN 2 GM in Sodium Chloride 0.9% 100 ML IVPB SCH (18:30)
[2021-08-03] MEDS ORDERED: Atorvastatin Calcium 40 MG TAB PO SCH (21:00)
[2021-08-03] MEDS ORDERED: Non-Formulary Item 1 EACH (Ipratropium/Albuterol Sulfate [Combivent Respimat] 120 PUFF In INH SCH (21:00)
[2021-08-03] MEDS ORDERED: Tamsulosin HCl 0.4 MG CAP PO SCH (21:00)
[2021-08-03] MEDS ORDERED: Lantus 1000 UNITS/10 ML VIAL SC SCH (21:00)
[2021-08-03] MEDS ORDERED: Dextroamphetamine/Amphetamine [Adderall] 30 MG Tablet PO SCH (21:00)
[2021-08-03] MEDS: Insulin Regular 300 UNITS/3 ML VIAL SC PRN (21:06)
[2021-08-03] MEDS: Mometasone 200 MCG/Formoterol 5 MCG 120 PUFF INHALER INH SCH (22:05)
[2021-08-04] MEDS: CEFAZOLIN 2 GM in Sodium Chloride 0.9% 100 ML IVPB SCH ×2 (00:55→08:22)
[2021-08-04] MEDS: Sodium Chloride 0.9% 1,000 ML IV SCH ×2 (00:56→10:12)
[2021-08-04 02:13] LABS: Anion Gap 13 mmol/L (10-20); BUN (Urea Nitrogen) 32 mg/dL (8.4-25.7); Calc. Creatinine Clearance 51 mL/min (70-130); Calcium 8.4 mg/dL (7.8-10.44); Carbon Dioxide 21 mmol/L (23-31); Chloride 104 mmol/L (98-107); Glucose 195 mg/dL (80-115); Potassium 5.5 mmol/L (3.5-5.1); Sodium 132 mmol/L (136-145)
[2021-08-04] MEDS: Mometasone 200 MCG/Formoterol 5 MCG 120 PUFF INHALER INH SCH (07:48)
[2021-08-04] MEDS ORDERED: metFORMIN 500 MG TAB PO SCH (08:00)
[2021-08-04] MEDS ORDERED: predniSONE 5 MG TAB PO SCH (08:00)
[2021-08-04] MEDS ORDERED: Potassium Chloride 10 MEQ TAB PO SCH (08:00)
[2021-08-04] MEDS: Gabapentin 300 MG CAP PO SCH (08:16)
[2021-08-04] MEDS: Insulin Regular 300 UNITS/3 ML VIAL SC PRN (08:25)
[2021-08-04] MEDS ORDERED: FLUoxetine HCl 20 MG CAP PO SCH (09:00)
[2021-08-04] MEDS ORDERED: Lisinopril 5 MG TAB PO SCH (09:00)
[2021-08-04] MEDS ORDERED: Metoprolol Tartrate 25 MG TAB PO SCH (09:00)
[2021-08-04 11:27] VITALS: TEMP 99
== END 2021-08-04 11:20 | disposition home or self-care (01) | DRG 39 ==
LOC: SURG A 08-03 08:34 → PACU-TCU 08-03 16:29 → CCU 08-03 21:44
PROVIDERS: ADMIT Thoracic Surgery (Cardiothoracic Vascular Surgery); ATTEND Thoracic Surgery (Cardiothoracic Vascular Surgery)
PROC: 03CJ0ZZ Extirpation of Matter from Left Common Carotid Artery, Open Approach (ICD-10-PCS; principal; 2021-08-03)
PROC: 03CL0ZZ Extirpation of Matter from Left Internal Carotid Artery, Open Approach (ICD-10-PCS; 2021-08-03)
PROC: 037L3ZZ Dilation of Left Internal Carotid Artery, Percutaneous Approach (ICD-10-PCS; 2021-08-03)
DX: I65.22 Occlusion and stenosis of left carotid artery (principal); I10 Essential (primary) hypertension; E78.5 Hyperlipidemia, unspecified; I25.10 Atherosclerotic heart disease of native coronary artery without angina pectoris; J44.9 Chronic obstructive pulmonary disease, unspecified; E11.9 Type 2 diabetes mellitus without complications; E66.9 Obesity, unspecified; M54.9 Dorsalgia, unspecified; F32.A Depression, unspecified; F41.9 Anxiety disorder, unspecified; Z90.49 Acquired absence of other specified parts of digestive tract; Z95.1 Presence of aortocoronary bypass graft; I25.2 Old myocardial infarction; Z86.16 Personal history of COVID-19; Z68.32 Body mass index [BMI] 32.0-32.9, adult
CPT/HCPCS: 36415; 36416; 76000; 80048; 94640; C1876; C1884; J0171; J0690; J1100; J1642; J1644; J1815; J2405; J2704; J2720; J3010; J3490; J7050; J7512; J7620; S0020

== ENCOUNTER 2021-07-29 15:34 | Outpatient (CLI) | payer MEDICARE, MEDICAID ==
[2021-07-29 17:06] LABS: Hemoglobin 14.2 g/dL (13.5-17.5); Mean Corpuscular HGB CONC 33.3 g/dL (32.0-36.0); Mean Corpuscular Hemoglobin 29.2 pg (27.0-33.0); Mean Corpuscular Volume 87.7 fl (81.2-95.1); Mean Platelet Volume 9.5 fl (7.4-10.4); Platelet Count 287 10x3/uL (150-450); RBC Distribution Width 12.8 % (11.5-14.5); Red Blood Cell (RBC) Count 4.86 10x6/uL (4.32-5.72); White Blood Cell (WBC) Count 9.5 10x3/uL (3.5-10.5)
[2021-07-29 17:19] LABS: Anion Gap 15 mmol/L (10-20); BUN (Urea Nitrogen) 18 mg/dL (8.4-25.7); Calc. Creatinine Clearance 0 mL/min (70-130); Calcium 9.3 mg/dL (7.8-10.44); Carbon Dioxide 24 mmol/L (23-31); Chloride 101 mmol/L (98-107); Glucose 271 mg/dL (80-115); Potassium 4.8 mmol/L (3.5-5.1); Sodium 135 mmol/L (136-145)
[2021-07-30 11:55] LABS: SARS-CoV-2 PCR by NAA Not Detected (NotDetected)
== END 2021-07-29 15:35 | disposition home or self-care (01) ==
LOC: LABBT 15:34
PROVIDERS: ATTEND Thoracic Surgery (Cardiothoracic Vascular Surgery)
DX: Z01.812 Encounter for preprocedural laboratory examination (principal); I65.22 Occlusion and stenosis of left carotid artery; Z20.822 Contact with and (suspected) exposure to COVID-19
CPT/HCPCS: 80048; 85027; U0003; U0005

== ENCOUNTER 2021-10-04 13:13 | Outpatient (CLI) | payer MEDICARE, MEDICAID ==
[2021-10-05 09:07] LABS: SARS-CoV-2 PCR by NAA Not Detected (NotDetected)
== END 2021-10-04 13:14 | disposition home or self-care (01) ==
LOC: LABBT 13:13
PROVIDERS: ATTEND Thoracic Surgery (Cardiothoracic Vascular Surgery)
DX: Z01.812 Encounter for preprocedural laboratory examination (principal); Z20.822 Contact with and (suspected) exposure to COVID-19
CPT/HCPCS: U0003; U0005

== ENCOUNTER 2021-10-15 15:35 | Outpatient (CLI) | payer MEDICARE, OTHER, MEDICAID ==
[2021-10-16 12:10] LABS: SARS-CoV-2 PCR by NAA Not Detected (NotDetected)
== END 2021-10-15 15:36 | disposition home or self-care (01) ==
LOC: LABBT 15:35
PROVIDERS: ATTEND Thoracic Surgery (Cardiothoracic Vascular Surgery)
DX: Z01.812 Encounter for preprocedural laboratory examination (principal); I65.21 Occlusion and stenosis of right carotid artery; Z20.822 Contact with and (suspected) exposure to COVID-19
CPT/HCPCS: U0003; U0005

== ENCOUNTER 2021-10-15 16:00 | Inpatient (IN) | payer MEDICARE, MEDICAID ==
[2021-10-20] MEDS ORDERED: Fentanyl 100 MCG/2 ML VIAL ONE (11:13)
[2021-10-20] MEDS ORDERED: Nitroglycerin 50 MG/250 ML BOT 250 ML ONE (11:14)
[2021-10-20] MEDS ORDERED: Lidocaine 1% MPF 2 ML VIAL ONE (11:26)
[2021-10-20] MEDS ORDERED: Protamine Sulfate 50 MG/5 ML VIAL ONE ×2 (11:41→13:53)
[2021-10-20] MEDS ORDERED: Bupivacaine PF 0.5% 30 ML VIAL ONE (11:41)
[2021-10-20] MEDS ORDERED: EPINEPHrine 1 MG/ML AMP ONE (11:41)
[2021-10-20] MEDS ORDERED: Dexamethasone 4 mg/ml Vial ONE (11:41)
[2021-10-20] MEDS ORDERED: Heparin 5,000 UNITS/ML VIAL ONE (11:41)
[2021-10-20] MEDS ORDERED: Midazolam HCl 2 mg/2 ml Vial ONE (12:24)
[2021-10-20] MEDS ORDERED: Phenylephrine 10 MG/ML VIAL ONE (12:25)
[2021-10-20] MEDS ORDERED: ceFAZolin 2 GM/Dextrose 50 ML IVPB ONE (12:37)
[2021-10-20] MEDS ORDERED: Metoprolol Tartrate 5 MG/5 ML VIAL ONE (12:50)
[2021-10-20] MEDS ORDERED: PROPOFOL 200 MG/20 ML VIAL ONE (12:50)
[2021-10-20] MEDS ORDERED: ePHEDrine 50 MG/ML VIAL ONE (12:50)
[2021-10-20] MEDS ORDERED: Ondansetron PF 4 MG/2 ML Vial ONE (12:50)
[2021-10-20] MEDS ORDERED: Glycopyrrolate 0.2 MG/ML 5 ML SYRINGE ONE (12:50)
[2021-10-20] MEDS ORDERED: PHENYLEPHRINE-NS 100 MCG/ML 10 ML SYRINGE ONE (12:50)
[2021-10-20] MEDS ORDERED: Dexamethasone 20 MG/5 ML VIAL ONE (12:50)
[2021-10-20] MEDS ORDERED: Lidocaine 1% PF 5 ML VIAL ONE (12:50)
[2021-10-20] MEDS ORDERED: Rocuronium Bromide 10 MG/ML (10ML VIAL) ONE (12:50)
[2021-10-20] MEDS ORDERED: Ondansetron PF 4 MG/2 ML Vial IVP PRN (14:24)
[2021-10-20] MEDS ORDERED: Nitroglycerin 50 MG/250 ML BOT 250 ML IVPB PRN (14:24)
[2021-10-20] MEDS ORDERED: Phenylephrine 40 MG in Sodium Chloride 0.9% 250 ML 250 ML IVPB PRN (14:24)
[2021-10-20] MEDS ORDERED: Fentanyl 100 MCG/2 ML VIAL SLOW IVP PRN (14:24)
[2021-10-20] MEDS ORDERED: traMADol HCl 50 MG TAB PO PRN ×2 (14:24)
[2021-10-20] MEDS ORDERED: Acetaminophen 325 MG TAB PO PRN (14:24)
[2021-10-20] MEDS ORDERED: hydrALAZINE 20 MG/ML VIAL SLOW IVP PRN (14:24)
[2021-10-20] MEDS ORDERED: Ondansetron HCl/PF 4 MG/2 ML Vial IVP PRN (14:49)
[2021-10-20] MEDS ORDERED: Promethazine HCl 25 MG/ML VIAL IVPB PRN (14:49)
[2021-10-20] MEDS ORDERED: Phenylephrine 40 MG in Sodium Chloride 0.9% 250 ML 250 ML IVPB SCH (15:30)
[2021-10-20] MEDS: Sodium Chloride 0.9% 1,000 ML IV SCH (16:02)
[2021-10-20] MEDS: Gabapentin 300 MG CAP PO SCH ×2 (16:02→20:45)
[2021-10-20 16:13] VITALS: BMI 30.8
[2021-10-20] MEDS: ceFAZolin 2 GM/Dextrose 50 ML 2 GM in Premix Bag 1 BAG IVPB SCH (20:45)
[2021-10-20] MEDS ORDERED: Atorvastatin Calcium 40 MG TAB PO SCH (21:00)
[2021-10-20] MEDS ORDERED: Lantus 1000 UNITS/10 ML VIAL SC SCH (21:00)
[2021-10-20] MEDS: Insulin Regular 300 UNITS/3 ML VIAL SC PRN (21:04)
[2021-10-21] MEDS: Sodium Chloride 0.9% 1,000 ML IV SCH (00:01)
[2021-10-21] MEDS: ceFAZolin 2 GM/Dextrose 50 ML 2 GM in Premix Bag 1 BAG IVPB SCH (05:30)
[2021-10-21] MEDS: Insulin Regular 300 UNITS/3 ML VIAL SC PRN (05:32)
[2021-10-21] MEDS ORDERED: glipiZIDE 5 MG TAB PO SCH (07:30)
[2021-10-21] MEDS: Gabapentin 300 MG CAP PO SCH (07:56)
[2021-10-21] MEDS ORDERED: metFORMIN 500 MG TAB PO SCH (08:00)
[2021-10-21] MEDS ORDERED: predniSONE 5 MG TAB PO SCH (08:00)
[2021-10-21] MEDS ORDERED: Potassium Chloride 10 MEQ TAB PO SCH (08:00)
[2021-10-21 08:01] VITALS: BP 112/61
[2021-10-21 08:03] VITALS: TEMP 98.4
[2021-10-21] MEDS ORDERED: Clopidogrel Bisulfate 75 MG TAB PO SCH (09:00)
[2021-10-21] MEDS ORDERED: Dextroamphetamine/Amphetamine [Adderall] 30 MG Tablet PO SCH (09:00)
[2021-10-21] MEDS ORDERED: Aspirin 81 mg Enteric Coated Tablet PO SCH (09:00)
[2021-10-21] MEDS ORDERED: FLUoxetine HCl 20 MG CAP PO SCH (09:00)
[2021-10-21] MEDS ORDERED: Lisinopril 10 MG TAB PO SCH (09:00)
[2021-10-21] MEDS ORDERED: CHOLECALCIFEROL PO SCH (09:00)
[2021-10-21] MEDS ORDERED: VIT K2 PO SCH (09:00)
[2021-10-21] MEDS ORDERED: Tamsulosin HCl 0.4 MG CAP PO SCH (21:00)
== END 2021-10-21 08:45 | disposition home or self-care (01) | DRG 39 ==
LOC: SURG A 10-20 08:11 → CCU 10-20 15:29
PROVIDERS: ADMIT Thoracic Surgery (Cardiothoracic Vascular Surgery); ATTEND Thoracic Surgery (Cardiothoracic Vascular Surgery)
PROC: 03CH0ZZ Extirpation of Matter from Right Common Carotid Artery, Open Approach (ICD-10-PCS; principal; 2021-10-20)
PROC: 03CN0ZZ Extirpation of Matter from Left External Carotid Artery, Open Approach (ICD-10-PCS; 2021-10-20)
PROC: 03CL0ZZ Extirpation of Matter from Left Internal Carotid Artery, Open Approach (ICD-10-PCS; 2021-10-20)
PROC: 03UH0JZ Supplement Right Common Carotid Artery with Synthetic Substitute, Open Approach (ICD-10-PCS; 2021-10-20)
PROC: 03UK0JZ Supplement Right Internal Carotid Artery with Synthetic Substitute, Open Approach (ICD-10-PCS; 2021-10-20)
PROC: 03UM0JZ Supplement Right External Carotid Artery with Synthetic Substitute, Open Approach (ICD-10-PCS; 2021-10-20)
DX: I65.21 Occlusion and stenosis of right carotid artery (principal); I25.10 Atherosclerotic heart disease of native coronary artery without angina pectoris; E78.5 Hyperlipidemia, unspecified; E11.9 Type 2 diabetes mellitus without complications; I10 Essential (primary) hypertension; E66.9 Obesity, unspecified; Z68.30 Body mass index [BMI] 30.0-30.9, adult; I25.2 Old myocardial infarction; Z95.1 Presence of aortocoronary bypass graft; Z79.899 Other long term (current) drug therapy; Z79.82 Long term (current) use of aspirin; Z79.02 Long term (current) use of antithrombotics/antiplatelets; Z79.52 Long term (current) use of systemic steroids; Z79.84 Long term (current) use of oral hypoglycemic drugs; Z79.4 Long term (current) use of insulin
CPT/HCPCS: 36416; 94640; C1768; C1776; J0171; J0690; J1100; J1642; J1644; J1815; J2250; J2370; J2405; J2704; J2720; J3010; J3490; J7050; J7512; J7620; S0020

== ENCOUNTER 2022-04-22 09:56 | Outpatient (CLI) | payer MEDICARE, MEDICAID | END 2022-04-22 09:57 | disposition home or self-care (01) | LOC: BICULT 09:56 | PROVIDERS: ATTEND Physician Assistant Medical | DX: K74.60 Unspecified cirrhosis of liver (principal); B18.2 Chronic viral hepatitis C | CPT/HCPCS: 76705 ==

== ENCOUNTER 2022-05-04 19:00 | Outpatient (CLI) | payer MEDICARE, MEDICAID | END 2022-05-04 19:01 | disposition home or self-care (01) | LOC: SLEEPLAB 19:00 | PROVIDERS: ATTEND Internal Medicine Critical Care Medicine | DX: G47.33 Obstructive sleep apnea (adult) (pediatric) (principal); R53.83 Other fatigue; R06.83 Snoring; R09.89 Other specified symptoms and signs involving the circulatory and respiratory systems | CPT/HCPCS: 95811 ==

== ENCOUNTER 2022-05-28 02:27 | Observation (INO) | payer MEDICARE, MEDICAID ==
[2022-05-28 04:33] VITALS: BMI 31.4
[2022-05-28 06:20] LABS: #Lymphocytes 1.1 thou/uL (1.20-3.40); #Monocytes 0.1 thou/uL (0.11-0.59); #Neutrophils 10.3 thou/uL (1.40-6.50); %Basophils 0.2 % (0.0-1.0); %Eosinophils 0.2 % (0.0-10.0); %Lymphocytes 9.2 % (21.0-51.0); %Monocytes 1.1 % (0.0-10.0); %Neutrophils 89.3 % (42.0-75.0); Hemoglobin 14.1 g/dL (14.0-18.0); Mean Corpuscular HGB CONC 32.6 g/dL (32.0-36.0); Mean Corpuscular Hemoglobin 28.9 pg (27.0-31.0); Mean Corpuscular Volume 88.8 fL (78.0-98.0); Platelet Count 221 thou/uL (130-400); RBC Distribution Width 12.6 % (11.5-14.5); Red Blood Cell (RBC) Count 4.88 mill/uL (4.70-6.10); White Blood Cell (WBC) Count 11.5 thou/uL (4.8-10.8)
[2022-05-28 06:40] LABS: Anion Gap 12 mmol/L (10-20); BUN (Urea Nitrogen) 51 mg/dL (8.4-25.7); Calc. Creatinine Clearance 47 mL/min (70-130); Carbon Dioxide 21 mmol/L (23-31); Chloride 103 mmol/L (98-107); Estimated GFR 32; Glucose 340 mg/dL (80-115); Magnesium 1.9 mg/dL (1.6-2.6); Potassium 6.2 mmol/L (3.5-5.1); Sodium 130 mmol/L (136-145)
[2022-05-28] MEDS ORDERED: Dextrose 50% Abboject 50 ML SYRINGE SLOW IVP PRN (08:13)
[2022-05-28] MEDS ORDERED: Dextrose 5% in Water 1,000 ML IV PRN (08:13)
[2022-05-28] MEDS: FLUoxetine HCl 20 MG CAP PO SCH (10:38)
[2022-05-28] MEDS: Heparin 5,000 UNITS/ML VIAL SC SCH ×3 (10:38→21:03)
[2022-05-28] MEDS: Aspirin 81 mg Enteric Coated Tablet PO SCH (10:38)
[2022-05-28] MEDS: Sodium Chloride 0.9% 1,000 ML IV SCH ×2 (10:40→16:46)
[2022-05-28] MEDS ORDERED: Acetaminophen 325 MG TAB PO PRN (11:17)
[2022-05-28] MEDS: HumaLOG 300 UNITS/3 ML VIAL SC PRN ×2 (11:21→16:46)
[2022-05-28 14:15] LABS: Anion Gap 16 mmol/L (10-20); BUN (Urea Nitrogen) 54 mg/dL (8.4-25.7); Calc. Creatinine Clearance 48 mL/min (70-130); Calcium 8.4 mg/dL (7.8-10.44); Carbon Dioxide 17 mmol/L (23-31); Chloride 99 mmol/L (98-107); Estimated GFR 33; Glucose 467 mg/dL (80-115); Magnesium 1.8 mg/dL (1.6-2.6); Potassium 6.1 mmol/L (3.5-5.1); Sodium 126 mmol/L (136-145)
[2022-05-28] MEDS ORDERED: Atorvastatin Calcium 40 MG TAB PO SCH (21:00)
[2022-05-28] MEDS ORDERED: Tamsulosin HCl 0.4 MG CAP PO SCH (21:00)
[2022-05-28] MEDS ORDERED: Insulin Glargine 30 UNITS/0.3 ML VIAL SC SCH (21:00)
[2022-05-29] MEDS: Sodium Chloride 0.9% 1,000 ML IV SCH ×2 (00:40→10:00)
[2022-05-29 05:05] LABS: Anion Gap 12 mmol/L (10-20); BUN (Urea Nitrogen) 42 mg/dL (8.4-25.7); Calc. Creatinine Clearance 69 mL/min (70-130); Calcium 8.4 mg/dL (7.8-10.44); Carbon Dioxide 19 mmol/L (23-31); Chloride 106 mmol/L (98-107); Estimated GFR 50; Glucose 288 mg/dL (80-115); Magnesium 2.2 mg/dL (1.6-2.6); Potassium 4.6 mmol/L (3.5-5.1); Sodium 132 mmol/L (136-145)
[2022-05-29] MEDS: HumaLOG 300 UNITS/3 ML VIAL SC PRN ×2 (06:24→13:02)
[2022-05-29 07:59] VITALS: BP 115/70; TEMP 97.3
[2022-05-29] MEDS ORDERED: predniSONE 20 MG TAB PO SCH (08:00)
[2022-05-29] MEDS: Aspirin 81 mg Enteric Coated Tablet PO SCH (09:58)
[2022-05-29] MEDS: FLUoxetine HCl 20 MG CAP PO SCH (09:58)
[2022-05-29] MEDS: Heparin 5,000 UNITS/ML VIAL SC SCH (09:59)
[2022-05-29] MEDS: CHOLECALCIFEROL PO SCH (15:30)
[2022-05-29] MEDS: VIT K2 PO SCH (15:30)
[2022-05-29] MEDS ORDERED: Insulin Glargine 30 UNITS/0.3 ML VIAL SC SCH (21:00)
== END 2022-05-29 14:30 | disposition home or self-care (01) ==
LOC: 2NO 04:25 → INTOOBSV 04:25
PROVIDERS: ADMIT Family Medicine; ATTEND Family Medicine
DX: J44.1 Chronic obstructive pulmonary disease with (acute) exacerbation (principal); E87.5 Hyperkalemia; E87.1 Hypo-osmolality and hyponatremia; R42 Dizziness and giddiness; I95.9 Hypotension, unspecified; E11.9 Type 2 diabetes mellitus without complications; I10 Essential (primary) hypertension; I25.10 Atherosclerotic heart disease of native coronary artery without angina pectoris; Z79.4 Long term (current) use of insulin; Z79.82 Long term (current) use of aspirin; Z79.84 Long term (current) use of oral hypoglycemic drugs; Z79.899 Other long term (current) drug therapy; Z95.1 Presence of aortocoronary bypass graft; Z20.822 Contact with and (suspected) exposure to COVID-19
CPT/HCPCS: 80048 ×3; 82962 ×2; 83735 ×2; 84145 ×2; 85025; 94640 ×3; U0003; U0005; 36415; 36416; J1644; J1815; J7050; J7512; J7620

== ENCOUNTER 2022-06-26 19:05 | Inpatient (IN) | payer MEDICARE, MEDICAID ==
[2022-06-26 20:08] LABS: #Eosinphils 0.7 thou/uL (0.0-0.7); #Lymphocytes 2.5 thou/uL (1.20-3.40); #Monocytes 1.3 thou/uL (0.11-0.59); #Neutrophils 7.6 thou/uL (1.40-6.50); %Basophils 0.3 % (0.0-1.0); %Eosinophils 5.7 % (0.0-10.0); %Lymphocytes 20.8 % (21.0-51.0); %Monocytes 10.9 % (0.0-10.0); %Neutrophils 62.3 % (42.0-75.0); Hemoglobin 14.6 g/dL (14.0-18.0); Mean Corpuscular Hemoglobin 30.9 pg (27.0-31.0); Mean Corpuscular Volume 90.7 fL (78.0-98.0); Mean Platelet Volume 6.9 fL (7.4-10.4); Platelet Count 277 thou/uL (130-400); RBC Distribution Width 12.7 % (11.5-14.5); Red Blood Cell (RBC) Count 4.72 mill/uL (4.70-6.10); White Blood Cell (WBC) Count 12.2 thou/uL (4.8-10.8)
[2022-06-26 20:24] LABS: ALT (SGPT) 15 U/L (8-55); AST (SGOT) 22 U/L (5-34); Albumin 4.1 g/dL (3.4-4.8); Alkaline Phosphatase 71 U/L (40-110); Anion Gap 16 mmol/L (10-20); BUN (Urea Nitrogen) 45 mg/dL (8.4-25.7); Bilirubin, Total 0.3 mg/dL (0.2-1.2); Calc. Creatinine Clearance 0 mL/min (70-130); Calcium 9.5 mg/dL (7.8-10.44); Carbon Dioxide 23 mmol/L (23-31); Chloride 101 mmol/L (98-107); Estimated GFR 34; Glucose 249 mg/dL (80-115); Potassium 5.6 mmol/L (3.5-5.1); Protein, Total 7.1 g/dL (5.8-8.1); Sodium 134 mmol/L (136-145)
[2022-06-26 22:54] LABS: Bacteria/HPF None Seen HPF (None Seen); Bilirubin Negative (Negative); Blood, Urine Negative (Negative); Clarity Clear (Clear); Glucose, Urine (Dipstick) Normal (Negative); Ketone, Urine Trace mg/dL (Negative); Leukocyte Negative Leu/uL (Negative); Nitrite Negative (Negative); Protein, Urine (Dipstick) 30 mg/dL (Neg-Trace); RBC/HPF 0-3 HPF (0-3); Specific Gravity, Urine 1.022 (1.002-1.036); Squamous Epithelial None Seen HPF (0-3); Urobilinogen Normal mg/dL (Less than 2); WBC/HPF 0-3 HPF (0-3)
[2022-06-26] MEDS ORDERED: HumaLOG 300 UNITS/3 ML VIAL SC PRN (23:07)
[2022-06-26] MEDS ORDERED: Dextrose 5% in Water 1,000 ML IV PRN (23:07)
[2022-06-26] MEDS ORDERED: Dextrose 50% Abboject 50 ML SYRINGE SLOW IVP PRN (23:07)
[2022-06-26] MEDS ORDERED: Ondansetron PF 4 MG/2 ML Vial IVP PRN (23:08)
[2022-06-26] MEDS ORDERED: Acetaminophen 325 MG TAB PO PRN (23:08)
[2022-06-26] MEDS ORDERED: Ondansetron ODT 4 MG TAB PO PRN (23:08)
[2022-06-26] MEDS ORDERED: Calcium Carbonate 500 MG ChewTAB PO PRN (23:08)
[2022-06-26] MEDS ORDERED: Senokot S 8.6-50 MG TAB PO PRN (23:08)
[2022-06-26] MEDS ORDERED: hydrALAZINE 20 MG/ML VIAL SLOW IVP PRN (23:08)
[2022-06-26] MEDS ORDERED: Bisacodyl 5 MG TAB PO PRN (23:08)
[2022-06-27] MEDS: Sodium Chloride 0.9% 1,000 ML IV SCH ×2 (05:23→15:01)
[2022-06-27 05:52] LABS: #Eosinphils 0.6 thou/uL (0.0-0.7); #Lymphocytes 2.5 thou/uL (1.20-3.40); #Monocytes 0.7 thou/uL (0.11-0.59); #Neutrophils 5.1 thou/uL (1.40-6.50); %Basophils 0.4 % (0.0-1.0); %Eosinophils 6.5 % (0.0-10.0); %Lymphocytes 27.7 % (21.0-51.0); %Monocytes 8.4 % (0.0-10.0); Hemoglobin 13.1 g/dL (14.0-18.0); Mean Corpuscular HGB CONC 32.5 g/dL (32.0-36.0); Mean Corpuscular Hemoglobin 29.4 pg (27.0-31.0); Mean Corpuscular Volume 90.5 fL (78.0-98.0); Mean Platelet Volume 6.7 fL (7.4-10.4); Platelet Count 257 thou/uL (130-400); Red Blood Cell (RBC) Count 4.44 mill/uL (4.70-6.10); White Blood Cell (WBC) Count 8.9 thou/uL (4.8-10.8)
[2022-06-27 06:11] LABS: Hemoglobin A1c 8.4 % (4.0-6.0)
[2022-06-27 06:15] LABS: ALT (SGPT) 12 U/L (8-55); AST (SGOT) 24 U/L (5-34); Albumin 3.6 g/dL (3.4-4.8); Alkaline Phosphatase 67 U/L (40-110); Anion Gap 14 mmol/L (10-20); BUN (Urea Nitrogen) 38 mg/dL (8.4-25.7); Bilirubin, Total 0.2 mg/dL (0.2-1.2); Calc. Creatinine Clearance 0 mL/min (70-130); Calcium 8.7 mg/dL (7.8-10.44); Carbon Dioxide 20 mmol/L (23-31); Chloride 104 mmol/L (98-107); Estimated GFR 47; Globulin 3.1 g/dL (2.4-3.5); Glucose 297 mg/dL (80-115); Potassium 4.8 mmol/L (3.5-5.1); Protein, Total 6.7 g/dL (5.8-8.1); Sodium 133 mmol/L (136-145)
[2022-06-27 06:15] LABS: SARS-CoV-2 NAA Rapid Test Not Detected (NotDetected)
[2022-06-27] MEDS: glipiZIDE 5 MG TAB PO SCH (07:58)
[2022-06-27] MEDS: Heparin 5,000 UNITS/ML VIAL SC SCH ×3 (09:20→19:53)
[2022-06-27] MEDS ORDERED: Aspirin 81 mg Enteric Coated Tablet ONE (09:25)
[2022-06-27] MEDS: Finasteride 5 MG TAB PO SCH (09:40)
[2022-06-27] MEDS: Aspirin 81 mg Enteric Coated Tablet PO SCH (09:40)
[2022-06-27] MEDS: FLUoxetine HCl 20 MG CAP PO SCH (09:40)
[2022-06-27] MEDS: Loratadine 10 MG TAB PO SCH (09:41)
[2022-06-27] MEDS ORDERED: Albuterol Sulfate 2.5 mg/0.5 ml Neb ONE (10:33)
[2022-06-27] MEDS ORDERED: HumaLOG 300 UNITS/3 ML VIAL SC PRN (10:40)
[2022-06-27] MEDS ORDERED: Lidocaine 5% Patch TD SCH ×2 (10:45→11:15)
[2022-06-27] MEDS ORDERED: Albuterol Sulfate 2.5 mg/3 ml Neb NEB PRN (11:00)
[2022-06-27 13:47] VITALS: BMI 31.9
[2022-06-27] MEDS ORDERED: FLU VACC QS2022-23(65YR UP)/PF 240 MCG/0.7 ML SYRINGE IM ONE (14:00)
[2022-06-27] MEDS ORDERED: Insulin Glargine 30 UNITS/0.3 ML VIAL SC SCH (21:00)
[2022-06-27] MEDS ORDERED: Transdermal Patch Removal TOP SCH (21:00)
[2022-06-27] MEDS ORDERED: Tamsulosin HCl 0.4 MG CAP PO SCH (21:00)
[2022-06-28 04:35] LABS: #Basophils 0.1 thou/uL (0.0-0.2); #Eosinphils 0.6 thou/uL (0.0-0.7); #Lymphocytes 3.5 thou/uL (1.20-3.40); #Monocytes 0.8 thou/uL (0.11-0.59); %Basophils 0.8 % (0.0-1.0); %Eosinophils 7.6 % (0.0-10.0); %Lymphocytes 44.5 % (21.0-51.0); %Neutrophils 37.1 % (42.0-75.0); Hemoglobin 13.2 g/dL (14.0-18.0); Mean Corpuscular HGB CONC 31.7 g/dL (32.0-36.0); Mean Corpuscular Volume 91.7 fL (78.0-98.0); Mean Platelet Volume 7.5 fL (7.4-10.4); Platelet Count 244 thou/uL (130-400); Red Blood Cell (RBC) Count 4.56 mill/uL (4.70-6.10); White Blood Cell (WBC) Count 7.9 thou/uL (4.8-10.8)
[2022-06-28 05:06] LABS: Anion Gap 12 mmol/L (10-20); BUN (Urea Nitrogen) 25 mg/dL (8.4-25.7); Calc. Creatinine Clearance 92 mL/min (70-130); Calcium 8.9 mg/dL (7.8-10.44); Carbon Dioxide 23 mmol/L (23-31); Chloride 105 mmol/L (98-107); Estimated GFR 69; Glucose 149 mg/dL (80-115); Sodium 135 mmol/L (136-145)
[2022-06-28] MEDS ORDERED: Lidocaine 5% Patch TD SCH (09:00)
[2022-06-28] MEDS: FLUoxetine HCl 20 MG CAP PO SCH (09:09)
[2022-06-28] MEDS: Finasteride 5 MG TAB PO SCH (09:09)
[2022-06-28] MEDS: Heparin 5,000 UNITS/ML VIAL SC SCH ×2 (09:09→16:19)
[2022-06-28] MEDS: glipiZIDE 5 MG TAB PO SCH (09:09)
[2022-06-28] MEDS: Loratadine 10 MG TAB PO SCH (09:09)
[2022-06-28] MEDS: Aspirin 81 mg Enteric Coated Tablet PO SCH (09:09)
[2022-06-28] MEDS ORDERED: predniSONE 5 MG TAB PO SCH (11:45)
[2022-06-28 17:34] VITALS: BP 125/69; TEMP 98.1
[2022-06-29] MEDS ORDERED: predniSONE 5 MG TAB PO SCH (08:00)
== END 2022-06-28 16:10 | disposition home or self-care (01) | DRG 683 ==
LOC: SUATTDRO 19:05 → ERS 19:05 → ERHOLD 23:02 → 2NO 06-27 00:16 → OBSVTOIN 06-27 10:47 → 2NO 06-27 12:07
PROVIDERS: ADMIT Internal Medicine; ATTEND Family Medicine
DX: N17.9 Acute kidney failure, unspecified (principal); E87.1 Hypo-osmolality and hyponatremia; I25.10 Atherosclerotic heart disease of native coronary artery without angina pectoris; E87.5 Hyperkalemia; J44.9 Chronic obstructive pulmonary disease, unspecified; F41.9 Anxiety disorder, unspecified; F32.A Depression, unspecified; E86.0 Dehydration; I12.9 Hypertensive chronic kidney disease with stage 1 through stage 4 chronic kidney disease, or unspecified chronic kidney disease; E11.22 Type 2 diabetes mellitus with diabetic chronic kidney disease; N18.30 Chronic kidney disease, stage 3 unspecified; Z20.822 Contact with and (suspected) exposure to COVID-19; N40.1 Benign prostatic hyperplasia with lower urinary tract symptoms; D63.1 Anemia in chronic kidney disease; F39 Unspecified mood [affective] disorder; Z79.84 Long term (current) use of oral hypoglycemic drugs; Z79.4 Long term (current) use of insulin; Z79.899 Other long term (current) drug therapy
CPT/HCPCS: 36415; 36416; 72100; 74176; 80048; 80053; 81003; 81015; 83036; 83735; 85025; 87086; 96360; 96361; 96372; G0103; G0378; J1644; J1815; J7050; J7512; J7611; J7620; U0002

== ENCOUNTER 2023-01-11 15:38 | Outpatient (CLI) | payer MEDICARE, OTHER | END 2023-01-11 15:39 | disposition home or self-care (01) | LOC: RAD 15:38 | PROVIDERS: ATTEND Nurse Practitioner Family | DX: R06.02 Shortness of breath (principal); Z01.812 Encounter for preprocedural laboratory examination | CPT/HCPCS: 36415; 71046; 80048; 83036; 83880; 85025; 93005 ==

== ENCOUNTER 2023-06-08 12:10 | Outpatient (CLI) | payer MEDICARE, MEDICAID | END 2023-06-08 12:11 | disposition home or self-care (01) | LOC: MRI 12:10 | PROVIDERS: ATTEND Physician Assistant Medical | DX: K74.60 Unspecified cirrhosis of liver (principal); B18.2 Chronic viral hepatitis C; K76.89 Other specified diseases of liver | CPT/HCPCS: 74183 ==

== ENCOUNTER 2023-07-17 14:08 | Outpatient (CLI) | payer MEDICARE, OTHER, MEDICAID ==
[2023-07-17 15:35] LABS: Hematocrit 44.6 % (38.8-50.0); Hemoglobin 15.3 g/dL (13.5-17.5); Mean Corpuscular HGB CONC 34.3 g/dL (32.0-36.0); Mean Corpuscular Hemoglobin 29.5 pg (27.0-33.0); Mean Corpuscular Volume 86.1 fl (81.2-95.1); Platelet Count 303 10x3/uL (150-450); RBC Distribution Width 12.5 % (11.5-14.5); Red Blood Cell (RBC) Count 5.18 10x6/uL (4.32-5.72); White Blood Cell (WBC) Count 11.4 10x3/uL (3.5-10.5)
[2023-07-17 15:52] LABS: Anion Gap 18 mmol/L (10-20); BUN (Urea Nitrogen) 23 mg/dL (8.4-25.7); Calc. Creatinine Clearance 0 mL/min (70-130); Calcium 9.5 mg/dL (7.8-10.44); Carbon Dioxide 23 mmol/L (23-31); Chloride 99 mmol/L (98-107); Estimated GFR 51; Glucose 130 mg/dL (80-115); Potassium 4.3 mmol/L (3.5-5.1); Sodium 136 mmol/L (136-145)
[2023-07-17 16:12] LABS: PTT 25.1 sec (22.0-33.0); Prothrombin Time 10.7 sec (9.5-12.1)
== END 2023-07-17 14:09 | disposition home or self-care (01) ==
LOC: LABBT 14:08
PROVIDERS: ATTEND Urology
DX: Z01.818 Encounter for other preprocedural examination (principal); N32.0 Bladder-neck obstruction
CPT/HCPCS: 80048; 85027; 85610; 85730; 87086; 93005; 93010

== ENCOUNTER 2023-07-21 16:44 | Emergency (ER) | payer MEDICAID, MEDICARE, OTHER ==
[2023-07-21 17:35] LABS: #Basophils 0.1 thou/uL (0.0-0.2); #Eosinphils 0.8 thou/uL (0.0-0.7); #Monocytes 0.8 thou/uL (0.11-0.59); #Neutrophils 6.9 thou/uL (1.40-6.50); %Basophils 0.5 % (0.0-1.0); %Eosinophils 7.7 % (0.0-10.0); %Lymphocytes 21.2 % (21.0-51.0); %Monocytes 7.5 % (0.0-10.0); %Neutrophils 62.8 % (42.0-75.0); Hematocrit 40.4 % (42.0-52.0); Mean Corpuscular HGB CONC 34.7 g/dL (32.0-36.0); Mean Corpuscular Hemoglobin 30.6 pg (27.0-31.0); Mean Corpuscular Volume 88.4 fl (78.0-98.0); Mean Platelet Volume 9.4 fL (7.4-10.4); Platelet Count 229 10x3/uL (130-400); RBC Distribution Width 12.8 % (11.5-14.5); Red Blood Cell (RBC) Count 4.57 mill/uL (4.70-6.10); White Blood Cell (WBC) Count 10.9 10x3/uL (4.8-10.8)
[2023-07-21] MEDS ORDERED: Dexamethasone 10 MG/ML VIAL ONE (17:50)
[2023-07-21 17:57] LABS: ALT (SGPT) 14 U/L (8-55); AST (SGOT) 17 U/L (5-34); Alkaline Phosphatase 72 U/L (40-110); Anion Gap 14 mmol/L (10-20); BUN (Urea Nitrogen) 13 mg/dL (8.4-25.7); Bilirubin, Total Less than 0.2 mg/dL (0.2-1.2); Calc. Creatinine Clearance 0 mL/min (70-130); Calcium 9.2 mg/dL (7.8-10.44); Carbon Dioxide 21 mmol/L (23-31); Chloride 102 mmol/L (98-107); Estimated GFR 59; Globulin 2.9 g/dL (2.4-3.5); Glucose 357 mg/dL (80-115); Potassium 4.2 mmol/L (3.5-5.1); Protein, Total 6.9 g/dL (5.8-8.1); Sodium 133 mmol/L (136-145)
[2023-07-21] MEDS ORDERED: Ipratropium/Albuterol 3 ML NEB ONE (17:57)
[2023-07-21] MEDS ORDERED: Albuterol 2.5 MG/0.5 ML NEB ONE (17:58)
[2023-07-21 18:02] LABS: Troponin I Less than 0.010 ng/mL (< 0.028)
[2023-07-21 18:17] LABS: SARS-CoV-2 NAA Rapid Test Not Detected (NotDetected)
== END 2023-07-21 19:52 | disposition home or self-care (01) ==
LOC: ERS 16:44
DX: J44.1 Chronic obstructive pulmonary disease with (acute) exacerbation (principal); E11.9 Type 2 diabetes mellitus without complications; I10 Essential (primary) hypertension; Z79.899 Other long term (current) drug therapy; Z20.822 Contact with and (suspected) exposure to COVID-19
CPT/HCPCS: 0240U; 71045; 80053; 83880; 84484; 85025; 93005; 94640; 96374; J1100; J7611; J7620

== ENCOUNTER 2023-08-25 10:35 | Emergency (ER) | payer MEDICAID, MEDICARE, OTHER ==
[2023-08-25 11:17] LABS: #Basophils 0.1 thou/uL (0.0-0.2); #Eosinphils 0.4 thou/uL (0.0-0.7); #Monocytes 0.9 thou/uL (0.11-0.59); #Neutrophils 8.1 thou/uL (1.40-6.50); %Basophils 0.4 % (0.0-1.0); %Eosinophils 2.7 % (0.0-10.0); %Lymphocytes 25.8 % (21.0-51.0); %Monocytes 7.4 % (0.0-10.0); %Neutrophils 63.2 % (42.0-75.0); Hematocrit 45.1 % (42.0-52.0); Hemoglobin 15.5 g/dL (14.0-18.0); Mean Corpuscular HGB CONC 34.4 g/dL (32.0-36.0); Mean Corpuscular Volume 87.4 fl (78.0-98.0); Mean Platelet Volume 9.2 fL (7.4-10.4); Platelet Count 232 10x3/uL (130-400); RBC Distribution Width 12.4 % (11.5-14.5); Red Blood Cell (RBC) Count 5.16 mill/uL (4.70-6.10); White Blood Cell (WBC) Count 12.7 10x3/uL (4.8-10.8)
[2023-08-25] MEDS ORDERED: Acetaminophen 500 MG TAB ONE (11:24)
[2023-08-25 11:47] LABS: ALT (SGPT) 14 U/L (8-55); AST (SGOT) 12 U/L (5-34); Albumin 3.9 g/dL (3.4-4.8); Alkaline Phosphatase 68 U/L (40-110); Anion Gap 12 mmol/L (10-20); BUN (Urea Nitrogen) 22 mg/dL (8.4-25.7); Bilirubin, Total 0.6 mg/dL (0.2-1.2); Calc. Creatinine Clearance 0 mL/min (70-130); Calcium 10.1 mg/dL (7.8-10.44); Carbon Dioxide 30 mmol/L (23-31); Chloride 98 mmol/L (98-107); Estimated GFR 56; Globulin 3.3 g/dL (2.4-3.5); Glucose 97 mg/dL (80-115); Lipase 362 U/L (8-78); Potassium 4.3 mmol/L (3.5-5.1); Protein, Total 7.2 g/dL (5.8-8.1); Sodium 136 mmol/L (136-145)
[2023-08-25 11:50] LABS: Troponin I Less than 0.010 ng/mL (< 0.028)
[2023-08-25] MEDS ORDERED: Iopamidol-370 76% 500 ML MDV (1 ML CHARGE) ONE (13:43)
[2023-08-25 15:07] LABS: Troponin I Less than 0.010 ng/mL (< 0.028)
== END 2023-08-25 15:56 | disposition home or self-care (01) ==
LOC: ERS 10:35
DX: R07.89 Other chest pain (principal); E11.9 Type 2 diabetes mellitus without complications; I10 Essential (primary) hypertension; J44.9 Chronic obstructive pulmonary disease, unspecified; I25.10 Atherosclerotic heart disease of native coronary artery without angina pectoris; E78.5 Hyperlipidemia, unspecified; I25.2 Old myocardial infarction; Z79.84 Long term (current) use of oral hypoglycemic drugs; Z79.4 Long term (current) use of insulin; Z79.899 Other long term (current) drug therapy
CPT/HCPCS: 36415; 71045; 71275; 74174; 80053; 83690; 84484; 85025; 93005; Q9967

== ENCOUNTER 2023-10-12 16:38 | Emergency (ER) | payer MEDICARE ==
[2023-10-12 18:15] LABS: SARS-CoV-2 NAA Rapid Test Not Detected (NotDetected)
[2023-10-12] MEDS ORDERED: Ipratropium/Albuterol 3 ML NEB ONE (18:21)
[2023-10-12] MEDS ORDERED: methylPREDNISolone Sod Succ/PF 125 MG/2 ML VIAL ONE (18:35)
[2023-10-12 19:07] LABS: #Eosinphils 0.5 thou/uL (0.0-0.7); #Monocytes 1.1 thou/uL (0.11-0.59); #Neutrophils 7.7 thou/uL (1.40-6.50); %Basophils 0.3 % (0.0-1.0); %Eosinophils 3.9 % (0.0-10.0); %Lymphocytes 24.6 % (21.0-51.0); %Monocytes 9.1 % (0.0-10.0); %Neutrophils 61.5 % (42.0-75.0); Hematocrit 44.8 % (42.0-52.0); Hemoglobin 15.1 g/dL (14.0-18.0); Mean Corpuscular HGB CONC 33.7 g/dL (32.0-36.0); Mean Corpuscular Hemoglobin 30.1 pg (27.0-31.0); Mean Corpuscular Volume 89.4 fl (78.0-98.0); Platelet Count 219 10x3/uL (130-400); RBC Distribution Width 12.8 % (11.5-14.5); Red Blood Cell (RBC) Count 5.01 mill/uL (4.70-6.10); White Blood Cell (WBC) Count 12.6 10x3/uL (4.8-10.8)
[2023-10-12 19:33] LABS: ALT (SGPT) 14 U/L (8-55); AST (SGOT) 14 U/L (5-34); Albumin 4.2 g/dL (3.4-4.8); Alkaline Phosphatase 65 U/L (40-110); Anion Gap 12 mmol/L (10-20); BUN (Urea Nitrogen) 32 mg/dL (8.4-25.7); Bilirubin, Total 0.8 mg/dL (0.2-1.2); Calc. Creatinine Clearance 0 mL/min (70-130); Calcium 9.3 mg/dL (7.8-10.44); Carbon Dioxide 28 mmol/L (23-31); Chloride 100 mmol/L (98-107); Estimated GFR 47; Globulin 3.2 g/dL (2.4-3.5); Glucose 93 mg/dL (80-115); Potassium 4.4 mmol/L (3.5-5.1); Protein, Total 7.4 g/dL (5.8-8.1); Sodium 136 mmol/L (136-145)
== END 2023-10-12 19:30 | disposition home or self-care (01) ==
LOC: ERS 16:38
DX: J10.1 Influenza due to other identified influenza virus with other respiratory manifestations (principal); E11.9 Type 2 diabetes mellitus without complications; I10 Essential (primary) hypertension; J44.9 Chronic obstructive pulmonary disease, unspecified; Z79.899 Other long term (current) drug therapy; Z79.84 Long term (current) use of oral hypoglycemic drugs
CPT/HCPCS: 0240U; 71045; 80053; 83735; 83880; 85025; 94640; 96374; J2930; J7620

== ENCOUNTER 2023-10-18 14:42 | Outpatient (CLI) | payer MEDICAID, MEDICARE, OTHER ==
[2023-10-18 16:50] LABS: Hematocrit 45.5 % (38.8-50.0); Hemoglobin 16.1 g/dL (13.5-17.5); Mean Corpuscular HGB CONC 35.4 g/dL (32.0-36.0); Mean Corpuscular Hemoglobin 30.1 pg (27.0-33.0); Mean Corpuscular Volume 85.2 fl (81.2-95.1); Mean Platelet Volume 9.4 fl (7.4-10.4); Platelet Count 279 10x3/uL (150-450); RBC Distribution Width 12.3 % (11.5-14.5); Red Blood Cell (RBC) Count 5.34 10x6/uL (4.32-5.72); White Blood Cell (WBC) Count 16.8 10x3/uL (3.5-10.5)
[2023-10-18 17:02] LABS: PTT 23.5 sec (22.0-33.0); Prothrombin Time 10.4 sec (9.5-12.1)
[2023-10-18 17:07] LABS: ALT (SGPT) 17 U/L (8-55); AST (SGOT) 11 U/L (5-34); Albumin 4.3 g/dL (3.4-4.8); Alkaline Phosphatase 64 U/L (40-110); Anion Gap 17 mmol/L (10-20); BUN (Urea Nitrogen) 35 mg/dL (8.4-25.7); Bilirubin, Total 0.5 mg/dL (0.2-1.2); Calc. Creatinine Clearance 0 mL/min (70-130); Calcium 9.7 mg/dL (7.8-10.44); Carbon Dioxide 25 mmol/L (23-31); Chloride 98 mmol/L (98-107); Estimated GFR 43; Glucose 336 mg/dL (83-110); Potassium 4.5 mmol/L (3.5-5.1); Protein, Total 7.3 g/dL (5.8-8.1); Sodium 135 mmol/L (136-145)
== END 2023-10-18 14:43 | disposition home or self-care (01) ==
LOC: LABBT 14:42
PROVIDERS: ATTEND Urology
DX: Z01.812 Encounter for preprocedural laboratory examination (principal); N32.0 Bladder-neck obstruction
CPT/HCPCS: 80053; 85027; 85610; 85730; 87086

== ENCOUNTER 2023-10-24 10:38 | Inpatient (IN) | payer MEDICARE ==
[2023-10-24 12:59] LABS: #Eosinphils 0.4 thou/uL (0.0-0.7); #Neutrophils 6.1 thou/uL (1.40-6.50); %Basophils 0.3 % (0.0-1.0); %Eosinophils 3.6 % (0.0-10.0); %Lymphocytes 35.8 % (21.0-51.0); %Monocytes 8.1 % (0.0-10.0); %Neutrophils 51.7 % (42.0-75.0); Hematocrit 39.6 % (42.0-52.0); Hemoglobin 13.6 g/dL (14.0-18.0); Mean Corpuscular HGB CONC 34.3 g/dL (32.0-36.0); Mean Corpuscular Hemoglobin 30.5 pg (27.0-31.0); Mean Corpuscular Volume 88.8 fl (78.0-98.0); Mean Platelet Volume 9.2 fL (7.4-10.4); Platelet Count 220 10x3/uL (130-400); RBC Distribution Width 12.6 % (11.5-14.5); Red Blood Cell (RBC) Count 4.46 mill/uL (4.70-6.10); White Blood Cell (WBC) Count 11.8 10x3/uL (4.8-10.8)
[2023-10-24] MEDS ORDERED: Ipratropium/Albuterol 3 ML NEB ONE (13:33)
[2023-10-24] MEDS ORDERED: Ipratropium/Albuterol 3 ML NEB NEB PRN (13:36)
[2023-10-24] MEDS ORDERED: LevoFLOXacin D5W 500 mg (100 mL) BAG ONE (14:39)
[2023-10-24] MEDS ORDERED: Ondansetron PF 4 MG/2 ML Vial ONE (14:44)
[2023-10-24] MEDS ORDERED: PROPOFOL 40 ML ONE (14:44)
[2023-10-24] MEDS ORDERED: Dexamethasone 4 mg/ml Vial ONE (14:44)
[2023-10-24] MEDS ORDERED: fentaNYL PF 100 MCG/2 ML SYRINGE ONE ×2 (14:44→15:12)
[2023-10-24] MEDS ORDERED: Lidocaine 1% PF 5 ML VIAL ONE (14:44)
[2023-10-24] MEDS ORDERED: PHENYLEPHRINE-NS 100 MCG/ML 10 ML SYRINGE ONE (14:58)
[2023-10-24] MEDS ORDERED: Glycopyrrolate 0.2 MG/ML 5 ML SYRINGE ONE (15:01)
[2023-10-24] MEDS ORDERED: Hydrocortisone Sod Succ/PF 100 mg/2 ml Vial ONE (15:01)
[2023-10-24] MEDS ORDERED: Acetaminophen 500 MG TAB PO PRN (16:08)
[2023-10-24] MEDS ORDERED: Albuterol 200 PUFF (6.7GM INHALER) INH SCH (16:15)
[2023-10-24] MEDS ORDERED: Dextrose 5% in Water 1,000 ML IV PRN (17:33)
[2023-10-24] MEDS ORDERED: Glucagon 1 MG/ML KIT IM PRN (17:33)
[2023-10-24] MEDS ORDERED: Dextrose 50% Abboject 50 ML SYRINGE SLOW IVP PRN (17:33)
[2023-10-24] MEDS: Nebivolol HCl 5 MG TAB PO SCH (19:51)
[2023-10-24] MEDS: hydrOXYzine 25 MG TAB PO SCH (19:51)
[2023-10-24] MEDS: Finasteride 5 MG TAB PO SCH (19:51)
[2023-10-24] MEDS: Hyoscyamine SL 0.125 MG TAB SL PRN (19:51)
[2023-10-24] MEDS: Gabapentin 300 MG CAP PO SCH (19:51)
[2023-10-24] MEDS: Docusate 100 MG CAP PO SCH (19:51)
[2023-10-24] MEDS: D5 1/2 NS w/20 mEq KCL 1,000 ML IV SCH (19:57)
[2023-10-24] MEDS: Morphine 2 MG/ML VIAL SLOW IVP SCH (20:22)
[2023-10-24] MEDS: Insulin Glargine 30 UNITS/0.3 ML VIAL SC SCH (21:30)
[2023-10-24] MEDS: HumaLOG 300 UNITS/3 ML VIAL SC PRN (21:31)
[2023-10-24] MEDS: HYDROcodone/Acetaminophen 5/325 mg Tablet PO PRN (21:39)
[2023-10-24 21:40] VITALS: BMI 31.4
[2023-10-25] MEDS ORDERED: DULAGLUTIDE 4.5 MG/0.5 ML SC SCH (09:00)
[2023-10-25 09:05] LABS: #Eosinphils 0.3 thou/uL (0.0-0.7); #Monocytes 1.5 thou/uL (0.11-0.59); #Neutrophils 9.5 thou/uL (1.40-6.50); %Basophils 0.2 % (0.0-1.0); %Eosinophils 1.8 % (0.0-10.0); %Lymphocytes 29.9 % (21.0-51.0); %Monocytes 9.4 % (0.0-10.0); %Neutrophils 58.3 % (42.0-75.0); Hematocrit 42.4 % (42.0-52.0); Hemoglobin 14.3 g/dL (14.0-18.0); Mean Corpuscular HGB CONC 33.7 g/dL (32.0-36.0); Mean Corpuscular Hemoglobin 30.6 pg (27.0-31.0); Mean Corpuscular Volume 90.6 fl (78.0-98.0); Platelet Count 237 10x3/uL (130-400); RBC Distribution Width 12.7 % (11.5-14.5); Red Blood Cell (RBC) Count 4.68 mill/uL (4.70-6.10); White Blood Cell (WBC) Count 16.2 10x3/uL (4.8-10.8)
[2023-10-25 09:26] LABS: Anion Gap 12 mmol/L (10-20); BUN (Urea Nitrogen) 23 mg/dL (8.4-25.7); Calc. Creatinine Clearance 83 mL/min (70-130); Calcium 8.8 mg/dL (7.8-10.44); Carbon Dioxide 27 mmol/L (23-31); Chloride 99 mmol/L (98-107); Estimated GFR 64; Glucose 152 mg/dL (83-110); Sodium 134 mmol/L (136-145)
[2023-10-25] MEDS: FLUoxetine HCl 20 MG CAP PO SCH (10:41)
[2023-10-25] MEDS: Cholecalciferol 1,000 UNITS (25 MCG) TAB PO SCH (10:42)
[2023-10-25] MEDS: Rosuvastatin 10 MG TAB PO SCH (10:42)
[2023-10-25] MEDS: predniSONE 5 MG TAB PO SCH (10:43)
[2023-10-25] MEDS: glipiZIDE 5 MG TAB PO SCH (10:44)
[2023-10-25] MEDS: LevoFLOXacin 500 mg/D5W 500 MG in Premix 1 BAG IVPB SCH (14:50)
[2023-10-26 08:11] VITALS: TEMP 98.7
[2023-10-26 09:34] LABS: #Basophils 0.1 thou/uL (0.0-0.2); #Eosinphils 0.4 thou/uL (0.0-0.7); #Monocytes 1.2 thou/uL (0.11-0.59); #Neutrophils 9.6 thou/uL (1.40-6.50); %Basophils 0.5 % (0.0-1.0); %Eosinophils 2.8 % (0.0-10.0); %Lymphocytes 27.8 % (21.0-51.0); %Monocytes 7.6 % (0.0-10.0); %Neutrophils 60.8 % (42.0-75.0); Hematocrit 43.3 % (42.0-52.0); Mean Corpuscular HGB CONC 32.3 g/dL (32.0-36.0); Mean Corpuscular Hemoglobin 29.7 pg (27.0-31.0); Mean Corpuscular Volume 91.7 fl (78.0-98.0); Mean Platelet Volume 9.7 fL (7.4-10.4); Platelet Count 178 10x3/uL (130-400); RBC Distribution Width 12.6 % (11.5-14.5); Red Blood Cell (RBC) Count 4.72 mill/uL (4.70-6.10); White Blood Cell (WBC) Count 15.9 10x3/uL (4.8-10.8)
[2023-10-26] MEDS: Ipratropium/Albuterol 3 ML NEB NEB SCH (10:31)
[2023-10-26 12:04] VITALS: BP 160/74
== END 2023-10-26 17:00 | disposition home or self-care (01) | DRG 666 ==
LOC: SDC 10:38 → SJJU 16:08
PROVIDERS: ADMIT Urology; ATTEND Urology
PROC: 0V508ZZ Destruction of Prostate, Via Natural or Artificial Opening Endoscopic (ICD-10-PCS; principal; 2023-10-24)
DX: N32.0 Bladder-neck obstruction (principal); F05 Delirium due to known physiological condition; N13.8 Other obstructive and reflux uropathy; I10 Essential (primary) hypertension; E78.5 Hyperlipidemia, unspecified; I25.10 Atherosclerotic heart disease of native coronary artery without angina pectoris; K21.9 Gastro-esophageal reflux disease without esophagitis; J44.9 Chronic obstructive pulmonary disease, unspecified; R31.0 Gross hematuria; E11.649 Type 2 diabetes mellitus with hypoglycemia without coma; R06.2 Wheezing; Z95.1 Presence of aortocoronary bypass graft; Z79.51 Long term (current) use of inhaled steroids; Z98.890 Other specified postprocedural states
CPT/HCPCS: 36415; 36416; 80048; 85025; 88305; 88341; 88342; 94640; A4311; J1100; J1720; J1815; J1956; J2272; J2405; J2704; J7512; J7620

== ENCOUNTER 2024-03-02 09:45 | Outpatient (CLI) | payer MEDICARE | END 2024-03-02 09:46 | disposition home or self-care (01) | LOC: SCSRAD 09:45 | PROVIDERS: ATTEND Nurse Practitioner Family | DX: R06.2 Wheezing (principal) | CPT/HCPCS: 71046 ==

== ENCOUNTER 2025-06-23 09:11 | Outpatient (CLI) | payer OTHER | END 2025-06-23 09:12 | disposition home or self-care (01) | LOC: NM 09:11 | PROVIDERS: ATTEND Internal Medicine | DX: K74.60 Unspecified cirrhosis of liver (principal); R11.2 Nausea with vomiting, unspecified; C18.9 Malignant neoplasm of colon, unspecified; B18.2 Chronic viral hepatitis C; K31.84 Gastroparesis | CPT/HCPCS: 78264; A9541 ==